=== PATIENT | female | born 1950 | race Caucasian/White ===

== ENCOUNTER 2017-07-13 06:20 | Day surgery (SDC) | payer MEDICARE ==
[2017-07-10 13:38] VITALS: BMI 25.6
[~2017-07-13 06:20] MED LIST: HYDROmorphone 0.5 MG/0.5 ML SYRINGE IVP PRN; LACTATED RINGERS 1,000 ML IV SCH; MIDAZOLAM 2 MG/2 ML VIAL IV PRN; ONDANSETRON 4 MG/2 ML VIAL IVP ONE; Pre Op ABX Message 1 EACH MISC MISCELLANE ONE
[2017-07-13 06:51] VITALS: TEMP 98.2
[2017-07-13] MEDS ORDERED: LIDOCAINE 1% 20 ML VIAL (10MG/ML) FOR IV START INTRADERMA ONE (07:08)
[2017-07-13] MEDS ORDERED: DEXAMETHASONE SOD PHOSPHATE 10 MG/ML 1 ML VIAL IV ONE (07:08)
[2017-07-13] MEDS ORDERED: HEPARIN SODIUM,PORCINE 5,000 UNIT/ML 1 ML VIAL SQ ONE (07:40)
[2017-07-13] MEDS ORDERED: MIDAZOLAM 2 MG/2 ML VIAL ONE (07:45)
[2017-07-13] MEDS ORDERED: fentaNYL (PF) 50 MCG/ML 2 ML AMP ONE (07:45)
[2017-07-13] MEDS ORDERED: PROPOFOL 10 MG/ML 20 ML VIAL IV ONE (07:45)
[2017-07-13] MEDS ORDERED: HEPARIN SODIUM,PORCINE 100 UNIT/ML 5 ML VIAL IV ONE (08:09)
[2017-07-13] MEDS ORDERED: LIDOCAINE (PF) 10 MG/ML 2 ML VIAL SQ ONE (08:10)
[2017-07-13] MEDS ORDERED: SODIUM CHLORIDE 0.9% 0 ML with ceFAZolin 2,000 MG IV ONE ×2 (08:20)
--- NOTE | 2017-07-13 08:52 | FL ---
EXAMINATION TYPE: FL guided central line placemt HISTORY: Fluoroscopy time Impression: 1. Fluoroscopy support provided to the referring physician. 13 seconds of fluoroscopy time provided.
[2017-07-13] MEDS ORDERED: NALOXONE 0.4 MG/ML 1 ML VIAL IV PRN (09:00)
[2017-07-13] MEDS ORDERED: HYDROcodone/APAP 5-325MG 1 EACH TAB PO PRN (09:00)
--- NOTE | 2017-07-13 09:15 | P.PCN ---
Date of Procedure: 07/13/17 Procedure(s) Performed: PREOPERATIVE DIAGNOSIS: Colon cancer POSTOPERATIVE DIAGNOSIS: Same PROCEDURE: Port-A-Cath placement SURGEON: Ade EBL: Minimal ANESTHESIA: Sedation COMPLICATIONS: None OPERATIVE PROCEDURE: Patient was brought and placed on the operative table in the supine position. The patient was sedated per anesthesia that time. The chest and neck were prepped and draped in usual sterile fashion. The ultrasound probe was used to identify the location of the right internal jugular vein. The skin was localized with lidocaine. The Seldinger needle was advanced into the IJ under ultrasound guidance. The wire was advanced through the needle under fluoroscopic guidance into the superior vena cava. A port pocket was created in the right infraclavicular location. The catheter was tunneled from the wire entrance site to the port pocket. The port was then connected to the catheter. The dilator introducer was threaded over the guidewire. The guidewire and dilator were then removed. The catheter was advanced through the introducer and introducer was then removed. The tip was seen to be in the right atrial junction. Port was flushed with both saline and a Hep-Lock solution. There was good flow both in and out of the port. The port was sutured in underlying tissues using 3-0 silk sutures. The subcutaneous tissues were reapproximated using 3-0 Vicryl sutures and the skin at both locations using 4-0 Monocryl sutures. Steri-Strips and sterile dressings then applied. DISPOSITION: Stable to recovery room
--- NOTE | 2017-07-13 09:20 | XR ---
EXAMINATION TYPE: XR chest 1V confirm line [facility] DATE OF EXAM: 07/13/2017 COMPARISON: NONE HISTORY: Postop TECHNIQUE: Single frontal view of the chest is obtained. FINDINGS: Mediport catheter noted. Hyperinflation suggests COPD. Atherosclerotic change aorta. No ov ert failure. No pleural effusion or pneumothorax. IMPRESSION: Mediport catheter appears in good position with no sizable pneumothorax.
[2017-07-13 09:29] VITALS: BP 104/62; PULSE 74; RESP 18
[2017-07-13] MEDS ORDERED: HYDROcodone/APAP 5-325MG 1 EACH TAB PO ONE (09:41)
== END 2017-07-13 10:20 | disposition home or self-care (01) ==
LOC: OR 06:20
PROVIDERS: ATTEND Surgery
DX: C18.9 Malignant neoplasm of colon, unspecified (principal); Z88.5 Allergy status to narcotic agent; Z79.891 Long term (current) use of opiate analgesic; Z79.82 Long term (current) use of aspirin; Z79.899 Other long term (current) drug therapy; Z86.73 Personal history of transient ischemic attack (TIA), and cerebral infarction without residual deficits; Z87.891 Personal history of nicotine dependence
CPT/HCPCS: 36561; 77001; C1788; J2250; J2001; J1644; J1642; J1100; J2405; J3010; J0690; J2704

== ENCOUNTER → 2018-01-31 | Outpatient (CLI) | payer MEDICARE ==
[~2018-01-31] MED LIST changes: -HYDROmorphone 0.5 MG/0.5 ML SYRINGE IVP PRN; -LACTATED RINGERS 1,000 ML IV SCH; -MIDAZOLAM 2 MG/2 ML VIAL IV PRN; -ONDANSETRON 4 MG/2 ML VIAL IVP ONE; -Pre Op ABX Message 1 EACH MISC MISCELLANE ONE; +SODIUM CHLORIDE 0.9% 500 ML in EMPTY BAG 1 BAG IV PRN
[2018-01-31 14:08] VITALS: BP 127/86; PULSE 86; RESP 16; TEMP 98
== END | disposition home or self-care (01) ==
LOC: PROCWHC3 13:46
PROVIDERS: ATTEND Internal Medicine Hematology & Oncology
DX: C18.2 Malignant neoplasm of ascending colon (principal)
CPT/HCPCS: 96523; J1642

== ENCOUNTER → 2018-03-28 | Outpatient (CLI) | payer MEDICARE ==
[2018-03-28 10:15] VITALS: BP 120/72; PULSE 87; RESP 16; TEMP 97.6
== END | disposition home or self-care (01) ==
LOC: PROCWHC3 09:38
PROVIDERS: ATTEND Internal Medicine Hematology & Oncology
DX: C18.2 Malignant neoplasm of ascending colon (principal)
CPT/HCPCS: 96523

== ENCOUNTER → 2018-05-23 | Outpatient (CLI) | payer MEDICARE ==
[2018-05-23 14:22] LABS: Blood Urea Nitrogen 11 mg/dL (7-17)
--- NOTE | 2018-05-23 16:30 | CT ---
EXAMINATION TYPE: CT abdomen pelvis w con DATE OF EXAM: 05/23/2018 COMPARISON: 11/18/2014 HISTORY: colon ca CT DLP: 1082 mGycm CONTRAST: CT scan of the abdomen and pelvis is performed with Oral Contrast and with IV Contrast, patient injec emily with 100mL mL of Isovue 300. FINDINGS: LUNG BASES-: No visible nodule. No infiltrate. LIVER/GB: Fatty hepatic infiltration noted. Cholelithiasis. No space occupying hepatic lesion. Bilia ry tree is of normal caliber. PANCREAS: No inflammation. No distinct mass. SPLEEN: No splenic enlargement. No lesion seen. ADRENALS: No nodule. Adrenal glandular thickening with more nodular component seen on the right. Nod ule on the right measures approximately 1.7 cm. Metastatic disease is difficult to exclude. KIDNEYS/B LADDER: No hydronephrosis. No nephrolithiasis. No distinct renal mass. Urinary bladder grossly un remarkable. BOWEL: Partial right-sided hemicolectomy. No recurrent mass seen with certainty. Normal bowel calibe r. No inflammation. Moderate fixed hiatal hernia. GENITAL ORGANS: No gross abnormality. LYMPH NODES: Periportal adenopathy measuring 2.3 cm and 2.5 cm with additional smaller lymph nodes se en. There is evidence of para-aortic adenopathy. Left para-aortic lymph node mass measures 2.7 cm whi le on the right 2.8 cm. Adenopathy extends bilaterally through the aortic bifurcation. Internal iliac chain adenopathy is also noted bilaterally. No evidence for inguinal adenopathy. Mesenteric lymph no de mass measuring 5.5 x 2.4 cm. AORTA: No significant abnormality. OSSEOUS STRUCTURES: No significant abnormality is seen. OTHER: No significant additional abnormality is seen. IMPRESSION: 1. New adenopathy within the retroperitoneum, small bowel mesentery and periportal regions may reflec t lymphoma. Adenopathy of other etiology is difficult to exclude. 2. No evidence for tumor recurrence within the colon. 3. Adrenal glandular thickening and nodularity on the right. Metastatic disease is not excluded. 4. Cholelithiasis.
--- NOTE | 2018-05-23 22:02 | CT ---
EXAMINATION TYPE: CT lumbar spine w con DATE OF EXAM: 05/23/2018 COMPARISON: None HISTORY: colon ca with back pain. CT DLP: 1082 mGycm Automated exposure control for dose reduction was used. CONTRAST: CT scan of the lumbar is performed with IV Contrast, patient injected with 100mL mL of Isovue 300. Enhanced CT of the lumbar spine was performed. Bone and soft tissue window settings are submitted as well as coronal and sagittal reconstructions. Please refer to same day CT abdomen and pelvis report for complete details on the structures outside the lumbar spine including confluent retroperitoneal adenopathy surrounding the aorta into the iliac bifurcation. There are 5 lumbar-type vertebra identified. There is slight levoconvex scoliotic curvat ure centered at L3 level. Vertebral body heights and disc space heights are fairly well maintained. N o significant spurring is present. No large posterior disc herniations are present on sagittal images . No suspicious osseous enhancement. Review of axial images shows mild broad disc bulge and mild facet degenerative changes with ligamentu m flavum hypertrophy at L4-L5 level. There is mild effacement of the anterior and posterior lateral t hecal sac. Bilateral neuroforamina are patent. Axial images at L5-S1 level show mild to moderate facet degenerative changes bilaterally. Spinal ever l is preserved. Bilateral neural foramina are patent. IMPRESSION: Mild degenerative changes lower lumbar spine.
== END | disposition home or self-care (01) ==
LOC: RADPROMAIN 13:22
PROVIDERS: ATTEND Internal Medicine Hematology & Oncology
DX: C18.2 Malignant neoplasm of ascending colon (principal); K80.20 Calculus of gallbladder without cholecystitis without obstruction; E27.8 Other specified disorders of adrenal gland; M47.816 Spondylosis without myelopathy or radiculopathy, lumbar region
CPT/HCPCS: 82565; 84520; 72132; 74177; 36415; Q9967

== ENCOUNTER 2018-06-01 11:13 | Inpatient (IN) | payer MEDICARE ==
[2018-06-01] MEDS ORDERED: KETOROLAC 30 MG/ML 1 ML VIAL IVP STA (12:06)
[2018-06-01] MEDS ORDERED: ONDANSETRON 4 MG/2 ML VIAL IVP STA (12:06)
[2018-06-01] MEDS ORDERED: HYDROmorphone 0.5 MG/0.5 ML SYRINGE IVP STA (12:06)
[2018-06-01] MEDS ORDERED: SODIUM CHLORIDE 0.9% 1,000 ML IV STA (12:06)
--- NOTE | 2018-06-01 12:10 | ED ---
General Adult HPI - General Chief complaint: Abdominal Pain Stated complaint: pain control Time Seen by Provider: 06/01/18 11:35 Source: patient, RN notes reviewed Mode of arrival: ambulatory Limitations: no limitations - History of Present Illness Initial comments: This is a 68-year-old female presents emergency Department complaining of chronic back and abdominal pain. Patient states she's had colon cancer and had surgery by Dr. earl the past. Patient has had recent CAT scans that showed lymph nodes around the spine in the lower abdomen and she is supposed to have those biopsied on Sunday at [facility]. Patient states the pain is same as it has been for a few months but is getting worse. Patient had a fentanyl patch added to the [place] tends every 4 hours and she is still unable to get up and move around because the pain is so intense. Patient states she palpates her abdomen and cannot feel a specific area of abdominal pain but it hurts deep inside. Patient states she sometimes nauseous but not currently. Patient states she sometimes has diarrhea because of all the stool softener she is on. Patient denies any fever or chills. Patient denies a cough patient denies any difficulty breathing chest pain. Patient denies any lightheadedness or dizziness. - Related Data Home Medications Medication Instructions Recorded Confirmed Acetaminophen [Tylenol] 325 - 650 mg PO Q4H PRN 07/10/17 03/28/18 Multivitamins, Thera [Multivitamin 1 dose PO DAILY 07/10/17 03/28/18 (formulary)] Allergies Allergy/AdvReac Type Severity Reaction Status Date / Time tramadol HCl [From Ultram] Allergy Severe PARALYZED Verified 06/01/18 11:37 FOR HOURS, UNABLE TO MOVE" Review of Systems ROS Statement: Those systems with pertinent positive or pertinent negative responses have been documented in the HPI. ROS Other: All systems not noted in ROS Statement are negative. Past Medical History Past Medical History: CVA/TIA, Deep Vein Thrombosis (DVT), Hyperlipidemia, Osteoarthritis (OA) Additional Past Medical History / Comment(s): OSTEOPOROSIS, "SMALL BRAIN BLEEDS "-NO RESIDUAL EFFECTS,HX OF DVT YEARS AGO AFTER TAKING CONTROL PILLS History of Any Multi-Drug Resistant Organisms: None Reported Past Surgical History: Bladder Surgery, Hysterectomy, Tonsillectomy Additional Past Surgical History / Comment(s): bladder suspension, colon cancer Past Anesthesia/Blood Transfusion Reactions: No Reported Reaction, Motion Sickness Past Psychological History: No Psychological Hx Reported Smoking Status: Former smoker Past Alcohol Use History: None Reported Past Drug Use History: None Reported - Past Family History Mother Family Medical History: Cancer Additional Family Medical History / Comment(s): BREAST Father Family Medical History: Cancer Additional Family Medical History / Comment(s): PANCREATIC Sister(s) Family Medical History: Cancer Additional Family Medical History / Comment(s): BREAST General Exam - General Exam Comments Initial Comments: GENERAL: Patient is well-developed and well-nourished. Patient is nontoxic and well- hydrated and is in moderate distress. ENT: Neck is soft and supple. No significant lymphadenopathy is noted. Oropharynx is clear. Moist mucous membranes. Neck has full range of motion without eliciting any pain. EYES: The sclera were anicteric and conjunctiva were pink and moist. Extraocular movements were intact and pupils were equal round and reactive to light. Eyelids were unremarkable. PULMONARY: Unlabored respirations. Good breath sounds bilaterally. No audible rales rhonchi or wheezing was noted. CARDIOVASCULAR: There is a regular rate and rhythm without any murmurs gallops or rubs. ABDOMEN: Soft and nontender with normal bowel sounds. No palpable organomegaly was noted. There is no palpable pulsatile mass. SKIN: Skin is clear with no lesions or rashes and otherwise unremarkable. NEUROLOGIC: Patient is alert and oriented x3. Cranial nerves II through XII are grossly intact. Motor and sensory are also intact. Normal speech, volume and content. Symmetrical smile. MUSCULOSKELETAL: Normal extremities with adequate strength and full range of motion. No lower extremity swelling or edema. No calf tenderness. LYMPHATICS: No significant lymphadenopathy is noted PSYCHIATRIC: Normal psychiatric evaluation. Normal interpersonal interactions appears functionally intact in deals appropriately with others. Limitations: no limitations Course Vital Signs 06/01/18 06/01/18 11:35 13:42 Temperature 98.4 F Pulse Rate 90 79 Respiratory 18 16 Rate Blood Pressure 117/76 120/58 O2 Sat by Pulse 96 99 Oximetry Medical Decision Making - Medical Decision Making KUB shows no acute abnormality. Patient's pain was initially relieved with Toradol and 0.5 Dilaudid so I repeated a 1 mg dose of Dilaudid. I spoke with Dr. Lyons he agreed to admit the patient admitted the patient. I consult to Dr. Tejada - Lab Data Result diagrams: 06/01/18 12:36 06/01/18 12:36 Lab Results 06/01/18 06/01/18 06/01/18 Range/Units 12:36 12:36 12:36 WBC 5.0 (3.8-10.6) k/uL RBC 5.08 (3.80-5.40) m/uL Hgb 14.4 (11.4-16.0) gm/dL Hct 43.9 (34.0-46.0) % MCV 86.4 (80.0-100.0) fL MCH 28.3 (25.0-35.0) pg MCHC 32.7 (31.0-37.0) g/dL RDW 14.4 (11.5-15.5) % Plt Count 216 (150-450) k/uL Neutrophils % 63 % Lymphocytes % 22 % Monocytes % 7 % Eosinophils % 6 % Basophils % 1 % Neutrophils # 3.1 (1.3-7.7) k/uL Lymphocytes # 1.1 (1.0-4.8) k/uL Monocytes # 0.4 (0-1.0) k/uL Eosinophils # 0.3 (0-0.7) k/uL Basophils # 0.1 (0-0.2) k/uL Sodium 139 (137-145) mmol/L Potassium 3.6 (3.5-5.1) mmol/L Chloride 102 (98-107) mmol/L Carbon Dioxide 22 (22-30) mmol/L Anion Gap 15 mmol/L BUN 9 (7-17) mg/dL Creatinine 0.47 L (0.52-1.04) mg/dL Est GFR (CKD-EPI)AfAm >90 (>60 ml/min/1.73 sqM) Est GFR (CKD-EPI)NonAf >90 (>60 ml/min/1.73 sqM) Glucose 123 H (74-99) mg/dL Calcium 10.3 H (8.4-10.2) mg/dL Total Bilirubin 0.7 (0.2-1.3) mg/dL AST 29 (14-36) U/L ALT 33 (9-52) U/L Alkaline Phosphatase 175 H (38-126) U/L Total Protein 7.8 (6.3-8.2) g/dL Albumin 4.3 (3.5-5.0) g/dL Amylase 38 (30-110) U/L Lipase 60 (23-300) U/L Urine Color Yellow Urine Appearance Cloudy H (Clear) Urine pH 6.0 (5.0-8.0) Ur Specific [place] 1.027 (1.001-1.035) Urine Protein 1+ H (Negative) Urine Glucose (UA) Negative (Negative) Urine Ketones 4+ H (Negative) Urine Blood Negative (Negative) Urine Nitrite Negative (Negative) Urine Bilirubin 1+ H (Negative) Urine Urobilinogen 3.0 (<2.0) mg/dL Ur Leukocyte Esterase Trace H (Negative) Urine RBC 2 (0-5) /hpf Urine WBC 7 H (0-5) /hpf Ur Squamous Epith Cells 1 (0-4) /hpf Calcium Oxalate Crystal Occasional H (None) /hpf Urine Bacteria Rare H (None) /hpf Hyaline Casts 11 H (0-2) /lpf Urine Mucus Few H (None) /hpf Disposition Clinical Impression: History of colon cancer, Chronic abdominal pain Disposition: ADMITTED IP TO THIS HOSP Instructions: Abdominal Pain (ED) Referrals: Radha Velasquez MD [Primary Care Provider] - 1-2 days Time of Disposition: 13:51
[2018-06-01 12:48] LABS: Basophils # (A) 0.1 k/uL (0-0.2); Basophils % (A) 1 %; Eosinophils # (A) 0.3 k/uL (0-0.7); Eosinophils % (A) 6 %; HCT 43.9 % (34.0-46.0); HGB 14.4 gm/dL (11.4-16.0); Lymphocytes # (A) 1.1 k/uL (1.0-4.8); Lymphocytes % (A) 22 %; MCH 28.3 pg (25.0-35.0); MCHC 32.7 g/dL (31.0-37.0); MCV 86.4 fL (80.0-100.0); Mean Platelet Volume 8.5; Monocytes # (A) 0.4 k/uL (0-1.0); Monocytes % (A) 7 %; Neutrophils # (A) 3.1 k/uL (1.3-7.7); Neutrophils % (A) 63 %; Platelet Count 216 k/uL (150-450); RBC 5.08 m/uL (3.80-5.40); RDW 14.4 % (11.5-15.5)
[2018-06-01 12:53] LABS: Appearance,Urine Cloudy (Clear); Bacteria,Urine Rare /hpf; Bilirubin,Urine 1+ (Negative); Blood,Urine Negative (Negative); Calcium Oxalate Crystals,Urine Occasional /hpf; Color,Urine Yellow; Glucose,Urine (UA) Negative (Negative); Hyaline Casts,Urine 11 /lpf (0-2); Ketones,Urine 4+ (Negative); Leukocyte Esterase,Urine Trace (Negative); Mucus,Urine Few /hpf; Nitrite,Urine Negative (Negative); Protein,Urine 1+ (Negative); RBC,Urine 2 /hpf (0-5); Specific Gravity,Urine 1.027 (1.001-1.035); Squamous Epithelial Cell,Urine 1 /hpf (0-4); WBC,Urine 7 /hpf (0-5)
[2018-06-01 13:00] LABS: ALT 33 U/L (9-52); AST 29 U/L (14-36); Albumin 4.3 g/dL (3.5-5.0); Alkaline Phosphatase 175 U/L (38-126); Amylase 38 U/L (30-110); Anion Gap 15 mmol/L; Blood Urea Nitrogen 9 mg/dL (7-17); Calcium 10.3 mg/dL (8.4-10.2); Carbon Dioxide 22 mmol/L (22-30); Chloride 102 mmol/L (98-107); Glucose 123 mg/dL (74-99); Lipase 60 U/L (23-300); Potassium 3.6 mmol/L (3.5-5.1); Sodium 139 mmol/L (137-145); Total Bilirubin 0.7 mg/dL (0.2-1.3); Total Protein 7.8 g/dL (6.3-8.2)
--- NOTE | 2018-06-01 13:10 | XR ---
EXAMINATION TYPE: XR KUB , 3 VIEWS DATE OF EXAM ORDERED: 06/01/2018 HISTORY: abdominal pain. COMPARISON: None. FINDINGS: Lung bases are clear. Within the abdomen, there is contrast within the colon from a previous CT scan of the abdomen and pel vis dated 05/23/2018. The abdominal gas pattern is normal. There is no evidence of obstruction or free air. No unusual calcifications are seen. IMPRESSION: NO ACUTE ABDOMINAL ABNORMALITY.
[2018-06-01] MEDS ORDERED: HYDROmorphone 1 MG/ML 1 ML SYRINGE IVP STA (13:36)
[2018-06-01] MEDS ORDERED: SODIUM CHLORIDE 0.9% 1,000 ML IV ONE (13:51)
[2018-06-01] MEDS ORDERED: HYDROmorphone 1 MG/ML 1 ML SYRINGE IVP PRN (14:02)
[2018-06-01 15:44] VITALS: BMI 23.8
[2018-06-01] MEDS ORDERED: HYDROcodone/APAP 10-325MG 1 EACH TAB PO PRN (16:46)
[2018-06-01] MEDS: HYDROmorphone 1 MG/ML 1 ML SYRINGE IVP PRN ×2 (17:24→21:04)
[2018-06-01] MEDS: MELATONIN 5 MG TABLET PO SCH (21:07)
[2018-06-01] MEDS: SENNOSIDES-DOCUSATE SODIUM 1 EACH TAB PO SCH (21:07)
[2018-06-02] MEDS: HYDROmorphone 1 MG/ML 1 ML SYRINGE IVP PRN ×8 (00:33→22:46)
[2018-06-02] MEDS: POLYETHYLENE GLYCOL 3350 17 GM POWD.PACK PO SCH (07:55)
[2018-06-02] MEDS ORDERED: HYDROcodone/APAP 10-325MG 1 EACH TAB PO PRN (15:25)
--- NOTE | 2018-06-02 16:27 | P.HPIM ---
History of Present Illness H&P Date: 06/02/18 Mable Gross is a 68-year-old female who presented to [facility] emergency department complaining of chronic back and abdominal pain. Patient states she has colon cancer and had surgery by Dr. earl the past. Patient has had recent CAT scans that showed lymph nodes around the spine in the lower abdomen and she is supposed to have those biopsied on Sunday at [facility]. Patient states the pain is same as it has been for a few months but is getting worse. Patient had a fentanyl patch 25 g added to the [place] tends every 4 hours and she is still unable to get up and move around because the pain is so intense. She was admitted to medical floor for management of intractable pain. Oncology consultation was requested. Past Medical History Past Medical History: Cancer, CVA/TIA, Deep Vein Thrombosis (DVT), Osteoarthritis (OA) Additional Past Medical History / Comment(s): OSTEOPOROSIS, "SMALL BRAIN BLEEDS "-NO RESIDUAL EFFECTS,HX OF DVT YEARS AGO AFTER TAKING CONTROL PILLS History of Any Multi-Drug Resistant Organisms: None Reported Past Surgical History: Bladder Surgery, Hysterectomy, Tonsillectomy Additional Past Surgical History / Comment(s): bladder suspension, colon cancer Past Anesthesia/Blood Transfusion Reactions: No Reported Reaction, Motion Sickness Past Psychological History: No Psychological Hx Reported Smoking Status: Former smoker Past Alcohol Use History: None Reported Past Drug Use History: None Reported Additional Drug Use History / Comment(s): SMOKED OFF & ON , DID NOT SMOKE DURING 5 PREGNANCIES AND 9 YRS OF . - Past Family History Mother Family Medical History: Cancer Additional Family Medical History / Comment(s): BREAST Father Family Medical History: Cancer Additional Family Medical History / Comment(s): PANCREATIC Sister(s) Family Medical History: Cancer Additional Family Medical History / Comment(s): BREAST Medications and Allergies Home Medications Medication Instructions Recorded Confirmed Type HYDROcodone/APAP 10-325MG [[place] 1 tab PO Q4HR PRN 06/01/18 06/01/18 History 10-325] Melatonin 10 mg PO HS 06/01/18 06/01/18 History Polyethylene Glycol 3350 [Miralax] 17 gm PO DAILY 06/01/18 06/01/18 History Sennosides-Docusate Sodium 2 tab PO HS 06/01/18 06/01/18 History [Senokot-S] fentaNYL 25MCG/HR PATCH [Duragesic 1 patch TRANSDERM Q72H 06/01/18 06/01/18 History 25MCG/HR] Allergies Allergy/AdvReac Type Severity Reaction Status Date / Time tramadol HCl [From Ultram] Allergy Severe PARALYZED Verified 06/01/18 13:57 FOR HOURS, UNABLE TO MOVE" Physical Exam Vitals: Vital Signs Temp Pulse Resp BP Pulse Ox 06/02/18 14:30 97.9 F 79 16 106/58 98 06/02/18 07:00 97.6 F 80 16 111/59 98 06/01/18 23:00 96.5 F L 82 16 112/60 97 Intake and Output 06/02/18 06/02/18 06/02/18 06:59 14:59 22:59 Intake Total 600 1200 Balance 600 1200 Intake: Intake, IV Titration 600 600 Amount Sodium Chloride 0.9% 1, 600 600 000 ml @ 75 mls/hr IV . [id number] ONE Rx#:[id number] Oral 600 Other: Voiding Method Toilet Toilet # Voids 1 2 In general patient is alert and oriented 3 in no apparent distress HEENT head normocephalic and atraumatic Neck is supple no JVD no goiter no lymphadenopathy Chest exam reveals a few scattered crackles no wheezing Cardiac exam reveals regular heart sounds no gallops no murmurs Abdomen is soft with mild diffuse tenderness no organomegaly no palpable masses was normal bowel sounds Extremity exam reveals no edema no cyanosis or clubbing Results CBC & Chem 7: 06/01/18 12:36 06/01/18 12:36 Thrombosis Risk Factor Assmnt - Choose All That Apply Any of the Below Risk Factors Present?: No Each Risk Factor Represents 2 Points: Age 61-74 years Other congenital or acquired thrombophilia - If yes, enter type in comment: No Thrombosis Risk Factor Assessment Total Risk Factor Score: 2 Thrombosis Risk Factor Assessment Level: Low Risk Assessment and Plan Plan: #1 intractable abdominal and back pain, with failure to control pain as outpatient on oral pain medication and fentanyl patch #2 previous history of colon cancer was partial colectomy #3 enlarged abdominal lymph nodes, patient is scheduled to have a biopsy at [facility] on Sunday #4 previous history of DVT #5 underlying history of osteoporosis At this time patient is admitted to medical floor oncology consultation was requested Patient was started on IV dialogued of every 3 hours Dose of fentanyl patch was increased to 50 g daily Will follow during this admission for medical management
[2018-06-02] MEDS: MELATONIN 5 MG TABLET PO SCH (20:33)
[2018-06-02] MEDS: SENNOSIDES-DOCUSATE SODIUM 1 EACH TAB PO SCH (20:34)
--- NOTE | 2018-06-02 23:46 | P.CONS ---
History of Present Illness - Reason for Consult Consult date: 06/02/18 Intractable abdominal and back pain. Colon cancer - History of Present Illness The patient is a 68-year-old white female, well known to myself. She was diagnosed with colon cancer, in 06/24, with staging workup including PET scan indicating stage IV disease. The patient was treated with FOLFOX, with a good response. However her tolerance was comparatively poor requiring periodic dose modifications and dose delays. We were was not able to complete the planned 12 cycles. The patient was placed on observation after chemotherapy. At her 3 month follow-up, CT scans indicated disease progression with increasing lymphadenopathy in the retroperitoneal area. CEA level was also elevated. The patient was very reluctant to have additional chemotherapy. Despite the clinical situation (decreased appetite, increasing pain and increasing adenopathy on computed tomography scan) the patient stated that she was skeptical as to whether this was cancer or not as well as whether this was colon cancer or some other primary. Based on her wishes, it was decided to proceed with a biopsy. This is scheduled at [facility] on 06/07/18. In the meantime the patient has been having increased upper abdominal and midback pain. She had been on [place] which was not effective. Fentanyl patch was added about 2 weeks ago. However the patient states that the pain was not controlled and has continued to progress. Associated symptoms include some nausea, as well as decreased appetite and progressive weight loss of about 20+ pounds in the past 6 weeks. She therefore came into the hospital and was admitted for further management Review of Systems Constitutional: Reports chronic pain, Reports fatigue, Reports poor appetite, Reports weight loss Eyes: denies blurred vision, denies pain Ears: deny: decreased hearing, ear discharge, earache, tinnitus Ears, nose, mouth and throat: Denies headache, Denies sore throat Cardiovascular: Reports decreased exercise tolerance Respiratory: Denies cough Gastrointestinal: Reports abdominal pain, Reports loss of appetite Genitourinary: Denies dysuria, Denies hematuria Menstruation: Reports postmenopausal Musculoskeletal: Reports low back pain, Reports muscle weakness Integumentary: Denies pruritus, Denies rash Neurological: Reports weakness, Denies numbness Psychiatric: Reports anxiety Endocrine: Reports fatigue, Reports weight change Hematologic/Lymphatic: Reports as per HPI Past Medical History Past Medical History: Cancer, CVA/TIA, Deep Vein Thrombosis (DVT), Osteoarthritis (OA) Additional Past Medical History / Comment(s): OSTEOPOROSIS, "SMALL BRAIN BLEEDS "-NO RESIDUAL EFFECTS,HX OF DVT YEARS AGO AFTER TAKING CONTROL PILLS History of Any Multi-Drug Resistant Organisms: None Reported Past Surgical History: Bladder Surgery, Hysterectomy, Tonsillectomy Additional Past Surgical History / Comment(s): bladder suspension, colon cancer Past Anesthesia/Blood Transfusion Reactions: No Reported Reaction, Motion Sickness Past Psychological History: No Psychological Hx Reported Smoking Status: Former smoker Past Alcohol Use History: None Reported Past Drug Use History: None Reported Additional Drug Use History / Comment(s): SMOKED OFF & ON , DID NOT SMOKE DURING 5 PREGNANCIES AND 9 YRS OF . - Past Family History Mother Family Medical History: Cancer Additional Family Medical History / Comment(s): BREAST Father Family Medical History: Cancer Additional Family Medical History / Comment(s): PANCREATIC Sister(s) Family Medical History: Cancer Additional Family Medical History / Comment(s): BREAST Medications and Allergies Home Medications Medication Instructions Recorded Confirmed Type HYDROcodone/APAP 10-325MG [[place] 1 tab PO Q4HR PRN 06/01/18 06/01/18 History 10-325] Melatonin 10 mg PO HS 06/01/18 06/01/18 History Polyethylene Glycol 3350 [Miralax] 17 gm PO DAILY 06/01/18 06/01/18 History Sennosides-Docusate Sodium 2 tab PO HS 06/01/18 06/01/18 History [Senokot-S] fentaNYL 25MCG/HR PATCH [Duragesic 1 patch TRANSDERM Q72H 06/01/18 06/01/18 History 25MCG/HR] Allergies Allergy/AdvReac Type Severity Reaction Status Date / Time tramadol HCl [From Ultra] Allergy Severe PARALYZED Verified 06/01/18 13:57 FOR HOURS, UNABLE TO MOVE" Physical Exam Vitals: Vital Signs Temp Pulse Pulse Resp BP BP Pulse Ox 06/02/18 07:00 97.6 F 80 16 111/59 98 06/01/18 23:00 96.5 F L 82 16 112/60 97 06/01/18 14:31 97.4 F L 72 18 110/55 99 06/01/18 13:42 79 16 120/58 99 Intake and Output 06/01/18 06/02/18 06/02/18 22:59 06:59 14:59 Intake Total 815 600 Balance 815 600 Intake: Intake, IV Titration 225 600 Amount Sodium Chloride 0.9% 1, 225 600 000 ml @ 75 mls/hr IV . [id number] ONE Rx#:[id number] Oral 590 Other: Voiding Method Toilet Toilet # Voids 2 1 - Constitutional General appearance: no acute distress - EENT Eyes: EOMI, PERRLA ENT: hearing grossly normal, normal oropharynx - Neck Neck: no lymphadenopathy Thyroid: bilateral: normal size - Respiratory Respiratory: bilateral: CTA - Cardiovascular Rhythm: regular Heart sounds: normal: S1, S2 - Gastrointestinal General gastrointestinal: normal bowel sounds, soft - Integumentary Integumentary: normal - Neurologic Neurologic: CNII-XII intact - Musculoskeletal Musculoskeletal: generalized weakness, strength equal bilaterally - Psychiatric Psychiatric: A&O x's 3, appropriate affect Results CBC & Chem 7: 06/01/18 12:36 06/01/18 12:36 Labs: Abnormal Lab Results - Last 24 Hours (Table) 06/01/18 06/01/18 Range/Units 12:36 12:36 Creatinine 0.47 L (0.52-1.04) mg/dL Glucose 123 H (74-99) mg/dL Calcium 10.3 H (8.4-10.2) mg/dL Alkaline Phosphatase 175 H (38-126) U/L Urine Ketones 4+ H (Negative) Comments: CT spine report reviewed CT scan - abdomen: report reviewed CT scan - pelvis: report reviewed Assessment and Plan (1) Chronic abdominal pain Narrative/Plan: This has become progressively more intractable with associated symptoms as noted, leading to this admission. Based on her clinical presentation, this is felt to be related to progression of cancer. The patient has not had a good response with fentanyl and [place] at home. She is currently on IV Dilaudid for breakthrough pain. Fentanyl dose will be increased. I will also consult the pain service to see if she could be a candidate for a celiac plexus block. - Stop [place] as this has not been effective as an outpt. - If pt responds to IV Dilaudid, liquid morphine can be utilised for breakthrough pain. Current Visit: Yes Status: Acute Code(s): R10.9 - UNSPECIFIED ABDOMINAL PAIN ; G89.29 - OTHER CHRONIC PAIN SNOMED Code(s): 868714947 (2) History of colon cancer Narrative/Plan: The patient's clinical presentation is most suggestive of progression of her known colon cancer. However the patient and her family have requested a tissue diagnosis for confirmation. Despite detailed discussions of the implications of her clinical presentation, they're stating that they are "hoping it is not cancer" ! She had a computed tomography scan on 05/23/18 which was not compared to her previous scan done a few weeks prior at an outside hospital. Though I do not have access to that report presently, based on my recollection, the most recent scan indicated further progression. I discussed with the patient and her daughter about possibly having a biopsy locally if the current findings are more accessible. However they have decided to have it at [facility] as scheduled on 06/07/18 - Repeat CEA Current Visit: Yes Status: Acute Code(s): Z85.038 - PERSONAL HISTORY OF MALIGNANT NEOPLASM OF LARGE INTESTINE SNOMED Code(s): 849303267
[2018-06-03] MEDS: HYDROmorphone 1 MG/ML 1 ML SYRINGE IVP PRN ×6 (03:27→20:09)
[2018-06-03 07:08] LABS: Basophils # (A) 0.1 k/uL (0-0.2); Basophils % (A) 1 %; Eosinophils # (A) 0.2 k/uL (0-0.7); Eosinophils % (A) 5 %; HCT 39.4 % (34.0-46.0); HGB 12.1 gm/dL (11.4-16.0); Hypochromasia Slight; Lymphocytes # (A) 0.9 k/uL (1.0-4.8); Lymphocytes % (A) 22 %; MCH 27.6 pg (25.0-35.0); MCHC 30.7 g/dL (31.0-37.0); MCV 90.1 fL (80.0-100.0); Mean Platelet Volume 7.5; Monocytes # (A) 0.3 k/uL (0-1.0); Monocytes % (A) 8 %; Neutrophils # (A) 2.5 k/uL (1.3-7.7); Neutrophils % (A) 63 %; Platelet Count 183 k/uL (150-450); RBC 4.37 m/uL (3.80-5.40); RDW 14.4 % (11.5-15.5)
[2018-06-03 07:13] LABS: ALT 35 U/L (9-52); AST 30 U/L (14-36); Albumin 3.5 g/dL (3.5-5.0); Alkaline Phosphatase 148 U/L (38-126); Anion Gap 9 mmol/L; Blood Urea Nitrogen 5 mg/dL (7-17); Calcium 9.4 mg/dL (8.4-10.2); Carbon Dioxide 26 mmol/L (22-30); Chloride 105 mmol/L (98-107); Glucose 103 mg/dL (74-99); Potassium 3.3 mmol/L (3.5-5.1); Sodium 140 mmol/L (137-145); Total Bilirubin 0.5 mg/dL (0.2-1.3); Total Protein 6.5 g/dL (6.3-8.2)
[2018-06-03] MEDS: POLYETHYLENE GLYCOL 3350 17 GM POWD.PACK PO SCH (07:45)
[2018-06-03] MEDS: PANTOPRAZOLE 40 MG TABLET PO SCH (07:45)
[2018-06-03] MEDS ORDERED: Potassium Replacement Protocol 1 EACH MISC MISCELLANE PRN (08:18)
[2018-06-03] MEDS ORDERED: ENOXAPARIN 40 MG/0.4 ML SYRINGE SQ SCH (09:00)
[2018-06-03] MEDS: POTASSIUM CHLORIDE ER 20 MEQ TAB.ER PO SCH ×2 (09:35→10:42)
--- NOTE | 2018-06-03 11:00 | P.PN ---
Subjective Progress Note Date: 06/03/18 Mable Gross is a 68-year-old female who presented to [facility] emergency department complaining of chronic back and abdominal pain. Patient states she has colon cancer and had surgery by Dr. ealr the past. Patient has had recent CAT scans that showed lymph nodes around the spine in the lower abdomen and she is supposed to have those biopsied on Sunday at [facility]. Patient states the pain is same as it has been for a few months but is getting worse. Patient had a fentanyl patch 25 g added to the [place] tends every 4 hours and she is still unable to get up and move around because the pain is so intense. She was admitted to medical floor for management of intractable pain. Oncology consultation was requested. On 06/03/2018 patient is currently resting comfortably in bed. Patient has been receiving Dilaudid IV for pain medication along with an increase in her frontal patch to 50 mcg. Oncology service is currently following. Pain services have been consulting. Awaiting pain services consult. Patient denies chest pain or shortness breath. Denies nausea vomiting nausea or vomiting. Patient does report intermittent abdominal and back pain that is well controlled with the Dilaudid IV pain medication. Patient does patient history of bladder sling procedure. But denies any urinary burning or frequency. Objective - Vital Signs Vital signs: Vital Signs Temp 98.1 F 06/03/18 05:45 Pulse 85 06/03/18 05:45 Resp 16 06/03/18 05:45 BP 106/69 06/03/18 05:45 Pulse Ox 97 06/03/18 05:45 Intake & Output 06/02/18 06/03/18 06/03/18 18:59 06:59 18:59 Intake Total 1200 825 Balance 1200 825 Intake: IV 600 0.9 600 Intake, IV Titration 600 225 Amount Sodium Chloride 0.9% 1, 600 225 000 ml @ 75 mls/hr IV . [id number] ONE Rx#:[id number] Oral 600 Other: Voiding Method Toilet Toilet Toilet # Voids 2 1 - Exam Head normocephalic Neck supple Lungs clear to auscultation bilaterally no wheezing or crackles Heart regular rate and rhythm S1-S2, no rub or gallop Abdomen is soft with mild diffuse tenderness no organomegaly no palpable masses with normal bowel sounds. Extremities no edema Neuro alert and orientated to 3 - Labs CBC & Chem 7: 06/03/18 06:41 06/03/18 06:41 Labs: Abnormal Lab Results - Last 24 Hours (Table) 06/03/18 06/03/18 Range/Units 06:41 06:41 MCHC 30.7 L (31.0-37.0) g/dL Lymphocytes # 0.9 L (1.0-4.8) k/uL Potassium 3.3 L (3.5-5.1) mmol/L BUN 5 L (7-17) mg/dL Creatinine 0.46 L (0.52-1.04) mg/dL Glucose 103 H (74-99) mg/dL Alkaline Phosphatase 148 H (38-126) U/L Assessment and Plan Assessment: #1 intractable abdominal and back pain, with failure to control pain as outpatient on oral pain medication and fentanyl patch. KUB completed in emergency room showing no acute abdominal abnormality. Patient currently on Dilaudid which is adequately controlling pain at this time. Pain services have been consulted. Awaiting consult #2 previous history of colon cancer was partial colectomy #3 enlarged abdominal lymph nodes, patient is scheduled to have a biopsy at [facility] on Sunday. Oncology service is following #4 previous history of DVT #5 underlying history of osteoporosis #6 history of bladder sling procedure. GI prophylaxis Protonix and DVT prophylaxis Lovenox I performed an examination of the patient and discussed their management with the Nurse Practitioner. I have reviewed the Nurse Practitioner's notes and agree with the documented findings and plan of care
--- NOTE | 2018-06-03 14:08 | P.PN ---
Subjective Progress Note Date: 06/03/18 Principal diagnosis: Intractable uncontrolled pain Mable was seen today in follow-up, she states her pain is not greatly improved. The norco is not helping, the dilaudid is. She states she cannot tell any difference with fentanyl, although re-education of the goal of fentanyl patch and decrease in the need for prn pain medication. She is moving her bowels. She states she feels her pain is all a result of a urinary mesh she had placed years ago and the lymph nodes are reacting to this. She is quit adament on wanting to discuss with Urology as she states this was a risk when she had completed back then. She is having a difficult time accepting that this is a probable progressive cancer picture. She is planning on having biopsy at [place] on Sunday, offered her biopsy here although she declined. Objective - Vital Signs Vital signs: Vital Signs Temp 98.1 F 06/03/18 05:45 Pulse 85 06/03/18 05:45 Resp 16 06/03/18 05:45 BP 106/69 06/03/18 05:45 Pulse Ox 97 06/03/18 05:45 Intake & Output 06/02/18 06/03/18 06/03/18 18:59 06:59 18:59 Intake Total 1200 825 Balance 1200 825 Weight 58.967 kg Intake: IV 600 0.9 600 Intake, IV Titration 600 225 Amount Sodium Chloride 0.9% 1, 600 225 000 ml @ 75 mls/hr IV . [id number] ONE Rx#:[id number] Oral 600 Other: Voiding Method Toilet Toilet Toilet # Voids 2 1 - Exam - Constitutional General appearance: no acute distress - EENT Eyes: EOMI, PERRLA ENT: hearing grossly normal, normal oropharynx - Neck Neck: no lymphadenopathy Thyroid: bilateral: normal size - Respiratory Respiratory: bilateral: CTA - Cardiovascular Rhythm: regular Heart sounds: normal: S1, S2 - Gastrointestinal General gastrointestinal: normal bowel sounds, soft - Integumentary Integumentary: normal - Neurologic Neurologic: CNII-XII intact - Musculoskeletal Musculoskeletal: generalized weakness, strength equal bilaterally - Psychiatric Psychiatric: A&O x's 3, appropriate affect - Labs CBC & Chem 7: 06/03/18 06:41 06/03/18 06:41 Labs: Abnormal Lab Results - Last 24 Hours (Table) 06/03/18 06/03/18 Range/Units 06:41 06:41 MCHC 30.7 L (31.0-37.0) g/dL Lymphocytes # 0.9 L (1.0-4.8) k/uL Potassium 3.3 L (3.5-5.1) mmol/L BUN 5 L (7-17) mg/dL Creatinine 0.46 L (0.52-1.04) mg/dL Glucose 103 H (74-99) mg/dL Alkaline Phosphatase 148 H (38-126) U/L Assessment and Plan Plan: Assessment and Plan (1) Chronic abdominal pain Narrative/Plan: This has become progressively more intractable with associated symptoms as noted, leading to this admission. Based on her clinical presentation, this is felt to be related to progression of cancer. The patient has not had a good response with fentanyl and [place] at home. She is currently on IV Dilaudid for breakthrough pain. Fentanyl dose will be increased. I will also consult the pain service to see if she could be a candidate for a celiac plexus block. - Stop [place] as this has not been effective as an outpt. - If pt responds to IV Dilaudid, PO dilaudid or liquid morphine can be utilised for breakthrough pain. - Continue on Fentanyl 50mcg patch at is time - Bowel protocol for risk of narcotic induced constipation discussed Current Visit: Yes Status: Acute Code(s): R10.9 - UNSPECIFIED ABDOMINAL PAIN ; G89.29 - OTHER CHRONIC PAIN SNOMED Code(s): 233525344 (2) History of colon cancer Narrative/Plan: The patient's clinical presentation is most suggestive of progression of her known colon cancer. However the patient and her family have requested a tissue diagnosis for confirmation. Despite detailed discussions of the implications of her clinical presentation, they're stating that they are "hoping it is not cancer" ! She had a computed tomography scan on 05/23/18 which was not compared to her previous scan done a few weeks prior at an outside hospital. Though I do not have access to that report presently, based on my recollection, the most recent scan indicated further progression. I discussed with the patient and her daughter about possibly having a biopsy locally if the current findings are more accessible. However they have decided to have it at [facility] as scheduled on 06/07/18 - Repeat CEA is pending - She plans to have biopsy on Sunday this week, offered biopsy here, patient has declined. - She feels this is all related to a urinary etiology and had a mesh placement [address] Mcgrath. SHe would like his point of view on the matter, therefore he has been consulted. Current Visit: Yes Status: Acute Code(s): Z85.038 - PERSONAL HISTORY OF MALIGNANT NEOPLASM OF LARGE INTESTINE SNOMED Code(s): 559017392
--- NOTE | 2018-06-03 15:18 | P.PAINCN ---
History of Present Illness - Reason for Consult Consult date: 06/03/18 - History of Present Illness This is 68-year-old female who presented to [facility] emergency department complaining of chronic back and abdominal pain. Patient states she has colon cancer and had surgery by Dr. earl the past. 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 , and she was treated with Lyrica which help to control her numbness and burning sensation , but currently she is complaining of increased intensity of the abdominal pain which is not controlled with the fentanyl and [place] as an outpatient , she was admitted to [facility] , and the fentanyl patch was increased to 50 g ( she was on 25 mcg as an out patient ), and also patient was started on Dilaudid 1.5 mg IV every 3 hours , and she is still complaining of severe abdominal pain ,Patient has had recent CAT scans that showed lymph nodes around the spine in the lower abdomen and she is supposed to have those biopsied on Sunday at [facility]. Patient states the pain is same as it has been for a few months but is getting worse. Patient had a fentanyl patch 25 g added to the [place] tends every 4 hours and she is still unable to get up and move around because the pain is so intense. She was admitted to medical floor for management of intractable pain. Oncology consultation was requested. On 06/03/2018 patient is currently resting comfortably in bed. Patient denies chest pain or shortness breath. Denies nausea vomiting nausea or vomiting. Patient does report intermittent abdominal and back pain that is well controlled with the Dilaudid IV pain medication. denies any urinary burning or frequency. Objective - Vital Signs Vital signs: Vital Signs Temp 98.1 F 06/03/18 05:45 Pulse 85 06/03/18 05:45 Resp 16 06/03/18 05:45 BP 106/69 06/03/18 05:45 Pulse Ox 97 06/03/18 05:45 Intake & Output 06/02/18 06/03/18 06/03/18 18:59 06:59 18:59 Intake Total 1200 825 Balance 1200 825 Intake: IV 600 0.9 600 Intake, IV Titration 600 225 Amount Sodium Chloride 0.9% 1, 600 225 000 ml @ 75 mls/hr IV . [id number] ONE Rx#:[id number] Oral 600 Other: Voiding Method Toilet Toilet Toilet # Voids 2 1 - Exam Head normocephalic Neck supple Lungs clear to auscultation bilaterally no wheezing or crackles Heart regular rate and rhythm S1-S2, no rub or gallop Abdomen is soft with mild diffuse tenderness no organomegaly no palpable masses with normal bowel sounds. Extremities no edema Neuro alert and orientated to 3 - Labs CBC & Chem 7: 06/03/18 06:41 06/03/18 06:41 Labs: Abnormal Lab Results - Last 24 Hours (Table) 06/03/18 06/03/18 Range/Units 06:41 06:41 MCHC 30.7 L (31.0-37.0) g/dL Lymphocytes # 0.9 L (1.0-4.8) k/uL Potassium 3.3 L (3.5-5.1) mmol/L BUN 5 L (7-17) mg/dL Creatinine 0.46 L (0.52-1.04) mg/dL Glucose 103 H (74-99) mg/dL Alkaline Phosphatase 148 H (38-126) U/L Assessment and Plan Assessment: 1- intractable abdominal and back pain , pain related to malignancy, with failure to control pain as outpatient on oral pain medication and fentanyl patch. KUB completed in emergency room showing no acute abdominal abnormality. Patient currently on Dilaudid IV , fentanyl patch 50 g every 72 hours Also patient has some element of peripheral neuropathy secondary to chemotherapy 2- Colon cancer 3- enlarged abdominal lymph nodes, patient is scheduled to have a biopsy at [facility] on Sunday. Oncology service is following She could benefit from a celiac plexus block , procedure risk and benefit and alternatives discussed with the patient and she agreed with the preceding Also patient could benefit from Lyrica 25 mg twice a day, she'll be nothing by mouth after midnight and will recommend to hold Lovenox a.m. dose Past Medical History Past Medical History: Cancer, CVA/TIA, Deep Vein Thrombosis (DVT), Osteoarthritis (OA) Additional Past Medical History / Comment(s): OSTEOPOROSIS, "SMALL BRAIN BLEEDS "-NO RESIDUAL EFFECTS,HX OF DVT YEARS AGO AFTER TAKING CONTROL PILLS History of Any Multi-Drug Resistant Organisms: None Reported Past Surgical History: Bladder Surgery, Hysterectomy, Tonsillectomy Additional Past Surgical History / Comment(s): bladder suspension, colon cancer Past Anesthesia/Blood Transfusion Reactions: No Reported Reaction, Motion Sickness Past Psychological History: No Psychological Hx Reported Smoking Status: Former smoker Past Alcohol Use History: None Reported Past Drug Use History: None Reported Additional Drug Use History / Comment(s): SMOKED OFF & ON , DID NOT SMOKE DURING 5 PREGNANCIES AND 9 YRS OF . - Past Family History Mother Family Medical History: Cancer Additional Family Medical History / Comment(s): BREAST Father Family Medical History: Cancer Additional Family Medical History / Comment(s): PANCREATIC Sister(s) Family Medical History: Cancer Additional Family Medical History / Comment(s): BREAST Medications and Allergies Home Medications Medication Instructions Recorded Confirmed Type HYDROcodone/APAP 10-325MG [[place] 1 tab PO Q4HR PRN 06/01/18 06/01/18 History 10-325] Melatonin 10 mg PO HS 06/01/18 06/01/18 History Polyethylene Glycol 3350 [Miralax] 17 gm PO DAILY 06/01/18 06/01/18 History Sennosides-Docusate Sodium 2 tab PO HS 06/01/18 06/01/18 History [Senokot-S] fentaNYL 25MCG/HR PATCH [Duragesic 1 patch TRANSDERM Q72H 06/01/18 06/01/18 History 25MCG/HR] Allergies Allergy/AdvReac Type Severity Reaction Status Date / Time tramadol HCl [From [facility]] Allergy Severe PARALYZED Verified 06/01/18 13:57 FOR HOURS, UNABLE TO MOVE" Physical Exam Vitals: Vital Signs Temp Pulse Resp BP Pulse Ox 06/03/18 05:45 98.1 F 85 16 106/69 97 06/02/18 23:00 98.1 F 76 16 114/70 98 06/02/18 14:30 97.9 F 79 16 106/58 98 Intake and Output 06/02/18 06/03/18 06/03/18 22:59 06:59 14:59 Intake Total 225 600 Balance 225 600 Intake: IV 600 0.9 600 Intake, IV Titration 225 Amount Sodium Chloride 0.9% 1, 225 000 ml @ 75 mls/hr IV . [id number] ONE Rx#:[id number] Other: Voiding Method Toilet Toilet # Voids 1 Weight 58.967 kg Results CBC & Chem 7: 06/03/18 06:41 06/03/18 06:41 Labs: Abnormal Lab Results - Last 24 Hours (Table) 06/03/18 06/03/18 Range/Units 06:41 06:41 MCHC 30.7 L (31.0-37.0) g/dL Lymphocytes # 0.9 L (1.0-4.8) k/uL Potassium 3.3 L (3.5-5.1) mmol/L BUN 5 L (7-17) mg/dL Creatinine 0.46 L (0.52-1.04) mg/dL Glucose 103 H (74-99) mg/dL Alkaline Phosphatase 148 H (38-126) U/L PQRS Measure Charge Sheet PQRS Narrative: Smoking Status Former smoker Do You Want the Pneumonia No Vaccine AT THIS TIME? Blood Pressure [Left Arm] 106/69 Blood Pressure 110/55 Pain Intensity [Abdomen] 6 Pain Intensity 8 Pain Scale Used Numeric (1 - 10) Scale Used Numeric (1 - 10) Home Medications: Ambulatory Orders HYDROcodone/APAP 10-325MG [[place] 10-325] 1 tab PO Q4HR PRN 06/01/18 Melatonin 10 mg PO HS 06/01/18 Polyethylene Glycol 3350 [Miralax] 17 gm PO DAILY 06/01/18 Sennosides-Docusate Sodium [Senokot-S] 2 tab PO HS 06/01/18 fentaNYL 25MCG/HR PATCH [Duragesic 25MCG/HR] 1 patch TRANSDERM Q72H 06/01/18
--- NOTE | 2018-06-03 17:10 | P.GSCN ---
History of Present Illness Consult date: 06/03/18 Reason for Consult: Abdominal pain and retroperitoneal lymphadenopathy History of present illness: The patient is a 68-year-old female admitted on 06/01 for evaluation of increasing abdominal pain. The patient's history is significant in regard to stage IV colon cancer which was diagnosed in 05/2017. The patient was initially treated with right colectomy and then FOLFOX but apparently could not tolerate this well and the medication was discontinued in December. The patient is had increasing lower abdominal and mid abdominal pain over the last 6 months coupled with a loss of appetite. CT scan of the abdomen and pelvis on 2017 showed evidence of periaortic, iliac and mesenteric adenopathy consistent with recurrent carcinoma. CEA was 17.4 and alkaline phosphatase was 148. The patient says that she is hoping that the adenopathy is related to a different cause and she has been scheduled to undergo percutaneous biopsy the lymph nodes at [facility] on 06/07. The patient has a history of stress urinary incontinence treated with a synthetic mid urethral sling performed by on 07/09/2014. She says that her incontinence resolved following the surgery although lately she has had some rare leakage with straining. She denies any vaginal bleeding or hematuria. She usually voids every 2-3 hours during the day and 2 or 3 times at night. She says she's had lower abdominal discomfort since the mid urethral sling and had been last evaluated by Dr. Mcgrath in 2014 but it was his feeling that the pain was from a different cause. Review of Systems - Constitutional Reports chronic pain, Reports poor appetite, Reports weight loss - Cardiovascular Denies leg edema - Gastrointestinal Reports as per HPI - Genitourinary Genitourinary: Reports as per HPI Past Medical History Past Medical History: Cancer, CVA/TIA, Deep Vein Thrombosis (DVT), Osteoarthritis (OA) Additional Past Medical History / Comment(s): OSTEOPOROSIS, "SMALL BRAIN BLEEDS "-NO RESIDUAL EFFECTS,HX OF DVT YEARS AGO AFTER TAKING CONTROL PILLS History of Any Multi-Drug Resistant Organisms: None Reported Past Surgical History: Bladder Surgery (Synthetic trans-obturator mid urethral sling 07/09/2014), Hysterectomy, Tonsillectomy Additional Past Surgical History / Comment(s): bladder suspension, colon cancer Past Anesthesia/Blood Transfusion Reactions: No Reported Reaction, Motion Sickness Past Psychological History: No Psychological Hx Reported Smoking Status: Former smoker Past Alcohol Use History: None Reported Past Drug Use History: None Reported Additional Drug Use History / Comment(s): SMOKED OFF & ON , DID NOT SMOKE DURING 5 PREGNANCIES AND 9 YRS OF . - Past Family History Mother Family Medical History: Cancer Additional Family Medical History / Comment(s): BREAST Father Family Medical History: Cancer Additional Family Medical History / Comment(s): PANCREATIC Sister(s) Family Medical History: Cancer Additional Family Medical History / Comment(s): BREAST Medications and Allergies Home Medications Medication Instructions Recorded Confirmed Type HYDROcodone/APAP 10-325MG [[place] 1 tab PO Q4HR PRN 06/01/18 06/01/18 History 10-325] Melatonin 10 mg PO HS 06/01/18 06/01/18 History Polyethylene Glycol 3350 [Miralax] 17 gm PO DAILY 06/01/18 06/01/18 History Sennosides-Docusate Sodium 2 tab PO HS 06/01/18 06/01/18 History [Senokot-S] fentaNYL 25MCG/HR PATCH [Duragesic 1 patch TRANSDERM Q72H 06/01/18 06/01/18 History 25MCG/HR] Allergies Allergy/AdvReac Type Severity Reaction Status Date / Time tramadol HCl [From [facility]] Allergy Severe PARALYZED Verified 06/01/18 13:57 FOR HOURS, UNABLE TO MOVE" Surgical - Exam Vital Signs Temp Pulse Resp BP Pulse Ox 98.4 F 90 18 117/76 96 06/01/18 11:35 06/01/18 11:35 06/01/18 11:35 06/01/18 11:35 06/01/18 11:35 - General moderate pain, chronically ill - Neck no masses, no lymphadectomy - Abdomen Abdomen: soft, tender (Abdominal area), no organomegaly - Genitourinary normal external genitalia, normal perineum, other (No mass or tenderness along the urethra or periurethral regions. The vaginal mucosa appears to be intact. No vaginal discharge) Results - Labs 06/03/18 06:41 06/03/18 06:41 Abnormal Lab Results - Last 24 Hours (Table) 06/03/18 06/03/18 06/03/18 Range/Units 06:41 06:41 06:41 MCHC 30.7 L (31.0-37.0) g/dL Lymphocytes # 0.9 L (1.0-4.8) k/uL Potassium 3.3 L (3.5-5.1) mmol/L BUN 5 L (7-17) mg/dL Creatinine 0.46 L (0.52-1.04) mg/dL Glucose 103 H (74-99) mg/dL Alkaline Phosphatase 148 H (38-126) U/L Carcinoembryonic Ag 17.4 H (0.0-4.9) ng/mL Diabetes panel 06/03/18 Range/Units 06:41 Sodium 140 (137-145) mmol/L Potassium 3.3 L (3.5-5.1) mmol/L Chloride 105 (98-107) mmol/L Carbon Dioxide 26 (22-30) mmol/L BUN 5 L (7-17) mg/dL Creatinine 0.46 L (0.52-1.04) mg/dL Glucose 103 H (74-99) mg/dL Calcium 9.4 (8.4-10.2) mg/dL AST 30 (14-36) U/L ALT 35 (9-52) U/L Alkaline Phosphatase 148 H (38-126) U/L Total Protein 6.5 (6.3-8.2) g/dL Albumin 3.5 (3.5-5.0) g/dL Calcium panel 06/03/18 Range/Units 06:41 Calcium 9.4 (8.4-10.2) mg/dL Albumin 3.5 (3.5-5.0) g/dL Pituitary panel 06/03/18 Range/Units 06:41 Sodium 140 (137-145) mmol/L Potassium 3.3 L (3.5-5.1) mmol/L Chloride 105 (98-107) mmol/L Carbon Dioxide 26 (22-30) mmol/L BUN 5 L (7-17) mg/dL Creatinine 0.46 L (0.52-1.04) mg/dL Glucose 103 H (74-99) mg/dL Calcium 9.4 (8.4-10.2) mg/dL Adrenal panel 06/03/18 Range/Units 06:41 Sodium 140 (137-145) mmol/L Potassium 3.3 L (3.5-5.1) mmol/L Chloride 105 (98-107) mmol/L Carbon Dioxide 26 (22-30) mmol/L BUN 5 L (7-17) mg/dL Creatinine 0.46 L (0.52-1.04) mg/dL Glucose 103 H (74-99) mg/dL Calcium 9.4 (8.4-10.2) mg/dL Total Bilirubin 0.5 (0.2-1.3) mg/dL AST 30 (14-36) U/L ALT 35 (9-52) U/L Alkaline Phosphatase 148 H (38-126) U/L Total Protein 6.5 (6.3-8.2) g/dL Albumin 3.5 (3.5-5.0) g/dL - Imaging CT scan - abdomen: image reviewed Assessment and Plan (1) Chronic abdominal pain Narrative/Plan: I explained to the patient that her abdominal pain, retroperitoneal adenopathy and elevated CEA are most likely related to recurrence of her colon cancer. The patient does not appear to have any symptoms directly related to her mid urethral sling and it would be unlikely that the sling would cause retroperitoneal and mesenteric adenopathy. I do not feel that further urologic evaluation is necessary at this time. Current Visit: Yes Status: Acute Code(s): R10.9 - UNSPECIFIED ABDOMINAL PAIN ; G89.29 - OTHER CHRONIC PAIN SNOMED Code(s): 426597617
[2018-06-03] MEDS: MELATONIN 5 MG TABLET PO SCH (20:59)
[2018-06-03] MEDS: PREGABALIN 25 MG CAP PO SCH (20:59)
[2018-06-03] MEDS: SENNOSIDES-DOCUSATE SODIUM 1 EACH TAB PO SCH (21:00)
[2018-06-04] MEDS: HYDROmorphone 1 MG/ML 1 ML SYRINGE IVP PRN ×6 (01:13→22:16)
[2018-06-04 07:29] LABS: Basophils % (A) 1 %; Eosinophils # (A) 0.2 k/uL (0-0.7); Eosinophils % (A) 6 %; HCT 37.5 % (34.0-46.0); HGB 12.1 gm/dL (11.4-16.0); Lymphocytes # (A) 0.9 k/uL (1.0-4.8); Lymphocytes % (A) 26 %; MCH 28.4 pg (25.0-35.0); MCHC 32.2 g/dL (31.0-37.0); MCV 88.3 fL (80.0-100.0); Monocytes # (A) 0.3 k/uL (0-1.0); Monocytes % (A) 9 %; Neutrophils % (A) 57 %; Platelet Count 175 k/uL (150-450); RBC 4.25 m/uL (3.80-5.40); RDW 14.5 % (11.5-15.5); WBC 3.4 k/uL (3.8-10.6)
[2018-06-04] MEDS: PREGABALIN 25 MG CAP PO SCH ×2 (07:29→21:01)
[2018-06-04] MEDS: PANTOPRAZOLE 40 MG TABLET PO SCH (07:30)
[2018-06-04 07:43] LABS: ALT 32 U/L (9-52); AST 30 U/L (14-36); Albumin 3.4 g/dL (3.5-5.0); Alkaline Phosphatase 138 U/L (38-126); Anion Gap 7 mmol/L; Blood Urea Nitrogen 4 mg/dL (7-17); Calcium 9.6 mg/dL (8.4-10.2); Carbon Dioxide 26 mmol/L (22-30); Chloride 107 mmol/L (98-107); Glucose 96 mg/dL (74-99); Potassium 3.8 mmol/L (3.5-5.1); Sodium 140 mmol/L (137-145); Total Bilirubin 0.5 mg/dL (0.2-1.3); Total Protein 6.3 g/dL (6.3-8.2)
[2018-06-04] MEDS ORDERED: Potassium Replacement Protocol 1 EACH MISC MISCELLANE PRN (10:50)
--- NOTE | 2018-06-04 10:51 | P.PN ---
Subjective Progress Note Date: 06/04/18 Mable Gross is a 68-year-old female who presented to [facility] emergency department complaining of chronic back and abdominal pain. Patient states she has colon cancer and had surgery by Dr. earl the past. Patient has had recent CAT scans that showed lymph nodes around the spine in the lower abdomen and she is supposed to have those biopsied on Sunday at [facility]. Patient states the pain is same as it has been for a few months but is getting worse. Patient had a fentanyl patch 25 g added to the [place] tends every 4 hours and she is still unable to get up and move around because the pain is so intense. She was admitted to medical floor for management of intractable pain. Oncology consultation was requested. On 06/03/2018 patient is currently resting comfortably in bed. Patient has been receiving Dilaudid IV for pain medication along with an increase in her frontal patch to 50 mcg. Oncology service is currently following. Pain services have been consulting. Awaiting pain services consult. Patient denies chest pain or shortness breath. Denies nausea vomiting nausea or vomiting. Patient does report intermittent abdominal and back pain that is well controlled with the Dilaudid IV pain medication. Patient does patient history of bladder sling procedure. But denies any urinary burning or frequency. On 06/04/2018 patient is resting comfortably bed. Patient still receiving Dilaudid IV every 3 hours for adequate pain control. Patient planning to get celiac plexus block today per pain services. Patient denies nausea or vomiting. Denies any chest pain or shortness of breath. Objective - Vital Signs Vital signs: Vital Signs Temp 98.3 F 06/04/18 05:00 Pulse 92 06/04/18 05:00 Resp 16 06/04/18 05:00 BP 129/59 06/04/18 05:00 Pulse Ox 94 L 06/04/18 05:00 Intake & Output 06/03/18 06/04/18 06/04/18 18:59 06:59 18:59 Intake Total 477 Balance 477 Weight 58.967 kg Intake: IV 240 0.9@ 20cc 240 Oral 237 Other: Voiding Method Toilet Toilet Toilet # Voids 3 - Exam Head normocephalic Neck supple Lungs clear to auscultation bilaterally no wheezing or crackles Heart regular rate and rhythm S1-S2, no rub or gallop Abdomen is soft with mild diffuse tenderness no organomegaly no palpable masses with normal bowel sounds. Extremities no edema Neuro alert and orientated to 3 - Labs CBC & Chem 7: 06/04/18 06:51 06/04/18 06:51 Labs: Abnormal Lab Results - Last 24 Hours (Table) 06/03/18 06/04/18 06/04/18 Range/Units 06:41 06:51 06:51 WBC 3.4 L (3.8-10.6) k/uL Lymphocytes # 0.9 L (1.0-4.8) k/uL BUN 4 L (7-17) mg/dL Creatinine 0.49 L (0.52-1.04) mg/dL Alkaline Phosphatase 138 H (38-126) U/L Albumin 3.4 L (3.5-5.0) g/dL Carcinoembryonic Ag 17.4 H (0.0-4.9) ng/mL Assessment and Plan Assessment: #1 intractable abdominal and back pain, with failure to control pain as outpatient on oral pain medication and fentanyl patch. KUB completed in emergency room showing no acute abdominal abnormality. Patient currently on Dilaudid which is adequately controlling pain at this time. Pain services have been consulted. Per pain services planning to do celiac plexus block today. Lyrica 25 mg twice a day has been added #2 previous history of colon cancer was partial colectomy #3 enlarged abdominal lymph nodes, patient is scheduled to have a biopsy at [facility] on Sunday. Oncology service is following #4 previous history of DVT #5 underlying history of osteoporosis #6 history of bladder sling procedure. Dr. Alonzo consulted per patient and family request. Per Dr. agustin abdominal pain likely related to recurrence of her colon cancer and does not appear to have any symptoms directly related to her mid urethral sling. GI prophylaxis Protonix and DVT prophylaxis Lovenox I performed an examination of the patient and discussed their management with the Nurse Practitioner. I have reviewed the Nurse Practitioner's notes and agree with the documented findings and plan of care
--- NOTE | 2018-06-04 12:32 | P.PN ---
Subjective Progress Note Date: 06/04/18 Principal diagnosis: Intractable uncontrolled pain Mable was seen today in follow-up,daughter at bedside. She is awaiting plan for a pain plexus block. Her pain is mildly controlled at this time, although still requiring large amout of narcotic medications, when previously never required. Objective - Vital Signs Vital signs: Vital Signs Temp 98.4 F 06/04/18 11:55 Pulse 77 06/04/18 12:17 Resp 16 06/04/18 12:17 BP 108/57 06/04/18 12:17 Pulse Ox 94 L 06/04/18 12:17 Intake & Output 06/03/18 06/04/18 06/04/18 18:59 06:59 18:59 Intake Total 477 Balance 477 Weight 58.967 kg Intake: IV 240 0.9@ 20cc 240 Oral 237 Other: Voiding Method Toilet Toilet Toilet # Voids 3 - Exam - Constitutional General appearance: no acute distress - EENT Eyes: EOMI, PERRLA ENT: hearing grossly normal, normal oropharynx - Neck Neck: no lymphadenopathy Thyroid: bilateral: normal size - Respiratory Respiratory: bilateral: CTA - Cardiovascular Rhythm: regular Heart sounds: normal: S1, S2 - Gastrointestinal General gastrointestinal: normal bowel sounds, soft - Integumentary Integumentary: normal - Neurologic Neurologic: CNII-XII intact - Musculoskeletal Musculoskeletal: generalized weakness, strength equal bilaterally - Psychiatric Psychiatric: A&O x's 3, appropriate affect - Labs CBC & Chem 7: 06/04/18 06:51 06/04/18 06:51 Labs: Abnormal Lab Results - Last 24 Hours (Table) 06/03/18 06/04/18 06/04/18 Range/Units 06:41 06:51 06:51 WBC 3.4 L (3.8-10.6) k/uL Lymphocytes # 0.9 L (1.0-4.8) k/uL BUN 4 L (7-17) mg/dL Creatinine 0.49 L (0.52-1.04) mg/dL Alkaline Phosphatase 138 H (38-126) U/L Albumin 3.4 L (3.5-5.0) g/dL Carcinoembryonic Ag 17.4 H (0.0-4.9) ng/mL Assessment and Plan Plan: Assessment and Plan (1) Chronic abdominal pain Narrative/Plan: This has become progressively more intractable with associated symptoms as noted, leading to this admission. Based on her clinical presentation, this is felt to be related to progression of cancer. The patient has not had a good response with fentanyl and [place] at home. She is currently on IV Dilaudid for breakthrough pain. Fentanyl dose will be increased. I will also consult the pain service to see if she could be a candidate for a celiac plexus block. - Stop [place] as this has not been effective as an outpt. - If pt responds to IV Dilaudid, PO dilaudid or liquid morphine can be utilised for breakthrough pain. - Continue on Fentanyl 50mcg patch at is time - Bowel protocol for risk of narcotic induced constipation discussed - Plan for Pain Management with Anesthesia to perform a Celiac Plexus block to help with relieving her pain. She will have this completed today Current Visit: Yes Status: Acute Code(s): R10.9 - UNSPECIFIED ABDOMINAL PAIN ; G89.29 - OTHER CHRONIC PAIN SNOMED Code(s): 927554521 (2) History of colon cancer Narrative/Plan: The patient's clinical presentation is most suggestive of progression of her known colon cancer. However the patient and her family have requested a tissue diagnosis for confirmation. Despite detailed discussions of the implications of her clinical presentation, they're stating that they are "hoping it is not cancer" ! She had a computed tomography scan on 05/23/18 which was not compared to her previous scan done a few weeks prior at an outside hospital. Though I do not have access to that report presently, based on my recollection, the most recent scan indicated further progression. I discussed with the patient and her daughter about possibly having a biopsy locally if the current findings are more accessible. However they have decided to have it at [facility] as scheduled on 06/07/18 - Repeat CEA is mildly elevated - She plans to have biopsy on Sunday this week, offered biopsy here, patient has declined. Current Visit: Yes Status: Acute Code(s): Z85.038 - PERSONAL HISTORY OF MALIGNANT NEOPLASM OF LARGE INTESTINE SNOMED Code(s): 587535417
[2018-06-04] MEDS: DRONABINOL 2.5 MG CAP PO SCH ×2 (12:56→17:14)
[2018-06-04] MEDS: POLYETHYLENE GLYCOL 3350 17 GM POWD.PACK PO SCH (12:56)
[2018-06-04] MEDS: POTASSIUM CHLORIDE 10 MEQ in WATER FOR INJECTION 1 100ML.BAG IVPB SCH (13:20)
[2018-06-04] MEDS ORDERED: POTASSIUM CHLORIDE ER 20 MEQ TAB.ER PO STA (13:21)
--- NOTE | 2018-06-04 14:05 | FL ---
Fluoroscopy HISTORY: Pain 21 seconds fluoroscopy time supplied to the referring clinician. 5 intraoperative C-arm images docum ent the procedure. See dictated report from anesthesia.
--- NOTE | 2018-06-04 15:09 | P.PCN ---
Date of Procedure: 06/04/18 Surgeon: Jermaine Caraballo Description of Procedure: PREOPERATIVE DIAGNOSIS: Intractable abdominal pain secondary to colon cancer. POSTOPERATIVE DIAGNOSIS: Same PROCEDURE: Diagnostic Celiac plexus block. under fluroscopy guidence ANESTHESIA: Local anesthesia with 1% lidocaine and IV sedation with Versed, 4 mg , and Fentanyl. 200 mcg . EBL: Minimal IV FLUIDS: Approximately 1000 mL of crystalloid PROCEDURE INDICATION: The patient has a history of abdominal pain secondary to metastatic colon cancer unresponsive to more conservative measures. PROCEDURE DESCRIPTION: The patient was seen and identified in the preoperative area. Risks, benefits, complications, and alternatives were discussed with the patient. The patient agreed to proceed with the procedure and signed the consent. IV was started, and vital signs were stable. Patient was taken to the OR and time out was completed. The patient was placed in the prone position on procedure table and a pillow was placed under the abdomen to reduce lumbar lordosis. The lumbosacral area was prepped and draped in the usual sterile fashion. Critical pause was taken. Vital signs were closely monitored during the procedure. Conscious sedation was used during the procedure to decrease patients anxiety. Using anterior-posterior fluoroscopy, the L1 spinous process and vertebral body were identified. Then, the fluoroscope was turned obliquely to the left until the transverse process of L1 vertebra was totally behind the L1 vertebral body. Skin was then marked and infiltrated with Lidocaine 1% subcutaneously with a 25- guage needle at the level of the L1 vertebral body. Subsequently, a 22-guage 7- inch spinal needle was inserted and advanced toward the anterior side of the L1 vertebral body the through the Aorta under oblique fluoroscopic guidance and while keeping a ``tunnel view of the needle. Subsequently, 3 ml of the water soluble dye Omnipaque was injected under life fluoroscopy to confirm needle position. The pulsation of the Aorta was observed while the dye along the anterior side of the Aorta was verified with AP and latter fluoroscopy. After satisfactory positioning of the needle and negative aspiration for CSF, blood, or any other contents, a total of 20 mL of preservative-free Ropivacaine 0.5% and 80 mg depomedrol was injected with 5 ml increments and intermittent aspiration. Vital signs remained stable. Washout of the dye was seen and the needle was then withdrawn intact. At the end of the procedure, the operated areas were cleaned. Band-Aids were applied. COMPLICATIONS: None DISPOSITION / PLANS: The patient was placed in a supine position and transferred to the recovery area in a stable condition for observation and was discharged from the recovery room after meeting discharge criteria. Home discharge instructions given to the patients
[2018-06-04] MEDS: MELATONIN 5 MG TABLET PO SCH (21:01)
[2018-06-04] MEDS: SENNOSIDES-DOCUSATE SODIUM 1 EACH TAB PO SCH (21:01)
[2018-06-05] MEDS: HYDROmorphone 1 MG/ML 1 ML SYRINGE IVP PRN ×2 (03:37→06:16)
[2018-06-05 07:19] LABS: Basophils % (A) 1 %; Eosinophils # (A) 0.1 k/uL (0-0.7); Eosinophils % (A) 3 %; HCT 36.6 % (34.0-46.0); HGB 11.4 gm/dL (11.4-16.0); Hypochromasia Slight; Lymphocytes # (A) 0.8 k/uL (1.0-4.8); Lymphocytes % (A) 23 %; MCH 28.3 pg (25.0-35.0); MCHC 31.2 g/dL (31.0-37.0); MCV 90.9 fL (80.0-100.0); Mean Platelet Volume 7.2; Monocytes # (A) 0.3 k/uL (0-1.0); Monocytes % (A) 7 %; Neutrophils # (A) 2.3 k/uL (1.3-7.7); Neutrophils % (A) 64 %; Platelet Count 166 k/uL (150-450); RBC 4.02 m/uL (3.80-5.40); RDW 14.5 % (11.5-15.5); WBC 3.6 k/uL (3.8-10.6)
[2018-06-05 07:28] LABS: ALT 32 U/L (9-52); AST 26 U/L (14-36); Albumin 3.3 g/dL (3.5-5.0); Alkaline Phosphatase 127 U/L (38-126); Anion Gap 5 mmol/L; Blood Urea Nitrogen 7 mg/dL (7-17); Calcium 9.3 mg/dL (8.4-10.2); Carbon Dioxide 30 mmol/L (22-30); Chloride 106 mmol/L (98-107); Glucose 108 mg/dL (74-99); Potassium 4.2 mmol/L (3.5-5.1); Sodium 141 mmol/L (137-145); Total Bilirubin 0.5 mg/dL (0.2-1.3)
[2018-06-05] MEDS: DRONABINOL 2.5 MG CAP PO SCH (08:36)
[2018-06-05] MEDS: PREGABALIN 25 MG CAP PO SCH (08:37)
[2018-06-05] MEDS: PANTOPRAZOLE 40 MG TABLET PO SCH (08:37)
[2018-06-05] MEDS: POLYETHYLENE GLYCOL 3350 17 GM POWD.PACK PO SCH (08:38)
[2018-06-05] MEDS ORDERED: MORPHINE ORAL SOL CONC 20 MG/ML BOTTLE PO PRN (08:56)
[2018-06-05] MEDS ORDERED: ENOXAPARIN 40 MG/0.4 ML SYRINGE SQ SCH (09:00)
[2018-06-05 10:28] LABS: Appearance,Urine Clear (Clear); Bilirubin,Urine Negative (Negative); Blood,Urine Negative (Negative); Color,Urine Yellow; Glucose,Urine (UA) Negative (Negative); Ketones,Urine Negative (Negative); Leukocyte Esterase,Urine Negative (Negative); Nitrite,Urine Negative (Negative); PH, Urine 5.5 (5.0-8.0); Protein,Urine Negative (Negative); Specific Gravity,Urine 1.016 (1.001-1.035); Urobilinogen,Urine <2.0 mg/dL (<2.0)
[2018-06-05] MEDS: MORPHINE CONC SOLN 10mg/0.5mL ORAL SYRG PO PRN ×2 (10:59→14:05)
[2018-06-05 12:46] VITALS: BP 110/56; PULSE 63; RESP 18; TEMP 97.8
--- NOTE | 2018-06-05 14:01 | P.PN ---
Subjective Progress Note Date: 06/05/18 Principal diagnosis: Intractable uncontrolled pain Mable was seen today in follow-up She will convert to PO pain medication in hopes to anticipate discharge today or tomorrow. She had plexus block placed. She does not feel any relief she states. Objective - Vital Signs Vital signs: Vital Signs Temp 97.8 F 06/05/18 12:27 Pulse 63 06/05/18 12:27 Resp 18 06/05/18 12:27 BP 110/56 06/05/18 12:27 Pulse Ox 96 06/05/18 12:27 Intake & Output 06/04/18 06/05/18 06/05/18 18:59 06:59 18:59 Intake Total 990 Balance 990 Intake: IV 160 0.9@ 20cc 160 Oral 830 Other: Voiding Method Toilet Toilet Toilet # Voids 3 2 - Exam - Constitutional General appearance: no acute distress - EENT Eyes: EOMI, PERRLA ENT: hearing grossly normal, normal oropharynx - Neck Neck: no lymphadenopathy Thyroid: bilateral: normal size - Respiratory Respiratory: bilateral: CTA - Cardiovascular Rhythm: regular Heart sounds: normal: S1, S2 - Gastrointestinal General gastrointestinal: normal bowel sounds, soft - Integumentary Integumentary: normal - Neurologic Neurologic: CNII-XII intact - Musculoskeletal Musculoskeletal: generalized weakness, strength equal bilaterally - Psychiatric Psychiatric: A&O x's 3, appropriate affect - Labs CBC & Chem 7: 06/05/18 06:58 06/05/18 06:58 Labs: Abnormal Lab Results - Last 24 Hours (Table) 06/05/18 06/05/18 Range/Units 06:58 06:58 WBC 3.6 L (3.8-10.6) k/uL Lymphocytes # 0.8 L (1.0-4.8) k/uL Creatinine 0.51 L (0.52-1.04) mg/dL Glucose 108 H (74-99) mg/dL Alkaline Phosphatase 127 H (38-126) U/L Total Protein 6.0 L (6.3-8.2) g/dL Albumin 3.3 L (3.5-5.0) g/dL Assessment and Plan Plan: Assessment and Plan (1) Chronic abdominal pain Narrative/Plan: This has become progressively more intractable with associated symptoms as noted, leading to this admission. Based on her clinical presentation, this is felt to be related to progression of cancer. The patient has not had a good response with fentanyl and [place] at home. She is currently on IV Dilaudid for breakthrough pain. Fentanyl dose will be increased. I will also consult the pain service to see if she could be a candidate for a celiac plexus block. - Stop [place] as this has not been effective as an outpt. - If pt responds to IV Dilaudid, PO dilaudid or liquid morphine can be utilised for breakthrough pain. - Continue on Fentanyl 50mcg patch at is time - Bowel protocol for risk of narcotic induced constipation discussed - Plan for Pain Management with Anesthesia to perform a Celiac Plexus block to help with relieving her pain. She will have this completed 06/04/18 - Roxanol prescription completed and written and fentanyl. She has a current maps and opiod education completed in our office. - Marinol prescription for nausea and decreased appetite also provided to Patients RN - follow-up appointment in office is being made for patient Current Visit: Yes Status: Acute Code(s): R10.9 - UNSPECIFIED ABDOMINAL PAIN ; G89.29 - OTHER CHRONIC PAIN SNOMED Code(s): 017334171 (2) History of colon cancer Narrative/Plan: The patient's clinical presentation is most suggestive of progression of her known colon cancer. However the patient and her family have requested a tissue diagnosis for confirmation. Despite detailed discussions of the implications of her clinical presentation, they're stating that they are "hoping it is not cancer" ! She had a computed tomography scan on 05/23/18 which was not compared to her previous scan done a few weeks prior at an outside hospital. Though I do not have access to that report presently, based on my recollection, the most recent scan indicated further progression. I discussed with the patient and her daughter about possibly having a biopsy locally if the current findings are more accessible. However they have decided to have it at [facility] as scheduled on 06/07/18 - Repeat CEA is mildly elevated - She plans to have biopsy on Sunday this week, offered biopsy here, patient has declined. Current Visit: Yes Status: Acute Code(s): Z85.038 - PERSONAL HISTORY OF MALIGNANT NEOPLASM OF LARGE INTESTINE SNOMED Code(s): 630829422 Physician Attestation: I have completed the full history and physical of this patient and agree with above dictation by Biju Donaldson NP. Dictated as a scribe.
--- NOTE | 2018-06-05 14:25 | P.DS ---
Providers Date of admission: 06/01/18 13:53 Expected date of discharge: 06/05/18 Attending physician: Irma Lyons Consults: 06/01/18 13:51 Consult Physician Urgent Consulting Provider: Becky Tejada Consult Reason/Comments: History of colon cancer Do you want consulting provider notified?: Yes 06/03/18 12:57 Consult Physician Routine Consulting Provider: Tee Mcgrath Consult Reason/Comments: hx: mesh placement, patient would like his opinion Do you want consulting provider notified?: Yes Primary care physician: [facility] Course: Discharge diagnosis #1 intractable abdominal and back pain, with failure to control pain as outpatient on oral pain medication and fentanyl patch. KUB completed in emergency room showing no acute abdominal abnormality. Patient currently on Dilaudid which is adequately controlling pain at this time. Pain services have been consulted. Per pain services celiac plexus block placed on . Lyrica 25 mg twice a day has been added. Patient has been cleared for discharge from oncology standpoint. Patient will be DC'd home on oral morphine fentanyl patch and Dronabinol per oncology. #2 previous history of colon cancer was partial colectomy #3 enlarged abdominal lymph nodes, patient is scheduled to have a biopsy at [facility] on Sunday. Oncology service is following #4 previous history of DVT #5 underlying history of osteoporosis #6 history of bladder sling procedure. Dr. Alonzo consulted per patient and family request. Per Dr. Alonzo abdominal pain likely related to recurrence of her colon cancer and does not appear to have any symptoms directly related to her mid urethral sling. Hospital course Mable Gross is a 68-year-old female who presented to [facility] emergency department complaining of chronic back and abdominal pain. Patient states she has colon cancer and had surgery by Dr. earl the past. Patient has had recent CAT scans that showed lymph nodes around the spine in the lower abdomen and she is supposed to have those biopsied on Sunday at [facility]. Patient states the pain is same as it has been for a few months but is getting worse. Patient had a fentanyl patch 25 g added to the [place] tends every 4 hours and she is still unable to get up and move around because the pain is so intense. She was admitted to medical floor for management of intractable pain. Oncology consultation was requested. On 06/03/2018 patient is currently resting comfortably in bed. Patient has been receiving Dilaudid IV for pain medication along with an increase in her frontal patch to 50 mcg. Oncology service is currently following. Pain services have been consulting. Awaiting pain services consult. Patient denies chest pain or shortness breath. Denies nausea vomiting nausea or vomiting. Patient does report intermittent abdominal and back pain that is well controlled with the Dilaudid IV pain medication. Patient does patient history of bladder sling procedure. But denies any urinary burning or frequency. On 06/04/2018 patient is resting comfortably bed. Patient still receiving Dilaudid IV every 3 hours for adequate pain control. Patient planning to get celiac plexus block today per pain services. Patient denies nausea or vomiting. Denies any chest pain or shortness of breath. On 06/05/2018 patient is currently A & O 3. Patient is currently resting comfortably in bed. Patient has been switched to oral morphine per oncology. Patient had celiac plexus block placed yesterday per pain services. Patient will be discharged home on oral morphine, fentanyl and Dronabinol per oncology. Lyrica 25 mg by mouth twice a day has been added per pain service recommendations. Patient denies chest pain or shortness of breath. Patient denies nausea vomiting or diarrhea. Repeat UA negative. Patient to follow-up with primary care provider in 1-2 days. Patient planning to have biopsy completed at [facility] on Sunday. I performed an examination of the patient and discussed their management with the Nurse Practitioner. I have reviewed the Nurse Practitioner's notes and agree with the documented findings and plan of care Patient Condition at Discharge: Stable Plan - Discharge Summary New Discharge Prescriptions: New MORPHINE ORAL EDITH CONC 20mg/mL [Roxanol Oral Soln Conc 20MG/ML] 15 mg PO Q3HR PRN 14 Days #60 ml PRN Reason: Moderate To Severe Pain fentaNYL 50MCG/HR PATCH [Duragesic 50MCG/HR] 1 patch TRANSDERM Q72H 30 Days # 10 patch Dronabinol 5 mg PO AC-BID 30 Days #60 capsule Pregabalin [Lyrica] 25 mg PO BID #6 cap Continue Sennosides-Docusate Sodium [Senokot-S] 2 tab PO HS Polyethylene Glycol 3350 [Miralax] 17 gm PO DAILY Melatonin 10 mg PO HS Discharge Medication List Melatonin 10 mg PO HS 08/25/18 [History] Polyethylene Glycol 3350 [Miralax] 17 gm PO DAILY 06/01/18 [History] Sennosides-Docusate Sodium [Senokot-S] 2 tab PO HS 06/01/18 [History] Dronabinol 5 mg PO AC-BID 30 Days #60 capsule 06/05/18 [Rx] MORPHINE ORAL EDITH CONC 20mg/mL [Roxanol Oral Soln Conc 20MG/ML] 15 mg PO Q3HR PRN 14 Days #60 ml 06/05/18 [Rx] Pregabalin [Lyrica] 25 mg PO BID #6 cap 06/05/18 [Rx] fentaNYL 50MCG/HR PATCH [Duragesic 50MCG/HR] 1 patch TRANSDERM Q72H 30 Days #10 patch 06/05/18 [Rx] Follow up Appointment(s)/Referral(s): Radha Velasquez MD [Primary Care Provider] - 1-2 days Patient Instructions/Handouts: Abdominal Pain (ED) Activity/Diet/Wound Care/Special Instructions: activity as tolerated Diet: Regular Discharge/Stand Alone Forms: [facility] Diary, [facility] Instructions
== END 2018-06-05 15:10 | disposition home or self-care (01) | DRG 948 ==
LOC: EC 11:13 → 5ONC 13:53
PROVIDERS: ADMIT Internal Medicine; ATTEND Internal Medicine
PROC: 3E0T3BZ Introduction of Anesthetic Agent into Peripheral Nerves and Plexi, Percutaneous Approach (ICD-10-PCS; principal; 2018-06-04)
DX: G89.3 Neoplasm related pain (acute) (chronic) (principal); Z85.038 Personal history of other malignant neoplasm of large intestine; Z87.891 Personal history of nicotine dependence; G89.29 Other chronic pain; M81.0 Age-related osteoporosis without current pathological fracture; R32 Unspecified urinary incontinence; Z98.890 Other specified postprocedural states; E78.5 Hyperlipidemia, unspecified; Z86.718 Personal history of other venous thrombosis and embolism; Z86.73 Personal history of transient ischemic attack (TIA), and cerebral infarction without residual deficits; Z90.710 Acquired absence of both cervix and uterus; R59.0 Localized enlarged lymph nodes; Z90.49 Acquired absence of other specified parts of digestive tract; Z88.5 Allergy status to narcotic agent; G62.0 Drug-induced polyneuropathy; T45.1X5S Adverse effect of antineoplastic and immunosuppressive drugs, sequela; Z79.899 Other long term (current) drug therapy; R63.4 Abnormal weight loss; Z68.23 Body mass index [BMI] 23.0-23.9, adult; Z79.891 Long term (current) use of opiate analgesic; Z80.3 Family history of malignant neoplasm of breast; Z80.0 Family history of malignant neoplasm of digestive organs; M19.90 Unspecified osteoarthritis, unspecified site
CPT/HCPCS: 36415; 64530; 74018; 80053; 81001; 81003; 82150; 82378; 83690; 85025; 96361; 96374; 96375; 96376; 99285

== ENCOUNTER 2018-06-13 13:03 | Inpatient (IN) | payer MEDICARE ==
[2018-06-13 14:50] LABS: Basophils # (A) 0.1 k/uL (0-0.2); Basophils % (A) 1 %; Eosinophils # (A) 0.1 k/uL (0-0.7); Eosinophils % (A) 2 %; HCT 49.4 % (34.0-46.0); HGB 15.6 gm/dL (11.4-16.0); Lymphocytes # (A) 0.8 k/uL (1.0-4.8); Lymphocytes % (A) 13 %; MCHC 31.7 g/dL (31.0-37.0); MCV 88.3 fL (80.0-100.0); Mean Platelet Volume 8.1; Monocytes # (A) 0.4 k/uL (0-1.0); Monocytes % (A) 6 %; Neutrophils # (A) 4.8 k/uL (1.3-7.7); Neutrophils % (A) 77 %; Platelet Count 187 k/uL (150-450); RDW 14.5 % (11.5-15.5); WBC 6.3 k/uL (3.8-10.6)
[2018-06-13 14:55] LABS: Appearance,Urine Clear (Clear); Bacteria,Urine Rare /hpf; Bilirubin,Urine 1+ (Negative); Blood,Urine Negative (Negative); Color,Urine Yellow; Glucose,Urine (UA) Negative (Negative); Ketones,Urine 4+ (Negative); Leukocyte Esterase,Urine Trace (Negative); Mucus,Urine Moderate /hpf; Nitrite,Urine Negative (Negative); PH, Urine 5.5 (5.0-8.0); Protein,Urine Trace (Negative); RBC,Urine 2 /hpf (0-5); Specific Gravity,Urine 1.023 (1.001-1.035); Squamous Epithelial Cell,Urine 3 /hpf (0-4); WBC,Urine 11 /hpf (0-5)
[2018-06-13 15:08] LABS: ALT 71 U/L (9-52); AST 43 U/L (14-36); Albumin 4.4 g/dL (3.5-5.0); Alkaline Phosphatase 182 U/L (38-126); Amylase 44 U/L (30-110); Anion Gap 11 mmol/L; Blood Urea Nitrogen 13 mg/dL (7-17); Carbon Dioxide 25 mmol/L (22-30); Chloride 101 mmol/L (98-107); Glucose 96 mg/dL (74-99); Lipase 56 U/L (23-300); Potassium 4.6 mmol/L (3.5-5.1); Sodium 137 mmol/L (137-145); Total Bilirubin 1.4 mg/dL (0.2-1.3)
[2018-06-13] MEDS ORDERED: ONDANSETRON 4 MG/2 ML VIAL IVP STA (16:26)
[2018-06-13] MEDS ORDERED: HYDROmorphone 1 MG/ML 1 ML SYRINGE IVP STA (16:27)
--- NOTE | 2018-06-13 16:33 | ED ---
General Adult HPI - General Chief complaint: Nausea/Vomiting/Diarrhea Stated complaint: congestion, not eating/drinking Time Seen by Provider: 06/13/18 14:51 Source: patient, family Mode of arrival: wheelchair Limitations: no limitations - History of Present Illness Initial comments: Dictation was produced using [employer] dictation software. please excuse any grammatical, word or spelling errors. Chief Complaint: 68-year-old female with history of poor appetite, nausea vomiting presents with worsening abdominal symptoms. History of Present Illness: Patient is 68-year-old female with history of colon cancer status post resection. Patient is completely by family. Family states that patient has been having terrible appetite. She has not been eating at all. Patient has a complex patient states that she has baseline severe abdominal pain. Chart review shows that patient has been admitted for similar complaints in the past. Patient denies any constitutional symptoms. She had a lymph node biopsy performed 3 or 4 days ago. Since then she states that her symptoms have been more worse than usual. The ROS documented in this emergency department record has been reviewed and confirmed by me. Those systems with pertinent positive or negative responses have been documented in the HPI. All other systems are other negative and/or noncontributory. - Related Data Home Medications Medication Instructions Recorded Confirmed Melatonin 10 mg PO HS 06/01/18 06/13/18 Polyethylene Glycol 3350 [Miralax] 17 gm PO DAILY 06/01/18 06/13/18 Sennosides-Docusate Sodium 2 tab PO HS 06/01/18 06/13/18 [Senokot-S] Previous Rx's Medication Instructions Recorded Dronabinol 5 mg PO AC-BID 30 Days #60 capsule 06/05/18 MORPHINE ORAL EDITH CONC 20mg/mL 15 mg PO Q3HR PRN 14 Days #60 ml 06/05/18 [Roxanol Oral Soln Conc 20MG/ML] Pregabalin [Lyrica] 25 mg PO BID #6 cap 06/05/18 fentaNYL 50MCG/HR PATCH [Duragesic 1 patch TRANSDERM Q72H 30 Days #10 06/05/18 50MCG/HR] patch Allergies Allergy/AdvReac Type Severity Reaction Status Date / Time tramadol HCl [From Ultram] Allergy Severe PARALYZED Verified 06/13/18 15:53 FOR HOURS, UNABLE TO MOVE" Review of Systems ROS Statement: Those systems with pertinent positive or pertinent negative responses have been documented in the HPI. ROS Other: All systems not noted in ROS Statement are negative. Past Medical History Past Medical History: Cancer, CVA/TIA, Deep Vein Thrombosis (DVT), Osteoarthritis (OA) Additional Past Medical History / Comment(s): OSTEOPOROSIS, "SMALL BRAIN BLEEDS "-NO RESIDUAL EFFECTS,HX OF DVT YEARS AGO AFTER TAKING CONTROL PILLS History of Any Multi-Drug Resistant Organisms: None Reported Past Surgical History: Bladder Surgery, Hysterectomy, Tonsillectomy Additional Past Surgical History / Comment(s): bladder suspension, colon cancer Past Anesthesia/Blood Transfusion Reactions: No Reported Reaction, Motion Sickness Past Psychological History: No Psychological Hx Reported Smoking Status: Former smoker Past Alcohol Use History: None Reported Past Drug Use History: None Reported - Past Family History Mother Family Medical History: Cancer Additional Family Medical History / Comment(s): BREAST Father Family Medical History: Cancer Additional Family Medical History / Comment(s): PANCREATIC Sister(s) Family Medical History: Cancer Additional Family Medical History / Comment(s): BREAST General Exam - General Exam Comments Initial Comments: PHYSICAL EXAM: General Impression: Alert and oriented x3, not in acute distress HEENT: Normocephalic atraumatic, extra-ocular movements intact, pupils equal and reactive to light bilaterally, mucous membranes moist. Cardiovascular: Heart regular rate and rhythm, S1&S2 audible, no murmurs, rubs or gallops Chest: Lungs clear to auscultation bilaterally, no rhonchi, no wheeze, no rales Abdomen: Diffuse abdominal tenderness Musculoskeletal: Pulses present and equal in all extremities, no peripheral edema Motor: Power 5/5 bilaterally, no focal deficits noted Neurological: CN II-XII grossly intact, no focal motor or sensory deficits noted Skin: Intact with no visualized rashes Psych: Normal affect and mood Limitations: no limitations Course Vital Signs 06/13/18 06/13/18 13:28 19:21 Temperature 98 F Pulse Rate 95 89 Respiratory 16 18 Rate Blood Pressure 113/95 114/72 O2 Sat by Pulse 97 97 Oximetry Medical Decision Making - Medical Decision Making ED course: 68-year-old female with past medical history of colon cancer status post resection presents with nausea, vomiting and abdominal pain which is worse after abdominal lymph node biopsy. Vital signs upon arrival are within acceptable limits. Patient does not appear to be in acute distress. Palpation of the abdomen elicits diffuse abdominal tenderness.Laboratory evaluation obtained. CBC is unremarkable. Metabolic panel is unremarkable. Renal markers are within acceptable limits. Patient has mild transaminitis. Urinalysis shows 4+ ketones. There is 11 white blood cells. Patient not having any urinary symptoms. We will withhold antibiotics at this time. Urine culture pending. Given that patient had recent invasive procedure and PTT was obtained. There is findings of interval right external iliac vein thrombosis with subcentimeter intrahepatic cable thrombus suspected. Patient started on heparin. Patient be admitted to inpatient for further management. - Lab Data Result diagrams: 06/13/18 14:29 06/13/18 14:29 Lab Results 06/13/18 06/13/18 06/13/18 Range/Units 14:29 14:29 14:29 WBC 6.3 (3.8-10.6) k/uL RBC 5.60 H (3.80-5.40) m/uL Hgb 15.6 (11.4-16.0) gm/dL Hct 49.4 H (34.0-46.0) % MCV 88.3 (80.0-100.0) fL MCH 28.0 (25.0-35.0) pg MCHC 31.7 (31.0-37.0) g/dL RDW 14.5 (11.5-15.5) % Plt Count 187 (150-450) k/uL Neutrophils % 77 % Lymphocytes % 13 % Monocytes % 6 % Eosinophils % 2 % Basophils % 1 % Neutrophils # 4.8 (1.3-7.7) k/uL Lymphocytes # 0.8 L (1.0-4.8) k/uL Monocytes # 0.4 (0-1.0) k/uL Eosinophils # 0.1 (0-0.7) k/uL Basophils # 0.1 (0-0.2) k/uL Sodium 137 (137-145) mmol/L Potassium 4.6 (3.5-5.1) mmol/L Chloride 101 (98-107) mmol/L Carbon Dioxide 25 (22-30) mmol/L Anion Gap 11 mmol/L BUN 13 (7-17) mg/dL Creatinine 0.49 L (0.52-1.04) mg/dL Est GFR (CKD-EPI)AfAm >90 (>60 ml/min/1.73 sqM) Est GFR (CKD-EPI)NonAf >90 (>60 ml/min/1.73 sqM) Glucose 96 (74-99) mg/dL Calcium 10.0 (8.4-10.2) mg/dL Total Bilirubin 1.4 H (0.2-1.3) mg/dL AST 43 H (14-36) U/L ALT 71 H (9-52) U/L Alkaline Phosphatase 182 H (38-126) U/L Total Protein 8.0 (6.3-8.2) g/dL Albumin 4.4 (3.5-5.0) g/dL Amylase 44 (30-110) U/L Lipase 56 (23-300) U/L Urine Color Yellow Urine Appearance Clear (Clear) Urine pH 5.5 (5.0-8.0) Ur Specific [place] 1.023 (1.001-1.035) Urine Protein Trace H (Negative) Urine Glucose (UA) Negative (Negative) Urine Ketones 4+ H (Negative) Urine Blood Negative (Negative) Urine Nitrite Negative (Negative) Urine Bilirubin 1+ H (Negative) Urine Urobilinogen 6.0 (<2.0) mg/dL Ur Leukocyte Esterase Trace H (Negative) Urine RBC 2 (0-5) /hpf Urine WBC 11 H (0-5) /hpf Ur Squamous Epith Cells 3 (0-4) /hpf Urine Bacteria Rare H (None) /hpf Urine Mucus Moderate H (None) /hpf Disposition Clinical Impression: Iliac vein thrombosis Disposition: ADMITTED IP TO THIS [facility] Referrals: Radha Velasquez MD [Primary Care Provider] - 1-2 days Decision Time: 19:40
[2018-06-13] MEDS: SODIUM CHLORIDE 0.9% 1,000 ML IV STA (17:05)
--- NOTE | 2018-06-13 18:39 | CT ---
EXAMINATION TYPE: CT abdomen pelvis w con DATE OF EXAM: 06/13/2018 COMPARISON: 05/23/2018 HISTORY: Low back pain with nausea. History of colon cancer. CT DLP: 526.1 mGycm Automated exposure control for dose reduction was used. TECHNIQUE: Helical acquisition of images was performed from the lung bases through the pelvis. CONTRAST: Performed without Oral Contrast and with IV Contrast, patient injected with 100 mL of Isovue 300. FINDINGS: LUNG BASES: No significant abnormality is appreciated. LIVER/GB: No significant abnormality is appreciated. PANCREAS: No significant abnormality is seen. SPLEEN: No significant abnormality is seen. ADRENALS: The neoplastic tumor burden to the right adrenal has tripled in the interim, the left adren al tumor bulk has also tripled in the interim. KIDNEYS: No significant abnormality is seen. A 1.5 cm low-attenuation defect is noted centrally withi n the liver, not seen on the prior study, with a linear low attenuation defect radiating superoposter iorly from this focus, suspect new biliary radicle dilation. FREE AIR: No free air is visualized. RETROPERITONEAL ADENOPATHY: None visualized REPRODUCTIVE ORGANS: No significant abnormality is seen URINARY BLADDER: No significant abnormality is seen. PELVIC ADENOPATHY: None visualized. OSSEOUS STRUCTURES: No significant abnormality is seen. BOWEL: Increased bulky adenopathy is related to proximal duodenal dilation with transition point at the midline. This appears to be more prominent than the prior study. No other hollow visceral finding s. VASCULATURE: There is a filling defect and enlargement of the right common iliac vein, having the juan earance of occlusion. From the level of the renal vein confluence, the infrahepatic IVC is slitlike d ue to circumferential adenopathy in the maria elena hepatis, portacaval, and aortocaval positions. Sub-cent imeter short axis attenuation seen within the infrahepatic IVC, having the appearance of thrombus. Pr eviously seen bulky periaortic and root of the mesentery adenopathy redemonstrated. IMPRESSION: 1. PROMINENT NEOPLASTIC PROGRESSION. 2. EVIDENCE OF INTERVAL RIGHT EXTERNAL ILIAC VEIN THROMBOSIS, WITH SUBCENTIMETER INTRAHEPATIC CAVAL T HROMBUS SUSPECTED.
[2018-06-13] MEDS ORDERED: HEPARIN SODIUM,PORCINE 5,000 UNIT/ML 1 ML VIAL IV PRN (18:44)
[2018-06-13] MEDS ORDERED: HEPARIN SODIUM,PORCINE 5,000 UNIT/ML 1 ML VIAL IV ONE ×2 (18:44)
[2018-06-13] MEDS ORDERED: HEPARIN SOD,PORK IN 0.45% NACL 25,000 UNIT in 0.45% NACL 1 500ML.BAG IV SCH (18:45)
[2018-06-13] MEDS: HEPARIN SOD,PORK IN 0.45% NACL 25,000 UNIT in 0.45% NACL 1 500ML.BAG IV SCH (19:17)
[2018-06-13] MEDS ORDERED: NALOXONE 0.4 MG/ML 1 ML VIAL IV PRN (19:40)
[2018-06-13] MEDS ORDERED: MORPHINE CONC SOLN 10mg/0.5mL ORAL SYRG PO PRN (20:18)
[2018-06-13 20:19] LABS: INR 1.3 (<1.2)
[2018-06-13] MEDS: FAMOTIDINE 20 MG TAB PO SCH (21:46)
[2018-06-13] MEDS: PREGABALIN 25 MG CAP PO SCH (21:47)
[2018-06-13] MEDS: SENNOSIDES-DOCUSATE SODIUM 1 EACH TAB PO SCH (21:47)
[2018-06-13] MEDS: HYDROmorphone 1 MG/ML 1 ML SYRINGE IVP PRN (21:47)
[2018-06-14] MEDS: HYDROmorphone 1 MG/ML 1 ML SYRINGE IVP PRN ×6 (01:46→21:14)
[2018-06-14] MEDS ORDERED: HEPARIN SODIUM,PORCINE 5,000 UNIT/ML 1 ML VIAL IV STA (02:37)
[2018-06-14] MEDS: HEPARIN SODIUM,PORCINE 5,000 UNIT/ML 1 ML VIAL IV PRN (02:53)
[2018-06-14] MEDS: FAMOTIDINE 20 MG TAB PO SCH ×2 (09:00→21:13)
[2018-06-14] MEDS: POLYETHYLENE GLYCOL 3350 17 GM POWD.PACK PO SCH (09:00)
[2018-06-14] MEDS: PREGABALIN 25 MG CAP PO SCH ×2 (09:08→21:13)
[2018-06-14] MEDS: DRONABINOL 2.5 MG CAP PO SCH ×2 (09:09→16:32)
[2018-06-14] MEDS: cefTRIAXone IN SWFI 1,000 MG/10 ML SYRINGE IVP SCH (12:28)
[2018-06-14] MEDS: oxyCODONE-APAP 7.5-325MG 1 EACH TAB PO PRN ×3 (14:33→23:40)
--- NOTE | 2018-06-14 15:34 | P.HPIM ---
History of Present Illness H&P Date: 06/14/18 Chief Complaint: Nausea vomiting and abdominal pain This is a 68-year-old female with a known history of colon cancer status post Errol colectomy with Dr. Booker and history of previous DVT. Patient presents to emergency room with complaints of nausea vomiting decreased appetite and abdominal discomfort. Computed tomography scan of abdomen and pelvis showed prominent neoplastic progression and evidence of interval right external iliac vein thrombosis with sub-centimeter intrahepatic cable thrombus suspected. Progression of surgery is also reported thrombus portal vein. Patient was evaluated by basilar surgery and is currently on IV heparin. Oncology has also been consulted. Patient reports pain is controlled. Denies any chest pain or shortness of breath. Denies any nausea or vomiting. She has also been started on Rocephin for UTI. Also noted that her liver enzymes are elevated total bili 1.4 AST 43 ALT 71 alk phos 182 Review of Systems Please refer to HPI otherwise unremarkable Past Medical History Past Medical History: Cancer, CVA/TIA, Deep Vein Thrombosis (DVT), Osteoarthritis (OA) Additional Past Medical History / Comment(s): OSTEOPOROSIS, "SMALL BRAIN BLEEDS "-NO RESIDUAL EFFECTS,HX OF DVT YEARS AGO AFTER TAKING CONTROL PILLS, hx colon cancer(sx and finished chemo ), chronic sinusitis/deviated septum(sx ) History of Any Multi-Drug Resistant Organisms: None Reported Past Surgical History: Bladder Surgery, Bowel Resection, Hysterectomy, Tonsillectomy Additional Past Surgical History / Comment(s): nasal sx 2014 bladder suspension, 07/2017 had maria elena cath,celiac plexsus block 06-04-18. last sunday at [facility] abd lymhp node bx-has'nt gotten results yet. Past Anesthesia/Blood Transfusion Reactions: No Reported Reaction, Motion Sickness Smoking Status: Former smoker - Past Family History Mother Family Medical History: Cancer Additional Family Medical History / Comment(s): BREAST Father Family Medical History: Cancer Additional Family Medical History / Comment(s): PANCREATIC Sister(s) Family Medical History: Cancer Additional Family Medical History / Comment(s): BREAST Medications and Allergies Home Medications Medication Instructions Recorded Confirmed Type Melatonin 10 mg PO HS 06/01/18 06/13/18 History Polyethylene Glycol 3350 [Miralax] 17 gm PO DAILY 06/01/18 06/13/18 History Sennosides-Docusate Sodium 2 tab PO HS 06/01/18 06/13/18 History [Senokot-S] Dronabinol 5 mg PO AC-BID 30 Days #60 capsule 06/05/18 06/13/18 Rx MORPHINE ORAL EDITH CONC 20mg/mL 15 mg PO Q3HR PRN 14 Days #60 ml 06/05/18 Rx [Roxanol Oral Soln Conc 20MG/ML] Pregabalin [Lyrica] 25 mg PO BID #6 cap 06/05/18 06/13/18 Rx fentaNYL 50MCG/HR PATCH [Duragesic 1 patch TRANSDERM Q72H 30 Days #10 06/05/18 06/13/18 Rx 50MCG/HR] patch Allergies Allergy/AdvReac Type Severity Reaction Status Date / Time tramadol HCl [From [facility]] Allergy Severe PARALYZED Verified 06/13/18 15:53 FOR HOURS, UNABLE TO MOVE" Physical Exam Vitals: Vital Signs Temp Pulse Pulse Resp BP BP Pulse Ox 06/14/18 14:17 98 F 76 16 116/70 96 06/14/18 06:01 97.8 F 81 16 111/57 99 06/13/18 21:00 97.7 F 77 16 115/76 99 06/13/18 19:21 89 18 114/72 97 Intake and Output 06/14/18 06/14/18 06/14/18 06:59 14:59 22:59 Intake Total 507.068 109.163 Balance 507.068 109.163 Intake: Intake, IV Titration 107.068 109.163 Amount Heparin Sod,Pork in 0.45% 107.068 109.163 NaCl 25,000 unit In 0.45 % NaCl 1 500ml.bag @ 12 UNITS/KG/HR 14.15 mls/hr IV .Q24H [facility] Rx#: [id number] Oral 400 Other: Voiding Method Toilet Toilet # Voids 2 Head normocephalic Neck supple Lungs clear to auscultation bilaterally no wheezing or crackles Heart regular rate and rhythm S1-S2, no rub or gallop Abdomen is soft nontender nondistended positive bowel sounds no hepatosplenomegaly Extremities no edema Neuro alert and orientated to 3 Results CBC & Chem 7: 06/13/18 14:29 06/13/18 14:29 Labs: Abnormal Lab Results - Last 24 Hours (Table) 06/13/18 06/14/18 06/14/18 Range/Units 19:49 01:29 06:53 INR 1.3 H (<1.2) APTT 41.8 H 62.9 H (22.0-30.0) sec Microbiology - Last 24 Hours (Table) 06/13/18 14:29 Urine Culture - Preliminary Urine,Clean Catch Thrombosis Risk Factor Assmnt - Choose All That Apply Any of the Below Risk Factors Present?: Yes Each Risk Factor Represents 2 Points: Age 61-74 years Each Risk Factor Represents 3 Points: History of DVT/PE Thrombosis Risk Factor Assessment Total Risk Factor Score: 5 Thrombosis Risk Factor Assessment Level: High Risk Assessment and Plan Assessment: 1. 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 Continue with the IV heparin. Per vascular surgery concerns that lymph nodes are enlarged and causing the iliac vein occlusion. Patient also will be evaluated by oncology. No intervention scheduled at this time 2. History of colon cancer with partial colectomy 3. History of previous lower extremity DVT 4. Elevated LFTs: Continue to monitor. Repeat labs in a.m. 5. UTI: Await urine culture. Start Rocephin GI prophylaxis Pepcid and DVT prophylaxis IV heparin Time with Patient: Greater than 30 (Greater than 60% of the total time spent in counseling and coordination of care.I performed an examination of the patient and discussed their management with the physician Count Room Clerk. I have reviewed the Physician Count Room Clerk's notes and agree with the documented findings and plan of care)
--- NOTE | 2018-06-14 16:01 | CONS ---
CONSULTATION This patient is a 68-year-old pleasant female. She came to the emergency room with history of nausea, vomiting, loss of appetite with some abdominal pain. Patient is post colon resection by Dr. Booker and also patient is under the care of Dr. Tejada. I was consulted for CT finding suggestive of a right external iliac vein DVT and I have reviewed the CT finding with Dr. Rendon. Patient was found to have large lymphadenopathy around the right iliac vein which is compressing by the large lymph nodes and there was a thrombus seen in the right branch of the portal vein. Also there is a clot seen in the right renal vein. PAST MEDICAL HISTORY: Patient has a history of hysterectomy, history of bladder surgery, history of colon surgery, history of tonsillectomy. PHYSICAL EXAMINATION: Patient was seen in her room. She has some symptoms of abdominal pain, some nausea and very weak feelings. NECK: Supple. CHEST: Clear on auscultation. Abdomen is mildly distended. No peritoneal sign noted. Femoral pulses are present. IMPRESSION: Patient has large lymphadenopathy around the iliac vein and maria elena hepatis and also there is a thrombus seen in the right branch of the portal vein and renal vein. Dr. Tejada will be consulted for further opinion. There is also possibility of intrahepatic caval thrombosis suspected. Discussed with Dr. Lyons. Patient is on heparin. We will have an opinion from Oncology and from the surgeons. Will follow with you. Prognosis is guarded. We will continue with heparin. MMODL / IJN: [id number] /
[2018-06-14] MEDS: SENNOSIDES-DOCUSATE SODIUM 1 EACH TAB PO SCH (21:12)
[2018-06-14] MEDS: SODIUM CHLORIDE 0.9% 1,000 ML IV STA (21:25)
[2018-06-14] MEDS: HEPARIN SOD,PORK IN 0.45% NACL 25,000 UNIT in 0.45% NACL 1 500ML.BAG IV SCH (22:20)
[2018-06-15] MEDS: HYDROmorphone 1 MG/ML 1 ML SYRINGE IVP PRN ×5 (05:49→20:16)
[2018-06-15 07:39] LABS: Basophils # (A) 0.1 k/uL (0-0.2); Basophils % (A) 1 %; Eosinophils # (A) 0.2 k/uL (0-0.7); Eosinophils % (A) 4 %; HCT 39.7 % (34.0-46.0); HGB 12.9 gm/dL (11.4-16.0); Lymphocytes # (A) 0.9 k/uL (1.0-4.8); Lymphocytes % (A) 18 %; MCH 28.7 pg (25.0-35.0); MCHC 32.4 g/dL (31.0-37.0); MCV 88.5 fL (80.0-100.0); Mean Platelet Volume 7.6; Monocytes # (A) 0.4 k/uL (0-1.0); Monocytes % (A) 8 %; Neutrophils # (A) 3.2 k/uL (1.3-7.7); Neutrophils % (A) 67 %; Platelet Count 155 k/uL (150-450); RBC 4.48 m/uL (3.80-5.40); RDW 14.6 % (11.5-15.5); WBC 4.8 k/uL (3.8-10.6)
[2018-06-15 07:54] LABS: ALT 55 U/L (9-52); AST 29 U/L (14-36); Albumin 3.5 g/dL (3.5-5.0); Alkaline Phosphatase 146 U/L (38-126); Anion Gap 9 mmol/L; Blood Urea Nitrogen 10 mg/dL (7-17); Calcium 9.4 mg/dL (8.4-10.2); Carbon Dioxide 25 mmol/L (22-30); Chloride 101 mmol/L (98-107); Glucose 103 mg/dL (74-99); Potassium 3.8 mmol/L (3.5-5.1); Sodium 135 mmol/L (137-145); Total Bilirubin 0.8 mg/dL (0.2-1.3); Total Protein 6.7 g/dL (6.3-8.2)
[2018-06-15] MEDS: cefTRIAXone IN SWFI 1,000 MG/10 ML SYRINGE IVP SCH (08:06)
[2018-06-15] MEDS: oxyCODONE-APAP 7.5-325MG 1 EACH TAB PO PRN ×4 (08:06→20:24)
[2018-06-15] MEDS: DRONABINOL 2.5 MG CAP PO SCH ×2 (08:06→17:57)
[2018-06-15] MEDS: FAMOTIDINE 20 MG TAB PO SCH ×2 (08:07→20:24)
[2018-06-15] MEDS: POLYETHYLENE GLYCOL 3350 17 GM POWD.PACK PO SCH (08:07)
[2018-06-15] MEDS: HEPARIN SODIUM,PORCINE 5,000 UNIT/ML 1 ML VIAL IV PRN (08:39)
[2018-06-15] MEDS: PREGABALIN 25 MG CAP PO SCH ×2 (11:35→21:04)
--- NOTE | 2018-06-15 14:59 | P.PN ---
Subjective Progress Note Date: 06/15/18 This is a 68-year-old female with a known history of colon cancer status post Errol colectomy with Dr. Booker and history of previous DVT. Patient presents to emergency room with complaints of nausea vomiting decreased appetite and abdominal discomfort. Computed tomography scan of abdomen and pelvis showed prominent neoplastic progression and evidence of interval right external iliac vein thrombosis with sub-centimeter intrahepatic cable thrombus suspected. Progression of surgery is also reported thrombus portal vein. Patient was evaluated by basilar surgery and is currently on IV heparin. Oncology has also been consulted. Patient reports pain is controlled. Denies any chest pain or shortness of breath. Denies any nausea or vomiting. She has also been started on Rocephin for UTI. Also noted that her liver enzymes are elevated total bili 1.4 AST 43 ALT 71 alk phos 182 On 06/15/2018 patient was seen and examined case discussed with Sonia Donaldson oncology nurse practitioner over the phone. Clinically patient is complaining of worsening abdominal pain otherwise no complaints at this time there is no fever or chills no headache or dizziness no chest pain no shortness of breath no cough no nausea or vomiting no diarrhea and no urinary symptoms Objective - Vital Signs Vital signs: Vital Signs Temp 98.1 F 06/15/18 14:42 Pulse 67 06/15/18 14:42 Resp 16 06/15/18 14:42 BP 123/58 06/15/18 14:42 Pulse Ox 98 06/15/18 14:42 Intake & Output 06/14/18 06/15/18 06/15/18 18:59 06:59 18:59 Intake Total 109.163 861.8 876.747 Balance 109.163 861.8 876.747 Weight 58.967 kg Intake: Intake, IV Titration 109.163 261.8 196.747 Amount Heparin Sod,Pork in 0.45% 109.163 261.8 196.747 NaCl 25,000 unit In 0.45 % NaCl 1 500ml.bag @ 12 UNITS/KG/HR 14.15 mls/hr IV .Q24H [facility] Rx#: [id number] Oral 600 680 Other: Voiding Method Toilet Toilet Toilet # Voids 2 1 3 - Exam Head normocephalic and atraumatic Neck supple no JVD no goiter Lungs clear to auscultation bilaterally no wheezing or crackles Heart regular rate and rhythm S1-S2, no rub or gallop Abdomen is soft with diffuse tenderness nondistended positive bowel sounds no hepatosplenomegaly Extremities no edema Neuro alert and orientated to 3 - Labs CBC & Chem 7: 06/15/18 07:19 06/15/18 07:19 Labs: Abnormal Lab Results - Last 24 Hours (Table) 06/15/18 06/15/18 06/15/18 Range/Units 07:19 07:19 07:19 Lymphocytes # 0.9 L (1.0-4.8) k/uL APTT 41.0 H (22.0-30.0) sec Sodium 135 L (137-145) mmol/L Glucose 103 H (74-99) mg/dL ALT 55 H (9-52) U/L Alkaline Phosphatase 146 H (38-126) U/L Microbiology - Last 24 Hours (Table) 06/13/18 14:29 Urine Culture - Final Urine,Clean Catch Assessment and Plan Plan: 1. 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 Continue with the IV heparin. Per vascular surgery concerns that lymph nodes are enlarged and causing the iliac vein occlusion. Patient also will be evaluated by oncology. No intervention scheduled at this time 2. History of colon cancer with partial colectomy 3. History of previous lower extremity DVT 4. Elevated LFTs: Continue to monitor. Repeat labs in a.m. 5. UTI: Await urine culture. Start Rocephin 6. 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
--- NOTE | 2018-06-15 15:07 | P.CONS ---
History of Present Illness - Reason for Consult Consult date: 06/15/18 Metastatic Cancer Requesting physician: Irma Lyons - Chief Complaint uncontrolled pain - History of Present Illness Ms Gross is a pleasant white female, initially seen in consult at [facility]. The patient had presented with progressive shortness of breath over the past month. On admission, she was noted to have microcytic anemia. Shell also been complaining of pain in the abdomen and difficulty with passing bowel movements. She had a computed tomography scan of the abdomen and pelvis on 05/11/17. This revealed abnormal thickening of the mucosa of the descending colon measuring up to 1.1 cm in thickness which appeared to be almost circumferential. She was noted to have borderline lymph nodes measuring 1.1 cm and 1.4 cm around the celiac trunk. She proceeded to colonoscopy and EGD with Dr. Patel on 05/14/17. She was found to have an ascending colon mass which was nearly obstructing. Biopsy was positive for poorly differentiated carcinoma with prominent neuroendocrine differentiation. Because of the near obstructing nature of the mass, she was taken to surgery on 05/15/17 underwent a right colectomy with lymph node dissection. This revealed a 742.5 cm tumor, invading through the muscularis propria into the pericolic fat and focally abutting the inked serosal surface. Margins were negative. 3/20 pericolic lymph nodes were involved. Tumor was staged as T4 1 N1 b. 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 The patient had a CTA as well as CT of the abdomen and pelvis on 05/17/17 because of drop in oxygen saturation and blood pressure. This revealed no evidence of a PE or metastatic disease in the thorax. CT of the abdomen and pelvis again showed stable borderline enlarged mesenteric and retroperitoneal nodes with the largest retroperitoneal node measuring 1.7 cm and the largest mesenteric node measuring 1.4 cm, felt to be similar to the 05/11/17 scan. The patient did recover fairly quickly from her episode and was seen in consult. She was cleared for discharge, and was seen in the office on 06/14/17. Sponge sitting up She was referred for an opinion to the [facility] re the choice of chemo, based on the pathology. FOLFOX was recommended pending evaluation by pathology there. PET scan unfortunately revealed stage IV disease with uptake in the retroperitoneal and mesenteric nodes. Her cancer was KRAS wild type. She was started on FOLFOX and is s/p 11 cycles, completing those in early . 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 Cycle 3 was delayed by week, and dose reduced by 25 % . She tolerated treatment much better with the dose adjustment. She had increase in side effects again with C 8, and dose was reduced by another 10 % with C 9. She decided to cancel C 12 due to side effects. She refused maintenance treatment, and was placed on observation. CT scans in 04/24 showed progression with growth in mesenteric, peripancreatic /perigastric as well as retroperitoneal nodes Today patient was seen and evaluated in follow-up Recent Biopsy at [facility] retroperitoneal lymph node show metastatic poorly differentiated carcinoma. Previous Pathology showed poorly differented adenocarcinoma with neuroendocrine features. Originally thought to be metastatic colon cancer. and she was treated with FOLFOX with Poor Tolerance. Refused further chemo. Her pain has been greatly progressing over the past weeks , requiring high dose of opioid pain medications for a tolerable pain level. On presentation a CT was completed and also shows a new Right external iliac throbosis and intrahepatic thrombosis. She was started on a heparin drip. HEr pain is still intolerable with fentanyl, percocet and dilaudid IV. Review of Systems A 14 point review of systems assessed and completed and all negative except HPI. Past Medical History Past Medical History: Cancer, CVA/TIA, Deep Vein Thrombosis (DVT), Osteoarthritis (OA) Additional Past Medical History / Comment(s): OSTEOPOROSIS, "SMALL BRAIN BLEEDS "-NO RESIDUAL EFFECTS,HX OF DVT YEARS AGO AFTER TAKING CONTROL PILLS, hx colon cancer(sx and finished chemo ), chronic sinusitis/deviated septum(sx ) History of Any Multi-Drug Resistant Organisms: None Reported Past Surgical History: Bladder Surgery, Bowel Resection, Hysterectomy, Tonsillectomy Additional Past Surgical History / Comment(s): nasal sx 2014 bladder suspension, 07/2017 had maria elena cath,celiac plexsus block 06-04-18[facility]-has'nt gotten results yet. Past Anesthesia/Blood Transfusion Reactions: No Reported Reaction, Motion Sickness Smoking Status: Former smoker - Past Family History Mother Family Medical History: Cancer Additional Family Medical History / Comment(s): BREAST Father Family Medical History: Cancer Additional Family Medical History / Comment(s): PANCREATIC Sister(s) Family Medical History: Cancer Additional Family Medical History / Comment(s): BREAST Medications and Allergies Home Medications Medication Instructions Recorded Confirmed Type Melatonin 10 mg PO HS 06/01/18 06/13/18 History Polyethylene Glycol 3350 [Miralax] 17 gm PO DAILY 06/01/18 06/13/18 History Sennosides-Docusate Sodium 2 tab PO HS 06/01/18 06/13/18 History [Senokot-S] Dronabinol 5 mg PO AC-BID 30 Days #60 capsule 06/05/18 06/13/18 Rx MORPHINE ORAL EDITH CONC 20mg/mL 15 mg PO Q3HR PRN 14 Days #60 ml 06/05/18 Rx [Roxanol Oral Soln Conc 20MG/ML] Pregabalin [Lyrica] 25 mg PO BID #6 cap 06/05/18 06/13/18 Rx fentaNYL 50MCG/HR PATCH [Duragesic 1 patch TRANSDERM Q72H 30 Days #10 06/05/18 06/13/18 Rx 50MCG/HR] patch Allergies Allergy/AdvReac Type Severity Reaction Status Date / Time tramadol HCl [facility] Allergy Severe PARALYZED Verified 06/13/18 15:53 FOR HOURS, UNABLE TO MOVE" Physical Exam Vitals: Vital Signs Temp Pulse Resp BP Pulse Ox 06/15/18 07:00 97.9 F 62 16 113/50 97 06/14/18 21:14 98.4 F 74 125/56 96 06/14/18 15:30 96.4 F L 65 16 121/59 97 Intake and Output 06/14/18 06/15/18 06/15/18 22:59 06:59 14:59 Intake Total 861.8 876.747 Balance 861.8 876.747 Intake: Intake, IV Titration 261.8 196.747 Amount Heparin Sod,Pork in 0.45% 261.8 196.747 NaCl 25,000 unit In 0.45 % NaCl 1 500ml.bag @ 12 UNITS/KG/HR 14.15 mls/hr IV .Q24H [facility] Rx#: [id number] Oral 600 680 Other: Voiding Method Toilet Toilet Toilet # Voids 1 3 Weight 58.967 kg - Constitutional General appearance: cooperative, mild distress - EENT Eyes: EOMI, PERRLA ENT: NA/AT, normal oropharynx - Neck supple trachea midline Neck: normal ROM - Respiratory Respiratory: bilateral: CTA - Cardiovascular Rhythm: regular Heart sounds: normal: S1, S2 - Gastrointestinal General gastrointestinal: distended, tenderness - Integumentary Integumentary: pale - Neurologic Neurologic: CNII-XII intact - Musculoskeletal Musculoskeletal: generalized weakness, strength equal bilaterally - Psychiatric Psychiatric: A&O x's 3, appropriate affect, intact judgment & insight Results CBC & Chem 7: 06/15/18 07:19 06/15/18 07:19 Labs: Abnormal Lab Results - Last 24 Hours (Table) 06/15/18 06/15/18 06/15/18 Range/Units 07:19 07:19 07:19 Lymphocytes # 0.9 L (1.0-4.8) k/uL APTT 41.0 H (22.0-30.0) sec Sodium 135 L (137-145) mmol/L Glucose 103 H (74-99) mg/dL ALT 55 H (9-52) U/L Alkaline Phosphatase 146 H (38-126) U/L Microbiology - Last 24 Hours (Table) 06/13/18 14:29 Urine Culture - Final Urine,Clean Catch CT scan - chest: report reviewed CT scan - pelvis: report reviewed (pathology revealed) Assessment and Plan Plan: Assessment and recommendations: 1. Progressive Poorly Differentiated carcinoma: - Previously adenocarcinoma with neuroendocrine features treated with FOLFOX and poor tolerance. - New Biopsy this month at [facility] shows metastatic poorly differentiated carcinoma - Patient is in a lot of pain, unable to be controlled as an outpatient. Treatment as an inpatient will likely help to decrease tumor burden and control her pain. I have discussed this as a potential option with her. I will discuss with Dr. Pham as well as with consistent path findings of poorly differentiated carcinoma she may benefit from inpatient treatment with a carbo/FLORICULTURE TEACHER regimen. She understands this is of palliative intent to decrease tumor burden and pain 2. New Thrombus in Right external iliac and intrahepatic veins. - Currently on Heparin drip, continue at this time and will change to Eliquis likely at discharge - Case management sent request for coverage check on eliquis 3. Uncontrolled pain secondary to one and two: - 6 weeks ago not requiring any pain medications and now not being managed with fentanyl, IV dilaudid, and PO percocet - Could not tolerate liquid roxanol - Increase fentanyl to 75mcg and shorten duration diladid and D?C Percocet - Bowel regimen has been added to her orders for narcotic induced constipation risk This case has been discussed in detail with Dr. Lyons, we will plan to transfer to Oncology floor and will discuss option of inpatient chemotherapy with Oncologist.
[2018-06-15] MEDS: HEPARIN SOD,PORK IN 0.45% NACL 25,000 UNIT in 0.45% NACL 1 500ML.BAG IV SCH (18:59)
[2018-06-15] MEDS: SENNOSIDES-DOCUSATE SODIUM 1 EACH TAB PO SCH (21:04)
[2018-06-16] MEDS: oxyCODONE-APAP 7.5-325MG 1 EACH TAB PO PRN ×6 (00:01→20:46)
[2018-06-16] MEDS: HYDROmorphone 1 MG/ML 1 ML SYRINGE IVP PRN ×7 (03:02→20:45)
[2018-06-16] MEDS: HEPARIN SOD,PORK IN 0.45% NACL 25,000 UNIT in 0.45% NACL 1 500ML.BAG IV SCH (03:55)
[2018-06-16] MEDS: DRONABINOL 2.5 MG CAP PO SCH ×2 (08:17→17:18)
[2018-06-16] MEDS: cefTRIAXone IN SWFI 1,000 MG/10 ML SYRINGE IVP SCH (08:19)
[2018-06-16] MEDS: FAMOTIDINE 20 MG TAB PO SCH ×2 (08:25→21:30)
[2018-06-16] MEDS: POLYETHYLENE GLYCOL 3350 17 GM POWD.PACK PO SCH (08:25)
[2018-06-16] MEDS: PREGABALIN 25 MG CAP PO SCH ×2 (08:28→21:30)
[2018-06-16 09:23] LABS: Basophils # (A) 0.1 k/uL (0-0.2); Basophils % (A) 1 %; Eosinophils # (A) 0.2 k/uL (0-0.7); Eosinophils % (A) 5 %; HCT 40.9 % (34.0-46.0); Lymphocytes # (A) 0.9 k/uL (1.0-4.8); Lymphocytes % (A) 20 %; MCH 28.3 pg (25.0-35.0); MCHC 31.8 g/dL (31.0-37.0); MCV 88.9 fL (80.0-100.0); Mean Platelet Volume 7.3; Monocytes # (A) 0.3 k/uL (0-1.0); Monocytes % (A) 6 %; Neutrophils # (A) 3.2 k/uL (1.3-7.7); Neutrophils % (A) 67 %; Platelet Count 165 k/uL (150-450); RBC 4.61 m/uL (3.80-5.40); RDW 14.6 % (11.5-15.5); WBC 4.7 k/uL (3.8-10.6)
[2018-06-16 09:58] LABS: ALT 54 U/L (9-52); AST 34 U/L (14-36); Albumin 3.8 g/dL (3.5-5.0); Alkaline Phosphatase 153 U/L (38-126); Anion Gap 9 mmol/L; Blood Urea Nitrogen 8 mg/dL (7-17); Carbon Dioxide 27 mmol/L (22-30); Chloride 103 mmol/L (98-107); Glucose 105 mg/dL (74-99); Potassium 3.8 mmol/L (3.5-5.1); Sodium 139 mmol/L (137-145); Total Bilirubin 0.6 mg/dL (0.2-1.3); Total Protein 7.1 g/dL (6.3-8.2)
--- NOTE | 2018-06-16 11:03 | P.PN ---
Subjective Progress Note Date: 06/16/18 This is a 68-year-old female with a known history of colon cancer status post Errol colectomy with Dr. Booker and history of previous DVT. Patient presents to emergency room with complaints of nausea vomiting decreased appetite and abdominal discomfort. Computed tomography scan of abdomen and pelvis showed prominent neoplastic progression and evidence of interval right external iliac vein thrombosis with sub-centimeter intrahepatic cable thrombus suspected. Progression of surgery is also reported thrombus portal vein. Patient was evaluated by basilar surgery and is currently on IV heparin. Oncology has also been consulted. Patient reports pain is controlled. Denies any chest pain or shortness of breath. Denies any nausea or vomiting. She has also been started on Rocephin for UTI. Also noted that her liver enzymes are elevated total bili 1.4 AST 43 ALT 71 alk phos 182 On 06/15/2018 patient was seen and examined case discussed with Sonia Donaldson oncology nurse practitioner over the phone. Clinically patient is complaining of worsening abdominal pain otherwise no complaints at this time there is no fever or chills no headache or dizziness no chest pain no shortness of breath no cough no nausea or vomiting no diarrhea and no urinary symptoms. On 06/16/2018 patient is alert and oriented 3 her pain is better controlled there is no new symptoms patient denies any fever or chills no headache or dizziness no chest pain no shortness of breath or cough no nausea or vomiting no diarrhea and no urinary symptoms. Objective - Vital Signs Vital signs: Vital Signs Temp 97.7 F 06/16/18 08:16 Pulse 83 06/16/18 08:16 Resp 20 06/16/18 08:16 BP 118/71 06/16/18 08:16 Pulse Ox 96 06/16/18 08:16 Intake & Output 06/15/18 06/16/18 06/16/18 18:59 06:59 18:59 Intake Total 1101.026 758.974 109.458 Balance 1101.026 758.974 109.458 Weight 58.967 kg 58.967 kg Intake: Intake, IV Titration 421.026 78.974 109.458 Amount Heparin Sod,Pork in 0.45% 421.026 78.974 109.458 NaCl 25,000 unit In 0.45 % NaCl 1 500ml.bag @ 12 UNITS/KG/HR 14.15 mls/hr IV .Q24H [facility] Rx#: [id number] Oral 680 680 Other: Voiding Method Toilet # Voids 3 2 1 - Exam Head normocephalic and atraumatic Neck supple no JVD no goiter Lungs clear to auscultation bilaterally no wheezing or crackles Heart regular rate and rhythm S1-S2, no rub or gallop Abdomen is soft with diffuse tenderness nondistended positive bowel sounds no hepatosplenomegaly Extremities no edema Neuro alert and orientated to 3 - Labs CBC & Chem 7: 06/16/18 09:06/16/18 09:09 Labs: Abnormal Lab Results - Last 24 Hours (Table) 06/15/18 06/16/18 06/16/18 Range/Units 14:57 09:09 09:09 Lymphocytes # 0.9 L (1.0-4.8) k/uL APTT 61.2 H (22.0-30.0) sec Creatinine 0.50 L (0.52-1.04) mg/dL Glucose 105 H (74-99) mg/dL ALT 54 H (9-52) U/L Alkaline Phosphatase 153 H (38-126) U/L 06/16/18 Range/Units 09:09 Lymphocytes # (1.0-4.8) k/uL APTT 50.4 H (22.0-30.0) sec Creatinine (0.52-1.04) mg/dL Glucose (74-99) mg/dL ALT (9-52) U/L Alkaline Phosphatase (38-126) U/L Assessment and Plan Plan: 1. 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 Continue with the IV heparin. Per vascular surgery concerns that lymph nodes are enlarged and causing the iliac vein occlusion. Patient also will be evaluated by oncology. No intervention scheduled at this time 2. History of colon cancer with partial colectomy 3. History of previous lower extremity DVT 4. Elevated LFTs: Continue to monitor. Repeat labs in a.m. 5. UTI: Await urine culture. Start Rocephin 6. 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
[2018-06-16] MEDS: SENNOSIDES-DOCUSATE SODIUM 1 EACH TAB PO SCH (22:57)
[2018-06-17] MEDS: HYDROmorphone 1 MG/ML 1 ML SYRINGE IVP PRN ×5 (02:23→20:17)
[2018-06-17] MEDS: oxyCODONE-APAP 7.5-325MG 1 EACH TAB PO PRN ×4 (03:31→21:28)
[2018-06-17 07:57] LABS: Basophils # (A) 0.1 k/uL (0-0.2); Basophils % (A) 1 %; Eosinophils # (A) 0.2 k/uL (0-0.7); Eosinophils % (A) 4 %; HCT 40.4 % (34.0-46.0); Lymphocytes # (A) 1.2 k/uL (1.0-4.8); Lymphocytes % (A) 22 %; MCH 28.4 pg (25.0-35.0); MCHC 32.1 g/dL (31.0-37.0); MCV 88.5 fL (80.0-100.0); Mean Platelet Volume 7.8; Monocytes # (A) 0.4 k/uL (0-1.0); Monocytes % (A) 8 %; Neutrophils # (A) 3.3 k/uL (1.3-7.7); Neutrophils % (A) 64 %; Platelet Count 154 k/uL (150-450); RBC 4.57 m/uL (3.80-5.40); RDW 14.7 % (11.5-15.5); WBC 5.2 k/uL (3.8-10.6)
[2018-06-17] MEDS: DRONABINOL 2.5 MG CAP PO SCH ×2 (07:58→18:24)
[2018-06-17] MEDS: POLYETHYLENE GLYCOL 3350 17 GM POWD.PACK PO SCH (07:59)
[2018-06-17] MEDS: cefTRIAXone IN SWFI 1,000 MG/10 ML SYRINGE IVP SCH (07:59)
[2018-06-17] MEDS: FAMOTIDINE 20 MG TAB PO SCH (07:59)
[2018-06-17] MEDS: PREGABALIN 25 MG CAP PO SCH (08:02)
[2018-06-17 08:23] LABS: ALT 56 U/L (9-52); AST 40 U/L (14-36); Albumin 3.5 g/dL (3.5-5.0); Alkaline Phosphatase 163 U/L (38-126); Anion Gap 10 mmol/L; Blood Urea Nitrogen 7 mg/dL (7-17); Calcium 9.6 mg/dL (8.4-10.2); Carbon Dioxide 24 mmol/L (22-30); Chloride 106 mmol/L (98-107); Glucose 105 mg/dL (74-99); Potassium 3.4 mmol/L (3.5-5.1); Sodium 140 mmol/L (137-145); Total Bilirubin 0.5 mg/dL (0.2-1.3); Total Protein 6.6 g/dL (6.3-8.2)
[2018-06-17] MEDS ORDERED: oxyCODONE-APAP 7.5-325MG 1 EACH TAB PO STA (11:26)
[2018-06-17] MEDS ORDERED: POTASSIUM CHLORIDE ER 20 MEQ TAB.ER PO STA (11:58)
[2018-06-17 12:09] VITALS: BMI 23.0
[2018-06-17] MEDS: SALT AND SODA MOUTHWASH 1,000 ML PO SCH ×3 (12:47→23:22)
[2018-06-17] MEDS: APIXABAN 5 MG TAB PO SCH ×2 (12:47→23:22)
--- NOTE | 2018-06-17 14:18 | P.PN ---
Subjective Progress Note Date: 06/17/18 This is a 68-year-old female with a known history of colon cancer status post Errol colectomy with Dr. Booker and history of previous DVT. Patient presents to emergency room with complaints of nausea vomiting decreased appetite and abdominal discomfort. Computed tomography scan of abdomen and pelvis showed prominent neoplastic progression and evidence of interval right external iliac vein thrombosis with sub-centimeter intrahepatic cable thrombus suspected. Progression of surgery is also reported thrombus portal vein. Patient was evaluated by basilar surgery and is currently on IV heparin. Oncology has also been consulted. Patient reports pain is controlled. Denies any chest pain or shortness of breath. Denies any nausea or vomiting. She has also been started on Rocephin for UTI. Also noted that her liver enzymes are elevated total bili 1.4 AST 43 ALT 71 alk phos 182 On 06/15/2018 patient was seen and examined case discussed with Sonia Donaldson oncology nurse practitioner over the phone. Clinically patient is complaining of worsening abdominal pain otherwise no complaints at this time there is no fever or chills no headache or dizziness no chest pain no shortness of breath no cough no nausea or vomiting no diarrhea and no urinary symptoms. On 06/16/2018 patient is alert and oriented 3 her pain is better controlled there is no new symptoms patient denies any fever or chills no headache or dizziness no chest pain no shortness of breath or cough no nausea or vomiting no diarrhea and no urinary symptoms. 06/17/2018 patient starting chemotherapy today. IV heparin was discontinued today and patient placed on Eliquis 10 mg twice a day per oncology. Potassium 3.4 she's receiving supplement. Patient denies any chest pain or shortness of breath. Still having abdominal pain. Oncology adjusting pain medication. Denies any nausea or vomiting. Reports bowel movements. Denies any burning with urination Objective - Vital Signs Vital signs: Vital Signs Temp 98.2 F 06/17/18 06:03 Pulse 91 06/17/18 06:03 Resp 16 06/17/18 06:03 BP 115/59 06/17/18 06:03 Pulse Ox 97 06/17/18 06:03 Intake & Output 06/16/18 06/17/18 06/17/18 18:59 06:59 18:59 Intake Total 915.166 234.834 Balance 915.166 234.834 Weight 58.967 kg 58.967 kg Intake: Intake, IV Titration 265.166 234.834 Amount Heparin Sod,Pork in 0.45% 265.166 234.834 NaCl 25,000 unit In 0.45 % NaCl 1 500ml.bag @ 12 UNITS/KG/HR 14.15 mls/hr IV .Q24H [facility] Rx#: [id number] Oral 650 Other: Voiding Method Toilet Toilet Toilet # Voids 2 1 - Exam Head normocephalic Neck supple Lungs clear to auscultation bilaterally no wheezing or crackles Heart regular rate and rhythm S1-S2, no rub or gallop Abdomen is soft nontender nondistended positive bowel sounds no hepatosplenomegaly Extremities no edema Neuro alert and orientated to 3 - Labs CBC & Chem 7: 06/17/18 07:34 06/17/18 07:34 Labs: Abnormal Lab Results - Last 24 Hours (Table) 06/17/18 06/17/18 Range/Units 07:34 07:34 APTT 48.9 H (22.0-30.0) sec Potassium 3.4 L (3.5-5.1) mmol/L Creatinine 0.47 L (0.52-1.04) mg/dL Glucose 105 H (74-99) mg/dL AST 40 H (14-36) U/L ALT 56 H (9-52) U/L Alkaline Phosphatase 163 H (38-126) U/L Assessment and Plan Assessment: 1. 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 IV heparin discontinued and patient started on Eliquis 10 mg twice a day per oncology 2. History of colon cancer with partial colectomy. Patient starting chemotherapy today 3. History of previous lower extremity DVT 4. Elevated LFTs: Continue to monitor. Repeat labs in a.m. 5. UTI: Urine culture showing contamination. Patient received 4 days of antibiotic. We'll discontinue Rocephin 6. Hypokalemia patient receiving potassium supplement. Repeat labs in a.m. GI prophylaxis Pepcid and DVT prophylaxis Eliquis I performed an examination of the patient and discussed their management with the physician Steel Handler. I have reviewed the Physician Steel Handler's notes and agree with the documented findings and plan of care
--- NOTE | 2018-06-17 15:42 | P.PN ---
Subjective Progress Note Date: 06/17/18 Principal diagnosis: intractable pain related to malignancy Patient seen today in follow-up with daughter and granddaughter at the bedside. Case was discussed with Dr. Pham. Malignancy recurrence has been confirmed, adenocarcinoma confirmed,there are recommendations for palliative chemotherapy. Patient is currently struggling with pain control, pain does move around but it is mostly in the back/pelvis area, it is worse when she attempts to walk so, she is getting weaker. Patient denies fevers, vomiting, she can only tolerate small amounts of oral intake at a time, no difficulty in breathing, dysuria, hematuria, diarrhea or constipation, black or bloody stool or swelling in the legs. She does have moderate abdominal distention Objective - Vital Signs Vital signs: Vital Signs Temp 98.2 F 06/17/18 06:03 Pulse 91 06/17/18 06:03 Resp 16 06/17/18 06:03 BP 115/59 06/17/18 06:03 Pulse Ox 97 06/17/18 06:03 Intake & Output 06/16/18 06/17/18 06/17/18 18:59 06:59 18:59 Intake Total 915.166 234.834 Balance 915.166 234.834 Weight 58.967 kg 58.3 kg Intake: Intake, IV Titration 265.166 234.834 Amount Heparin Sod,Pork in 0.45% 265.166 234.834 NaCl 25,000 unit In 0.45 % NaCl 1 500ml.bag @ 12 UNITS/KG/HR 14.15 mls/hr IV .Q24H [facility] Rx#: [id number] Oral 650 Other: Voiding Method Toilet Toilet Toilet # Voids 2 1 - Constitutional General appearance: Present: average body habitus, cooperative, mild distress - EENT EENT Comment(s): dry mucous membranes, no thrush or ulcers Eyes: Present: anicteric sclerae - Respiratory Details: respirations even and unlabored - Cardiovascular Rhythm: regular - Peripheral edema leg Peripheral Edema: bilateral: None - Gastrointestinal General gastrointestinal: Present: distended, soft, tenderness - Integumentary Integumentary: Present: pale - Neurologic Neurologic: Present: CNII-XII intact - Musculoskeletal Musculoskeletal: Present: generalized weakness - Psychiatric Psychiatric Comment(s): tearful Psychiatric: Present: A&O x's 3, intact judgment & insight - Labs CBC & Chem 7: 06/17/18 07:34 06/17/18 07:34 Labs: Abnormal Lab Results - Last 24 Hours (Table) 06/17/18 06/17/18 Range/Units 07:34 07:34 APTT 48.9 H (22.0-30.0) sec Potassium 3.4 L (3.5-5.1) mmol/L Creatinine 0.47 L (0.52-1.04) mg/dL Glucose 105 H (74-99) mg/dL AST 40 H (14-36) U/L ALT 56 H (9-52) U/L Alkaline Phosphatase 163 H (38-126) U/L Assessment and Plan (1) Colon adenocarcinoma Narrative/Plan: Patient has recurrent disease with a large mass in the retroperitoneal area. Recommendation is for palliative chemotherapy in hopes of shrinking the tumor to reduce pain. We discussed inpatient initiation of treatment with FOLFIRI ( leucovorin, Camptosar and 5-FU). We reviewed drugs and side effects. Patient is very nervous about the regimen as she has had similar treatment in the past with poor tolerance. Dose will be reduced initially by 10%. Patient was reassured that she will be provided with hydration and symptom management while here. Patient is agreeable to begin treatment as she just wants some relief from the pain. Current Visit: Yes Status: Acute Priority: High Code(s): C18.9 - MALIGNANT NEOPLASM OF COLON, UNSPECIFIED SNOMED Code(s): 427404185 (2) Iliac vein thrombosis Narrative/Plan: Switched to oral eliquis today, loading dose x 7 days, from heparin drip. Anticoagulation recommendations minimum 3-6 months. Current Visit: Yes Status: Acute Priority: High Code(s): I82.429 - ACUTE EMBOLISM AND THROMBOSIS OF UNSPECIFIED ILIAC VEIN SNOMED Code(s): 241207364 Plan: Chemotherapy orders to be sent to pharmacy. Okay to begin chemotherapy once drugs obtained. Labs daily. Supportive medications ordered. Daily follow-up. Time with Patient: Greater than 30 (counseling and coordinating care)
[2018-06-17] MEDS ORDERED: ONDANSETRON 4 MG/2 ML VIAL IVP PRN (18:12)
[2018-06-17] MEDS ORDERED: ATROPINE SULFATE 0.1 MG/ML 10ML SYRINGE IV ONE (20:00)
[2018-06-17] MEDS ORDERED: DEXAMETHASONE SOD PHOSPHATE 10 MG/ML 1 ML VIAL IV ONE (20:00)
[2018-06-17] MEDS ORDERED: ONDANSETRON 16 MG in SODIUM CHLORIDE 0.9% 50 ML IVPB ONE (20:00)
[2018-06-17] MEDS ORDERED: FAMOTIDINE 20 MG/2 ML VIAL IV ONE (20:00)
[2018-06-17] MEDS ORDERED: DEXTROSE 5% IV ONE ×4 (21:00)
[2018-06-17] MEDS ORDERED: SODIUM CHLORIDE 0.9% IV ONE (21:00)
[2018-06-17] MEDS ORDERED: LEUCOVORIN IV ONE ×4 (21:00)
[2018-06-17] MEDS ORDERED: DEXTROSE 5% IVPB ONE ×2 (21:00)
[2018-06-17] MEDS ORDERED: FLUOROURACIL IV ONE (21:00)
[2018-06-17] MEDS ORDERED: FLUOROURACIL 500 MG/10 ML VIAL IV ONE (21:00)
[2018-06-17] MEDS ORDERED: WATER IVPB ONE ×2 (21:00)
[2018-06-17] MEDS ORDERED: WATER IV ONE ×4 (21:00)
[2018-06-17] MEDS ORDERED: IRINOTECAN HCL IVPB ONE ×2 (21:00)
[2018-06-17] MEDS: SENNOSIDES-DOCUSATE SODIUM 1 EACH TAB PO SCH (23:29)
[2018-06-17] MEDS: SODIUM CHLORIDE 0.9% 1,000 ML IV SCH (23:29)
[2018-06-18] MEDS: HYDROmorphone 1 MG/ML 1 ML SYRINGE IVP PRN ×7 (00:05→23:02)
[2018-06-18] MEDS: PREGABALIN 25 MG CAP PO SCH ×3 (00:56→21:34)
[2018-06-18] MEDS: SALT AND SODA MOUTHWASH 1,000 ML PO SCH ×6 (01:31→23:55)
[2018-06-18] MEDS: oxyCODONE-APAP 7.5-325MG 1 EACH TAB PO PRN ×4 (01:35→14:35)
[2018-06-18] MEDS: DRONABINOL 2.5 MG CAP PO SCH ×2 (07:44→16:34)
[2018-06-18] MEDS: APIXABAN 5 MG TAB PO SCH ×2 (07:44→21:34)
[2018-06-18] MEDS: FAMOTIDINE 20 MG TAB PO SCH ×2 (07:45→21:34)
[2018-06-18] MEDS: POLYETHYLENE GLYCOL 3350 17 GM POWD.PACK PO SCH (07:45)
[2018-06-18 09:05] LABS: Basophils % (A) 0 %; Eosinophils % (A) 1 %; HGB 12.4 gm/dL (11.4-16.0); Hypochromasia Slight; Lymphocytes # (A) 0.4 k/uL (1.0-4.8); Lymphocytes % (A) 16 %; MCH 28.8 pg (25.0-35.0); MCHC 31.7 g/dL (31.0-37.0); Mean Platelet Volume 8.2; Monocytes # (A) 0.1 k/uL (0-1.0); Monocytes % (A) 2 %; Neutrophils # (A) 1.9 k/uL (1.3-7.7); Neutrophils % (A) 80 %; Platelet Count 145 k/uL (150-450); RBC 4.29 m/uL (3.80-5.40); RDW 14.8 % (11.5-15.5); WBC 2.4 k/uL (3.8-10.6)
[2018-06-18 09:10] LABS: ALT 48 U/L (9-52); AST 33 U/L (14-36); Albumin 3.5 g/dL (3.5-5.0); Alkaline Phosphatase 153 U/L (38-126); Anion Gap 8 mmol/L; Blood Urea Nitrogen 7 mg/dL (7-17); Calcium 9.5 mg/dL (8.4-10.2); Carbon Dioxide 27 mmol/L (22-30); Chloride 105 mmol/L (98-107); Glucose 154 mg/dL (74-99); Potassium 4.1 mmol/L (3.5-5.1); Sodium 140 mmol/L (137-145); Total Bilirubin 0.6 mg/dL (0.2-1.3); Total Protein 6.6 g/dL (6.3-8.2)
[2018-06-18] MEDS ORDERED: DIPHENOX-ATROP 2.5-0.025 MG 1 EACH TAB PO PRN (10:35)
--- NOTE | 2018-06-18 10:44 | P.PN ---
Subjective Progress Note Date: 06/18/18 Principal diagnosis: intractable pain related to malignancy Pt seen today in f/u, she is currently on 5FU 46 hour infusion. She has small sore on her lower inner lip, no other oral irritation, sore throat, cough, mild nausea well controlled on antiemetics, abd/back pain is nearly manageable, no swelling, bleeding or rash, pt in better spirits today, family at bedside. Objective - Vital Signs Vital signs: Vital Signs Temp 97.7 F 06/18/18 05:00 Pulse 70 06/18/18 05:00 Resp 16 06/18/18 05:00 BP 110/58 06/18/18 05:00 Pulse Ox 96 06/18/18 05:00 Intake & Output 06/17/18 06/18/18 06/18/18 18:59 06:59 18:59 Intake Total 784.434 0309 Balance 543.574 7410 Weight 58.3 kg Intake: IV 160 kvo 160 Intake, IV Titration 626.757 5455 Amount Fluorouracil 1,150 mg In 500 Sodium Chloride 0.9% 500 ml @ 22.739 mls/hr IV ONCE ONE Rx#:[id number] Heparin Sod,Pork in 0.45% 234.834 NaCl 25,000 unit In 0.45 % NaCl 1 500ml.bag @ 12 UNITS/KG/HR 14.15 mls/hr IV .Q24H [facility] Rx#: [id number] Irinotecan HCl 260 mg In 100 Dextrose 5% in Water 100 ml @ 75.333 mls/hr IVPB ONCE ONE Rx#:[id number] Leucovorin 350 mg 500 Leucovorin 200 mg Leucovorin 20 mg In Dextrose 5% in Water 500 ml @ 333.333 mls/hr IV ONCE ONE Rx#:[id number] Ondansetron 16 mg In 50 Sodium Chloride 0.9% 50 ml @ 100 mls/hr IVPB ONCE ONE Rx#:[id number] Sodium Chloride 0.9% 1, 200 000 ml @ 50 mls/hr IV . Q20H [facility] Rx#:[id number] Oral 590 Other: Voiding Method Toilet Toilet Toilet # Voids 2 - Constitutional General appearance: Present: average body habitus, cooperative, no acute distress - EENT EENT Comment(s): small inner, lower lip ulcer, no thrush Eyes: Present: anicteric sclerae, EOMI - Respiratory Respiratory: bilateral: CTA (repirations even and unlabored) - Cardiovascular Rhythm: regular - Peripheral edema leg Peripheral Edema: bilateral: None - Gastrointestinal General gastrointestinal: Present: normal bowel sounds, soft, tenderness (mild) - Neurologic Neurologic: Present: CNII-XII intact - Musculoskeletal Musculoskeletal: Present: strength equal bilaterally - Psychiatric Psychiatric: Present: A&O x's 3, appropriate affect, intact judgment & insight - Labs CBC & Chem 7: 06/18/18 08:29 06/18/18 08:29 Labs: Abnormal Lab Results - Last 24 Hours (Table) 06/18/18 06/18/18 Range/Units 08:29 08:29 WBC 2.4 L (3.8-10.6) k/uL Plt Count 145 L (150-450) k/uL Lymphocytes # 0.4 L (1.0-4.8) k/uL Creatinine 0.50 L (0.52-1.04) mg/dL Glucose 154 H (74-99) mg/dL Alkaline Phosphatase 153 H (38-126) U/L Assessment and Plan (1) Colon adenocarcinoma Narrative/Plan: Cont palliative chemotherapy without adjustment PRN medications available for common SE r/t chemo Cont hydration, encourage oral intake as tolerated Current Visit: Yes Status: Acute Priority: High Code(s): C18.9 - MALIGNANT NEOPLASM OF COLON, UNSPECIFIED SNOMED Code(s): 646273532 (2) Iliac vein thrombosis Narrative/Plan: Pt started on Eliquis, no s/s bleeding Current Visit: Yes Status: Acute Priority: High Code(s): I82.429 - ACUTE EMBOLISM AND THROMBOSIS OF UNSPECIFIED ILIAC VEIN SNOMED Code(s): 649797610 (3) Mucositis (ulcerative) due to antineoplastic therapy Narrative/Plan: Salt and soda, cools, reviewed mouth care Current Visit: Yes Status: Acute Priority: Medium Code(s): K12.31 - ORAL MUCOSITIS (ULCERATIVE) DUE TO ANTINEOPLASTIC THERAPY SNOMED Code(s): 112413833 (4) Neoplasm related pain Narrative/Plan: [place] changed to percocet and fentanyl increased today, will reevaluate pain control in AM. Current Visit: Yes Status: Acute Priority: High Code(s): G89.3 - NEOPLASM RELATED PAIN (ACUTE) (CHRONIC) SNOMED Code(s): 717799970
[2018-06-18] MEDS: MAG HYDROX/AL HYDROX/SIMETH 30 ML, diphenhydrAMINE ELIXIR 75 MG, LIDOCAINE VISCOUS 30 ML PO SCH ×9 (11:50→21:34)
--- NOTE | 2018-06-18 13:42 | P.PN ---
Subjective Progress Note Date: 06/18/18 This is a 68-year-old female with a known history of colon cancer status post Errol colectomy with Dr. Booker and history of previous DVT. Patient presents to emergency room with complaints of nausea vomiting decreased appetite and abdominal discomfort. Computed tomography scan of abdomen and pelvis showed prominent neoplastic progression and evidence of interval right external iliac vein thrombosis with sub-centimeter intrahepatic cable thrombus suspected. Progression of surgery is also reported thrombus portal vein. Patient was evaluated by basilar surgery and is currently on IV heparin. Oncology has also been consulted. Patient reports pain is controlled. Denies any chest pain or shortness of breath. Denies any nausea or vomiting. She has also been started on Rocephin for UTI. Also noted that her liver enzymes are elevated total bili 1.4 AST 43 ALT 71 alk phos 182 On 06/15/2018 patient was seen and examined case discussed with Sonia Donaldson oncology nurse practitioner over the phone. Clinically patient is complaining of worsening abdominal pain otherwise no complaints at this time there is no fever or chills no headache or dizziness no chest pain no shortness of breath no cough no nausea or vomiting no diarrhea and no urinary symptoms. On 06/16/2018 patient is alert and oriented 3 her pain is better controlled there is no new symptoms patient denies any fever or chills no headache or dizziness no chest pain no shortness of breath or cough no nausea or vomiting no diarrhea and no urinary symptoms. 06/17/2018 patient starting chemotherapy today. IV heparin was discontinued today and patient placed on Eliquis 10 mg twice a day per oncology. Potassium 3.4 she's receiving supplement. Patient denies any chest pain or shortness of breath. Still having abdominal pain. Oncology adjusting pain medication. Denies any nausea or vomiting. Reports bowel movements. Denies any burning with urination 06/18/2018 patient undergoing chemotherapy again today. [place] patch increased her oncology service. White count has dropped to 2.4. Patient denies any nausea or vomiting. She has developed some sores on her lower lip. Mouthwash ordered per oncology. Objective - Vital Signs Vital signs: Vital Signs Temp 97.8 F 06/18/18 13:06 Pulse 82 06/18/18 13:06 Resp 16 06/18/18 13:06 BP 118/58 06/18/18 13:06 Pulse Ox 96 06/18/18 13:06 Intake & Output 06/17/18 06/18/18 06/18/18 18:59 06:59 18:59 Intake Total 886.103 0098 Balance 269.617 0113 Weight 58.3 kg Intake: IV 160 kvo 160 Intake, IV Titration 121.765 3552 Amount Fluorouracil 1,150 mg In 500 Sodium Chloride 0.9% 500 ml @ 22.739 mls/hr IV ONCE ONE Rx#:[id number] Heparin Sod,Pork in 0.45% 234.834 NaCl 25,000 unit In 0.45 % NaCl 1 500ml.bag @ 12 UNITS/KG/HR 14.15 mls/hr IV .Q24H [facility] Rx#: [id number] Irinotecan HCl 260 mg In 100 Dextrose 5% in Water 100 ml @ 75.333 mls/hr IVPB ONCE ONE Rx#:[id number] Leucovorin 350 mg 500 Leucovorin 200 mg Leucovorin 20 mg In Dextrose 5% in Water 500 ml @ 333.333 mls/hr IV ONCE ONE Rx#:[id number] Ondansetron 16 mg In 50 Sodium Chloride 0.9% 50 ml @ 100 mls/hr IVPB ONCE ONE Rx#:[id number] Sodium Chloride 0.9% 1, 200 000 ml @ 50 mls/hr IV . Q20H [facility] Rx#:[id number] Oral 590 Other: Voiding Method Toilet Toilet Toilet # Voids 2 - Exam Head normocephalic Neck supple Lungs clear to auscultation bilaterally no wheezing or crackles Heart regular rate and rhythm S1-S2, no rub or gallop Abdomen is soft nontender nondistended positive bowel sounds no hepatosplenomegaly Extremities no edema Neuro alert and orientated to 3 - Labs CBC & Chem 7: 06/18/18 08:29 06/18/18 08:29 Labs: Abnormal Lab Results - Last 24 Hours (Table) 06/18/18 06/18/18 Range/Units 08:29 08:29 WBC 2.4 L (3.8-10.6) k/uL Plt Count 145 L (150-450) k/uL Lymphocytes # 0.4 L (1.0-4.8) k/uL Creatinine 0.50 L (0.52-1.04) mg/dL Glucose 154 H (74-99) mg/dL Alkaline Phosphatase 153 H (38-126) U/L Assessment and Plan Assessment: 1. 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 Continue Eliquis 10 mg twice a day per oncology 2. Colon adenocarcinoma: History of partial colectomy. Patient undergoing palliative chemotherapy. Today is day #2. Continue pain management per oncology. She'll patch increased. 3. History of previous lower extremity DVT 4. Elevated LFTs: Continue to monitor. Repeat labs in a.m. 5. UTI: Urine culture showing contamination. Patient received 4 days of antibiotic. Rocephin discontinued. 6. Hypokalemia patient receiving potassium supplement. Repeat labs in a.m. 7. mucositis: Due to chemotherapy. Continue the salt and soda, cools mouth care GI prophylaxis Pepcid and DVT prophylaxis Eliquis I performed an examination of the patient and discussed their management with the physician Groundskeeper Porter. I have reviewed the Physician Groundskeeper Porter's notes and agree with the documented findings and plan of care
[2018-06-18] MEDS ORDERED: FLUOROURACIL IV ONE (20:00)
[2018-06-18] MEDS ORDERED: SODIUM CHLORIDE 0.9% IV ONE (20:00)
[2018-06-18] MEDS: SENNOSIDES-DOCUSATE SODIUM 1 EACH TAB PO SCH (21:34)
[2018-06-18] MEDS: SODIUM CHLORIDE 0.9% 1,000 ML IV SCH (21:35)
[2018-06-19] MEDS: oxyCODONE-APAP 7.5-325MG 1 EACH TAB PO PRN ×4 (03:37→19:52)
[2018-06-19] MEDS: SALT AND SODA MOUTHWASH 1,000 ML PO SCH ×4 (05:52→21:39)
[2018-06-19 08:07] LABS: Basophils % (A) 1 %; Eosinophils # (A) 0.3 k/uL (0-0.7); Eosinophils % (A) 5 %; HGB 11.4 gm/dL (11.4-16.0); Hypochromasia Slight; Lymphocytes % (A) 20 %; MCH 28.3 pg (25.0-35.0); MCHC 30.8 g/dL (31.0-37.0); MCV 91.8 fL (80.0-100.0); Mean Platelet Volume 7.7; Monocytes # (A) 0.2 k/uL (0-1.0); Monocytes % (A) 4 %; Neutrophils # (A) 3.6 k/uL (1.3-7.7); Neutrophils % (A) 70 %; Platelet Count 145 k/uL (150-450); RBC 4.02 m/uL (3.80-5.40); RDW 15.1 % (11.5-15.5); WBC 5.2 k/uL (3.8-10.6)
[2018-06-19] MEDS: HYDROmorphone 1 MG/ML 1 ML SYRINGE IVP PRN ×4 (08:25→21:48)
[2018-06-19] MEDS: DRONABINOL 2.5 MG CAP PO SCH ×2 (08:25→18:26)
[2018-06-19 08:29] LABS: ALT 135 U/L (9-52); AST 160 U/L (14-36); Albumin 3.2 g/dL (3.5-5.0); Alkaline Phosphatase 143 U/L (38-126); Anion Gap 8 mmol/L; Blood Urea Nitrogen 14 mg/dL (7-17); Calcium 9.2 mg/dL (8.4-10.2); Carbon Dioxide 26 mmol/L (22-30); Chloride 107 mmol/L (98-107); Glucose 102 mg/dL (74-99); Potassium 3.9 mmol/L (3.5-5.1); Sodium 141 mmol/L (137-145); Total Bilirubin 0.6 mg/dL (0.2-1.3)
[2018-06-19] MEDS: MAG HYDROX/AL HYDROX/SIMETH 30 ML, diphenhydrAMINE ELIXIR 75 MG, LIDOCAINE VISCOUS 30 ML PO SCH ×12 (08:32→21:40)
[2018-06-19] MEDS: APIXABAN 5 MG TAB PO SCH ×2 (08:32→21:40)
[2018-06-19] MEDS: POLYETHYLENE GLYCOL 3350 17 GM POWD.PACK PO SCH (08:32)
[2018-06-19] MEDS: FAMOTIDINE 20 MG TAB PO SCH ×2 (08:32→21:40)
[2018-06-19] MEDS: PREGABALIN 25 MG CAP PO SCH ×2 (08:37→21:40)
[2018-06-19] MEDS: SODIUM CHLORIDE 0.9% 1,000 ML IV SCH (11:40)
--- NOTE | 2018-06-19 14:11 | P.PN ---
Subjective Progress Note Date: 06/19/18 This is a 68-year-old female with a known history of colon cancer status post Errol colectomy with Dr. Booker and history of previous DVT. Patient presents to emergency room with complaints of nausea vomiting decreased appetite and abdominal discomfort. Computed tomography scan of abdomen and pelvis showed prominent neoplastic progression and evidence of interval right external iliac vein thrombosis with sub-centimeter intrahepatic cable thrombus suspected. Progression of surgery is also reported thrombus portal vein. Patient was evaluated by basilar surgery and is currently on IV heparin. Oncology has also been consulted. Patient reports pain is controlled. Denies any chest pain or shortness of breath. Denies any nausea or vomiting. She has also been started on Rocephin for UTI. Also noted that her liver enzymes are elevated total bili 1.4 AST 43 ALT 71 alk phos 182 On 06/15/2018 patient was seen and examined case discussed with Sonia Donaldson oncology nurse practitioner over the phone. Clinically patient is complaining of worsening abdominal pain otherwise no complaints at this time there is no fever or chills no headache or dizziness no chest pain no shortness of breath no cough no nausea or vomiting no diarrhea and no urinary symptoms. On 06/16/2018 patient is alert and oriented 3 her pain is better controlled there is no new symptoms patient denies any fever or chills no headache or dizziness no chest pain no shortness of breath or cough no nausea or vomiting no diarrhea and no urinary symptoms. 06/17/2018 patient starting chemotherapy today. IV heparin was discontinued today and patient placed on Eliquis 10 mg twice a day per oncology. Potassium 3.4 she's receiving supplement. Patient denies any chest pain or shortness of breath. Still having abdominal pain. Oncology adjusting pain medication. Denies any nausea or vomiting. Reports bowel movements. Denies any burning with urination 06/18/2018 patient undergoing chemotherapy again today. [place] patch increased her oncology service. White count has dropped to 2.4. Patient denies any nausea or vomiting. She has developed some sores on her lower lip. Mouthwash ordered per oncology. 06/19/2018 patient is currently receiving third dose of chemotherapy. Patient is alert and oriented 3. At this time patient denies chest pain or shortness breath patient denies nausea vomiting or diarrhea. Denies any urinary burning or frequency Objective - Vital Signs Vital signs: Vital Signs Temp 98.2 F 06/19/18 12:00 Pulse 70 06/19/18 12:00 Resp 16 06/19/18 12:00 BP 89/50 06/19/18 12:00 Pulse Ox 97 06/19/18 12:00 Intake & Output 06/18/18 06/19/18 06/19/18 18:59 06:59 18:59 Intake Total 400 731 Balance 400 731 Intake: Intake, IV Titration 400 731 Amount Fluorouracil 1,150 mg In 181 Sodium Chloride 0.9% 500 ml @ 22.739 mls/hr IV ONCE ONE Rx#:[id number] Sodium Chloride 0.9% 1, 400 550 000 ml @ 50 mls/hr IV . Q20H [facility] Rx#:[id number] Other: Voiding Method Toilet Toilet Toilet # Voids 2 - Exam Head normocephalic Neck supple Lungs clear to auscultation bilaterally no wheezing or crackles Heart regular rate and rhythm S1-S2, no rub or gallop Abdomen is soft nontender nondistended positive bowel sounds no hepatosplenomegaly Extremities no edema Neuro alert and orientated to 3 - Labs CBC & Chem 7: 06/19/18 07:44 06/19/18 07:44 Labs: Abnormal Lab Results - Last 24 Hours (Table) 06/19/18 06/19/18 Range/Units 07:44 07:44 MCHC 30.8 L (31.0-37.0) g/dL Plt Count 145 L (150-450) k/uL Glucose 102 H (74-99) mg/dL AST 160 H (14-36) U/L ALT 135 H (9-52) U/L Alkaline Phosphatase 143 H (38-126) U/L Total Protein 6.0 L (6.3-8.2) g/dL Albumin 3.2 L (3.5-5.0) g/dL Assessment and Plan Assessment: 1. 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 Continue Eliquis 10 mg twice a day per oncology 2. Colon adenocarcinoma: History of partial colectomy. Patient undergoing palliative chemotherapy. Today is day #2. Continue pain management per oncology. She'll patch increased. 3. History of previous lower extremity DVT 4. Elevated LFTs: Continue to monitor. Repeat labs in a.m. liver enzymes continue to increase AST 160 and ALT 135 and alkaline phsphatase 143 5. UTI: Urine culture showing contamination. Patient received 4 days of antibiotic. Rocephin discontinued. 6. Hypokalemia patient receiving potassium supplement. Repeat labs in a.m. 7. mucositis: Due to chemotherapy. Continue the salt and soda, cools mouth care GI prophylaxis Pepcid and DVT prophylaxis Eliquis I performed an examination of the patient and discussed their management with the Nurse Practitioner. I have reviewed the Nurse Practitioner's notes and agree with the documented findings and plan of care
--- NOTE | 2018-06-19 18:54 | P.PN ---
Subjective Progress Note Date: 06/19/18 Principal diagnosis: intractable pain related to malignancy Pt seen in f/u, she will be completing 46 hour 5FU infusion tomorrow early AM. Oral irritation managed with salt and soda with cools solution, nausea controlled with antiemetic, no SOB, palpitations, abd cramping, her back pain is stable with current analgesics, she had diarrhea twice, did not ask for antidiarrheal! Denied blood or mucus in stool, no lower extremity swelling, she is ambulatory. Objective - Vital Signs Vital signs: Vital Signs Temp 97.8 F 06/19/18 16:00 Pulse 73 06/19/18 16:00 Resp 16 06/19/18 16:00 BP 99/63 06/19/18 16:00 Pulse Ox 95 06/19/18 16:00 Intake & Output 06/18/18 06/19/18 06/19/18 18:59 06:59 18:59 Intake Total 400 731 800 Balance 400 731 800 Intake: Intake, IV Titration 400 731 800 Amount Fluorouracil 1,150 mg In 181 Sodium Chloride 0.9% 500 ml @ 22.739 mls/hr IV ONCE ONE Rx#:[id number] Sodium Chloride 0.9% 1, 400 550 800 000 ml @ 100 mls/hr IV . Q10H [facility] Rx#:[id number] Other: Voiding Method Toilet Toilet Toilet # Voids 2 4 - Constitutional General appearance: Present: average body habitus, cooperative, no acute distress - EENT EENT Comment(s): lower lip ulcer just red now Eyes: Present: anicteric sclerae ENT: Present: normal oropharynx - Respiratory Respiratory: bilateral: CTA - Cardiovascular Rhythm: regular Heart sounds: normal: S1, S2 Abnormal Heart Sounds: Absent: systolic murmur, diastolic murmur, rub, S3 Gallop , S4 Gallop, click, other - Peripheral edema leg Peripheral Edema: bilateral: None - Gastrointestinal General gastrointestinal: Present: distended, normal bowel sounds, soft. Absent : absent bowel sounds, decreased bowel sounds, hepatomegaly, hyperactive bowel sounds, organomegaly, rigid, scaphoid, splenomegaly, tenderness, umbilical hernia, ventral hernia - Integumentary Integumentary: Present: normal - Neurologic Neurologic: Present: CNII-XII intact - Musculoskeletal Musculoskeletal: Present: generalized weakness, strength equal bilaterally - Psychiatric Psychiatric: Present: A&O x's 3, appropriate affect, intact judgment & insight - Labs CBC & Chem 7: 06/19/18 07:44 06/19/18 07:44 Labs: Abnormal Lab Results - Last 24 Hours (Table) 06/19/18 06/19/18 Range/Units 07:44 07:44 MCHC 30.8 L (31.0-37.0) g/dL Plt Count 145 L (150-450) k/uL Glucose 102 H (74-99) mg/dL AST 160 H (14-36) U/L ALT 135 H (9-52) U/L Alkaline Phosphatase 143 H (38-126) U/L Total Protein 6.0 L (6.3-8.2) g/dL Albumin 3.2 L (3.5-5.0) g/dL Assessment and Plan (1) Colon adenocarcinoma Narrative/Plan: Complete 1st FOLFOX cycle inpatient. Reinforced side effect management, proactive and preventative measures, use of medications for side effects Current Visit: Yes Status: Acute Priority: High Code(s): C18.9 - MALIGNANT NEOPLASM OF COLON, UNSPECIFIED SNOMED Code(s): 811775931 (2) Iliac vein thrombosis Narrative/Plan: Eliquis ordered. Spoke with Case Management, copay too high, was ablt to get pt 1st mo free. Samples with be provided by office. Current Visit: Yes Status: Acute Priority: High Code(s): I82.429 - ACUTE EMBOLISM AND THROMBOSIS OF UNSPECIFIED ILIAC VEIN SNOMED Code(s): 417716059 (3) Mucositis (ulcerative) due to antineoplastic therapy Narrative/Plan: Improved, cont supportive care and Tx Current Visit: Yes Status: Acute Priority: Medium Code(s): K12.31 - ORAL MUCOSITIS (ULCERATIVE) DUE TO ANTINEOPLASTIC THERAPY SNOMED Code(s): 305377808 (4) Neoplasm related pain Narrative/Plan: Stable, cont to adjust meds PRN Current Visit: Yes Status: Acute Priority: High Code(s): G89.3 - NEOPLASM RELATED PAIN (ACUTE) (CHRONIC) SNOMED Code(s): 469996368 Plan: Labs daily. Supportive medications ordered. Daily follow-up.
[2018-06-19] MEDS: SENNOSIDES-DOCUSATE SODIUM 1 EACH TAB PO SCH (21:40)
[2018-06-20] MEDS: SODIUM CHLORIDE 0.9% 1,000 ML IV SCH ×2 (01:02→09:01)
[2018-06-20] MEDS: SALT AND SODA MOUTHWASH 1,000 ML PO SCH ×3 (01:03→12:00)
[2018-06-20] MEDS: HYDROmorphone 1 MG/ML 1 ML SYRINGE IVP PRN ×3 (03:46→12:38)
[2018-06-20 08:11] LABS: Basophils % (A) 1 %; Eosinophils # (A) 0.3 k/uL (0-0.7); Eosinophils % (A) 7 %; HCT 34.8 % (34.0-46.0); HGB 10.9 gm/dL (11.4-16.0); Hypochromasia Slight; Lymphocytes % (A) 22 %; MCH 28.7 pg (25.0-35.0); MCHC 31.4 g/dL (31.0-37.0); MCV 91.5 fL (80.0-100.0); Monocytes # (A) 0.1 k/uL (0-1.0); Monocytes % (A) 3 %; Neutrophils # (A) 3.1 k/uL (1.3-7.7); Neutrophils % (A) 67 %; Platelet Count 151 k/uL (150-450); RDW 14.9 % (11.5-15.5); WBC 4.6 k/uL (3.8-10.6)
[2018-06-20 08:30] LABS: ALT 116 U/L (9-52); AST 87 U/L (14-36); Albumin 2.8 g/dL (3.5-5.0); Alkaline Phosphatase 134 U/L (38-126); Anion Gap 5 mmol/L; Blood Urea Nitrogen 11 mg/dL (7-17); Calcium 8.5 mg/dL (8.4-10.2); Carbon Dioxide 26 mmol/L (22-30); Chloride 108 mmol/L (98-107); Glucose 94 mg/dL (74-99); Potassium 3.5 mmol/L (3.5-5.1); Sodium 139 mmol/L (137-145); Total Bilirubin 0.5 mg/dL (0.2-1.3); Total Protein 5.5 g/dL (6.3-8.2)
[2018-06-20] MEDS: FAMOTIDINE 20 MG TAB PO SCH (09:00)
[2018-06-20] MEDS: PREGABALIN 25 MG CAP PO SCH (09:00)
[2018-06-20] MEDS: DRONABINOL 2.5 MG CAP PO SCH (09:00)
[2018-06-20] MEDS: MAG HYDROX/AL HYDROX/SIMETH 30 ML, diphenhydrAMINE ELIXIR 75 MG, LIDOCAINE VISCOUS 30 ML PO SCH ×6 (09:00→12:43)
[2018-06-20] MEDS: APIXABAN 5 MG TAB PO SCH (09:01)
[2018-06-20] MEDS: POLYETHYLENE GLYCOL 3350 17 GM POWD.PACK PO SCH (09:05)
[2018-06-20 11:21] VITALS: BP 96/61; PULSE 91; RESP 16; TEMP 98.5
[2018-06-20] MEDS ORDERED: POTASSIUM CHLORIDE ER 20 MEQ TAB.ER PO STA (12:42)
--- NOTE | 2018-06-20 12:48 | P.DS ---
Providers Date of admission: 06/13/18 19:40 Expected date of discharge: 06/20/18 Attending physician: Irma Lyons Consults: 06/14/18 10:11 Consult Physician Routine Consulting Provider: Jose Pham Consult Reason/Comments: colon ca Do you want consulting provider notified?: Yes 06/14/18 11:55 Consult Physician Routine Consulting Provider: Mateusz Denton Consult Reason/Comments: iliac vein thrombosis Do you want consulting provider notified?: Yes Primary care physician: Radha [facility] Course: Discharge diagnosis 1. 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 Continue Eliquis 2. Colon adenocarcinoma: History of partial colectomy. Patient undergoing palliative chemotherapy and completed 3 days. Continue pain management per oncology. 3. History of previous lower extremity DVT 4. Elevated LFTs: Secondary to chemotherapy and hypotension. LFTs trending down. 5. UTI: Complete antibiotics during hospitalization 6. Hypokalemia : Potassium 3.5 will get K-Dur 20 milliequivalents before discharge 7. mucositis: Due to chemotherapy. Improved 8. Hypotension likely related to her chemo and pain medications. Systolic blood pressure in the high 90s. Showing improvement after IV fluids. Patient is asymptomatic. Hospital course This is a 68-year-old female with a known history of colon cancer status post Errol colectomy with Dr. Booker and history of previous DVT. Patient presents to emergency room with complaints of nausea vomiting decreased appetite and abdominal discomfort. Computed tomography scan of abdomen and pelvis showed prominent neoplastic progression and evidence of interval right external iliac vein thrombosis with sub-centimeter intrahepatic cable thrombus suspected. Progression of surgery is also reported thrombus portal vein. Patient was evaluated by basilar surgery and is currently on IV heparin. Oncology has also been consulted. Patient reports pain is controlled. Denies any chest pain or shortness of breath. Denies any nausea or vomiting. She has also been started on Rocephin for UTI. Also noted that her liver enzymes are elevated total bili 1.4 AST 43 ALT 71 alk phos 182 On 06/15/2018 patient was seen and examined case discussed with Sonia Donaldson oncology nurse practitioner over the phone. Clinically patient is complaining of worsening abdominal pain otherwise no complaints at this time there is no fever or chills no headache or dizziness no chest pain no shortness of breath no cough no nausea or vomiting no diarrhea and no urinary symptoms. On 06/16/2018 patient is alert and oriented 3 her pain is better controlled there is no new symptoms patient denies any fever or chills no headache or dizziness no chest pain no shortness of breath or cough no nausea or vomiting no diarrhea and no urinary symptoms. 06/17/2018 patient starting chemotherapy today. IV heparin was discontinued today and patient placed on Eliquis 10 mg twice a day per oncology. Potassium 3.4 she's receiving supplement. Patient denies any chest pain or shortness of breath. Still having abdominal pain. Oncology adjusting pain medication. Denies any nausea or vomiting. Reports bowel movements. Denies any burning with urination 06/18/2018 patient undergoing chemotherapy again today. [place] patch increased her oncology service. White count has dropped to 2.4. Patient denies any nausea or vomiting. She has developed some sores on her lower lip. Mouthwash ordered per oncology. 06/20/2018 patient is medically stable for discharge. Case discussed with oncology. They'll follow up with patient in the office as scheduled. Also, oncology will be taking care of patient's pain medications. Patient is to come to the office for refills. Patient treated with Eliquis for the right external iliac vein thrombus and intrahepatic vein thrombus. No intervention needed per vascular surgery. Patient is to continue Eliquis. She received 1 month free prescription for Eliquis it is in the [facility] pharmacy ready for pickup at discharge. And then she will follow up with oncology to get samples in the office. Patient's echo stable for discharge. I performed an examination of the patient and discussed their management with the physician Civilian Technician. I have reviewed the Physician Civilian Technician's notes and agree with the documented findings and plan of care Patient Condition at Discharge: Stable Plan - Discharge Summary Discharge Rx Participant: Yes New Discharge Prescriptions: New Apixaban [Eliquis] 10 mg PO BID tab fentaNYL 100MCG/HR PATCH [Duragesic 100MCG/HR] 1 patch TRANSDERM Q72H patch oxyCODONE-APAP 7.5-325MG [Percocet 7.5-325 mg] 1 each PO Q4HR PRN tab PRN Reason: MODERATE Pain Continue Sennosides-Docusate Sodium [Senokot-S] 2 tab PO HS Polyethylene Glycol 3350 [Miralax] 17 gm PO DAILY Melatonin 10 mg PO HS Dronabinol 5 mg PO AC-BID 30 Days #60 capsule Pregabalin [Lyrica] 25 mg PO BID #6 cap Discontinued MORPHINE ORAL EDITH CONC 20mg/mL [Roxanol Oral Soln Conc 20MG/ML] 15 mg PO Q3HR PRN 14 Days #60 ml PRN Reason: Moderate To Severe Pain fentaNYL 50MCG/HR PATCH [Duragesic 50MCG/HR] 1 patch TRANSDERM Q72H 30 Days # 10 patch Discharge Medication List Melatonin 10 mg PO HS 06/01/18 [History] Polyethylene Glycol 3350 [Miralax] 17 gm PO DAILY 06/01/18 [History] Sennosides-Docusate Sodium [Senokot-S] 2 tab PO HS 06/01/18 [History] Dronabinol 5 mg PO AC-BID 30 Days #60 capsule 06/05/18 [Rx] Pregabalin [Lyrica] 25 mg PO BID #6 cap 06/05/18 [Rx] Apixaban [Eliquis] 10 mg PO BID tab 06/20/18 [Rx] fentaNYL 100MCG/HR PATCH [Duragesic 100MCG/HR] 1 patch TRANSDERM Q72H patch [Rx] oxyCODONE-APAP 7.5-325MG [Percocet 7.5-325 mg] 1 each PO Q4HR PRN tab 06/20/18 [Rx] Follow up Appointment(s)/Referral(s): Radha Velasquez MD [Primary Care Provider] - 1 Week Activity/Diet/Wound Care/Special Instructions: First month of Eliquis free at [facility]. Please follow at oncology office for free samples for continuing months. follow up with Dr. Pham as scheduled Discharge Disposition: HOME SELF-CARE
--- NOTE | 2018-06-20 17:07 | P.PN ---
Subjective Progress Note Date: 06/20/18 Principal diagnosis: intractable pain related to malignancy Pt seen in f/u, she completed 1 palliative FOLFOX inpatient with a 10% dose reduction. She denies fever, oral irritation, nausea, SOB, cough, abd pain, cramping, diarrhea, constipation, her back pain is controlled on current analgesic regimen, no swelling or bleeding. Objective - Vital Signs Vital signs: Vital Signs Temp 98.5 F 06/20/18 11:20 Pulse 91 06/20/18 11:20 Resp 16 06/20/18 11:20 BP 96/61 06/20/18 11:20 Pulse Ox 97 06/20/18 08:15 Intake & Output 06/19/18 06/20/18 06/20/18 18:59 06:59 18:59 Intake Total 388 859 7050 Balance 967 893 4886 Intake: Intake, IV Titration 800 600 Amount Sodium Chloride 0.9% 1, 800 600 000 ml @ 100 mls/hr IV . Q10H DAVID Rx#:[id number] Oral 200 1200 Other: Voiding Method Toilet Toilet # Voids 4 2 3 - Constitutional General appearance: Present: average body habitus, cooperative, no acute distress - EENT Eyes: Present: anicteric sclerae ENT: Present: normal oropharynx - Respiratory Respiratory: bilateral: CTA - Cardiovascular Heart sounds: normal: S1, S2 - Peripheral edema leg Peripheral Edema: bilateral: None - Gastrointestinal General gastrointestinal: Present: soft - Integumentary Integumentary: Present: normal - Neurologic Neurologic: Present: CNII-XII intact - Musculoskeletal Musculoskeletal: Present: strength equal bilaterally - Psychiatric Psychiatric Comment(s): depressed affect, tearful at times Psychiatric: Present: A&O x's 3, intact judgment & insight - Labs CBC & Chem 7: 06/20/18 07:41 06/20/18 07:41 Labs: Abnormal Lab Results - Last 24 Hours (Table) 06/20/18 06/20/18 Range/Units 07:41 07:41 Hgb 10.9 L (11.4-16.0) gm/dL Chloride 108 H (98-107) mmol/L Creatinine 0.47 L (0.52-1.04) mg/dL AST 87 H (14-36) U/L ALT 116 H (9-52) U/L Alkaline Phosphatase 134 H (38-126) U/L Total Protein 5.5 L (6.3-8.2) g/dL Albumin 2.8 L (3.5-5.0) g/dL Assessment and Plan (1) Colon adenocarcinoma Narrative/Plan: Completed 1st FOLFOX cycle inpatient. Reinforced side effect management, proactive and preventative measures, use of medications for side effects. F/U Dr. Tejada next week Status: Acute Priority: High Code(s): C18.9 - MALIGNANT NEOPLASM OF COLON, UNSPECIFIED SNOMED Code(s): 025489381 (2) Iliac vein thrombosis Narrative/Plan: Cont eliquis, 1 mo free, samples from office, pt and family aware Status: Acute Priority: High Code(s): I82.429 - ACUTE EMBOLISM AND THROMBOSIS OF UNSPECIFIED ILIAC VEIN SNOMED Code(s): 185219111 (3) Mucositis (ulcerative) due to antineoplastic therapy Narrative/Plan: Cont salt and soda, cools PRN Status: Acute Priority: Medium Code(s): K12.31 - ORAL MUCOSITIS (ULCERATIVE ) DUE TO ANTINEOPLASTIC THERAPY SNOMED Code(s): 504282386 (4) Neoplasm related pain Narrative/Plan: Current analgesic regimen effective. MAPS performed, pt has contract with our office already. Rx will be refilled by Dr. Tejada Status: Acute Priority: High Code(s): G89.3 - NEOPLASM RELATED PAIN (ACUTE) (CHRONIC) SNOMED Code(s): 574617913 Plan: Case reviewed with IM DIRECTOR ERP, pt ok for discharge from Hem/Onc standpoint when cleared by IM Time with Patient: Greater than 30 (counseling and coordinating care)
== END 2018-06-20 15:00 | disposition home or self-care (01) | DRG 300 ==
LOC: EC 13:03 → 5MS5E 19:40 → 5ONC 06-16 09:12
PROVIDERS: ADMIT Internal Medicine; ATTEND Internal Medicine
DX: I82.421 Acute embolism and thrombosis of right iliac vein (principal); C77.2 Secondary and unspecified malignant neoplasm of intra-abdominal lymph nodes; N39.0 Urinary tract infection, site not specified; I81 Portal vein thrombosis; E88.89 Other specified metabolic disorders; J32.9 Chronic sinusitis, unspecified; I95.2 Hypotension due to drugs; E87.6 Hypokalemia; G89.3 Neoplasm related pain (acute) (chronic); K12.31 Oral mucositis (ulcerative) due to antineoplastic therapy; T45.1X5A Adverse effect of antineoplastic and immunosuppressive drugs, initial encounter; T40.605A Adverse effect of unspecified narcotics, initial encounter; M19.91 Primary osteoarthritis, unspecified site; D50.9 Iron deficiency anemia, unspecified; M81.0 Age-related osteoporosis without current pathological fracture; Z79.891 Long term (current) use of opiate analgesic; Z79.899 Other long term (current) drug therapy; Z86.718 Personal history of other venous thrombosis and embolism; Z86.73 Personal history of transient ischemic attack (TIA), and cerebral infarction without residual deficits; Z90.710 Acquired absence of both cervix and uterus; Z90.49 Acquired absence of other specified parts of digestive tract; Z85.038 Personal history of other malignant neoplasm of large intestine; Z87.891 Personal history of nicotine dependence; Z92.21 Personal history of antineoplastic chemotherapy; Z88.5 Allergy status to narcotic agent; Z80.3 Family history of malignant neoplasm of breast; Z80.0 Family history of malignant neoplasm of digestive organs
CPT/HCPCS: 36415; 74177; 80053; 81001; 82150; 83690; 85025; 85610; 85730; 87086; 93005; 96361; 96365; 96375; 96376; 99285

== ENCOUNTER 2018-07-02 15:48 | Inpatient (IN) | payer MEDICARE ==
[2018-07-02] MEDS ORDERED: PANTOPRAZOLE 40 MG/10 ML VIAL IVP STA (16:25)
--- NOTE | 2018-07-02 16:35 | ED ---
GI Bleed HPI - General Chief complaint: GI Bleed Stated complaint: GI Bleed Time Seen by Provider: 07/02/18 16:02 Source: patient, family, EMS, RN notes reviewed Limitations: no limitations - History of Present Illness Initial comments: This is a 68-year-old female with a history of colon cancer with a resection done last year who currently is on chemotherapy for no renal involvement who started developing dark blood per rectum when she thought she was given had diarrhea earlier today. Per family states she looks pale she feels tired and weak did have some crampy abdominal pain. He has no prior history of GI bleeding. No fevers chills nausea vomiting sweats no other modifying factors at this time. She currently is in the process of getting a chemo infusion. MD complaint: gross hematochezia - Related Data Home Medications Medication Instructions Recorded Confirmed Polyethylene Glycol 3350 [Miralax] 17 gm PO DAILY 06/01/18 07/02/18 Sennosides-Docusate Sodium 2 tab PO HS 06/01/18 07/02/18 [Senokot-S] Diphenox-Atrop 2.5-0.025 mg 2 tab PO QID PRN 07/02/18 07/02/18 [Lomotil] Dronabinol [Marinol] 5 mg PO AC-BID 07/02/18 07/02/18 Lidocaine-Prilocaine Cream [Emla 1 applic TOPICAL DIRECTED PRN 07/02/1807/02 Cream 2.5%/2.5%] Prochlorperazine [Compazine] 10 mg PO Q6H PRN 07/02/18 07/02/18 oxyCODONE-APAP 7.5-325MG [Percocet 1 tab PO Q4HR PRN 07/02/18 07/02/18 7.5-325 mg] Previous Rx's Medication Instructions Recorded Apixaban [Eliquis] 10 mg PO BID tab 06/20/18 fentaNYL 100MCG/HR PATCH 1 patch TRANSDERM Q72H patch 06/20/18 [Duragesic 100MCG/HR] Allergies Allergy/AdvReac Type Severity Reaction Status Date / Time tramadol HCl [From Ultram] Allergy Severe PARALYZED Verified 07/02/18 16:14 FOR HOURS, UNABLE TO MOVE" Review of Systems ROS Statement: Those systems with pertinent positive or pertinent negative responses have been documented in the HPI. ROS Other: All systems not noted in ROS Statement are negative. Past Medical History Past Medical History: Cancer, CVA/TIA, Deep Vein Thrombosis (DVT), Osteoarthritis (OA) Additional Past Medical History / Comment(s): OSTEOPOROSIS, "SMALL BRAIN BLEEDS "-NO RESIDUAL EFFECTS,HX OF DVT YEARS AGO AFTER TAKING CONTROL PILLS, hx colon cancer(sx and finished chemo ), chronic sinusitis/deviated septum(sx ) History of Any Multi-Drug Resistant Organisms: None Reported Past Surgical History: Bladder Surgery, Bowel Resection, Hysterectomy, Tonsillectomy Additional Past Surgical History / Comment(s): nasal sx 2014 bladder suspension, 07/2017 had maria elena cath,celiac plexsus block 06-04-18. last sunday at [facility] abd lymhp node bx-has'nt gotten results yet. Past Anesthesia/Blood Transfusion Reactions: No Reported Reaction, Motion Sickness Past Psychological History: No Psychological Hx Reported Smoking Status: Former smoker Past Alcohol Use History: None Reported Past Drug Use History: Marijuana - Past Family History Mother Family Medical History: Cancer Additional Family Medical History / Comment(s): BREAST Father Family Medical History: Cancer Additional Family Medical History / Comment(s): PANCREATIC Sister(s) Family Medical History: Cancer Additional Family Medical History / Comment(s): BREAST General Exam - General Exam Comments Initial Comments: This is a well-developed well-nourished awake alert oriented 3 female Limitations: no limitations General appearance: alert, lethargic Head exam: Present: atraumatic, normocephalic, normal inspection Eye exam: Present: PERRL, EOMI, other (Pale conjunctiva) ENT exam: Present: normal exam, mucous membranes moist Neck exam: Present: normal inspection. Absent: tenderness, meningismus, lymphadenopathy Respiratory exam: Present: normal lung sounds bilaterally, other (Chemo infusion going into her port in the right upper chest). Absent: respiratory distress, wheezes, rales, rhonchi, stridor Cardiovascular Exam: Present: normal rhythm, tachycardia, normal heart sounds. Absent: systolic murmur, diastolic murmur, rubs, gallop, clicks GI/Abdominal exam: Present: soft, normal bowel sounds. Absent: distended, tenderness, guarding, rebound, rigid Rectal exam: Present: heme (+) stool, bloody stool, other (Nontender hemorrhoids are noted) Extremities exam: Present: normal inspection, full ROM, normal capillary refill. Absent: tenderness, pedal edema, joint swelling, calf tenderness Back exam: Present: normal inspection Neurological exam: Present: alert, oriented X3, CN II-XII intact Psychiatric exam: Present: normal affect, normal mood Skin exam: Present: warm, dry, intact, normal color. Absent: rash Course Vital Signs 07/02/18 15:51 Temperature 99.0 F Pulse Rate 104 H Respiratory 18 Rate Blood Pressure 118/59 O2 Sat by Pulse 100 Oximetry Medical Decision Making - Medical Decision Making I did discuss findings with the patient and family members were present patient has dropped one half grams hemoglobin overnight on my exam she had burgundy and bright red colored stool she will be admitted to Dr. Lyons's service and the patient will be admitted ICU for close monitoring - Lab Data Result diagrams: 07/02/18 16:00 07/02/18 16:00 Lab Results 07/02/18 07/02/18 07/02/18 Range/Units 16:00 16:00 16:00 WBC 5.2 (3.8-10.6) k/uL RBC 3.69 L (3.80-5.40) m/uL Hgb 10.6 L (11.4-16.0) gm/dL Hct 33.3 L (34.0-46.0) % MCV 90.3 (80.0-100.0) fL MCH 28.6 (25.0-35.0) pg MCHC 31.7 (31.0-37.0) g/dL RDW 15.1 (11.5-15.5) % Plt Count 297 (150-450) k/uL Neutrophils % 74 % Lymphocytes % 16 % Monocytes % 8 % Eosinophils % 2 % Basophils % 0 % Neutrophils # 3.8 (1.3-7.7) k/uL Lymphocytes # 0.8 L (1.0-4.8) k/uL Monocytes # 0.4 (0-1.0) k/uL Eosinophils # 0.1 (0-0.7) k/uL Basophils # 0.0 (0-0.2) k/uL PT (9.0-12.0) sec INR (<1.2) APTT (22.0-30.0) sec Sodium 139 (137-145) mmol/L Potassium 3.9 (3.5-5.1) mmol/L Chloride 106 (98-107) mmol/L Carbon Dioxide 21 L (22-30) mmol/L Anion Gap 12 mmol/L BUN 14 (7-17) mg/dL Creatinine 0.45 L (0.52-1.04) mg/dL Est GFR (CKD-EPI)AfAm >90 (>60 ml/min/1.73 sqM) Est GFR (CKD-EPI)NonAf >90 (>60 ml/min/1.73 sqM) Glucose 138 H (74-99) mg/dL Calcium 9.1 (8.4-10.2) mg/dL Magnesium 1.9 (1.6-2.3) mg/dL Total Bilirubin 0.5 (0.2-1.3) mg/dL AST 26 (14-36) U/L ALT 36 (9-52) U/L Alkaline Phosphatase 177 H (38-126) U/L Total Creatine Kinase <20 L (30-135) U/L Total Protein 6.1 L (6.3-8.2) g/dL Albumin 3.4 L (3.5-5.0) g/dL Stool Occult Blood (Negative) 07/02/18 07/02/18 Range/Units 16:00 16:00 WBC (3.8-10.6) k/uL RBC (3.80-5.40) m/uL Hgb (11.4-16.0) gm/dL Hct (34.0-46.0) % MCV (80.0-100.0) fL MCH (25.0-35.0) pg MCHC (31.0-37.0) g/dL RDW (11.5-15.5) % Plt Count (150-450) k/uL Neutrophils % % Lymphocytes % % Monocytes % % Eosinophils % % Basophils % % Neutrophils # (1.3-7.7) k/uL Lymphocytes # (1.0-4.8) k/uL Monocytes # (0-1.0) k/uL Eosinophils # (0-0.7) k/uL Basophils # (0-0.2) k/uL PT 11.8 (9.0-12.0) sec INR 1.2 H (<1.2) APTT 22.1 (22.0-30.0) sec Sodium (137-145) mmol/L Potassium (3.5-5.1) mmol/L Chloride (98-107) mmol/L Carbon Dioxide (22-30) mmol/L Anion Gap mmol/L BUN (7-17) mg/dL Creatinine (0.52-1.04) mg/dL Est GFR (CKD-EPI)AfAm (>60 ml/min/1.73 sqM) Est GFR (CKD-EPI)NonAf (>60 ml/min/1.73 sqM) Glucose (74-99) mg/dL Calcium (8.4-10.2) mg/dL Magnesium (1.6-2.3) mg/dL Total Bilirubin (0.2-1.3) mg/dL AST (14-36) U/L ALT (9-52) U/L Alkaline Phosphatase (38-126) U/L Total Creatine Kinase (30-135) U/L Total Protein (6.3-8.2) g/dL Albumin (3.5-5.0) g/dL Stool Occult Blood Positive H (Negative) - Radiology Data Radiology results: report reviewed (Review the imaging no acute findings are seen at this time), image reviewed Disposition Clinical Impression: Hematochezia, GI bleed, Anemia, History of colon cancer Disposition: ADMITTED IP TO THIS [facility] Condition: Stable Referrals: Radha Velasquez MD [Primary Care Provider] - 1-2 days
[2018-07-02] MEDS: SODIUM CHLORIDE 0.9% 1,000 ML IV STA ×2 (16:41→21:02)
[2018-07-02] MEDS ORDERED: ONDANSETRON 4 MG/2 ML VIAL IVP STA (16:45)
[2018-07-02 16:54] LABS: Basophils % (A) 0 %; Eosinophils # (A) 0.1 k/uL (0-0.7); Eosinophils % (A) 2 %; HCT 33.3 % (34.0-46.0); HGB 10.6 gm/dL (11.4-16.0); Lymphocytes # (A) 0.8 k/uL (1.0-4.8); Lymphocytes % (A) 16 %; MCH 28.6 pg (25.0-35.0); MCHC 31.7 g/dL (31.0-37.0); MCV 90.3 fL (80.0-100.0); Mean Platelet Volume 8.5; Monocytes # (A) 0.4 k/uL (0-1.0); Monocytes % (A) 8 %; Neutrophils # (A) 3.8 k/uL (1.3-7.7); Neutrophils % (A) 74 %; Platelet Count 297 k/uL (150-450); RBC 3.69 m/uL (3.80-5.40); RDW 15.1 % (11.5-15.5); WBC 5.2 k/uL (3.8-10.6)
[2018-07-02 17:09] LABS: ALT 36 U/L (9-52); AST 26 U/L (14-36); Albumin 3.4 g/dL (3.5-5.0); Alkaline Phosphatase 177 U/L (38-126); Anion Gap 12 mmol/L; Blood Urea Nitrogen 14 mg/dL (7-17); Calcium 9.1 mg/dL (8.4-10.2); Carbon Dioxide 21 mmol/L (22-30); Chloride 106 mmol/L (98-107); Glucose 138 mg/dL (74-99); Magnesium 1.9 mg/dL (1.6-2.3); Potassium 3.9 mmol/L (3.5-5.1); Sodium 139 mmol/L (137-145); Total Bilirubin 0.5 mg/dL (0.2-1.3); Total Protein 6.1 g/dL (6.3-8.2)
[2018-07-02 17:14] LABS: Creatine Kinase <20 U/L (30-135)
[2018-07-02 17:15] LABS: INR 1.2 (<1.2); Partial Thromboplastin Time 22.1 sec (22.0-30.0); Prothrombin Time 11.8 sec (9.0-12.0)
[2018-07-02 17:27] LABS: Creatine Kinase MB 0.3 ng/mL (0.0-2.4); Troponin I <0.012 ng/mL (0.000-0.034)
[2018-07-02] MEDS ORDERED: NALOXONE 0.4 MG/ML 1 ML VIAL IV PRN (17:29)
[2018-07-02] MEDS ORDERED: LIDOCAINE-PRILOCAINE 2.5-2.5% CREAM 5 GM TUBE TOPICAL PRN (17:37)
--- NOTE | 2018-07-02 17:42 | XR ---
EXAMINATION: XR chest 2V DATE AND TIME: 07/02/2018 5:05 PM CLINICAL INDICATION: cough TECHNIQUE: PA and lateral COMPARISON: 07/13/2017 FINDINGS: Port-A-Cath tip superimposed over the distal SVC. The lungs are clear. The pleural spaces are positive for bilateral blunting suggesting small pleural effusions. The cardiac silhouette is not enlarged. The remainder of the mediastinal silhouette is unremarkable. The skeletal structures and soft tissues are negative for acute findings. IMPRESSION: Small bilateral pleural effusions.
--- NOTE | 2018-07-02 17:45 | XR ---
EXAMINATION TYPE: XR KUB 2V DATE OF EXAM: 07/02/2018 COMPARISON: 06/01/2018 HISTORY: Cough and fever GI bleed, history colon carcinoma TECHNIQUE: 2 supine views FINDINGS: The bowel gas pattern is normal. No acute skeletal or soft tissue findings. IMPRESSION: No acute abdominal pelvic process.
[2018-07-02 19:38] LABS: Glucose,Whole Blood 138 mg/dL (75-99)
[2018-07-02] MEDS: SODIUM CHLORIDE 0.9% 1,000 ML IV SCH (21:02)
[2018-07-02] MEDS: PANTOPRAZOLE 40 MG/10 ML VIAL IV SCH (21:03)
[2018-07-02 21:57] LABS: Basophils % (A) 1 %; Eosinophils # (A) 0.1 k/uL (0-0.7); Eosinophils % (A) 2 %; HCT 29.4 % (34.0-46.0); HGB 9.3 gm/dL (11.4-16.0); Hypochromasia Slight; Lymphocytes # (A) 0.9 k/uL (1.0-4.8); Lymphocytes % (A) 18 %; MCH 28.9 pg (25.0-35.0); MCHC 31.7 g/dL (31.0-37.0); MCV 91.3 fL (80.0-100.0); Mean Platelet Volume 7.2; Monocytes # (A) 0.4 k/uL (0-1.0); Monocytes % (A) 6 %; Neutrophils # (A) 3.8 k/uL (1.3-7.7); Neutrophils % (A) 72 %; Platelet Count 260 k/uL (150-450); RBC 3.22 m/uL (3.80-5.40); RDW 15.3 % (11.5-15.5); WBC 5.4 k/uL (3.8-10.6)
[2018-07-03] MEDS: SODIUM CHLORIDE 0.9% 1,000 ML IV SCH ×2 (01:48→09:17)
[2018-07-03 04:07] LABS: Anion Gap 7 mmol/L; Blood Urea Nitrogen 18 mg/dL (7-17); Carbon Dioxide 24 mmol/L (22-30); Chloride 107 mmol/L (98-107); Glucose 111 mg/dL (74-99); Potassium 4.7 mmol/L (3.5-5.1); Sodium 138 mmol/L (137-145)
[2018-07-03 04:08] LABS: Calcium 8.7 mg/dL (8.4-10.2); Magnesium 2.1 mg/dL (1.6-2.3)
[2018-07-03 04:15] LABS: Basophils % (A) 1 %; Eosinophils # (A) 0.3 k/uL (0-0.7); Eosinophils % (A) 5 %; HCT 29.6 % (34.0-46.0); HGB 9.4 gm/dL (11.4-16.0); Hypochromasia Slight; Lymphocytes # (A) 1.4 k/uL (1.0-4.8); Lymphocytes % (A) 26 %; MCH 28.9 pg (25.0-35.0); MCHC 31.6 g/dL (31.0-37.0); MCV 91.4 fL (80.0-100.0); Mean Platelet Volume 7.8; Monocytes # (A) 0.2 k/uL (0-1.0); Monocytes % (A) 5 %; Neutrophils # (A) 3.2 k/uL (1.3-7.7); Neutrophils % (A) 62 %; Platelet Count 262 k/uL (150-450); RBC 3.24 m/uL (3.80-5.40); RDW 15.2 % (11.5-15.5); WBC 5.2 k/uL (3.8-10.6)
[2018-07-03] MEDS: PANTOPRAZOLE 40 MG/10 ML VIAL IV SCH ×2 (08:01→21:25)
[2018-07-03] MEDS: ONDANSETRON 4 MG/2 ML VIAL IVP PRN ×3 (08:02→19:46)
--- NOTE | 2018-07-03 09:01 | P.CNPUL ---
History of Present Illness Consult date: 07/03/18 Reason for consult: other Chief complaint: Acute GI bleeding History of present illness: This is 68-year-old white female patient of Dr. Varela, who presented to the emergency department yesterday on 07/02/2018 at 1600 for evaluation of dark red rectal bleeding yesterday at about 2:00 in the afternoon. Patient stated she had 2 large bowel movements of dark red blood, significant amount, she states she filled the toilet twice. Patient felt weak and tired, she was having left lower quadrant burning, and cramping sensation. Denied any chest pain or shortness of breath. She was diagnosed with colon cancer in May 2017, when she presented to [facility] with abdominal pain, difficulty passing bowel movements and anemia. She had upper and lower endoscopic evaluation with Dr. Stafford and was found to have an ascending colon mass which was nearly obstructing. Biopsy was positive for poorly differentiated carcinoma with prominent neuroendocrine differentiation. She underwent a right colectomy with lymph node dissection on 05/15/2017. Pericolic lymph nodes were involved, tumor was staged T4 1N 1B. 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 She is currently receiving chemotherapy. She follows with Dr. Tejada. No prior history of GI bleeding, no chronic liver disease, no EtOH. Recent CT of the abdomen for Abdominal pain, showed right external iliac thrombosis, and intrahepatic thrombosis. Patient was treated with heparin drip, and she was placed on Eliquis. Initial blood work revealed FVC of 5.2, hemoglobin of 10.6, INR 1.2, sodium is 139, potassium is 3.9, CO2 is 21, BUN is 14, creatinine 0.45. Occult stool was positive. Serial CBCs were done, and subsequently hemoglobin went down to 9.3, and this morning is 9.4. Patient has had no further bleeding while inpatient. She is hemodynamically stable, not requiring any vasopressor support, is at times tachycardic, rate is ranging from 96-170 BPM, blood pressures 102/54, she is on room air pulse ox is 97%. She is having intermittent nausea and vomiting, she is receiving her chemotherapy infusion. She is having persistent left lower quadrant pain, and she described it as burning. She is currently on fentanyl patch, and she is having breakthrough discomfort. Chest x-ray was reviewed, small old small bilateral pleural effusions. KUB abdomen was done and showed no acute abdominopelvic process. Review of Systems All systems: negative Constitutional: Denies chills, Denies fever Eyes: denies blurred vision, denies pain Ears, nose, mouth and throat: Denies headache, Denies sore throat Cardiovascular: Denies chest pain, Denies shortness of breath Respiratory: Denies cough Gastrointestinal: Reports abdominal pain, Reports change in bowel habits, Reports hematochezia, Reports indigestion, Reports nausea, Reports vomiting, Denies diarrhea Genitourinary: Denies dysuria, Denies hematuria Musculoskeletal: Denies myalgias Integumentary: Denies pruritus, Denies rash Neurological: Denies numbness, Denies weakness Psychiatric: Denies anxiety, Denies depression Endocrine: Denies fatigue, Denies weight change Past Medical History Past Medical History: Cancer, CVA/TIA, Deep Vein Thrombosis (DVT), Osteoarthritis (OA) Additional Past Medical History / Comment(s): OSTEOPOROSIS, "SMALL BRAIN BLEEDS "-NO RESIDUAL EFFECTS,HX OF DVT YEARS AGO AFTER TAKING CONTROL PILLS, hx colon cancer(sx) and has a pump for chemo), chronic sinusitis/deviated septum(sx ), hx of iliac vein/intrahepatic thrombosis.chronic back pain, uti History of Any Multi-Drug Resistant Organisms: None Reported Past Surgical History: Bladder Surgery, Bowel Resection, Hysterectomy, Tonsillectomy Additional Past Surgical History / Comment(s): nasal sx 2014 bladder suspension, 07/2017 had maria elena cath,celiac plexsus block 06-04-18.abd lymhp node bx Past Anesthesia/Blood Transfusion Reactions: No Reported Reaction, Motion Sickness Past Psychological History: No Psychological Hx Reported Smoking Status: Former smoker Past Alcohol Use History: None Reported Additional Past Alcohol Use History / Comment(s): started smoking in her 20's smoked off and on ,did'nt smoke during her 5 pregnancies and 9 years of breast feeding. quit 2003. a pack would last her a week Past Drug Use History: Marijuana Additional Drug Use History / Comment(s): I - Past Family History Mother Family Medical History: Cancer Additional Family Medical History / Comment(s): BREAST Father Family Medical History: Cancer Additional Family Medical History / Comment(s): PANCREATIC Sister(s) Family Medical History: Cancer Additional Family Medical History / Comment(s): BREAST Medications and Allergies Home Medications Medication Instructions Recorded Confirmed Type Polyethylene Glycol 3350 [Miralax] 17 gm PO DAILY 06/01/18 07/02/18 History Sennosides-Docusate Sodium 2 tab PO HS 06/01/18 07/02/18 History [Senokot-S] Apixaban [Eliquis] 10 mg PO BID tab 06/20/18 07/02/18 Rx fentaNYL 100MCG/HR PATCH 1 patch TRANSDERM Q72H patch 06/20/18 07/02/18 Rx [Duragesic 100MCG/HR] Diphenox-Atrop 2.5-0.025 mg 2 tab PO QID PRN 07/02/18 07/02/18 History [Lomotil] Dronabinol [Marinol] 5 mg PO AC-BID 07/02/18 07/02/18 History Lidocaine-Prilocaine Cream [Emla 1 applic TOPICAL DIRECTED PRN 07/02/1807/02 History Cream 2.5%/2.5%] Prochlorperazine [Compazine] 10 mg PO Q6H PRN 07/02/18 07/02/18 History oxyCODONE-APAP 7.5-325MG [Percocet 1 tab PO Q4HR PRN 07/02/18 07/02/18 History 7.5-325 mg] Allergies Allergy/AdvReac Type Severity Reaction Status Date / Time tramadol HCl [From [facility]] Allergy Severe PARALYZED Verified 07/02/18 16:14 FOR HOURS, UNABLE TO MOVE" Physical Exam Vitals: Vital Signs Temp Pulse Resp BP Pulse Ox 07/03/18 08:00 98.4 F 96 16 102/54 97 07/03/18 07:00 117 H 13 92/61 97 07/03/18 06:00 96 14 96/64 96 07/03/18 05:00 104 H 19 93/56 95 07/03/18 04:00 98.5 F 95 10 L 95/58 96 07/03/18 03:00 95 14 84/57 97 07/03/18 02:00 95 12 91/59 96 07/03/18 01:00 94 12 82/61 94 L 07/03/18 00:00 98.6 F 93 16 89/51 96 07/02/18 23:12 89 16 104/55 95 07/02/18 23:00 90 12 91/51 96 07/02/18 22:00 92 13 86/61 96 07/02/18 21:00 98 12 94/65 99 07/02/18 20:00 98.5 F 96 14 95/64 96 07/02/18 19:33 107 H 99/56 97 07/02/18 19:25 98.0 F 106 H 20 109/71 99 07/02/18 18:54 97.9 F 104 H 22 118/59 96 07/02/18 17:55 106 H 20 118/68 97 07/02/18 16:55 111 H 20 107/60 99 07/02/18 15:51 99.0 F 104 H 18 118/59 100 Intake and Output 07/02/18 07/03/18 07/03/18 22:59 06:59 14:59 Intake Total 150 600 75 Balance 150 600 75 Intake: IV 150 600 75 Sodium Chloride 0.9% 1, 150 600 75 000 ml @ 75 mls/hr IV . [id number] STA Rx#:[id number] Other: Voiding Method Bedside Commode # Voids 1 1 Weight 58.513 kg 59.7 kg GENERAL EXAM: Alert, pleasant, 68-year-old white female, a nap in the bed, complaining of being nauseous, and she has emesis basis in front of her comfortable in no apparent distress. HEAD: Normocephalic/atraumatic. EYES: Normal reaction of pupils, equal size. Conjunctiva pink, sclera white. NOSE: Clear with pink turbinates. THROAT: No erythema or exudates. NECK: No masses, no JVD, no thyroid enlargement, no adenopathy. CHEST: No chest wall deformity. Symmetrical expansion. LUNGS: Equal air entry with no crackles, wheeze, rhonchi or dullness. CVS: Regular rate and rhythm, normal S1 and S2, no gallops, no murmurs, no rubs ABDOMEN: Soft, slightly tender in the left lower quadrant. No hepatosplenomegaly, normal bowel sounds, no guarding or rigidity. EXTREMITIES: No clubbing, no edema, no cyanosis, 2+ pulses and upper and lower extremities. MUSCULOSKELETAL: Muscle strength and tone normal. SPINE: No scoliosis or deformity SKIN: No rashes CENTRAL NERVOUS SYSTEM: Alert and oriented -3. No focal deficits, tone is normal in all 4 extremities. PSYCHIATRIC: Alert and oriented -3. Appropriate affect. Intact judgment and insight. Results - Laboratory Findings CBC and BMP: 07/03/18 03:35 07/03/18 03:35 PT/INR, D-dimer PT 11.8 sec (9.0-12.0) 07/02/18 16:00 INR 1.2 (<1.2) H 07/02/18 16:00 Abnormal lab findings: Abnormal Labs 07/02/18 07/02/18 07/02/18 16:00 16:00 16:00 RBC 3.69 L Hgb 10.6 L Hct 33.3 L Lymphocytes # 0.8 L INR Carbon Dioxide 21 L BUN Creatinine 0.45 L Glucose 138 H POC Glucose (mg/dL) Alkaline Phosphatase 177 H Total Creatine Kinase <20 L Total Protein 6.1 L Albumin 3.4 L Stool Occult Blood 07/02/18 07/02/18 07/02/18 16:00 16:00 19:36 RBC Hgb Hct Lymphocytes # INR 1.2 H Carbon Dioxide BUN Creatinine Glucose POC Glucose (mg/dL) 138 H Alkaline Phosphatase Total Creatine Kinase Total Protein Albumin Stool Occult Blood Positive H 07/02/18 07/03/18 07/03/18 21:31 03:35 03:35 RBC 3.22 L 3.24 L Hgb 9.3 L 9.4 L Hct 29.4 L 29.6 L Lymphocytes # 0.9 L INR Carbon Dioxide BUN 18 H Creatinine Glucose 111 H POC Glucose (mg/dL) Alkaline Phosphatase Total Creatine Kinase Total Protein Albumin Stool Occult Blood - Diagnostic Findings Chest x-ray: report reviewed, image reviewed Additional studies: KUB results reviewed Assessment and Plan Plan: Assessment: #1. Acute blood loss anemia, related to acute rectal bleeding #2. Progressive poorly differentiated adenocarcinoma with neuroendocrine features, status post right colectomy currently is being treated with chemotherapy #3. 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 Uncontrolled pain secondary to the above #5. History of remote DVT after taking control pills #6. History of CVA/TIA no residual Plan: Continue IV fluids at a rate of 75 ML per hour. Patient remains hemodynamically stable, no further bleeding since admission. Continue monitoring hemodynamics. Patient is receiving her chemotherapy infusion. Having intermittent nausea and vomiting. Zofran will be given. Is having persistent pain in the left lower quadrant, will add IV Dilaudid for breakthrough pain. He is awaiting evaluation by the GI service. Patient will remain in the ICU for further observation. We'll continue to monitor I performed a history & physical examination of the patient and discussed their management with my nurse practitioner, Ynes Vasquez. I reviewed the nurse practitioner's note and agree with the documented findings and plan of care. Lung sounds are clear. The findings and the impression was discussed with the patient. I attest to the documentation by the nurse practitioner. Time with Patient: Greater than 30
[2018-07-03] MEDS: HYDROmorphone 1 MG/ML 1 ML SYRINGE IVP PRN ×3 (09:16→20:15)
--- NOTE | 2018-07-03 12:43 | P.GSCN ---
History of Present Illness Consult date: 07/03/18 Reason for Consult: GI bleeding History of present illness: Patient known to our service. Patient underwent previous right colectomy in May of last year. Postoperatively the patient was found to have progression of her malignancy. She is currently on chemotherapy. She had recent evidence of venous thrombosis involving the iliac and hepatic vein. Came to the ER yesterday after 2 episodes of loose bloody stools. Mild chronic abdominal pain. No bleeding since her admission. She is on eloquis for the DVT. She had some vomiting that was nonbloody prior to that. Hemoglobin remained stable at 9.4. Review of Systems The patient denies any acute changes in vision or hearing, no dysphagia or odynophagia, no chest pain or shortness of breath, no dysuria or hematuria, no headache, no runny nose, no rectal bleeding, no unexplained weight loss Past Medical History Past Medical History: Cancer, CVA/TIA, Deep Vein Thrombosis (DVT), Osteoarthritis (OA) Additional Past Medical History / Comment(s): OSTEOPOROSIS, "SMALL BRAIN BLEEDS "-NO RESIDUAL EFFECTS,HX OF DVT YEARS AGO AFTER TAKING CONTROL PILLS, hx colon cancer(sx) and has a pump for chemo), chronic sinusitis/deviated septum(sx ), hx of iliac vein/intrahepatic thrombosis.chronic back pain, uti History of Any Multi-Drug Resistant Organisms: None Reported Past Surgical History: Bladder Surgery, Bowel Resection, Hysterectomy, Tonsillectomy Additional Past Surgical History / Comment(s): nasal sx 2014 bladder suspension, 07/2017 had maria elena cath,celiac plexsus block 06-04-18.abd lymhp node bx Past Anesthesia/Blood Transfusion Reactions: No Reported Reaction, Motion Sickness Past Psychological History: No Psychological Hx Reported Smoking Status: Former smoker Past Alcohol Use History: None Reported Additional Past Alcohol Use History / Comment(s): started smoking in her 20's smoked off and on ,did'nt smoke during her 5 pregnancies and 9 years of breast feeding. quit 2003. a pack would last her a week Past Drug Use History: Marijuana Additional Drug Use History / Comment(s): I - Past Family History Mother Family Medical History: Cancer Additional Family Medical History / Comment(s): BREAST Father Family Medical History: Cancer Additional Family Medical History / Comment(s): PANCREATIC Sister(s) Family Medical History: Cancer Additional Family Medical History / Comment(s): BREAST Medications and Allergies Home Medications Medication Instructions Recorded Confirmed Type Polyethylene Glycol 3350 [Miralax] 17 gm PO DAILY 06/01/18 07/02/18 History Sennosides-Docusate Sodium 2 tab PO HS 06/01/18 07/02/18 History [Senokot-S] Apixaban [Eliquis] 10 mg PO BID tab 06/20/18 07/02/18 Rx fentaNYL 100MCG/HR PATCH 1 patch TRANSDERM Q72H patch 06/20/18 07/02/18 Rx [Duragesic 100MCG/HR] Diphenox-Atrop 2.5-0.025 mg 2 tab PO QID PRN 07/02/18 07/02/18 History [Lomotil] Dronabinol [Marinol] 5 mg PO AC-BID 07/02/18 07/02/18 History Lidocaine-Prilocaine Cream [Emla 1 applic TOPICAL DIRECTED PRN 07/02/1807/02 History Cream 2.5%/2.5%] Prochlorperazine [Compazine] 10 mg PO Q6H PRN 07/02/18 07/02/18 History oxyCODONE-APAP 7.5-325MG [Percocet 1 tab PO Q4HR PRN 07/02/18 07/02/18 History 7.5-325 mg] Allergies Allergy/AdvReac Type Severity Reaction Status Date / Time tramadol HCl [From Ultr[facility]] Allergy Severe PARALYZED Verified 07/02/18 16:14 FOR HOURS, UNABLE TO MOVE" Surgical - Exam Vital Signs Temp Pulse Resp BP Pulse Ox 99.0 F 104 H 18 118/59 100 07/02/18 15:51 07/02/18 15:51 07/02/18 15:51 07/02/18 15:51 07/02/18 15:51 Physical exam: General: Well-developed, well-nourished HEENT: Normocephalic, sclerae nonicteric Abdomen: Nontender, nondistended Extremities: No edema Neuro: Alert and oriented Results - Labs 07/03/18 03:35 07/03/18 03:35 Abnormal Lab Results - Last 24 Hours (Table) 07/02/18 07/02/18 07/02/18 Range/Units 16:00 16:00 16:00 RBC 3.69 L (3.80-5.40) m/uL Hgb 10.6 L (11.4-16.0) gm/dL Hct 33.3 L (34.0-46.0) % Lymphocytes # 0.8 L (1.0-4.8) k/uL INR (<1.2) Carbon Dioxide 21 L (22-30) mmol/L BUN (7-17) mg/dL Creatinine 0.45 L (0.52-1.04) mg/dL Glucose 138 H (74-99) mg/dL POC Glucose (mg/dL) (75-99) mg/dL Alkaline Phosphatase 177 H (38-126) U/L Total Creatine Kinase <20 L (30-135) U/L Total Protein 6.1 L (6.3-8.2) g/dL Albumin 3.4 L (3.5-5.0) g/dL Stool Occult Blood (Negative) 07/02/18 07/02/18 07/02/18 Range/Units 16:00 16:00 19:36 RBC (3.80-5.40) m/uL Hgb (11.4-16.0) gm/dL Hct (34.0-46.0) % Lymphocytes # (1.0-4.8) k/uL INR 1.2 H (<1.2) Carbon Dioxide (22-30) mmol/L BUN (7-17) mg/dL Creatinine (0.52-1.04) mg/dL Glucose (74-99) mg/dL POC Glucose (mg/dL) 138 H (75-99) mg/dL Alkaline Phosphatase (38-126) U/L Total Creatine Kinase (30-135) U/L Total Protein (6.3-8.2) g/dL Albumin (3.5-5.0) g/dL Stool Occult Blood Positive H (Negative) 07/02/18 07/03/18 07/03/18 Range/Units 21:31 03:35 03:35 RBC 3.22 L 3.24 L (3.80-5.40) m/uL Hgb 9.3 L 9.4 L (11.4-16.0) gm/dL Hct 29.4 L 29.6 L (34.0-46.0) % Lymphocytes # 0.9 L (1.0-4.8) k/uL INR (<1.2) Carbon Dioxide (22-30) mmol/L BUN 18 H (7-17) mg/dL Creatinine (0.52-1.04) mg/dL Glucose 111 H (74-99) mg/dL POC Glucose (mg/dL) (75-99) mg/dL Alkaline Phosphatase (38-126) U/L Total Creatine Kinase (30-135) U/L Total Protein (6.3-8.2) g/dL Albumin (3.5-5.0) g/dL Stool Occult Blood (Negative) Diabetes panel 07/02/18 07/03/18 Range/Units 16:00 03:35 Sodium 139 138 (137-145) mmol/L Potassium 3.9 4.7 (3.5-5.1) mmol/L Chloride 106 107 (98-107) mmol/L Carbon Dioxide 21 L 24 (22-30) mmol/L BUN 14 18 H (7-17) mg/dL Creatinine 0.45 L 0.55 (0.52-1.04) mg/dL Glucose 138 H 111 H (74-99) mg/dL Calcium 9.1 8.7 (8.4-10.2) mg/dL AST 26 (14-36) U/L ALT 36 (9-52) U/L Alkaline Phosphatase 177 H (38-126) U/L Total Protein 6.1 L (6.3-8.2) g/dL Albumin 3.4 L (3.5-5.0) g/dL Calcium panel 07/02/18 07/03/18 Range/Units 16:00 03:35 Calcium 9.1 8.7 (8.4-10.2) mg/dL Albumin 3.4 L (3.5-5.0) g/dL Pituitary panel 07/02/18 07/03/18 Range/Units 16:00 03:35 Sodium 139 138 (137-145) mmol/L Potassium 3.9 4.7 (3.5-5.1) mmol/L Chloride 106 107 (98-107) mmol/L Carbon Dioxide 21 L 24 (22-30) mmol/L BUN 14 18 H (7-17) mg/dL Creatinine 0.45 L 0.55 (0.52-1.04) mg/dL Glucose 138 H 111 H (74-99) mg/dL Calcium 9.1 8.7 (8.4-10.2) mg/dL Adrenal panel 07/02/18 07/03/18 Range/Units 16:00 03:35 Sodium 139 138 (137-145) mmol/L Potassium 3.9 4.7 (3.5-5.1) mmol/L Chloride 106 107 (98-107) mmol/L Carbon Dioxide 21 L 24 (22-30) mmol/L BUN 14 18 H (7-17) mg/dL Creatinine 0.45 L 0.55 (0.52-1.04) mg/dL Glucose 138 H 111 H (74-99) mg/dL Calcium 9.1 8.7 (8.4-10.2) mg/dL Total Bilirubin 0.5 (0.2-1.3) mg/dL AST 26 (14-36) U/L ALT 36 (9-52) U/L Alkaline Phosphatase 177 H (38-126) U/L Total Protein 6.1 L (6.3-8.2) g/dL Albumin 3.4 L (3.5-5.0) g/dL Assessment and Plan (1) GI bleed Narrative/Plan: Begin liquid diet. No further bleeding since admission. Consider resuming anticoagulation given the severity of her venous thrombosis. No immediate plans for endoscopy and less bleeding recurs. Current Visit: Yes Status: Acute Code(s): K92.2 - GASTROINTESTINAL HEMORRHAGE, UNSPECIFIED SNOMED Code(s): 97609762
--- NOTE | 2018-07-03 13:14 | P.HPIM ---
History of Present Illness H&P Date: 07/03/18 Chief Complaint: GI bleeding This is 68-year-old female patient of Dr. Velasquez. Patient presented to the emergency room complaining of dark blood bowel movements. Patient states she had 2 episodes of these darker stools at home prior to emergency room. Patient did complain of some crampy abdominal pain. Patient has a known past medical history of colon cancer in which she's currently on chemotherapy. Patient is known past medical history of CVA, DVT, osteoarthritis, lateral surgery and celiac plexus block placement on 06/04/2018. 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 Patient at the time was seen by vascular surgery and started on eliquis. KUB completed showing no acute abdominal pelvic process. Stool occult blood positive Chest x-ray completed showing small bilateral pleural effusions. EKG completed showing showing normal sinus rhythm. Patient admitted to the intensive care unit. Hemoglobin 9.4. Dr. Pham per oncology consulted. Dr. earl consulted for GI bleed. At this time patient denies chest pain or shortness of breath. Patient denies any nausea vomiting or diarrhea. Patient denies any urinary burning or frequency. Per patient and nursing staff no more episodes of GI bleed. Review of Systems Please refer to HPI otherwise unremarkable Past Medical History Past Medical History: Cancer, CVA/TIA, Deep Vein Thrombosis (DVT), Osteoarthritis (OA) Additional Past Medical History / Comment(s): OSTEOPOROSIS, "SMALL BRAIN BLEEDS "-NO RESIDUAL EFFECTS,HX OF DVT YEARS AGO AFTER TAKING CONTROL PILLS, hx colon cancer(sx) and has a pump for chemo), chronic sinusitis/deviated septum(sx ), hx of iliac vein/intrahepatic thrombosis.chronic back pain, uti History of Any Multi-Drug Resistant Organisms: None Reported Past Surgical History: Bladder Surgery, Bowel Resection, Hysterectomy, Tonsillectomy Additional Past Surgical History / Comment(s): nasal sx 2014 bladder suspension, 07/2017 had maria elena cath,celiac plexsus block 06-04-18.abd lymhp node bx Past Anesthesia/Blood Transfusion Reactions: No Reported Reaction, Motion Sickness Past Psychological History: No Psychological Hx Reported Smoking Status: Former smoker Past Alcohol Use History: None Reported Additional Past Alcohol Use History / Comment(s): started smoking in her 20's smoked off and on ,did'nt smoke during her 5 pregnancies and 9 years of breast feeding. quit 2003. a pack would last her a week Past Drug Use History: Marijuana Additional Drug Use History / Comment(s): I - Past Family History Mother Family Medical History: Cancer Additional Family Medical History / Comment(s): BREAST Father Family Medical History: Cancer Additional Family Medical History / Comment(s): PANCREATIC Sister(s) Family Medical History: Cancer Additional Family Medical History / Comment(s): BREAST Medications and Allergies Home Medications Medication Instructions Recorded Confirmed Type Polyethylene Glycol 3350 [Miralax] 17 gm PO DAILY 06/01/18 07/02/18 History Sennosides-Docusate Sodium 2 tab PO HS 06/01/18 07/02/18 History [Senokot-S] Apixaban [Eliquis] 10 mg PO BID tab 06/20/18 07/02/18 Rx fentaNYL 100MCG/HR PATCH 1 patch TRANSDERM Q72H patch 06/20/18 07/02/18 Rx [Duragesic 100MCG/HR] Diphenox-Atrop 2.5-0.025 mg 2 tab PO QID PRN 07/02/18 07/02/18 History [Lomotil] Dronabinol [Marinol] 5 mg PO AC-BID 07/02/18 07/02/18 History Lidocaine-Prilocaine Cream [Emla 1 applic TOPICAL DIRECTED PRN 07/02/1807/02 History Cream 2.5%/2.5%] Prochlorperazine [Compazine] 10 mg PO Q6H PRN 07/02/18 07/02/18 History oxyCODONE-APAP 7.5-325MG [Percocet 1 tab PO Q4HR PRN 07/02/18 07/02/18 History 7.5-325 mg] Allergies Allergy/AdvReac Type Severity Reaction Status Date / Time tramadol HCl [From [facility]] Allergy Severe PARALYZED Verified 07/02/18 16:14 FOR HOURS, UNABLE TO MOVE" Physical Exam Vitals: Vital Signs Temp Pulse Resp BP Pulse Ox 07/03/18 12:00 98.3 F 82 17 87/57 97 07/03/18 11:00 83 16 98/53 97 09/26/18 10:00 92 14 91/59 98 07/03/18 09:00 86 14 91/52 95 07/03/18 08:00 98.4 F 96 16 102/54 97 07/03/18 07:00 117 H 13 92/61 97 07/03/18 06:00 96 14 96/64 96 07/03/18 05:00 104 H 19 93/56 95 07/03/18 04:00 98.5 F 95 10 L 95/58 96 07/03/18 03:00 95 14 84/57 97 07/03/18 02:00 95 12 91/59 96 07/03/18 01:00 94 12 82/61 94 L 07/03/18 00:00 98.6 F 93 16 89/51 96 07/02/18 23:12 89 16 104/55 95 07/02/18 23:00 90 12 91/51 96 07/02/18 22:00 92 13 86/61 96 07/02/18 21:00 98 12 94/65 99 07/02/18 20:00 98.5 F 96 14 95/64 96 07/02/18 19:33 107 H 99/56 97 07/02/18 19:25 98.0 F 106 H 20 109/71 99 07/02/18 18:54 97.9 F 104 H 22 118/59 96 07/02/18 17:55 106 H 20 118/68 97 07/02/18 16:55 111 H 20 107/60 99 07/02/18 15:51 99.0 F 104 H 18 118/59 100 Intake and Output 07/02/18 07/03/18 07/03/18 22:59 06:59 14:59 Intake Total 150 600 375 Balance 150 600 375 Intake: IV 150 600 375 Sodium Chloride 0.9% 1, 150 600 375 000 ml @ 75 mls/hr IV . [id number] STA Rx#:[id number] Other: Voiding Method Bedside Commode # Voids 1 1 Weight 58.513 kg 59.7 kg Head normocephalic Neck supple Lungs clear to auscultation bilaterally no wheezing or crackles Heart regular rate and rhythm S1-S2, no rub or gallop Abdomen is soft nontender nondistended positive bowel sounds no hepatosplenomegaly Extremities no edema Neuro alert and orientated to 3 Results CBC & Chem 7: 07/03/18 03:35 07/03/18 03:35 Labs: Abnormal Lab Results - Last 24 Hours (Table) 07/02/18 07/02/18 07/02/18 Range/Units 16:00 16:00 16:00 RBC 3.69 L (3.80-5.40) m/uL Hgb 10.6 L (11.4-16.0) gm/dL Hct 33.3 L (34.0-46.0) % Lymphocytes # 0.8 L (1.0-4.8) k/uL INR (<1.2) Carbon Dioxide 21 L (22-30) mmol/L BUN (7-17) mg/dL Creatinine 0.45 L (0.52-1.04) mg/dL Glucose 138 H (74-99) mg/dL POC Glucose (mg/dL) (75-99) mg/dL Alkaline Phosphatase 177 H (38-126) U/L Total Creatine Kinase <20 L (30-135) U/L Total Protein 6.1 L (6.3-8.2) g/dL Albumin 3.4 L (3.5-5.0) g/dL Stool Occult Blood (Negative) 07/02/18 07/02/18 07/02/18 Range/Units 16:00 16:00 19:36 RBC (3.80-5.40) m/uL Hgb (11.4-16.0) gm/dL Hct (34.0-46.0) % Lymphocytes # (1.0-4.8) k/uL INR 1.2 H (<1.2) Carbon Dioxide (22-30) mmol/L BUN (7-17) mg/dL Creatinine (0.52-1.04) mg/dL Glucose (74-99) mg/dL POC Glucose (mg/dL) 138 H (75-99) mg/dL Alkaline Phosphatase (38-126) U/L Total Creatine Kinase (30-135) U/L Total Protein (6.3-8.2) g/dL Albumin (3.5-5.0) g/dL Stool Occult Blood Positive H (Negative) 07/02/18 07/03/18 07/03/18 Range/Units 21:31 03:35 03:35 RBC 3.22 L 3.24 L (3.80-5.40) m/uL Hgb 9.3 L 9.4 L (11.4-16.0) gm/dL Hct 29.4 L 29.6 L (34.0-46.0) % Lymphocytes # 0.9 L (1.0-4.8) k/uL INR (<1.2) Carbon Dioxide (22-30) mmol/L BUN 18 H (7-17) mg/dL Creatinine (0.52-1.04) mg/dL Glucose 111 H (74-99) mg/dL POC Glucose (mg/dL) (75-99) mg/dL Alkaline Phosphatase (38-126) U/L Total Creatine Kinase (30-135) U/L Total Protein (6.3-8.2) g/dL Albumin (3.5-5.0) g/dL Stool Occult Blood (Negative) Thrombosis Risk Factor Assmnt - Choose All That Apply Each Risk Factor Represents 2 Points: Age 61-74 years Each Risk Factor Represents 3 Points: History of DVT/PE Thrombosis Risk Factor Assessment Total Risk Factor Score: 5 Thrombosis Risk Factor Assessment Level: High Risk Assessment and Plan Assessment: 1. GI bleeding. KUB completed showing no acute abdominal pelvic process. Dr. earl consulted. Hemoglobin 9.4. Per surgical services patient will begin liquid diet. Consider resuming anticoagulation given the severity of her venous thrombus per surgical services. No immediate plans for endoscopic unless bleeding recurs. 2. 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 She was diagnosed last admission on 06/15/2018. At that time patient was seen by vascular surgery. Patient started on eliquis. Eliquis currently on hold due to GI bleed. 3. Colon Adenocarcinoma: History of partial colectomy. Patient undergoing chemotherapy. Oncology services have been consulted 4. History of previous lower extremity DVT 5. History of urinary tract infection 6. Hypotension. Patient did have episodes of hypotension admission related to pain medication. Critical care service is following closely. DVT prophylaxis SCDs. GI prophylaxis Protonix Time with Patient: Greater than 30 (Greater than 60% of the total time spent in counseling and coordination of care. I performed an examination of the patient and discussed their management with the Nurse Practitioner. I have reviewed the Nurse Practitioner's notes and agree with the documented findings and plan of care)
--- NOTE | 2018-07-03 16:59 | P.CONS ---
History of Present Illness - Reason for Consult Consult date: 07/03/18 - History of Present Illness Ms Gross is a 68 yr old white female, initially seen in consult at [facility]. The patient had presented with progressive shortness of breath over the past month. On admission, she was noted to have microcytic anemia. Shed also been complaining of pain in the abdomen and difficulty with passing bowel movements. She had a computed tomography scan of the abdomen and pelvis on 05/11/17. This revealed abnormal thickening of the mucosa of the descending colon measuring up to 1.1 cm in thickness which appeared to be almost circumferential. She was noted to have borderline lymph nodes measuring 1.1 cm and 1.4 cm around the celiac trunk. She proceeded to colonoscopy and EGD with Dr. Patel on 05/14/17. She was found to have an ascending colon mass which was nearly obstructing. Biopsy was positive for poorly differentiated carcinoma with prominent neuroendocrine differentiation. Because of the near obstructing nature of the mass, she was taken to surgery on 05/15/17 underwent a right colectomy with lymph node dissection. This revealed a 742.5 cm tumor, invading through the muscularis propria into the pericolic fat and focally abutting the inked serosal surface. Margins were negative. 3/20 pericolic lymph nodes were involved. Tumor was staged as T4 1 N1 b. 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 The patient had a CTA as well as CT of the abdomen and pelvis on 05/17/17 because of drop in oxygen saturation and blood pressure. This revealed no evidence of a PE or metastatic disease in the thorax. CT of the abdomen and pelvis again showed stable borderline enlarged mesenteric and retroperitoneal nodes with the largest retroperitoneal node measuring 1.7 cm and the largest mesenteric node measuring 1.4 cm, felt to be similar to the 05/11/17 scan. The patient did recover fairly quickly from her episode and was seen in consult. She was cleared for discharge, and was seen in the office on 06/14/17. She was referred for an opinion to the [facility] re the choice of chemo, based on the pathology. FOLFOX was recommended pending evaluation by pathology there. they agreed with that recommendation. PET scan unfortunately revealed stage IV disease with uptake in the retroperitoneal and mesenteric nodes. Her cancer was KRAS wild type. She was started on FOLFOX and is s/p 11 cycles, completing those in early . Avastin was also added with chemotherapy. 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 Cycle 3 was delayed by week, and dose reduced by 25 % . She tolerated treatment much better with the dose adjustment. She had increase in side effects again with C 8, and dose was reduced by another 10 % with C 9. She decided to cancel C 12 due to side effects. She refused maintenance treatment, and was placed on observation. CT scans in 04/24 showed progression with growth in mesenteric, peripancreatic /perigastric as well as retroperitoneal nodes The patient at this point was very ambivalent about further treatment. She was also, on the other hand, not willing to accept the likely diagnosis of progression, stating that she did not think that the lymph nodes were cancerous. She had increasing symptoms in terms of pain, as well as increase in CEA. She ultimately agreed to a biopsy to confirm the diagnosis and had that at [facility] on 06/07/18. This confirmed poorly differentiated carcinoma. . She was readmitted on 06/13/18, with pain, that had been greatly progressing over the past weeks, requiring high dose of opioid pain medications for a tolerable pain level. On presentation a CT was completed and showed a new Right external iliac throbosis and intrahepatic thrombosis. She was started on a heparin drip And then transition over to eliquis. At this point she agreed to additional chemotherapy with the objective of palliation of her symptoms. She received her first cycle of infusional 5-FU, and IV irinotecan inpatient and subsequently discharged. She started cycle 2 on 07/01/18. The patient noticed dark red bowel movements, 2-3, on the day of admission. She stated that she initially thought that she was having diarrhea from the chemotherapy but then noticed that she was actually passing blood. EMS were called, potential brought to the emergency room. In the ER her hemoglobin dropped from the 10 range, to 9.4. She was therefore admitted for further management. She also complained of lower abdominal cramping. Consult was placed for further evaluation and recommendations Review of Systems Constitutional: Reports chronic pain, Reports poor appetite, Reports weakness, Reports weight loss Eyes: denies blurred vision, denies pain Ears: deny: decreased hearing, ear discharge, earache, tinnitus Ears, nose, mouth and throat: Denies headache, Denies sore throat Cardiovascular: Reports decreased exercise tolerance Respiratory: Denies cough Gastrointestinal: Reports abdominal pain, Reports hematochezia Genitourinary: Denies dysuria, Denies hematuria Menstruation: Reports postmenopausal Musculoskeletal: Reports muscle weakness Integumentary: Denies pruritus, Denies rash Neurological: Denies numbness, Denies weakness Psychiatric: Denies anxiety, Denies depression Endocrine: Reports fatigue, Reports weight change Hematologic/Lymphatic: Reports as per HPI Past Medical History Past Medical History: Cancer, CVA/TIA, Deep Vein Thrombosis (DVT), Osteoarthritis (OA) Additional Past Medical History / Comment(s): OSTEOPOROSIS, "SMALL BRAIN BLEEDS "-NO RESIDUAL EFFECTS,HX OF DVT YEARS AGO AFTER TAKING CONTROL PILLS, hx colon cancer(sx) and has a pump for chemo), chronic sinusitis/deviated septum(sx ), hx of iliac vein/intrahepatic thrombosis.chronic back pain, uti History of Any Multi-Drug Resistant Organisms: None Reported Past Surgical History: Bladder Surgery, Bowel Resection, Hysterectomy, Tonsillectomy Additional Past Surgical History / Comment(s): nasal sx 2014 bladder suspension, 07/2017 had maria elena cath,celiac plexsus block 06-04-18.abd lymhp node bx Past Anesthesia/Blood Transfusion Reactions: No Reported Reaction, Motion Sickness Past Psychological History: No Psychological Hx Reported Smoking Status: Former smoker Past Alcohol Use History: None Reported Additional Past Alcohol Use History / Comment(s): started smoking in her 20's smoked off and on ,did'nt smoke during her 5 pregnancies and 9 years of breast feeding. quit 2003. a pack would last her a week Past Drug Use History: Marijuana Additional Drug Use History / Comment(s): I - Past Family History Mother Family Medical History: Cancer Additional Family Medical History / Comment(s): BREAST Father Family Medical History: Cancer Additional Family Medical History / Comment(s): PANCREATIC Sister(s) Family Medical History: Cancer Additional Family Medical History / Comment(s): BREAST Medications and Allergies Home Medications Medication Instructions Recorded Confirmed Type Polyethylene Glycol 3350 [Miralax] 17 gm PO DAILY 06/01/18 07/02/18 History Sennosides-Docusate Sodium 2 tab PO HS 06/01/18 07/02/18 History [Senokot-S] Apixaban [Eliquis] 10 mg PO BID tab 06/20/18 07/02/18 Rx fentaNYL 100MCG/HR PATCH 1 patch TRANSDERM Q72H patch 06/20/18 07/02/18 Rx [Duragesic 100MCG/HR] Diphenox-Atrop 2.5-0.025 mg 2 tab PO QID PRN 07/02/18 07/02/18 History [Lomotil] Dronabinol [Marinol] 5 mg PO AC-BID 07/02/18 07/02/18 History Lidocaine-Prilocaine Cream [Emla 1 applic TOPICAL DIRECTED PRN 07/02/1807/02 History Cream 2.5%/2.5%] Prochlorperazine [Compazine] 10 mg PO Q6H PRN 07/02/18 07/02/18 History oxyCODONE-APAP 7.5-325MG [Percocet 1 tab PO Q4HR PRN 07/02/18 07/02/18 History 7.5-325 mg] Allergies Allergy/AdvReac Type Severity Reaction Status Date / Time tramadol HCl [From [facility]] Allergy Severe PARALYZED Verified 07/02/18 16:14 FOR HOURS, UNABLE TO MOVE" Physical Exam Vitals: Vital Signs Temp Pulse Resp BP Pulse Ox 07/03/18 14:00 97 16 99/56 98 07/03/18 13:00 89 22 99/53 98 07/03/18 12:00 98.3 F 82 17 87/57 97 07/03/18 11:00 83 16 98/53 97 07/03/18 10:00 92 14 91/59 98 07/03/18 09:00 86 14 91/52 95 07/03/18 08:00 98.4 F 96 16 102/54 97 07/03/18 07:00 117 H 13 92/61 97 07/03/18 06:00 96 14 96/64 96 07/03/18 05:00 104 H 19 93/56 95 07/03/18 04:00 98.5 F 95 10 L 95/58 96 07/03/18 03:00 95 14 84/57 97 07/03/18 02:00 95 12 91/59 96 07/03/18 01:00 94 12 82/61 94 L 07/03/18 00:00 98.6 F 93 16 89/51 96 07/02/18 23:12 89 16 104/55 95 07/02/18 23:00 90 12 91/51 96 07/02/18 22:00 92 13 86/61 96 07/02/18 21:00 98 12 94/65 99 07/02/18 20:00 98.5 F 96 14 95/64 96 07/02/18 19:33 107 H 99/56 97 07/02/18 19:25 98.0 F 106 H 20 109/71 99 07/02/18 18:54 97.9 F 104 H 22 118/59 96 07/02/18 17:55 106 H 20 118/68 97 07/02/18 16:55 111 H 20 107/60 99 07/02/18 15:51 99.0 F 104 H 18 118/59 100 Intake and Output 07/02/18 07/03/18 07/03/18 22:59 06:59 14:59 Intake Total 150 600 525 Output Total 300 Balance 150 600 225 Intake: IV 150 600 525 Sodium Chloride 0.9% 1, 150 600 525 000 ml @ 75 mls/hr IV . [id number] STA Rx#:[id number] Output: Urine 300 Other: Voiding Method Bedside Commode # Voids 1 1 Weight 58.513 kg 59.7 kg - Constitutional General appearance: no acute distress - EENT Eyes: EOMI, PERRLA ENT: hearing grossly normal, normal oropharynx - Neck Neck: no lymphadenopathy Thyroid: bilateral: normal size - Respiratory Respiratory: bilateral: CTA - Cardiovascular Rhythm: regular Heart sounds: normal: S1, S2 - Gastrointestinal General gastrointestinal: normal bowel sounds, soft - Integumentary Integumentary: normal - Neurologic Neurologic: CNII-XII intact - Musculoskeletal Musculoskeletal: generalized weakness, strength equal bilaterally - Psychiatric Psychiatric: A&O x's 3, appropriate affect Results CBC & Chem 7: 07/03/18 03:35 07/03/18 03:35 Labs: Abnormal Lab Results - Last 24 Hours (Table) 07/02/18 07/02/18 07/02/18 Range/Units 16:00 16:00 16:00 RBC 3.69 L (3.80-5.40) m/uL Hgb 10.6 L (11.4-16.0) gm/dL Hct 33.3 L (34.0-46.0) % Lymphocytes # 0.8 L (1.0-4.8) k/uL INR (<1.2) Carbon Dioxide 21 L (22-30) mmol/L BUN (7-17) mg/dL Creatinine 0.45 L (0.52-1.04) mg/dL Glucose 138 H (74-99) mg/dL POC Glucose (mg/dL) (75-99) mg/dL Alkaline Phosphatase 177 H (38-126) U/L Total Creatine Kinase <20 L (30-135) U/L Total Protein 6.1 L (6.3-8.2) g/dL Albumin 3.4 L (3.5-5.0) g/dL Stool Occult Blood (Negative) 07/02/18 07/02/18 07/02/18 Range/Units 16:00 16:00 19:36 RBC (3.80-5.40) m/uL Hgb (11.4-16.0) gm/dL Hct (34.0-46.0) % Lymphocytes # (1.0-4.8) k/uL INR 1.2 H (<1.2) Carbon Dioxide (22-30) mmol/L BUN (7-17) mg/dL Creatinine (0.52-1.04) mg/dL Glucose (74-99) mg/dL POC Glucose (mg/dL) 138 H (75-99) mg/dL Alkaline Phosphatase (38-126) U/L Total Creatine Kinase (30-135) U/L Total Protein (6.3-8.2) g/dL Albumin (3.5-5.0) g/dL Stool Occult Blood Positive H (Negative) 07/02/18 07/03/18 07/03/18 Range/Units 21:31 03:35 03:35 RBC 3.22 L 3.24 L (3.80-5.40) m/uL Hgb 9.3 L 9.4 L (11.4-16.0) gm/dL Hct 29.4 L 29.6 L (34.0-46.0) % Lymphocytes # 0.9 L (1.0-4.8) k/uL INR (<1.2) Carbon Dioxide (22-30) mmol/L BUN 18 H (7-17) mg/dL Creatinine (0.52-1.04) mg/dL Glucose 111 H (74-99) mg/dL POC Glucose (mg/dL) (75-99) mg/dL Alkaline Phosphatase (38-126) U/L Total Creatine Kinase (30-135) U/L Total Protein (6.3-8.2) g/dL Albumin (3.5-5.0) g/dL Stool Occult Blood (Negative) Chest x-ray: report reviewed CT scan - abdomen: report reviewed Assessment and Plan (1) Anemia Narrative/Plan: The patient presented with passage of red blood per rectum. On admission hemoglobin was 10.6 and subsequently dropped to 9.4. During a previous admission, hemoglobin was 12. - The current level is quite safe. It is difficult to determine as to how much of her anemia is actually due to the bleeding. As noted in the HPI, the patient has received 2 cycles of chemotherapy since her previous hemoglobin of 12.4, and has also had hydration during this admission. - Continue to monitor and supplement if needed. Current Visit: Yes Status: Acute Code(s): D64.9 - ANEMIA, UNSPECIFIED SNOMED Code(s): 491008852 (2) GI bleed Narrative/Plan: As noted above, it is difficult to determine how significant this bleeding episode really is in terms of drop in hemoglobin, as the patient would be expected to have drops due to her chemotherapy. The patient was recently placed on anticoagulation, which is currently on hold. It is important to try to determine how major this blood loss event is, especially if hemoglobin remains stable. I would therefore recommend a GI or surgical consult for GI workup. Current Visit: Yes Status: Acute Code(s): K92.2 - GASTROINTESTINAL HEMORRHAGE, UNSPECIFIED SNOMED Code(s): 56579423 (3) Iliac vein thrombosis Narrative/Plan: This is a very recent event, and was a major DVT. The patient is currently on anticoagulation. Anticoagulation is on hold because of her bleeding per rectum. The patient is at increased risk for progression of clot as well as new venous thrombo-embolism, given her current cancer status and ongoing chemotherapy. Therefore ideally she should continue on anticoagulation. However this bleeding event is significant, then this would have to be held. In that case we may need to consider an IVC filter. Current Visit: No Status: Acute Priority: High Code(s): I82.429 - ACUTE EMBOLISM AND THROMBOSIS OF UNSPECIFIED ILIAC VEIN SNOMED Code(s): 303447864 (4) Metastatic colon cancer in female Narrative/Plan: Diagnostic and therapeutic circumstances as noted above. The patient is currently on cycle #2 of palliative chemotherapy with 5-FU and irinotecan. She will complete the cycle today. The office was contacted to arrange for pump discontinuation. The patient's counts may drop from chemotherapy in the next few days. Monitor for the same and supplement as needed Current Visit: Yes Status: Acute Code(s): C18.9 - MALIGNANT NEOPLASM OF COLON, UNSPECIFIED SNOMED Code(s): 593653226 (5) Neoplasm related pain Narrative/Plan: Continue home regimen, as the patient states that this is overall effective. She feels that there has also been some improvement in pain since starting chemotherapy Current Visit: No Status: Acute Priority: High Code(s): G89.3 - NEOPLASM RELATED PAIN (ACUTE) (CHRONIC) SNOMED Code(s): 607902104
[2018-07-04] MEDS: ONDANSETRON 4 MG/2 ML VIAL IVP PRN ×2 (02:42→16:28)
[2018-07-04] MEDS: SODIUM CHLORIDE 0.9% 1,000 ML IV SCH ×3 (04:40→20:45)
[2018-07-04] MEDS: HYDROmorphone 1 MG/ML 1 ML SYRINGE IVP PRN ×4 (05:48→20:49)
[2018-07-04 08:01] LABS: Basophils % (A) 1 %; Eosinophils # (A) 0.3 k/uL (0-0.7); Eosinophils % (A) 8 %; HCT 24.2 % (34.0-46.0); Hypochromasia Slight; Lymphocytes # (A) 0.9 k/uL (1.0-4.8); Lymphocytes % (A) 26 %; MCH 29.9 pg (25.0-35.0); MCV 93.4 fL (80.0-100.0); Mean Platelet Volume 7.1; Monocytes # (A) 0.1 k/uL (0-1.0); Monocytes % (A) 3 %; Neutrophils % (A) 61 %; Platelet Count 185 k/uL (150-450); RBC 2.59 m/uL (3.80-5.40); RDW 15.3 % (11.5-15.5); WBC 3.4 k/uL (3.8-10.6)
[2018-07-04 08:05] LABS: HGB 7.8 gm/dL (11.4-16.0)
[2018-07-04 08:09] LABS: Anion Gap 4 mmol/L; Blood Urea Nitrogen 15 mg/dL (7-17); Calcium 8.5 mg/dL (8.4-10.2); Carbon Dioxide 26 mmol/L (22-30); Chloride 109 mmol/L (98-107); Glucose 95 mg/dL (74-99); Potassium 4.3 mmol/L (3.5-5.1); Sodium 139 mmol/L (137-145)
[2018-07-04] MEDS: PANTOPRAZOLE 40 MG/10 ML VIAL IV SCH ×2 (10:34→21:12)
--- NOTE | 2018-07-04 11:50 | P.PN ---
Subjective Progress Note Date: 07/04/18 Principal diagnosis: Acute blood loss anemia, related to acute rectal bleeding This is 68-year-old white female patient of Dr. Varela, who presented to the emergency department yesterday on 07/02/2018 at 1600 for evaluation of dark red rectal bleeding yesterday at about 2:00 in the afternoon. Patient stated she had 2 large bowel movements of dark red blood, significant amount, she states she filled the toilet twice. Patient felt weak and tired, she was having left lower quadrant burning, and cramping sensation. Denied any chest pain or shortness of breath. She was diagnosed with colon cancer in May 2017, when she presented to [facility] with abdominal pain, difficulty passing bowel movements and anemia. She had upper and lower endoscopic evaluation with Dr. Stafford and was found to have an ascending colon mass which was nearly obstructing. Biopsy was positive for poorly differentiated carcinoma with prominent neuroendocrine differentiation. She underwent a right colectomy with lymph node dissection on 05/15/2017. Pericolic lymph nodes were involved, tumor was staged T4 1N 1B. 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 She is currently receiving chemotherapy. She follows with Dr. Tejada. No prior history of GI bleeding, no chronic liver disease, no EtOH. Recent CT of the abdomen for Abdominal pain, showed right external iliac thrombosis, and intrahepatic thrombosis. Patient was treated with heparin drip, and she was placed on Eliquis. Initial blood work revealed FVC of 5.2, hemoglobin of 10.6, INR 1.2, sodium is 139, potassium is 3.9, CO2 is 21, BUN is 14, creatinine 0.45. Occult stool was positive. Serial CBCs were done, and subsequently hemoglobin went down to 9.3, and this morning is 9.4. Patient has had no further bleeding while inpatient. She is hemodynamically stable, not requiring any vasopressor support, is at times tachycardic, rate is ranging from 96-170 BPM, blood pressures 102/54, she is on room air pulse ox is 97%. She is having intermittent nausea and vomiting, she is receiving her chemotherapy infusion. She is having persistent left lower quadrant pain, and she described it as burning. She is currently on fentanyl patch, and she is having breakthrough discomfort. Chest x-ray was reviewed, small old small bilateral pleural effusions. KUB abdomen was done and showed no acute abdominopelvic process. On 07/04/2018 patient was seen again in follow-up. No further bleeding per rectum in the hospital. Hemodynamically stable, afebrile, non-tachycardic. Today's hemoglobin is down to 7.8, white count is 3.4, electrolytes are relatively unremarkable, renal profile is within normal limits. Jean-Pierre remains on hold. Continues on Protonix. She had been seen by Dr. Jacobson in consultation. She was started on liquid diet. No immediate plans for endoscopy unless bleeding recurs. From [facility] standpoint she denies any acute pulmonary issues, no chest pain or shortness of breath. We will sign off , and follow the patient on as needed basis Objective - Vital Signs Vital signs: Vital Signs Temp 98.4 F 07/04/18 05:00 Pulse 98 07/04/18 05:00 Resp 16 07/04/18 05:00 BP 94/60 07/04/18 05:00 Pulse Ox 97 07/04/18 05:00 Intake & Output 07/03/18 07/04/18 07/04/18 18:59 06:59 18:59 Intake Total 1120 665 Output Total 700 Balance 420 665 Intake: IV 900 75 Sodium Chloride 0.9% 1, 900 75 000 ml @ 75 mls/hr IV . [id number] STA Rx#:[id number] Oral 220 590 Output: Urine 700 Other: Voiding Method Bedside Commode Bedside Commode Bedside Commode # Voids 2 - Exam GENERAL EXAM: Alert, pleasant, 68-year-old white female, in no apparent distress. HEAD: Normocephalic/atraumatic. EYES: Normal reaction of pupils, equal size. Conjunctiva pink, sclera white. NOSE: Clear with pink turbinates. THROAT: No erythema or exudates. NECK: No masses, no JVD, no thyroid enlargement, no adenopathy. CHEST: No chest wall deformity. Symmetrical expansion. LUNGS: Equal air entry with no crackles, wheeze, rhonchi or dullness. CVS: Regular rate and rhythm, normal S1 and S2, no gallops, no murmurs, no rubs ABDOMEN: Soft, slightly tender in the left lower quadrant. No hepatosplenomegaly, normal bowel sounds, no guarding or rigidity. EXTREMITIES: No clubbing, no edema, no cyanosis, 2+ pulses and upper and lower extremities. MUSCULOSKELETAL: Muscle strength and tone normal. SPINE: No scoliosis or deformity SKIN: No rashes CENTRAL NERVOUS SYSTEM: Alert and oriented -3. No focal deficits, tone is normal in all 4 extremities. PSYCHIATRIC: Alert and oriented -3. Appropriate affect. Intact judgment and insight. - Labs CBC & Chem 7: 07/04/18 07:24 07/04/18 07:24 Labs: Abnormal Lab Results - Last 24 Hours (Table) 07/04/18 07/04/18 Range/Units 07:24 07:24 WBC 3.4 L (3.8-10.6) k/uL RBC 2.59 L (3.80-5.40) m/uL Hgb 7.8 L D (11.4-16.0) gm/dL Hct 24.2 L (34.0-46.0) % Lymphocytes # 0.9 L (1.0-4.8) k/uL Chloride 109 H (98-107) mmol/L Assessment and Plan Plan: Assessment: #1. Acute blood loss anemia, related to acute rectal bleeding #2. Progressive poorly differentiated adenocarcinoma with neuroendocrine features, status post right colectomy currently is being treated with chemotherapy #3. 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 Uncontrolled pain secondary to the above #5. History of remote DVT after taking control pills #6. 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 Patient is tolerating liquid diet, no nausea or vomiting. On Eliquis stable, no shortness of breath or chest pain. She was seen in evaluation by surgery, no immediate plans for endoscopy. Continue to monitor serial H&H's. From pulmonary/chronic with care standpoint patient is stable at this time, and will follow on as-needed basis. Thank you for this consultation. I performed a history & physical examination of the patient and discussed their management with my nurse practitioner, Ynes Vasquez. I reviewed the nurse practitioner's note and agree with the documented findings and plan of care. Lung sounds are clear. The findings and the impression was discussed with the patient. I attest to the documentation by the nurse practitioner. Time with Patient: Less than 30
[2018-07-04] MEDS ORDERED: PEG 3350-NA SULF,BICARB,CL/KCL 4,000 ML BOTTLE PO ONE (15:00)
--- NOTE | 2018-07-04 15:22 | P.PN ---
Subjective Progress Note Date: 07/04/18 Principal diagnosis: GI bleeding Patient's hemoglobin dropped today is 7.8. No bowel movement since yesterday however. No abdominal pain. Objective - Vital Signs Vital signs: Vital Signs Temp 98.2 F 07/04/18 12:50 Pulse 86 07/04/18 12:50 Resp 16 07/04/18 12:50 BP 96/57 07/04/18 12:50 Pulse Ox 98 07/04/18 12:50 Intake & Output 07/03/18 07/04/18 07/04/18 18:59 06:59 18:59 Intake Total 1120 665 Output Total 700 Balance 420 665 Intake: IV 900 75 Sodium Chloride 0.9% 1, 900 75 000 ml @ 75 mls/hr IV . [id number] STA Rx#:[id number] Oral 220 590 Output: Urine 700 Other: Voiding Method Bedside Commode Bedside Commode Bedside Commode # Voids 2 2 - Exam Abdomen: Soft, nondistended, nontender - Labs CBC & Chem 7: 07/04/18 07:24 07/04/18 07:24 Labs: Abnormal Lab Results - Last 24 Hours (Table) 07/04/18 07/04/18 Range/Units 07:24 07:24 WBC 3.4 L (3.8-10.6) k/uL RBC 2.59 L (3.80-5.40) m/uL Hgb 7.8 L D (11.4-16.0) gm/dL Hct 24.2 L (34.0-46.0) % Lymphocytes # 0.9 L (1.0-4.8) k/uL Chloride 109 H (98-107) mmol/L Assessment and Plan (1) GI bleed Narrative/Plan: Case was discussed with Dr. Pham earlier today. Given the drop in hemoglobin Will proceed with upper and lower endoscopy. Further decisions regarding anticoagulation to follow. Current Visit: Yes Status: Acute Code(s): K92.2 - GASTROINTESTINAL HEMORRHAGE, UNSPECIFIED SNOMED Code(s): 97310827
--- NOTE | 2018-07-04 15:30 | P.PN ---
Subjective Progress Note Date: 07/04/18 This is 68-year-old female patient of Dr. Velasquez. Patient presented to the emergency room complaining of dark blood bowel movements. Patient states she had 2 episodes of these darker stools at home prior to emergency room. Patient did complain of some crampy abdominal pain. Patient has a known past medical history of colon cancer in which she's currently on chemotherapy. Patient is known past medical history of CVA, DVT, osteoarthritis, lateral surgery and celiac plexus block placement on 06/04/2018. 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 Patient at the time was seen by vascular surgery and started on eliquis. KUB completed showing no acute abdominal pelvic process. Stool occult blood positive Chest x-ray completed showing small bilateral pleural effusions. EKG completed showing showing normal sinus rhythm. Patient admitted to the intensive care unit. Hemoglobin 9.4. Dr. Pham per oncology consulted. Dr. earl consulted for GI bleed. At this time patient denies chest pain or shortness of breath. Patient denies any nausea vomiting or diarrhea. Patient denies any urinary burning or frequency. Per patient and nursing staff no more episodes of GI bleed. On 07/04/2018 patient remains alert and oriented 3 resting comfortably in bed. Patient is complaining of some abdominal pain that is well-controlled with current pain medication regime. Patient has not had any more episodes of bleeding since admission to hospital. Hemoglobin did decrease to 7.8/ this a.m. discussed case with Dr. Pham per oncology and Dr. earl per surgical service is planning to do upper and lower scope tomorrow and possibly resume anticoagulation medication at that time depending upon findings. Patient denies chest pain or shortness breath. Patient denies nausea or vomitting. Patient denies urinary frequency or burning Objective - Vital Signs Vital signs: Vital Signs Temp 98.2 F 07/04/18 12:50 Pulse 86 07/04/18 12:50 Resp 16 07/04/18 12:50 BP 96/57 07/04/18 12:50 Pulse Ox 98 07/04/18 12:50 Intake & Output 07/03/18 07/04/18 07/04/18 18:59 06:59 18:59 Intake Total 1120 665 Output Total 700 Balance 420 665 Intake: IV 900 75 Sodium Chloride 0.9% 1, 900 75 000 ml @ 75 mls/hr IV . [id number] STA Rx#:[id number] Oral 220 590 Output: Urine 700 Other: Voiding Method Bedside Commode Bedside Commode Bedside Commode # Voids 2 2 - Exam Head normocephalic Neck supple Lungs clear to auscultation bilaterally no wheezing or crackles Heart regular rate and rhythm S1-S2, no rub or gallop Abdomen is soft nontender nondistended positive bowel sounds no hepatosplenomegaly Extremities no edema Neuro alert and orientated to 3 - Labs CBC & Chem 7: 07/04/18 07:24 07/04/18 07:24 Labs: Abnormal Lab Results - Last 24 Hours (Table) 07/04/18 07/04/18 Range/Units 07:24 07:24 WBC 3.4 L (3.8-10.6) k/uL RBC 2.59 L (3.80-5.40) m/uL Hgb 7.8 L D (11.4-16.0) gm/dL Hct 24.2 L (34.0-46.0) % Lymphocytes # 0.9 L (1.0-4.8) k/uL Chloride 109 H (98-107) mmol/L Assessment and Plan Assessment: 1. GI bleeding. KUB completed showing no acute abdominal pelvic process. Dr. earl consulted. Hemoglobin 9.4. Per surgical services patient will begin liquid diet. Consider resuming anticoagulation given the severity of her venous thrombus per surgical services. No immediate plans for endoscopic unless bleeding recurs. Discussed case with Dr. pham per oncology and Dr. earl per surgical services. Planning for EGD and colonoscopy tomorrow. We'll defer anticoagulation to oncology at this time. Hemoglobin decreased to 7.8. Patient has had no active bleeding since admission to hospital 2. 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 She was diagnosed last admission on 06/15/2018. At that time patient was seen by vascular surgery. Patient started on eliquis. Eliquis currently on hold due to GI bleed. Will defer to oncology services at this time. 3. Colon Adenocarcinoma: History of partial colectomy. Patient undergoing chemotherapy. Oncology services have been consulted 4. History of previous lower extremity DVT 5. History of urinary tract infection 6. Hypotension. Patient did have episodes of hypotension admission related to pain medication. Critical care service is following closely. Resolved at this time DVT prophylaxis SCDs. GI prophylaxis Protonix I performed an examination of the patient and discussed their management with the Nurse Practitioner. I have reviewed the Nurse Practitioner's notes and agree with the documented findings and plan of care
--- NOTE | 2018-07-04 16:19 | P.PN ---
Subjective Progress Note Date: 07/04/18 The patient denied any obvious bleeding. However she has not had an actual bowel movement. She still complains of some pain in the lower abdomen which is cramping in nature. She has also had some nausea. No fevers or chills. Objective - Vital Signs Vital signs: Vital Signs Temp 98.2 F 07/04/18 12:50 Pulse 86 07/04/18 12:50 Resp 16 07/04/18 12:50 BP 96/57 07/04/18 12:50 Pulse Ox 98 07/04/18 12:50 Intake & Output 07/03/18 07/04/18 07/04/18 18:59 06:59 18:59 Intake Total 1120 665 Output Total 700 Balance 420 665 Intake: IV 900 75 Sodium Chloride 0.9% 1, 900 75 000 ml @ 75 mls/hr IV . [id number] STA Rx#:[id number] Oral 220 590 Output: Urine 700 Other: Voiding Method Bedside Commode Bedside Commode Bedside Commode # Voids 2 2 - Constitutional General appearance: Present: no acute distress - EENT Eyes: Present: EOMI ENT: Present: hearing grossly normal, normal oropharynx - Respiratory Respiratory: bilateral: CTA - Cardiovascular Rhythm: regular Heart sounds: normal: S1, S2 - Gastrointestinal General gastrointestinal: Present: normal bowel sounds, soft - Integumentary Integumentary: Present: normal - Neurologic Neurologic: Present: CNII-XII intact - Musculoskeletal Musculoskeletal: Present: generalized weakness, strength equal bilaterally - Psychiatric Psychiatric: Present: A&O x's 3 - Labs CBC & Chem 7: 07/04/18 07:24 07/04/18 07:24 Labs: Abnormal Lab Results - Last 24 Hours (Table) 07/04/18 07/04/18 Range/Units 07:24 07:24 WBC 3.4 L (3.8-10.6) k/uL RBC 2.59 L (3.80-5.40) m/uL Hgb 7.8 L D (11.4-16.0) gm/dL Hct 24.2 L (34.0-46.0) % Lymphocytes # 0.9 L (1.0-4.8) k/uL Chloride 109 H (98-107) mmol/L Assessment and Plan (1) Anemia Narrative/Plan: the patient has not Had any obvious bleeding. However hemoglobin dropped further today to 7.8. Again it is difficult to distinguish as to how much if this is due to blood loss, if any, versus chemotherapy effect and hydration. Case was discussed with the admitting service, and surgery. It was felt that clarifying the etiology further, if possible is reasonable. Therefore surgery will proceed with endoscopic evaluation, assuming that the patient is agreeable to the same. Continue to monitor hemoglobin and transfuse if needed if hemoglobin drops below 7 Current Visit: Yes Status: Acute Code(s): D64.9 - ANEMIA, UNSPECIFIED SNOMED Code(s): 724826339 (2) GI bleed Narrative/Plan: await endoscopic evaluation Current Visit: Yes Status: Acute Code(s): K92.2 - GASTROINTESTINAL HEMORRHAGE, UNSPECIFIED SNOMED Code(s): 20885340 (3) Iliac vein thrombosis Narrative/Plan: Anticoagulation remains on hold. We will make a decision about resuming anticoagulation versus not, depending on the results of the endoscopic evaluation. If the patient is not a candidate for anti-correlation presently, then he would have to consider an IVC filter Current Visit: No Status: Acute Priority: High Code(s): I82.429 - ACUTE EMBOLISM AND THROMBOSIS OF UNSPECIFIED ILIAC VEIN SNOMED Code(s): 066308576 (4) Metastatic colon cancer in female Narrative/Plan: The pump was disconnected yesterday, after completion of cycle 2. Continue to monitor for side effects. No significant tolerance issues so far Current Visit: Yes Status: Acute Code(s): C18.9 - MALIGNANT NEOPLASM OF COLON, UNSPECIFIED SNOMED Code(s): 862434261 (5) Neoplasm related pain Current Visit: No Status: Acute Priority: High Code(s): G89.3 - NEOPLASM RELATED PAIN (ACUTE) (CHRONIC) SNOMED Code(s): 085825768
[2018-07-04] MEDS ORDERED: HEPARIN SODIUM,PORCINE 5,000 UNIT/ML 1 ML VIAL IV PRN (17:24)
[2018-07-04] MEDS ORDERED: HEPARIN SODIUM,PORCINE 5,000 UNIT/ML 1 ML VIAL IV ONE (17:24)
[2018-07-04] MEDS: HEPARIN SOD,PORK IN 0.45% NACL 25,000 UNIT in 0.45% NACL 1 500ML.BAG IV SCH (18:01)
[2018-07-04 20:08] LABS: Glucose,Whole Blood 91 mg/dL (75-99)
[2018-07-05 08:00] LABS: Basophils % (A) 1 %; Eosinophils # (A) 0.2 k/uL (0-0.7); Eosinophils % (A) 6 %; HCT 24.7 % (34.0-46.0); Hypochromasia Moderate; Lymphocytes # (A) 0.9 k/uL (1.0-4.8); Lymphocytes % (A) 30 %; MCHC 32.3 g/dL (31.0-37.0); MCV 92.9 fL (80.0-100.0); Monocytes # (A) 0.1 k/uL (0-1.0); Monocytes % (A) 2 %; Neutrophils # (A) 1.8 k/uL (1.3-7.7); Neutrophils % (A) 60 %; Platelet Count 184 k/uL (150-450); RBC 2.66 m/uL (3.80-5.40)
[2018-07-05 08:30] LABS: Anion Gap 11 mmol/L; Blood Urea Nitrogen 11 mg/dL (7-17); Calcium 8.6 mg/dL (8.4-10.2); Carbon Dioxide 21 mmol/L (22-30); Chloride 108 mmol/L (98-107); Glucose 81 mg/dL (74-99); Magnesium 1.9 mg/dL (1.6-2.3); Potassium 3.6 mmol/L (3.5-5.1); Sodium 140 mmol/L (137-145)
[2018-07-05] MEDS: HYDROmorphone 1 MG/ML 1 ML SYRINGE IVP PRN ×4 (09:26→20:39)
[2018-07-05] MEDS: PANTOPRAZOLE 40 MG/10 ML VIAL IV SCH ×2 (09:27→23:31)
[2018-07-05] MEDS: ONDANSETRON 4 MG/2 ML VIAL IVP PRN ×2 (11:30→20:40)
--- NOTE | 2018-07-05 12:22 | P.PN ---
Subjective Progress Note Date: 07/05/18 This is 68-year-old female patient of Dr. Velasquez. Patient presented to the emergency room complaining of dark blood bowel movements. Patient states she had 2 episodes of these darker stools at home prior to emergency room. Patient did complain of some crampy abdominal pain. Patient has a known past medical history of colon cancer in which she's currently on chemotherapy. Patient is known past medical history of CVA, DVT, osteoarthritis, lateral surgery and celiac plexus block placement on 06/04/2018. 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 Patient at the time was seen by vascular surgery and started on eliquis. KUB completed showing no acute abdominal pelvic process. Stool occult blood positive Chest x-ray completed showing small bilateral pleural effusions. EKG completed showing showing normal sinus rhythm. Patient admitted to the intensive care unit. Hemoglobin 9.4. Dr. Pham per oncology consulted. Dr. earl consulted for GI bleed. At this time patient denies chest pain or shortness of breath. Patient denies any nausea vomiting or diarrhea. Patient denies any urinary burning or frequency. Per patient and nursing staff no more episodes of GI bleed. On 07/04/2018 patient remains alert and oriented 3 resting comfortably in bed. Patient is complaining of some abdominal pain that is well-controlled with current pain medication regime. Patient has not had any more episodes of bleeding since admission to hospital. Hemoglobin did decrease to 7.8/ this a.m. discussed case with Dr. Pham per oncology and Dr. earl per surgical service is planning to do upper and lower scope tomorrow and possibly resume anticoagulation medication at that time depending upon findings. Patient denies chest pain or shortness breath. Patient denies nausea or vomitting. Patient denies urinary frequency or burning On 07/05/2018 patient remains alert and oriented 3. Patient did state she had a bowel movement this a.m. that had blood present. Hemoglobin increasing to 8.0. Per nursing staff Dr. pham wanted patient started on heparin drip last night the patient refused. Patient also supposed to get EGD and colonoscopy but was unable to tolerate prep. EGD and colonoscopy canceled per surgical services. Awaiting further recommendations from surgical and oncology services. This time patient denies chest pain or shortness breath. Patient does complain of some nausea and mild abdominal pain. Patient denies any urinary burning or frequency. Objective - Vital Signs Vital signs: Vital Signs Temp 98 F 07/05/18 07:20 Pulse 81 07/05/18 07:20 Resp 16 07/05/18 05:00 BP 110/50 07/05/18 07:20 Pulse Ox 99 07/05/18 07:20 Intake & Output 07/04/18 07/05/18 07/05/18 18:59 06:59 18:59 Intake Total 1830 Balance 1830 Intake: IV 650 Sodium Chloride 0.9% 1, 650 000 ml @ 75 mls/hr IV . [id number] DAVID Rx#:[id number] Oral 1180 Other: Voiding Method Bedside Commode Bedside Commode # Voids 2 1 - Exam Head normocephalic Neck supple Lungs clear to auscultation bilaterally no wheezing or crackles Heart regular rate and rhythm S1-S2, no rub or gallop Abdomen is soft nontender nondistended positive bowel sounds no hepatosplenomegaly Extremities no edema Neuro alert and orientated to 3 - Labs CBC & Chem 7: 07/05/18 07:04 07/05/18 07:04 Labs: Abnormal Lab Results - Last 24 Hours (Table) 07/05/18 07/05/18 07/05/18 Range/Units 07:04 07:04 07:15 WBC 3.0 L (3.8-10.6) k/uL RBC 2.66 L (3.80-5.40) m/uL Hgb 8.0 L (11.4-16.0) gm/dL Hct 24.7 L (34.0-46.0) % Lymphocytes # 0.9 L (1.0-4.8) k/uL Chloride 108 H (98-107) mmol/L Carbon Dioxide 21 L (22-30) mmol/L Creatinine 0.45 L (0.52-1.04) mg/dL Stool Occult Blood Positive H (Negative) Assessment and Plan Assessment: 1. GI bleeding. KUB completed showing no acute abdominal pelvic process. Dr. earl consulted. Hemoglobin 9.4. Per surgical services patient will begin liquid diet. Consider resuming anticoagulation given the severity of her venous thrombus per surgical services. No immediate plans for endoscopic unless bleeding recurs. Discussed case with Dr. pham per oncology and Dr. earl per surgical services. Planning for EGD and colonoscopy tomorrow. We'll defer anticoagulation to oncology at this time. Hemoglobin increasing to 8.0. Patient did have episodes of bloody BM this a.m. Patient unable to tolerate prep for colonoscopy. EGD and colonoscopy canceled per surgical services. Awaiting further recommendations 2. 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 She was diagnosed last admission on 06/15/2018. At that time patient was seen by vascular surgery. Patient started on eliquis. Eliquis currently on hold due to GI bleed. Will defer to oncology services at this time. Per nursing staff Dr. pham wanted patient started on heparin drip last night but patient refused. Patient also supposed to get EGD and colonoscopy but was unable to tolerate prep. Awaiting further recommendations from surgical and oncology services. 3. Colon Adenocarcinoma: History of partial colectomy. Patient undergoing chemotherapy. Oncology services have been consulted 4. History of previous lower extremity DVT 5. History of urinary tract infection 6. Hypotension. Patient did have episodes of hypotension admission related to pain medication. Critical care service is following closely. Resolved at this time DVT prophylaxis SCDs. GI prophylaxis Protonix I performed an examination of the patient and discussed their management with the Nurse Practitioner. I have reviewed the Nurse Practitioner's notes and agree with the documented findings and plan of care
--- NOTE | 2018-07-05 14:48 | P.PN ---
<Catalina Hollis M - Last Filed: 07/05/18 14:41> Subjective Progress Note Date: 07/05/18 68-year-old female seen at the bedside sitting up family at bedside patient reports was not able to undergo the EGD or the colonoscopy secondary to nausea and vomiting patient could not tolerate the bowel prep patient currently states she is does not want to have the heparin drip infusing. Did report having a bloody bowel movement this morning chief complaint this morning is abdominal discomfort feels bloated Hemoglobin this morning 8 on jul 05 was 7.8 Objective - Vital Signs Vital signs: Vital Signs Temp 98.3 F 07/05/18 12:15 Pulse 86 07/05/18 12:15 Resp 18 07/05/18 12:15 BP 97/61 07/05/18 12:15 Pulse Ox 98 07/05/18 12:15 Intake & Output 07/04/18 07/05/18 07/05/18 18:59 06:59 18:59 Intake Total 1830 Balance 1830 Intake: IV 650 Sodium Chloride 0.9% 1, 650 000 ml @ 75 mls/hr IV . [id number] [facility] Rx#:[id number] Oral 1180 Other: Voiding Method Bedside Commode Bedside Commode Bedside Commode # Voids 2 1 - Exam Physical exam 68-year-old female sitting up in bed family at the bedside appears in no acute distress. Lungs diminished at the bases otherwise adequate air movement no shortness of breath noted Heart S1-S2 audible and regular reports a nausea sensation with poor oral intake. Patient states she was not able to drink the bowel prep to undergo the colonoscopy due to the nausea and vomiting Abdomen soft reports diffuse abdominal discomfort and had a bowel movement this morning noted to be bloody extremities no edema noted - Labs CBC & Chem 7: 07/05/18 07:04 07/05/18 07:04 Labs: Abnormal Lab Results - Last 24 Hours (Table) 07/05/18 07/05/18 07/05/18 Range/Units 07:04 07:04 07:15 WBC 3.0 L (3.8-10.6) k/uL RBC 2.66 L (3.80-5.40) m/uL Hgb 8.0 L (11.4-16.0) gm/dL Hct 24.7 L (34.0-46.0) % Lymphocytes # 0.9 L (1.0-4.8) k/uL Chloride 108 H (98-107) mmol/L Carbon Dioxide 21 L (22-30) mmol/L Creatinine 0.45 L (0.52-1.04) mg/dL Stool Occult Blood Positive H (Negative) Assessment and Plan Assessment: Impression GI bleeding 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 Patient undergoing chemotherapy. Oncology services have been consulted Plan EGD and colonoscopy have been canceled secondary to patient not able to tolerate the bowel prep due to nausea Monitor hemoglobin Defer to the attending to address medical issues Will follow with you The above impression and plan of care have been discussed and directed by signing physician. Catalina Hollis nurse practitioner acting as scribe for signing physician. <Tiago Booker - Last Filed: 07/05/18 15:25> Objective - Vital Signs Vital signs: Vital Signs Temp 98.3 F 07/05/18 12:15 Pulse 86 07/05/18 12:15 Resp 18 07/05/18 12:15 BP 97/61 07/05/18 12:15 Pulse Ox 98 07/05/18 12:15 Intake & Output 07/04/18 07/05/18 07/05/18 18:59 06:59 18:59 Intake Total 1830 600 Balance 1830 600 Intake: IV 650 600 Sodium Chloride 0.9% 1, 650 600 000 ml @ 75 mls/hr IV . [id number] [facility] Rx#:[id number] Oral 1180 Other: Voiding Method Bedside Commode Bedside Commode Bedside Commode # Voids 2 1 # Bowel Movements 1 - Labs CBC & Chem 7: 07/05/18 07:04 07/05/18 07:04 Labs: Abnormal Lab Results - Last 24 Hours (Table) 07/05/18 07/05/18 07/05/18 Range/Units 07:04 07:04 07:15 WBC 3.0 L (3.8-10.6) k/uL RBC 2.66 L (3.80-5.40) m/uL Hgb 8.0 L (11.4-16.0) gm/dL Hct 24.7 L (34.0-46.0) % Lymphocytes # 0.9 L (1.0-4.8) k/uL Chloride 108 H (98-107) mmol/L Carbon Dioxide 21 L (22-30) mmol/L Creatinine 0.45 L (0.52-1.04) mg/dL Stool Occult Blood Positive H (Negative) Assessment and Plan Assessment: As above. Patient refused her colonoscopy prep yesterday. She is actually refusing anticoagulation currently. She did have 1 stool earlier today that was dark in color and appeared to have old blood. Denies pain. Some abdominal swelling. After discussing with the patient's she is agreeable to start anticoagulation. No further surgical intervention planned. (1) GI bleed Current Visit: Yes Status: Acute Code(s): K92.2 - GASTROINTESTINAL HEMORRHAGE, UNSPECIFIED SNOMED Code(s): 45541904
[2018-07-05] MEDS: SODIUM CHLORIDE 0.9% 1,000 ML IV SCH ×2 (16:33→19:12)
[2018-07-05 17:23] LABS: INR 1.2 (<1.2); Prothrombin Time 11.4 sec (9.0-12.0)
[2018-07-05] MEDS: HEPARIN SOD,PORK IN 0.45% NACL 25,000 UNIT in 0.45% NACL 1 500ML.BAG IV SCH ×2 (17:57→19:11)
--- NOTE | 2018-07-05 21:15 | P.PN ---
Subjective Progress Note Date: 07/05/18 The patient did pass some blood per rectum today, admixed with small amounts of stool. The pain is recently well controlled. She denied any nausea or vomiting. She is passing gas easily. She is complaining of some abdominal distention. Objective - Vital Signs Vital signs: Vital Signs Temp 98.1 F 07/05/18 20:36 Pulse 85 07/05/18 20:36 Resp 18 07/05/18 20:36 BP 102/65 07/05/18 20:36 Pulse Ox 100 07/05/18 20:36 Intake & Output 07/05/18 07/05/18 07/06/18 06:59 18:59 06:59 Intake Total 1830 600 26.504 Balance 1830 600 26.504 Intake: IV 650 600 Sodium Chloride 0.9% 1, 650 600 000 ml @ 75 mls/hr IV . [id number] [facility] Rx#:[id number] Intake, IV Titration 26.504 Amount Heparin Sod,Pork in 0.45% 26.504 NaCl 25,000 unit In 0.45 % NaCl 1 500ml.bag @ 18 UNITS/KG/HR 21.49 mls/hr IV .[id number] [facility] Rx#: [id number] Oral 1180 Other: Voiding Method Bedside Commode Bedside Commode Toilet # Voids 1 # Bowel Movements 1 - Constitutional General appearance: Present: no acute distress - EENT ENT: Present: normal oropharynx - Neck Thyroid: bilateral: normal size - Respiratory Respiratory: bilateral: CTA - Cardiovascular Rhythm: regular Heart sounds: normal: S1, S2 - Gastrointestinal General gastrointestinal: Present: distended, normal bowel sounds, soft - Integumentary Integumentary: Present: normal - Neurologic Neurologic: Present: CNII-XII intact - Musculoskeletal Musculoskeletal: Present: generalized weakness, strength equal bilaterally - Psychiatric Psychiatric: Present: A&O x's 3, appropriate affect - Labs CBC & Chem 7: 07/05/18 07:04 07/05/18 07:04 Labs: Abnormal Lab Results - Last 24 Hours (Table) 07/05/18 07/05/18 07/05/18 Range/Units 07:04 07:04 07:15 WBC 3.0 L (3.8-10.6) k/uL RBC 2.66 L (3.80-5.40) m/uL Hgb 8.0 L (11.4-16.0) gm/dL Hct 24.7 L (34.0-46.0) % Lymphocytes # 0.9 L (1.0-4.8) k/uL INR (<1.2) APTT (22.0-30.0) sec Chloride 108 H (98-107) mmol/L Carbon Dioxide 21 L (22-30) mmol/L Creatinine 0.45 L (0.52-1.04) mg/dL Stool Occult Blood Positive H (Negative) 07/05/18 Range/Units 16:55 WBC (3.8-10.6) k/uL RBC (3.80-5.40) m/uL Hgb (11.4-16.0) gm/dL Hct (34.0-46.0) % Lymphocytes # (1.0-4.8) k/uL INR 1.2 H (<1.2) APTT 21.0 L (22.0-30.0) sec Chloride (98-107) mmol/L Carbon Dioxide (22-30) mmol/L Creatinine (0.52-1.04) mg/dL Stool Occult Blood (Negative) Assessment and Plan (1) Anemia Narrative/Plan: The patient did have bleeding per rectum today, but hemoglobin is stable at 8. Continue to monitor, with transfusion if needed. Again, as noted, is difficult to distinguish how much of her anemia is due to chemotherapy effect in addition, versus actual bleeding. Current Visit: Yes Status: Acute Code(s): D64.9 - ANEMIA, UNSPECIFIED SNOMED Code(s): 100283166 (2) GI bleed Narrative/Plan: case was discussed with surgery. GI workup had been planned, but the patient was unable to tolerate the prep. Therefore endoscopies have been canceled. The patient did have additional blood per rectum today, but hemoglobin has actually remained stable. Current Visit: Yes Status: Acute Code(s): K92.2 - GASTROINTESTINAL HEMORRHAGE, UNSPECIFIED SNOMED Code(s): 36533402 (3) Iliac vein thrombosis Narrative/Plan: At this point, it is not clear what the degree of her bleeding is, and it's contribution to her anemia. Without GI workup, we do not know the source of her blood loss. The patient could be at risk of recurrent, significant bleeding with resumption of anticoagulation. However without and examination, given her malignancy and recent extensive thrombosis, she is also at high risk for progression of thrombosis/new clot. It was therefore decided to place her on IV heparin, to assess her tolerance for anticoagulation. If significant bleeding occurs, then heparin would be easiest to reverse. The patient had refused the same yesterday. The rationale was explained in detail to her and her family. She is now willing to start the IV heparin. Monitor closely. If the patient has significant recurrent bleeding then heparin will be discontinued and IVC filter will be planned. However the patient tolerates IV heparin well, over the next 24-48 hours, we can transition her back to oral anticoagulation. The patient and her family were also inquiring about lower doses of her medications. She was advised that the lower doses do not have any proven effectiveness in treatment of recent thromboembolism Current Visit: No Status: Acute Priority: High Code(s): I82.429 - ACUTE EMBOLISM AND THROMBOSIS OF UNSPECIFIED ILIAC VEIN SNOMED Code(s): 986547122 (4) Metastatic colon cancer in female Current Visit: Yes Status: Acute Code(s): C18.9 - MALIGNANT NEOPLASM OF COLON, UNSPECIFIED SNOMED Code(s): 789811698 (5) Neoplasm related pain Current Visit: No Status: Acute Priority: High Code(s): G89.3 - NEOPLASM RELATED PAIN (ACUTE) (CHRONIC) SNOMED Code(s): 542191250 Plan: the patient was complaining of some abdominal distention. Abdomen does appear to be somewhat distended but is soft and nontender. Continue to monitor. If progression is noted, appropriate imaging will be planned. The plan was discussed extensively with the admitting service
[2018-07-06 02:08] LABS: Glucose,Whole Blood 80 mg/dL (75-99)
[2018-07-06] MEDS: HYDROmorphone 1 MG/ML 1 ML SYRINGE IVP PRN ×4 (06:30→19:26)
[2018-07-06] MEDS: ONDANSETRON 4 MG/2 ML VIAL IVP PRN ×2 (06:33→15:24)
[2018-07-06 07:29] LABS: Basophils % (A) 1 %; Eosinophils # (A) 0.1 k/uL (0-0.7); Eosinophils % (A) 5 %; HCT 23.6 % (34.0-46.0); HGB 7.5 gm/dL (11.4-16.0); Hypochromasia Slight; Lymphocytes # (A) 0.9 k/uL (1.0-4.8); Lymphocytes % (A) 36 %; MCH 29.3 pg (25.0-35.0); MCHC 31.7 g/dL (31.0-37.0); MCV 92.4 fL (80.0-100.0); Mean Platelet Volume 6.9; Monocytes # (A) 0.1 k/uL (0-1.0); Monocytes % (A) 2 %; Neutrophils # (A) 1.4 k/uL (1.3-7.7); Neutrophils % (A) 54 %; Platelet Count 169 k/uL (150-450); RBC 2.55 m/uL (3.80-5.40); RDW 14.8 % (11.5-15.5); WBC 2.5 k/uL (3.8-10.6)
[2018-07-06] MEDS: PANTOPRAZOLE 40 MG/10 ML VIAL IV SCH ×2 (07:49→20:30)
[2018-07-06 08:29] LABS: Anion Gap 8 mmol/L; Blood Urea Nitrogen 8 mg/dL (7-17); Carbon Dioxide 20 mmol/L (22-30); Chloride 109 mmol/L (98-107); Glucose 81 mg/dL (74-99); Potassium 3.3 mmol/L (3.5-5.1); Sodium 137 mmol/L (137-145)
--- NOTE | 2018-07-06 10:05 | P.PN ---
Subjective Progress Note Date: 07/06/18 Principal diagnosis: GI bleeding Patient doing well today. Heparin drip was held because of elevated PTT. No bleeding overnight. Today's hemoglobin 7.5. Objective - Vital Signs Vital signs: Vital Signs Temp 98.3 F 07/06/18 06:37 Pulse 79 07/06/18 06:37 Resp 18 07/06/18 06:37 BP 98/60 07/06/18 06:37 Pulse Ox 98 07/06/18 06:37 Intake & Output 07/05/18 07/06/18 07/06/18 18:59 06:59 18:59 Intake Total 600 2227.966 145.86 Balance 600 2227.966 145.86 Intake: IV 600 1475 Heparin Sod,Pork in 0.45% 275 NaCl 25,000 unit In 0.45 % NaCl 1 500ml.bag @ 18 UNITS/KG/HR 21.49 mls/hr IV .[id number] [facility] Rx#: [id number] Sodium Chloride 0.9% 1, 600 1200 000 ml @ 75 mls/hr IV . [id number] [facility] Rx#:[id number] Intake, IV Titration 162.966 145.86 Amount Heparin Sod,Pork in 0.45% 162.966 145.86 NaCl 25,000 unit In 0.45 % NaCl 1 500ml.bag @ 18 UNITS/KG/HR 21.49 mls/hr IV .[id number] [facility] Rx#: [id number] Oral 590 Other: Voiding Method Bedside Commode Toilet Toilet Bedside Commode Bedside Commode # Bowel Movements 1 - Exam Abdomen: Soft, mild distention, minimal diffuse tenderness - Labs CBC & Chem 7: 07/06/18 06:59 07/06/18 06:59 Labs: Abnormal Lab Results - Last 24 Hours (Table) 07/05/18 07/06/18 07/06/18 Range/Units 16:55 00:25 06:59 WBC 2.5 L (3.8-10.6) k/uL RBC 2.55 L (3.80-5.40) m/uL Hgb 7.5 L (11.4-16.0) gm/dL Hct 23.6 L (34.0-46.0) % Lymphocytes # 0.9 L (1.0-4.8) k/uL INR 1.2 H (<1.2) APTT 21.0 L 41.6 H (22.0-30.0) sec Potassium (3.5-5.1) mmol/L Chloride (98-107) mmol/L Carbon Dioxide (22-30) mmol/L Creatinine (0.52-1.04) mg/dL 07/06/18 07/06/18 Range/Units 06:59 06:59 WBC (3.8-10.6) k/uL RBC (3.80-5.40) m/uL Hgb (11.4-16.0) gm/dL Hct (34.0-46.0) % Lymphocytes # (1.0-4.8) k/uL INR (<1.2) APTT 97.6 H (22.0-30.0) sec Potassium 3.3 L (3.5-5.1) mmol/L Chloride 109 H (98-107) mmol/L Carbon Dioxide 20 L (22-30) mmol/L Creatinine 0.44 L (0.52-1.04) mg/dL Assessment and Plan (1) GI bleed Narrative/Plan: Consider resuming oral anticoagulation. Continue diet as tolerated. Current Visit: Yes Status: Acute Code(s): K92.2 - GASTROINTESTINAL HEMORRHAGE, UNSPECIFIED SNOMED Code(s): 77851966
[2018-07-06 15:11] LABS: Basophils % (A) 1 %; Eosinophils # (A) 0.1 k/uL (0-0.7); Eosinophils % (A) 5 %; HCT 22.9 % (34.0-46.0); HGB 7.4 gm/dL (11.4-16.0); Hypochromasia Slight; Lymphocytes # (A) 0.8 k/uL (1.0-4.8); Lymphocytes % (A) 37 %; MCH 29.4 pg (25.0-35.0); MCHC 32.4 g/dL (31.0-37.0); MCV 90.5 fL (80.0-100.0); Mean Platelet Volume 7.5; Monocytes # (A) 0.1 k/uL (0-1.0); Monocytes % (A) 3 %; Neutrophils # (A) 1.2 k/uL (1.3-7.7); Neutrophils % (A) 53 %; Platelet Count 193 k/uL (150-450); RBC 2.53 m/uL (3.80-5.40); RDW 14.7 % (11.5-15.5); WBC 2.2 k/uL (3.8-10.6)
--- NOTE | 2018-07-06 15:34 | P.PN ---
Subjective Progress Note Date: 07/06/18 This is 68-year-old female patient of Dr. Velasquez. Patient presented to the emergency room complaining of dark blood bowel movements. Patient states she had 2 episodes of these darker stools at home prior to emergency room. Patient did complain of some crampy abdominal pain. Patient has a known past medical history of colon cancer in which she's currently on chemotherapy. Patient is known past medical history of CVA, DVT, osteoarthritis, lateral surgery and celiac plexus block placement on 06/04/2018. 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 Patient at the time was seen by vascular surgery and started on eliquis. KUB completed showing no acute abdominal pelvic process. Stool occult blood positive Chest x-ray completed showing small bilateral pleural effusions. EKG completed showing showing normal sinus rhythm. Patient admitted to the intensive care unit. Hemoglobin 9.4. Dr. Pham per oncology consulted. Dr. earl consulted for GI bleed. At this time patient denies chest pain or shortness of breath. Patient denies any nausea vomiting or diarrhea. Patient denies any urinary burning or frequency. Per patient and nursing staff no more episodes of GI bleed. On 07/04/2018 patient remains alert and oriented 3 resting comfortably in bed. Patient is complaining of some abdominal pain that is well-controlled with current pain medication regime. Patient has not had any more episodes of bleeding since admission to hospital. Hemoglobin did decrease to 7.8/ this a.m. discussed case with Dr. Pham per oncology and Dr. earl per surgical service is planning to do upper and lower scope tomorrow and possibly resume anticoagulation medication at that time depending upon findings. Patient denies chest pain or shortness breath. Patient denies nausea or vomitting. Patient denies urinary frequency or burning On 07/05/2018 patient remains alert and oriented 3. Patient did state she had a bowel movement this a.m. that had blood present. Hemoglobin increasing to 8.0. Per nursing staff Dr. pham wanted patient started on heparin drip last night the patient refused. Patient also supposed to get EGD and colonoscopy but was unable to tolerate prep. EGD and colonoscopy canceled per surgical services. Awaiting further recommendations from surgical and oncology services. This time patient denies chest pain or shortness breath. Patient does complain of some nausea and mild abdominal pain. Patient denies any urinary burning or frequency. On 07/06/2018 patient is alert and oriented 3 in no apparent distress she is complaining of abdominal pain and back pain she is inquiring about discontinuing IV heparin and been placed on a look was 5 mg twice daily which she is agreeable to, however she is not agreeable to restarting Jorge Luis was 10 mg twice daily which she is afraid to cause further bleeding. Objective - Vital Signs Vital signs: Vital Signs Temp 98.8 F 07/06/18 11:00 Pulse 90 07/06/18 11:00 Resp 18 07/06/18 11:00 BP 118/67 07/06/18 11:00 Pulse Ox 99 07/06/18 11:00 Intake & Output 07/05/18 07/06/18 07/06/18 18:59 06:59 18:59 Intake Total 600 2227.966 145.86 Balance 600 2227.966 145.86 Intake: IV 600 1475 Heparin Sod,Pork in 0.45% 275 NaCl 25,000 unit In 0.45 % NaCl 1 500ml.bag @ 18 UNITS/KG/HR 21.49 mls/hr IV .[id number] [facility] Rx#: [id number] Sodium Chloride 0.9% 1, 600 1200 000 ml @ 75 mls/hr IV . [id number] [facility] Rx#:[id number] Intake, IV Titration 162.966 145.86 Amount Heparin Sod,Pork in 0.45% 162.966 145.86 NaCl 25,000 unit In 0.45 % NaCl 1 500ml.bag @ 18 UNITS/KG/HR 21.49 mls/hr IV .[id number] [facility] Rx#: [id number] Oral 590 Other: Voiding Method Bedside Commode Toilet Toilet Bedside Commode Bedside Commode # Bowel Movements 1 - Exam Head normocephalic and atraumatic Neck supple no JVD no goiter Lungs clear to auscultation bilaterally no wheezing or crackles Heart regular rate and rhythm S1-S2, no rub or gallop Abdomen is soft nontender nondistended positive bowel sounds no hepatosplenomegaly Extremities no edema Neuro alert and orientated to 3 - Labs CBC & Chem 7: 07/06/18 14:50 07/06/18 06:59 Labs: Abnormal Lab Results - Last 24 Hours (Table) 07/05/18 07/06/18 07/06/18 Range/Units 16:55 00:25 06:59 WBC 2.5 L (3.8-10.6) k/uL RBC 2.55 L (3.80-5.40) m/uL Hgb 7.5 L (11.4-16.0) gm/dL Hct 23.6 L (34.0-46.0) % Neutrophils # (1.3-7.7) k/uL Lymphocytes # 0.9 L (1.0-4.8) k/uL INR 1.2 H (<1.2) APTT 21.0 L 41.6 H (22.0-30.0) sec Potassium (3.5-5.1) mmol/L Chloride (98-107) mmol/L Carbon Dioxide (22-30) mmol/L Creatinine (0.52-1.04) mg/dL 07/06/18 07/06/18 07/06/18 Range/Units 06:59 06:59 14:50 WBC (3.8-10.6) k/uL RBC (3.80-5.40) m/uL Hgb (11.4-16.0) gm/dL Hct (34.0-46.0) % Neutrophils # (1.3-7.7) k/uL Lymphocytes # (1.0-4.8) k/uL INR (<1.2) APTT 97.6 H 47.0 H (22.0-30.0) sec Potassium 3.3 L (3.5-5.1) mmol/L Chloride 109 H (98-107) mmol/L Carbon Dioxide 20 L (22-30) mmol/L Creatinine 0.44 L (0.52-1.04) mg/dL 07/06/18 Range/Units 14:50 WBC 2.2 L (3.8-10.6) k/uL RBC 2.53 L (3.80-5.40) m/uL Hgb 7.4 L (11.4-16.0) gm/dL Hct 22.9 L (34.0-46.0) % Neutrophils # 1.2 L (1.3-7.7) k/uL Lymphocytes # 0.8 L (1.0-4.8) k/uL INR (<1.2) APTT (22.0-30.0) sec Potassium (3.5-5.1) mmol/L Chloride (98-107) mmol/L Carbon Dioxide (22-30) mmol/L Creatinine (0.52-1.04) mg/dL Assessment and Plan Plan: 1. GI bleeding. KUB completed showing no acute abdominal pelvic process. Dr. earl consulted. Hemoglobin 9.4. Per surgical services patient will begin liquid diet. Consider resuming anticoagulation given the severity of her venous thrombus per surgical services. No immediate plans for endoscopic unless bleeding recurs. Discussed case with Dr. pham per oncology and Dr. earl per surgical services. Planning for EGD and colonoscopy tomorrow. We'll defer anticoagulation to oncology at this time. Hemoglobin increasing to 8.0. Patient did have episodes of bloody BM this a.m. Patient unable to tolerate prep for colonoscopy. EGD and colonoscopy canceled per surgical services. Awaiting further recommendations 2. 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 She was diagnosed last admission on 06/15/2018. At that time patient was seen by vascular surgery. Patient started on eliquis. Eliquis currently on hold due to GI bleed. Will defer to oncology services at this time. Per nursing staff Dr. pham wanted patient started on heparin drip last night but patient refused. Patient also supposed to get EGD and colonoscopy but was unable to tolerate prep. Awaiting further recommendations from surgical and oncology services. 3. Colon Adenocarcinoma: History of partial colectomy. Patient undergoing chemotherapy. Oncology services have been consulted 4. History of previous lower extremity DVT 5. History of urinary tract infection 6. Hypotension. Patient did have episodes of hypotension admission related to pain medication. Critical care service is following closely. Resolved at this time DVT prophylaxis SCDs. GI prophylaxis Protonix
[2018-07-06] MEDS ORDERED: Potassium Replacement Protocol 1 EACH MISC MISCELLANE PRN ×2 (15:48→21:40)
[2018-07-06] MEDS: POTASSIUM CHLORIDE ER 20 MEQ TAB.ER PO SCH ×4 (17:42→23:02)
[2018-07-06] MEDS: SODIUM CHLORIDE 0.9% 1,000 ML IV SCH (18:36)
[2018-07-07] MEDS: ONDANSETRON 4 MG/2 ML VIAL IVP PRN ×3 (02:21→21:40)
[2018-07-07] MEDS: HYDROmorphone 1 MG/ML 1 ML SYRINGE IVP PRN ×6 (02:23→21:39)
[2018-07-07] MEDS: HEPARIN SOD,PORK IN 0.45% NACL 25,000 UNIT in 0.45% NACL 1 500ML.BAG IV SCH (03:16)
[2018-07-07 07:16] LABS: Basophils % (A) 1 %; Eosinophils # (A) 0.1 k/uL (0-0.7); Eosinophils % (A) 6 %; HCT 22.3 % (34.0-46.0); HGB 7.1 gm/dL (11.4-16.0); Hypochromasia Slight; Lymphocytes # (A) 0.9 k/uL (1.0-4.8); Lymphocytes % (A) 43 %; MCHC 31.8 g/dL (31.0-37.0); MCV 91.1 fL (80.0-100.0); Mean Platelet Volume 7.8; Monocytes # (A) 0.1 k/uL (0-1.0); Monocytes % (A) 3 %; Neutrophils % (A) 47 %; Platelet Count 185 k/uL (150-450); RBC 2.45 m/uL (3.80-5.40); WBC 2.1 k/uL (3.8-10.6)
[2018-07-07] MEDS: PANTOPRAZOLE 40 MG/10 ML VIAL IV SCH ×2 (07:17→20:13)
[2018-07-07 07:53] LABS: Anion Gap 7 mmol/L; Blood Urea Nitrogen 4 mg/dL (7-17); Calcium 8.5 mg/dL (8.4-10.2); Carbon Dioxide 22 mmol/L (22-30); Chloride 108 mmol/L (98-107); Glucose 75 mg/dL (74-99); Magnesium 1.8 mg/dL (1.6-2.3); Potassium 3.7 mmol/L (3.5-5.1); Sodium 137 mmol/L (137-145)
--- NOTE | 2018-07-07 10:31 | P.PN ---
Subjective Progress Note Date: 07/07/18 Principal diagnosis: GI bleeding Patient had a small stool with old blood yesterday. Tolerating diet. Asking for more to eat. Denies abdominal pain. Hemoglobin 7.1. Remains on heparin drip. Objective - Vital Signs Vital signs: Vital Signs Temp 98.3 F 07/07/18 05:00 Pulse 82 07/07/18 07:33 Resp 16 07/07/18 07:33 BP 118/71 07/07/18 05:00 Pulse Ox 98 07/07/18 05:00 Intake & Output 07/06/18 07/07/18 07/07/18 18:59 06:59 18:59 Intake Total 745.337 8649.49 83.49 Output Total 400 Balance 236.521 1247.49 -316.51 Intake: IV 732 Heparin Sod,Pork in 0.45% 132 NaCl 25,000 unit In 0.45 % NaCl 1 500ml.bag @ 18 UNITS/KG/HR 21.49 mls/hr IV .[id number] [facility] Rx#: [id number] Sodium Chloride 0.9% 1, 600 000 ml @ 75 mls/hr IV . [id number] [facility] Rx#:[id number] Intake, IV Titration 292.048 71.49 83.49 Amount Heparin Sod,Pork in 0.45% 292.048 71.49 83.49 NaCl 25,000 unit In 0.45 % NaCl 1 500ml.bag @ 18 UNITS/KG/HR 21.49 mls/hr IV .[id number] [facility] Rx#: [id number] Oral 590 Output: Urine 400 Other: Voiding Method Toilet Toilet Toilet Bedside Commode Bedside Commode Bedside Commode # Voids 3 2 2 # Bowel Movements 3 1 - Exam Abdomen: Soft, mild distention, nontender - Labs CBC & Chem 7: 07/07/18 06:23 07/07/18 06:23 Labs: Abnormal Lab Results - Last 24 Hours (Table) 07/06/18 07/06/18 07/06/18 Range/Units 14:50 14:50 20:16 WBC 2.2 L (3.8-10.6) k/uL RBC 2.53 L (3.80-5.40) m/uL Hgb 7.4 L (11.4-16.0) gm/dL Hct 22.9 L (34.0-46.0) % Neutrophils # 1.2 L (1.3-7.7) k/uL Lymphocytes # 0.8 L (1.0-4.8) k/uL APTT 47.0 H (22.0-30.0) sec Potassium 3.3 L (3.5-5.1) mmol/L Chloride (98-107) mmol/L BUN (7-17) mg/dL Creatinine (0.52-1.04) mg/dL 07/07/18 07/07/18 07/07/18 Range/Units 06:23 06:23 06:23 WBC 2.1 L (3.8-10.6) k/uL RBC 2.45 L (3.80-5.40) m/uL Hgb 7.1 L (11.4-16.0) gm/dL Hct 22.3 L (34.0-46.0) % Neutrophils # 1.0 L (1.3-7.7) k/uL Lymphocytes # 0.9 L (1.0-4.8) k/uL APTT 47.5 H (22.0-30.0) sec Potassium (3.5-5.1) mmol/L Chloride 108 H (98-107) mmol/L BUN 4 L (7-17) mg/dL Creatinine 0.41 L (0.52-1.04) mg/dL Assessment and Plan (1) GI bleed Narrative/Plan: Advance diet as tolerated. Oral anticoagulation per oncology. We'll sign off. Please call if needed. Current Visit: Yes Status: Acute Code(s): K92.2 - GASTROINTESTINAL HEMORRHAGE, UNSPECIFIED SNOMED Code(s): 30827375
[2018-07-07] MEDS: SODIUM CHLORIDE 0.9% 1,000 ML IV SCH (13:00)
--- NOTE | 2018-07-07 13:43 | P.PN ---
Subjective Progress Note Date: 07/07/18 This is 68-year-old female patient of Dr. Velasquez. Patient presented to the emergency room complaining of dark blood bowel movements. Patient states she had 2 episodes of these darker stools at home prior to emergency room. Patient did complain of some crampy abdominal pain. Patient has a known past medical history of colon cancer in which she's currently on chemotherapy. Patient is known past medical history of CVA, DVT, osteoarthritis, lateral surgery and celiac plexus block placement on 06/04/2018. 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 Patient at the time was seen by vascular surgery and started on eliquis. KUB completed showing no acute abdominal pelvic process. Stool occult blood positive Chest x-ray completed showing small bilateral pleural effusions. EKG completed showing showing normal sinus rhythm. Patient admitted to the intensive care unit. Hemoglobin 9.4. Dr. Pham per oncology consulted. Dr. earl consulted for GI bleed. At this time patient denies chest pain or shortness of breath. Patient denies any nausea vomiting or diarrhea. Patient denies any urinary burning or frequency. Per patient and nursing staff no more episodes of GI bleed. On 07/04/2018 patient remains alert and oriented 3 resting comfortably in bed. Patient is complaining of some abdominal pain that is well-controlled with current pain medication regime. Patient has not had any more episodes of bleeding since admission to hospital. Hemoglobin did decrease to 7.8/ this a.m. discussed case with Dr. Pham per oncology and Dr. earl per surgical service is planning to do upper and lower scope tomorrow and possibly resume anticoagulation medication at that time depending upon findings. Patient denies chest pain or shortness breath. Patient denies nausea or vomitting. Patient denies urinary frequency or burning On 07/05/2018 patient remains alert and oriented 3. Patient did state she had a bowel movement this a.m. that had blood present. Hemoglobin increasing to 8.0. Per nursing staff Dr. hpam wanted patient started on heparin drip last night the patient refused. Patient also supposed to get EGD and colonoscopy but was unable to tolerate prep. EGD and colonoscopy canceled per surgical services. Awaiting further recommendations from surgical and oncology services. This time patient denies chest pain or shortness breath. Patient does complain of some nausea and mild abdominal pain. Patient denies any urinary burning or frequency. On 07/06/2018 patient is alert and oriented 3 in no apparent distress she is complaining of abdominal pain and back pain she is inquiring about discontinuing IV heparin and been placed on a look was 5 mg twice daily which she is agreeable to, however she is not agreeable to restarting Jorge Luis was 10 mg twice daily which she is afraid to cause further bleeding. On 07/07/2018 patient was seen and examined she is alert and oriented 3 at this time she is having back pain otherwise she denies any complaints she is still maintained on IV heparin hemoglobin is slightly down to 7.1 Objective - Vital Signs Vital signs: Vital Signs Temp 98.3 F 07/07/18 05:00 Pulse 82 07/07/18 07:33 Resp 16 07/07/18 07:33 BP 118/71 07/07/18 05:00 Pulse Ox 98 07/07/18 05:00 Intake & Output 07/06/18 07/07/18 07/07/18 18:59 06:59 18:59 Intake Total 435.573 8342.49 835.49 Output Total 400 Balance 706.894 6128.49 435.49 Intake: IV 732 752 Heparin Sod,Pork in 0.45% 132 152 NaCl 25,000 unit In 0.45 % NaCl 1 500ml.bag @ 18 UNITS/KG/HR 21.49 mls/hr IV .[id number] DAVID Rx#: [id number] Sodium Chloride 0.9% 1, 600 600 000 ml @ 75 mls/hr IV . [id number] DAVID Rx#:[id number] Intake, IV Titration 292.048 71.49 83.49 Amount Heparin Sod,Pork in 0.45% 292.048 71.49 83.49 NaCl 25,000 unit In 0.45 % NaCl 1 500ml.bag @ 18 UNITS/KG/HR 21.49 mls/hr IV .[id number] DAVID Rx#: [id number] Oral 590 Output: Urine 400 Other: Voiding Method Toilet Toilet Toilet Bedside Commode Bedside Commode Bedside Commode # Voids 3 2 2 # Bowel Movements 3 1 - Exam Head normocephalic and atraumatic Neck supple no JVD no goiter Lungs clear to auscultation bilaterally no wheezing or crackles Heart regular rate and rhythm S1-S2, no rub or gallop Abdomen is soft nontender nondistended positive bowel sounds no hepatosplenomegaly Extremities no edema Neuro alert and orientated to 3 - Labs CBC & Chem 7: 18 06:23 07/07/18 06:23 Labs: Abnormal Lab Results - Last 24 Hours (Table) 07/06/18 07/06/18 07/06/18 Range/Units 14:50 14:50 20:16 WBC 2.2 L (3.8-10.6) k/uL RBC 2.53 L (3.80-5.40) m/uL Hgb 7.4 L (11.4-16.0) gm/dL Hct 22.9 L (34.0-46.0) % Neutrophils # 1.2 L (1.3-7.7) k/uL Lymphocytes # 0.8 L (1.0-4.8) k/uL APTT 47.0 H (22.0-30.0) sec Potassium 3.3 L (3.5-5.1) mmol/L Chloride (98-107) mmol/L BUN (7-17) mg/dL Creatinine (0.52-1.04) mg/dL 07/07/18 07/07/18 07/07/18 Range/Units 06:23 06:23 06:23 WBC 2.1 L (3.8-10.6) k/uL RBC 2.45 L (3.80-5.40) m/uL Hgb 7.1 L (11.4-16.0) gm/dL Hct 22.3 L (34.0-46.0) % Neutrophils # 1.0 L (1.3-7.7) k/uL Lymphocytes # 0.9 L (1.0-4.8) k/uL APTT 47.5 H (22.0-30.0) sec Potassium (3.5-5.1) mmol/L Chloride 108 H (98-107) mmol/L BUN 4 L (7-17) mg/dL Creatinine 0.41 L (0.52-1.04) mg/dL Assessment and Plan Plan: 1. GI bleeding. KUB completed showing no acute abdominal pelvic process. Dr. earl consulted. Hemoglobin 9.4. Per surgical services patient will begin liquid diet. Consider resuming anticoagulation given the severity of her venous thrombus per surgical services. No immediate plans for endoscopic unless bleeding recurs. Discussed case with Dr. pham per oncology and Dr. earl per surgical services. Planning for EGD and colonoscopy tomorrow. We'll defer anticoagulation to oncology at this time. Hemoglobin increasing to 8.0. Patient did have episodes of bloody BM this a.m. Patient unable to tolerate prep for colonoscopy. EGD and colonoscopy canceled per surgical services. Awaiting further recommendations 2. 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 She was diagnosed last admission on 06/15/2018. At that time patient was seen by vascular surgery. Patient started on eliquis. Eliquis currently on hold due to GI bleed. Will defer to oncology services at this time. Per nursing staff Dr. pham wanted patient started on heparin drip last night but patient refused. Patient also supposed to get EGD and colonoscopy but was unable to tolerate prep. Awaiting further recommendations from surgical and oncology services. 3. Colon Adenocarcinoma: History of partial colectomy. Patient undergoing chemotherapy. Oncology services have been consulted 4. History of previous lower extremity DVT 5. History of urinary tract infection 6. Hypotension. Patient did have episodes of hypotension admission related to pain medication. Critical care service is following closely. Resolved at this time DVT prophylaxis SCDs. GI prophylaxis Protonix
[2018-07-08] MEDS: HYDROmorphone 1 MG/ML 1 ML SYRINGE IVP PRN ×7 (00:34→22:56)
[2018-07-08] MEDS: SODIUM CHLORIDE 0.9% 1,000 ML IV SCH ×2 (01:00→16:01)
[2018-07-08] MEDS: HEPARIN SOD,PORK IN 0.45% NACL 25,000 UNIT in 0.45% NACL 1 500ML.BAG IV SCH (05:27)
[2018-07-08] MEDS: PANTOPRAZOLE 40 MG/10 ML VIAL IV SCH (08:32)
[2018-07-08 08:38] LABS: Basophils % (A) 0 %; Eosinophils # (A) 0.2 k/uL (0-0.7); Eosinophils % (A) 6 %; HCT 21.9 % (34.0-46.0); HGB 7.1 gm/dL (11.4-16.0); Hypochromasia Slight; Lymphocytes # (A) 1.4 k/uL (1.0-4.8); Lymphocytes % (A) 47 %; MCH 29.5 pg (25.0-35.0); MCHC 32.4 g/dL (31.0-37.0); MCV 91.2 fL (80.0-100.0); Mean Platelet Volume 8.8; Monocytes # (A) 0.1 k/uL (0-1.0); Monocytes % (A) 4 %; Neutrophils # (A) 1.2 k/uL (1.3-7.7); Neutrophils % (A) 42 %; Platelet Count 194 k/uL (150-450); RDW 15.6 % (11.5-15.5); WBC 2.9 k/uL (3.8-10.6)
[2018-07-08 09:27] LABS: Basophils % (A) 1 %; Eosinophils # (A) 0.2 k/uL (0-0.7); Eosinophils % (A) 5 %; HCT 23.2 % (34.0-46.0); HGB 7.6 gm/dL (11.4-16.0); Hypochromasia Slight; Lymphocytes # (A) 1.1 k/uL (1.0-4.8); Lymphocytes % (A) 41 %; MCH 29.5 pg (25.0-35.0); MCHC 32.8 g/dL (31.0-37.0); Mean Platelet Volume 7.4; Monocytes # (A) 0.1 k/uL (0-1.0); Monocytes % (A) 3 %; Neutrophils # (A) 1.3 k/uL (1.3-7.7); Neutrophils % (A) 48 %; Platelet Count 219 k/uL (150-450); RBC 2.57 m/uL (3.80-5.40); RDW 15.9 % (11.5-15.5); WBC 2.8 k/uL (3.8-10.6)
[2018-07-08] MEDS ORDERED: oxyCODONE-APAP 7.5-325MG 1 EACH TAB PO PRN (10:44)
--- NOTE | 2018-07-08 10:56 | P.PN ---
Subjective Progress Note Date: 07/08/18 This is 68-year-old female patient of Dr. Velasquez. Patient presented to the emergency room complaining of dark blood bowel movements. Patient states she had 2 episodes of these darker stools at home prior to emergency room. Patient did complain of some crampy abdominal pain. Patient has a known past medical history of colon cancer in which she's currently on chemotherapy. Patient is known past medical history of CVA, DVT, osteoarthritis, lateral surgery and celiac plexus block placement on 06/04/2018. 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 Patient at the time was seen by vascular surgery and started on eliquis. KUB completed showing no acute abdominal pelvic process. Stool occult blood positive Chest x-ray completed showing small bilateral pleural effusions. EKG completed showing showing normal sinus rhythm. Patient admitted to the intensive care unit. Hemoglobin 9.4. Dr. Pham per oncology consulted. Dr. earl consulted for GI bleed. At this time patient denies chest pain or shortness of breath. Patient denies any nausea vomiting or diarrhea. Patient denies any urinary burning or frequency. Per patient and nursing staff no more episodes of GI bleed. On 07/04/2018 patient remains alert and oriented 3 resting comfortably in bed. Patient is complaining of some abdominal pain that is well-controlled with current pain medication regime. Patient has not had any more episodes of bleeding since admission to hospital. Hemoglobin did decrease to 7.8/ this a.m. discussed case with Dr. Pham per oncology and Dr. earl per surgical service is planning to do upper and lower scope tomorrow and possibly resume anticoagulation medication at that time depending upon findings. Patient denies chest pain or shortness breath. Patient denies nausea or vomitting. Patient denies urinary frequency or burning On 07/05/2018 patient remains alert and oriented 3. Patient did state she had a bowel movement this a.m. that had blood present. Hemoglobin increasing to 8.0. Per nursing staff Dr. pham wanted patient started on heparin drip last night the patient refused. Patient also supposed to get EGD and colonoscopy but was unable to tolerate prep. EGD and colonoscopy canceled per surgical services. Awaiting further recommendations from surgical and oncology services. This time patient denies chest pain or shortness breath. Patient does complain of some nausea and mild abdominal pain. Patient denies any urinary burning or frequency. On 07/06/2018 patient is alert and oriented 3 in no apparent distress she is complaining of abdominal pain and back pain she is inquiring about discontinuing IV heparin and been placed on a look was 5 mg twice daily which she is agreeable to, however she is not agreeable to restarting Jorge Luis was 10 mg twice daily which she is afraid to cause further bleeding. On 07/07/2018 patient was seen and examined she is alert and oriented 3 at this time she is having back pain otherwise she denies any complaints she is still maintained on IV heparin hemoglobin is slightly down to 7.1 on 07/08/2018 patient is alert and oriented 3 resting comfortably in bed. Per nursing staff patient loose brown BM this a.m. with no signs of bleeding. Patient remains on IV heparin. Hemoglobin increasing to 7.6. Patient denies chest pain or shortness of breath. Denies urinary burning or frequency. Objective - Vital Signs Vital signs: Vital Signs Temp 97.9 F 07/08/18 05:00 Pulse 81 07/08/18 05:00 Resp 16 07/08/18 05:00 BP 102/50 07/08/18 05:00 Pulse Ox 98 07/08/18 05:00 Intake & Output 07/07/18 07/08/18 07/08/18 18:59 06:59 18:59 Intake Total 835.49 1596.51 Output Total 400 Balance 435.49 1596.51 Intake: IV 752 Heparin Sod,Pork in 0.45% 152 NaCl 25,000 unit In 0.45 % NaCl 1 500ml.bag @ 18 UNITS/KG/HR 21.49 mls/hr IV .[id number] DAVID Rx#: [id number] Sodium Chloride 0.9% 1, 600 000 ml @ 75 mls/hr IV . [id number] DAVID Rx#:[id number] Intake, IV Titration 83.49 416.51 Amount Heparin Sod,Pork in 0.45% 83.49 416.51 NaCl 25,000 unit In 0.45 % NaCl 1 500ml.bag @ 18 UNITS/KG/HR 21.49 mls/hr IV .[id number] DAVID Rx#: [id number] Oral 1180 Output: Urine 400 Other: Voiding Method Toilet Toilet Bedside Commode Bedside Commode # Voids 2 2 # Bowel Movements 1 - Exam Head normocephalic Neck supple Lungs clear to auscultation bilaterally no wheezing or crackles Heart regular rate and rhythm S1-S2, no rub or gallop Abdomen is soft nontender nondistended positive bowel sounds no hepatosplenomegaly Extremities no edema Neuro alert and orientated to 3 - Labs CBC & Chem 7: 07/08/18 09:07 07/07/18 06:23 Labs: Abnormal Lab Results - Last 24 Hours (Table) 07/08/18 07/08/18 07/08/18 Range/Units 07:11 07:11 09:07 WBC 2.9 L 2.8 L (3.8-10.6) k/uL RBC 2.40 L 2.57 L (3.80-5.40) m/uL Hgb 7.1 L 7.6 L (11.4-16.0) gm/dL Hct 21.9 L 23.2 L (34.0-46.0) % RDW 15.6 H 15.9 H (11.5-15.5) % Neutrophils # 1.2 L (1.3-7.7) k/uL APTT 53.0 H (22.0-30.0) sec Assessment and Plan Assessment: 1. GI bleeding. KUB completed showing no acute abdominal pelvic process. Dr. earl consulted. Hemoglobin 9.4. Per surgical services patient will begin liquid diet. Consider resuming anticoagulation given the severity of her venous thrombus per surgical services. No immediate plans for endoscopic unless bleeding recurs. Discussed case with Dr. pham per oncology and Dr. earl per surgical services. Planning for EGD and colonoscopy tomorrow. We'll defer anticoagulation to oncology at this time. Hemoglobin increasing to 8.0. Patient did have episodes of bloody BM this a.m. Patient unable to tolerate prep for colonoscopy. EGD and colonoscopy canceled per surgical services. Per surgical services advance diet as tolerated. No further intervention at this time. 2. 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 She was diagnosed last admission on 06/15/2018. At that time patient was seen by vascular surgery. Patient started on eliquis. Eliquis currently on hold due to GI bleed. Will defer to oncology services at this time. Per nursing staff Dr. pham wanted patient started on heparin drip last night but patient refused. Patient also supposed to get EGD and colonoscopy but was unable to tolerate prep. Patient currently on heparin drip per oncology services possible transition to oral eliquis today per oncology. 3. Colon Adenocarcinoma: History of partial colectomy. Patient undergoing chemotherapy. Oncology following 4. History of previous lower extremity DVT 5. History of urinary tract infection 6. Hypotension. Patient did have episodes of hypotension admission related to pain medication. Critical care service is following closely. Resolved at this time DVT prophylaxis SCDs and heparin drip. GI prophylaxis Protonix I performed an examination of the patient and discussed their management with the Nurse Practitioner. I have reviewed the Nurse Practitioner's notes and agree with the documented findings and plan of care
[2018-07-08 11:39] LABS: ALT 38 U/L (9-52); AST 24 U/L (14-36); Albumin 2.9 g/dL (3.5-5.0); Alkaline Phosphatase 95 U/L (38-126); Anion Gap 9 mmol/L; Blood Urea Nitrogen 3 mg/dL (7-17); Calcium 8.7 mg/dL (8.4-10.2); Carbon Dioxide 21 mmol/L (22-30); Chloride 109 mmol/L (98-107); Glucose 95 mg/dL (74-99); Potassium 3.2 mmol/L (3.5-5.1); Sodium 139 mmol/L (137-145); Total Bilirubin 0.4 mg/dL (0.2-1.3); Total Protein 5.3 g/dL (6.3-8.2)
--- NOTE | 2018-07-08 15:15 | P.PN ---
Subjective Progress Note Date: 07/08/18 Principal diagnosis: Progressive Carcinoma Colon Denies any recent large bloody stools since on heparin and hemoglobin has remained stable. Objective - Vital Signs Vital signs: Vital Signs Temp 98.2 F 07/08/18 12:43 Pulse 74 07/08/18 12:43 Resp 16 07/08/18 12:43 BP 113/73 07/08/18 12:43 Pulse Ox 99 07/08/18 12:43 Intake & Output 07/07/18 07/08/18 07/08/18 18:59 06:59 18:59 Intake Total 835.49 1596.51 Output Total 400 Balance 435.49 1596.51 Intake: IV 752 Heparin Sod,Pork in 0.45% 152 NaCl 25,000 unit In 0.45 % NaCl 1 500ml.bag @ 18 UNITS/KG/HR 21.49 mls/hr IV .[id number] DAVID Rx#: [id number] Sodium Chloride 0.9% 1, 600 000 ml @ 75 mls/hr IV . [id number] DAVID Rx#:[id number] Intake, IV Titration 83.49 416.51 Amount Heparin Sod,Pork in 0.45% 83.49 416.51 NaCl 25,000 unit In 0.45 % NaCl 1 500ml.bag @ 18 UNITS/KG/HR 21.49 mls/hr IV .[id number] DAVID Rx#: [id number] Oral 1180 Output: Urine 400 Other: Voiding Method Toilet Toilet Bedside Commode Bedside Commode # Voids 2 2 2 # Bowel Movements 1 - Exam - Constitutional General appearance: no acute distress - EENT Eyes: EOMI, PERRLA ENT: hearing grossly normal, normal oropharynx - Neck Neck: no lymphadenopathy Thyroid: bilateral: normal size - Respiratory Respiratory: bilateral: CTA - Cardiovascular Rhythm: regular Heart sounds: normal: S1, S2 - Gastrointestinal General gastrointestinal: normal bowel sounds, soft - Integumentary Integumentary: normal - Neurologic Neurologic: CNII-XII intact - Musculoskeletal Musculoskeletal: generalized weakness, strength equal bilaterally - Psychiatric Psychiatric: A&O x's 3, appropriate affect - Labs CBC & Chem 7: 07/08/18 09:07 07/08/18 09:07 Labs: Abnormal Lab Results - Last 24 Hours (Table) 1007/08/18 07/08/18 Range/Units 07:11 07:11 09:07 WBC 2.9 L 2.8 L (3.8-10.6) k/uL RBC 2.40 L 2.57 L (3.80-5.40) m/uL Hgb 7.1 L 7.6 L (11.4-16.0) gm/dL Hct 21.9 L 23.2 L (34.0-46.0) % RDW 15.6 H 15.9 H (11.5-15.5) % Neutrophils # 1.2 L (1.3-7.7) k/uL APTT 53.0 H (22.0-30.0) sec Potassium (3.5-5.1) mmol/L Chloride (98-107) mmol/L Carbon Dioxide (22-30) mmol/L BUN (7-17) mg/dL Creatinine (0.52-1.04) mg/dL Total Protein (6.3-8.2) g/dL Albumin (3.5-5.0) g/dL 07/08/18 Range/Units 09:07 WBC (3.8-10.6) k/uL RBC (3.80-5.40) m/uL Hgb (11.4-16.0) gm/dL Hct (34.0-46.0) % RDW (11.5-15.5) % Neutrophils # (1.3-7.7) k/uL APTT (22.0-30.0) sec Potassium 3.2 L (3.5-5.1) mmol/L Chloride 109 H (98-107) mmol/L Carbon Dioxide 21 L (22-30) mmol/L BUN 3 L (7-17) mg/dL Creatinine 0.49 L (0.52-1.04) mg/dL Total Protein 5.3 L (6.3-8.2) g/dL Albumin 2.9 L (3.5-5.0) g/dL Assessment and Plan Plan: Assessment and Plan (1) Anemia Narrative/Plan: The patient presented with passage of red blood per rectum. On admission hemoglobin was 10.6 and subsequently dropped to 9.4. During a previous admission, hemoglobin was 12. - Since admission her hemoglobin has dropped to 7.1. Heparin drip was started when hemoglobin was 7.8 and 48 hours on heparin drip she has not had any substantial decrease to be concerned with active GI BLeeding. - CBC in am, - Appears hemoglobin drop is likely due to chemotherapy shruti rather than active GI bleed. Current Visit: Yes Status: Acute Code(s): D64.9 - ANEMIA, UNSPECIFIED SNOMED Code(s): 458448975 (2) GI bleed Narrative/Plan: As noted above, it is difficult to determine how significant this bleeding episode really is in terms of drop in hemoglobin, as the patient would be expected to have drops due to her chemotherapy. - Appears resolved Current Visit: Yes Status: Acute Code(s): K92.2 - GASTROINTESTINAL HEMORRHAGE, UNSPECIFIED SNOMED Code(s): 39535812 (3) Iliac vein thrombosis Narrative/Plan: This is a very recent event, and was a major DVT. The patient is currently on anticoagulation. Anticoagulation is on hold because of her bleeding per rectum. The patient is at increased risk for progression of clot as well as new venous thrombo-embolism, given her current cancer status and ongoing chemotherapy. Therefore ideally she should continue on anticoagulation. However this bleeding event is significant, then this would have to be held. In that case we may need to consider an IVC filter. - We will attempt to re-challenge with eliquis today and stop heparin. As long as no indication of acute bleeding or drop in hemoglobin will hold off on IVC filter. - The plan has been explained and discussed in detail with the patient today who is in agreement. Current Visit: No Status: Acute Priority: High Code(s): I82.429 - ACUTE EMBOLISM AND THROMBOSIS OF UNSPECIFIED ILIAC VEIN SNOMED Code(s): 297512337 (4) Metastatic colon cancer in female Narrative/Plan: Diagnostic and therapeutic circumstances as noted above. The patient is currently on cycle #2 of palliative chemotherapy with 5-FU and irinotecan. She will complete the cycle today. The office was contacted to arrange for pump discontinuation. The patient's counts may drop from chemotherapy in the next few days. Monitor for the same and supplement as needed Current Visit: Yes Status: Acute Code(s): C18.9 - MALIGNANT NEOPLASM OF COLON, UNSPECIFIED SNOMED Code(s): 530453093 (5) Neoplasm related pain Narrative/Plan: Continue home regimen, as the patient states that this is overall effective. She feels that there has also been some improvement in pain since starting chemotherapy - Continue on current regimen. Current Visit: No Status: Acute Priority: High Code(s): G89.3 - NEOPLASM RELATED PAIN (ACUTE) (CHRONIC) SNOMED Code(s): 650327491 Physician attest: I have completed the full history and physical of this patient and agree with above dictation dictated as a scribe.
[2018-07-08] MEDS: ONDANSETRON 4 MG/2 ML VIAL IVP PRN (17:35)
[2018-07-08] MEDS: APIXABAN 5 MG TAB PO SCH (20:02)
[2018-07-08] MEDS: PANTOPRAZOLE 40 MG TABLET PO SCH (20:02)
[2018-07-09] MEDS: SODIUM CHLORIDE 0.9% 1,000 ML IV SCH ×2 (03:22→16:16)
[2018-07-09] MEDS: HYDROmorphone 1 MG/ML 1 ML SYRINGE IVP PRN ×2 (04:13→08:56)
[2018-07-09 08:12] LABS: Anisocytosis Slight; HCT 22.8 % (34.0-46.0); HGB 7.6 gm/dL (11.4-16.0); Hypochromasia Slight; MCH 30.7 pg (25.0-35.0); MCHC 33.5 g/dL (31.0-37.0); MCV 91.6 fL (80.0-100.0); Mean Platelet Volume 7.2; Platelet Count 211 k/uL (150-450); RBC 2.49 m/uL (3.80-5.40); RDW 16.4 % (11.5-15.5); WBC 2.7 k/uL (3.8-10.6)
[2018-07-09] MEDS: APIXABAN 5 MG TAB PO SCH ×2 (08:52→20:01)
[2018-07-09] MEDS: PANTOPRAZOLE 40 MG TABLET PO SCH ×2 (08:52→20:01)
[2018-07-09 09:14] LABS: Band Neutrophils % 5 %; Eosinophils # (M) 0.05 k/uL (0-0.7); Lymphocytes # (M) 0.84 k/uL (1.0-4.8); Metamyelocytes # (M) 0.05 k/uL (0); Metamyelocytes % 2 %; Monocytes # (M) 0.11 k/uL (0-1.0); Neutrophils % (M) 56 %; Nucleated Red Blood Cells 0 /100 WBC (0-0); Total Cells Counted 100
[2018-07-09 09:15] LABS: Polychromasia Present
[2018-07-09 09:58] LABS: ALT 24 U/L (9-52); AST 20 U/L (14-36); Albumin 2.6 g/dL (3.5-5.0); Alkaline Phosphatase 71 U/L (38-126); Anion Gap 7 mmol/L; Blood Urea Nitrogen 2 mg/dL (7-17); Calcium 8.5 mg/dL (8.4-10.2); Carbon Dioxide 24 mmol/L (22-30); Chloride 109 mmol/L (98-107); Glucose 81 mg/dL (74-99); Potassium 3.1 mmol/L (3.5-5.1); Sodium 140 mmol/L (137-145); Total Bilirubin 0.4 mg/dL (0.2-1.3); Total Protein 4.9 g/dL (6.3-8.2)
--- NOTE | 2018-07-09 09:59 | P.PN ---
Subjective Progress Note Date: 07/09/18 This is 68-year-old female patient of Dr. Velasquez. Patient presented to the emergency room complaining of dark blood bowel movements. Patient states she had 2 episodes of these darker stools at home prior to emergency room. Patient did complain of some crampy abdominal pain. Patient has a known past medical history of colon cancer in which she's currently on chemotherapy. Patient is known past medical history of CVA, DVT, osteoarthritis, lateral surgery and celiac plexus block placement on 06/04/2018. 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 Patient at the time was seen by vascular surgery and started on eliquis. KUB completed showing no acute abdominal pelvic process. Stool occult blood positive Chest x-ray completed showing small bilateral pleural effusions. EKG completed showing showing normal sinus rhythm. Patient admitted to the intensive care unit. Hemoglobin 9.4. Dr. Pham per oncology consulted. Dr. earl consulted for GI bleed. At this time patient denies chest pain or shortness of breath. Patient denies any nausea vomiting or diarrhea. Patient denies any urinary burning or frequency. Per patient and nursing staff no more episodes of GI bleed. On 07/04/2018 patient remains alert and oriented 3 resting comfortably in bed. Patient is complaining of some abdominal pain that is well-controlled with current pain medication regime. Patient has not had any more episodes of bleeding since admission to hospital. Hemoglobin did decrease to 7.8/ this a.m. discussed case with Dr. Pham per oncology and Dr. earl per surgical service is planning to do upper and lower scope tomorrow and possibly resume anticoagulation medication at that time depending upon findings. Patient denies chest pain or shortness breath. Patient denies nausea or vomitting. Patient denies urinary frequency or burning On 07/05/2018 patient remains alert and oriented 3. Patient did state she had a bowel movement this a.m. that had blood present. Hemoglobin increasing to 8.0. Per nursing staff Dr. pham wanted patient started on heparin drip last night the patient refused. Patient also supposed to get EGD and colonoscopy but was unable to tolerate prep. EGD and colonoscopy canceled per surgical services. Awaiting further recommendations from surgical and oncology services. This time patient denies chest pain or shortness breath. Patient does complain of some nausea and mild abdominal pain. Patient denies any urinary burning or frequency. On 07/06/2018 patient is alert and oriented 3 in no apparent distress she is complaining of abdominal pain and back pain she is inquiring about discontinuing IV heparin and been placed on a look was 5 mg twice daily which she is agreeable to, however she is not agreeable to restarting Jorge Luis was 10 mg twice daily which she is afraid to cause further bleeding. On 07/07/2018 patient was seen and examined she is alert and oriented 3 at this time she is having back pain otherwise she denies any complaints she is still maintained on IV heparin hemoglobin is slightly down to 7.1 on 07/08/2018 patient is alert and oriented 3 resting comfortably in bed. Per nursing staff patient loose brown BM this a.m. with no signs of bleeding. Patient remains on IV heparin. Hemoglobin increasing to 7.6. Patient denies chest pain or shortness of breath. Denies urinary burning or frequency. On 07/09/2018 patient is alert and oriented 3. Patient is resting comfortably in bed. No more bleeding per patient and nursing staff. She has been started on eliquis 5 mg twice a day her oncology services. Hgb stable at 7.6. She denies chest pain or shortness of breath. Patient denies nausea vomiting or diarrhea. Patient denies any urinary burning or frequency Objective - Vital Signs Vital signs: Vital Signs Temp 98.3 F 07/09/18 05:00 Pulse 95 07/09/18 05:00 Resp 18 07/09/18 05:00 BP 94/67 07/09/18 05:00 Pulse Ox 96 07/09/18 05:00 Intake & Output 07/08/18 07/09/18 07/09/18 18:59 06:59 18:59 Intake Total 208.89 225 Output Total 400 Balance -191.11 225 Intake: IV 225 Sodium Chloride 0.9% 1, 225 000 ml @ 75 mls/hr IV . [id number] DAVID Rx#:[id number] Intake, IV Titration 208.89 Amount Heparin Sod,Pork in 0.45% 208.89 NaCl 25,000 unit In 0.45 % NaCl 1 500ml.bag @ 18 UNITS/KG/HR 21.49 mls/hr IV .[id number] DAVID Rx#: [id number] Output: Urine 400 Other: Voiding Method Toilet Toilet Toilet Bedside Commode Bedside Commode Bedside Commode # Voids 2 1 - Exam Head normocephalic Neck supple Lungs clear to auscultation bilaterally no wheezing or crackles Heart regular rate and rhythm S1-S2, no rub or gallop Abdomen is soft nontender nondistended positive bowel sounds no hepatosplenomegaly Extremities no edema Neuro alert and orientated to 3 - Labs CBC & Chem 7: 07/09/18 07:24 07/08/18 09:07 Labs: Abnormal Lab Results - Last 24 Hours (Table) 07/08/18 07/09/18 Range/Units 09:07 07:24 WBC 2.7 L (3.8-10.6) k/uL RBC 2.49 L (3.80-5.40) m/uL Hgb 7.6 L (11.4-16.0) gm/dL Hct 22.8 L (34.0-46.0) % RDW 16.4 H (11.5-15.5) % Lymphocytes # (Manual) 0.84 L (1.0-4.8) k/uL Metamyelocytes # (Man) 0.05 H (0) k/uL Potassium 3.2 L (3.5-5.1) mmol/L Chloride 109 H (98-107) mmol/L Carbon Dioxide 21 L (22-30) mmol/L BUN 3 L (7-17) mg/dL Creatinine 0.49 L (0.52-1.04) mg/dL Total Protein 5.3 L (6.3-8.2) g/dL Albumin 2.9 L (3.5-5.0) g/dL Assessment and Plan Assessment: 1. GI bleeding. KUB completed showing no acute abdominal pelvic process. Dr. earl consulted. Hemoglobin 9.4. Per surgical services patient will begin liquid diet. Consider resuming anticoagulation given the severity of her venous thrombus per surgical services. No immediate plans for endoscopic unless bleeding recurs. Discussed case with Dr. pham per oncology and Dr. earl per surgical services. Planning for EGD and colonoscopy tomorrow. We'll defer anticoagulation to oncology at this time. Hemoglobin increasing to 8.0. Patient did have episodes of bloody BM this a.m. Patient unable to tolerate prep for colonoscopy. EGD and colonoscopy canceled per surgical services. Per surgical services advance diet as tolerated. No further intervention at this time. 2. 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 She was diagnosed last admission on 06/15/2018. At that time patient was seen by vascular surgery. Patient started on eliquis. Eliquis currently on hold due to GI bleed. Will defer to oncology services at this time. Per nursing staff Dr. pham wanted patient started on heparin drip last night but patient refused. Patient also supposed to get EGD and colonoscopy but was unable to tolerate prep. Patient currently on heparin drip per oncology services possible transition to oral eliquis today per oncology. Patient has a started on eliquis 5 mg twice a day per oncology 3. Colon Adenocarcinoma: History of partial colectomy. Patient undergoing chemotherapy. Oncology following. Home pain meds resumed 4. History of previous lower extremity DVT 5. History of urinary tract infection 6. Hypotension. Patient did have episodes of hypotension admission related to pain medication. Critical care service is following closely. Resolved at this time DVT prophylaxis SCDs and heparin drip. GI prophylaxis Protonix I performed an examination of the patient and discussed their management with the Nurse Practitioner. I have reviewed the Nurse Practitioner's notes and agree with the documented findings and plan of care
[2018-07-09] MEDS ORDERED: Potassium Replacement Protocol 1 EACH MISC MISCELLANE PRN (10:08)
[2018-07-09] MEDS: POTASSIUM CHLORIDE ER 20 MEQ TAB.ER PO SCH ×2 (11:14→13:43)
[2018-07-09] MEDS: ONDANSETRON 4 MG/2 ML VIAL IVP PRN (12:01)
[2018-07-09] MEDS: oxyCODONE-APAP 7.5-325MG 1 EACH TAB PO PRN ×3 (12:04→20:01)
[2018-07-09 15:28] VITALS: BMI 24.0
--- NOTE | 2018-07-09 18:50 | P.PN ---
Subjective Progress Note Date: 07/09/18 Principal diagnosis: Progressive Carcinoma Colon No acute complaints or bleeding, some diarrhea and hypokalemia today Objective - Vital Signs Vital signs: Vital Signs Temp 98.4 F 07/09/18 12:43 Pulse 103 H 07/09/18 12:43 Resp 18 07/09/18 12:43 BP 107/55 07/09/18 12:43 Pulse Ox 96 07/09/18 12:43 Intake & Output 07/08/18 07/09/18 07/09/18 18:59 06:59 18:59 Intake Total 208.89 225 600 Output Total 400 Balance -191.11 225 600 Weight 59.7 kg Intake: IV 225 600 Sodium Chloride 0.9% 1, 225 600 000 ml @ 75 mls/hr IV . [id number] DAVID Rx#:[id number] Intake, IV Titration 208.89 Amount Heparin Sod,Pork in 0.45% 208.89 NaCl 25,000 unit In 0.45 % NaCl 1 500ml.bag @ 18 UNITS/KG/HR 21.49 mls/hr IV .[id number] DAVID Rx#: [id number] Output: Urine 400 Other: Voiding Method Toilet Toilet Toilet Bedside Commode Bedside Commode Bedside Commode # Voids 2 1 - Exam - Constitutional General appearance: no acute distress - EENT Eyes: EOMI, PERRLA ENT: hearing grossly normal, normal oropharynx - Neck Neck: no lymphadenopathy Thyroid: bilateral: normal size - Respiratory Respiratory: bilateral: CTA - Cardiovascular Rhythm: regular Heart sounds: normal: S1, S2 - Gastrointestinal General gastrointestinal: normal bowel sounds, soft - Integumentary Integumentary: normal - Neurologic Neurologic: CNII-XII intact - Musculoskeletal Musculoskeletal: generalized weakness, strength equal bilaterally - Psychiatric Psychiatric: A&O x's 3, appropriate affect - Labs CBC & Chem 7: 07/09/18 07:24 07/09/18 09:07 Labs: Abnormal Lab Results - Last 24 Hours (Table) 07/09/18 07/09/18 Range/Units 07:24 09:07 WBC 2.7 L (3.8-10.6) k/uL RBC 2.49 L (3.80-5.40) m/uL Hgb 7.6 L (11.4-16.0) gm/dL Hct 22.8 L (34.0-46.0) % RDW 16.4 H (11.5-15.5) % Lymphocytes # (Manual) 0.84 L (1.0-4.8) k/uL Metamyelocytes # (Man) 0.05 H (0) k/uL Potassium 3.1 L (3.5-5.1) mmol/L Chloride 109 H (98-107) mmol/L BUN 2 L (7-17) mg/dL Creatinine 0.48 L (0.52-1.04) mg/dL Total Protein 4.9 L (6.3-8.2) g/dL Albumin 2.6 L (3.5-5.0) g/dL Assessment and Plan Plan: Assessment and Plan (1) Anemia Narrative/Plan: The patient presented with passage of red blood per rectum. On admission hemoglobin was 10.6 and subsequently dropped to 9.4. During a previous admission, hemoglobin was 12. - Since admission her hemoglobin has dropped to 7.1. Heparin drip was started when hemoglobin was 7.8 and 48 hours on heparin drip she has not had any substantial decrease to be concerned with active GI BLeeding. - CBC in am, - Appears hemoglobin drop is likely due to chemotherapy shruti rather than active GI bleed. Current Visit: Yes Status: Acute Code(s): D64.9 - ANEMIA, UNSPECIFIED SNOMED Code(s): 792609036 (2) GI bleed Narrative/Plan: As noted above, it is difficult to determine how significant this bleeding episode really is in terms of drop in hemoglobin, as the patient would be expected to have drops due to her chemotherapy. - Appears resolved Current Visit: Yes Status: Acute Code(s): K92.2 - GASTROINTESTINAL HEMORRHAGE, UNSPECIFIED SNOMED Code(s): 76163182 (3) Iliac vein thrombosis Narrative/Plan: This is a very recent event, and was a major DVT. The patient is currently on anticoagulation. Anticoagulation is on hold because of her bleeding per rectum. The patient is at increased risk for progression of clot as well as new venous thrombo-embolism, given her current cancer status and ongoing chemotherapy. Therefore ideally she should continue on anticoagulation. However this bleeding event is significant, then this would have to be held. In that case we may need to consider an IVC filter. - We will attempt to re-challenge with eliquis today and stop heparin. As long as no indication of acute bleeding or drop in hemoglobin will hold off on IVC filter. - The plan has been explained and discussed in detail with the patient today who is in agreement. Current Visit: No Status: Acute Priority: High Code(s): I82.429 - ACUTE EMBOLISM AND THROMBOSIS OF UNSPECIFIED ILIAC VEIN SNOMED Code(s): 477749380 (4) Metastatic colon cancer in female Narrative/Plan: Diagnostic and therapeutic circumstances as noted above. The patient is currently on cycle #2 of palliative chemotherapy with 5-FU and irinotecan. She will complete the cycle today. The office was contacted to arrange for pump discontinuation. The patient's counts may drop from chemotherapy in the next few days. Monitor for the same and supplement as needed Current Visit: Yes Status: Acute Code(s): C18.9 - MALIGNANT NEOPLASM OF COLON, UNSPECIFIED SNOMED Code(s): 537653367 (5) Neoplasm related pain Narrative/Plan: Continue home regimen, as the patient states that this is overall effective. She feels that there has also been some improvement in pain since starting chemotherapy - Continue on current regimen. Current Visit: No Status: Acute Priority: High Code(s): G89.3 - NEOPLASM RELATED PAIN (ACUTE) (CHRONIC) SNOMED Code(s): 843462044 Plan: - Continue to monitor hemoglobin overnight on Eliquis, so far has remained stable since restarting yesterday. Hemoglobin 7.6 today - Likely plan for D/C 24-48 hours if stable - Recheck Potassium and Mag per primary team
[2018-07-10] MEDS: SODIUM CHLORIDE 0.9% 1,000 ML IV SCH (05:45)
[2018-07-10] MEDS: PANTOPRAZOLE 40 MG TABLET PO SCH (08:55)
[2018-07-10] MEDS: APIXABAN 5 MG TAB PO SCH (08:55)
[2018-07-10 09:38] LABS: Anisocytosis Slight; Basophils % (A) 1 %; Eosinophils # (A) 0.2 k/uL (0-0.7); Eosinophils % (A) 7 %; HCT 26.6 % (34.0-46.0); HGB 8.3 gm/dL (11.4-16.0); Hypochromasia Slight; Lymphocytes # (A) 0.8 k/uL (1.0-4.8); Lymphocytes % (A) 29 %; MCH 29.5 pg (25.0-35.0); MCHC 31.4 g/dL (31.0-37.0); MCV 94.1 fL (80.0-100.0); Macrocytosis Slight; Mean Platelet Volume 7.3; Monocytes # (A) 0.1 k/uL (0-1.0); Monocytes % (A) 5 %; Neutrophils # (A) 1.5 k/uL (1.3-7.7); Neutrophils % (A) 55 %; Platelet Count 213 k/uL (150-450); RBC 2.83 m/uL (3.80-5.40); RDW 17.6 % (11.5-15.5); WBC 2.7 k/uL (3.8-10.6)
[2018-07-10 09:52] LABS: ALT 21 U/L (9-52); AST 16 U/L (14-36); Albumin 2.8 g/dL (3.5-5.0); Alkaline Phosphatase 83 U/L (38-126); Anion Gap 7 mmol/L; Blood Urea Nitrogen 2 mg/dL (7-17); Calcium 8.8 mg/dL (8.4-10.2); Carbon Dioxide 24 mmol/L (22-30); Chloride 109 mmol/L (98-107); Glucose 97 mg/dL (74-99); Magnesium 1.7 mg/dL (1.6-2.3); Potassium 3.1 mmol/L (3.5-5.1); Sodium 140 mmol/L (137-145); Total Bilirubin 0.3 mg/dL (0.2-1.3); Total Protein 5.3 g/dL (6.3-8.2)
[2018-07-10] MEDS: oxyCODONE-APAP 7.5-325MG 1 EACH TAB PO PRN ×2 (10:03→14:37)
[2018-07-10] MEDS ORDERED: Potassium Replacement Protocol 1 EACH MISC MISCELLANE PRN (10:57)
[2018-07-10] MEDS ORDERED: DIPHENOX-ATROP 2.5-0.025 MG 1 EACH TAB PO PRN (11:32)
--- NOTE | 2018-07-10 11:37 | P.DS ---
Providers Date of admission: 07/02/18 18:50 Expected date of discharge: 07/10/18 Attending physician: Irma Lyons Consults: 07/02/18 17:29 Consult Physician Routine Consulting Provider: Tiago Booker Consult Reason/Comments: GI bleed Do you want consulting provider notified?: Yes Consult Physician Routine Consulting Provider: Becky Tejada Consult Reason/Comments: Colon cancer, chemotherapy, GI bleed Do you want consulting provider notified?: Yes Consult Physician Stat Consulting Provider: Ace Milton Consult Reason/Comments: GI bleed, anemia Do you want consulting provider notified?: Already Contacted Primary care physician: [facility] Hospital Course: Discharge diagnosis 1. GI bleeding. KUB completed showing no acute abdominal pelvic process. Dr. earl consulted. Hemoglobin 9.4. Per surgical services patient will begin liquid diet. Consider resuming anticoagulation given the severity of her venous thrombus per surgical services. No immediate plans for endoscopic unless bleeding recurs. Discussed case with Dr. pham per oncology and Dr. earl per surgical services. Planning for EGD and colonoscopy tomorrow. We'll defer anticoagulation to oncology at this time. Hemoglobin increasing to 8.0. Patient did have episodes of bloody BM this a.m. Patient unable to tolerate prep for colonoscopy. EGD and colonoscopy canceled per surgical services. Per surgical services advance diet as tolerated. No further intervention at this time. Hemoglobin 8.3 patient has had no further episodes of bleeding at this time. Patient has been cleared for discharge 2. 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 She was diagnosed last admission on 06/15/2018. At that time patient was seen by vascular surgery. Patient started on eliquis. Eliquis currently on hold due to GI bleed. Will defer to oncology services at this time. Per nursing staff Dr. pham wanted patient started on heparin drip last night but patient refused. Patient also supposed to get EGD and colonoscopy but was unable to tolerate prep. Patient currently on heparin drip per oncology services possible transition to oral eliquis today per oncology. Patient has a started on eliquis 5 mg twice a day per oncology. Discussed case with oncology services. Patient has been cleared for discharge from oncology standpoint. Patient will go home on eliquis 5 mg twice a day and follow-up closely outpatient with oncology 3. Colon Adenocarcinoma: History of partial colectomy. Patient undergoing chemotherapy. Oncology following. Home pain meds resumed 4. History of previous lower extremity DVT 5. History of urinary tract infection 6. Hypotension. Patient did have episodes of hypotension admission related to pain medication. Critical care service is following closely. Resolved at this time 7. Hypokalemia potassium 3.1. Will replace per protocol prior to discharge patient will also be discharged on 20 mEq of potassium daily. Patient to follow -up closely with PCP repeat CMP for 2 days Hospital course This is 68-year-old female patient of Dr. Velasquez. Patient presented to the emergency room complaining of dark blood bowel movements. Patient states she had 2 episodes of these darker stools at home prior to emergency room. Patient did complain of some crampy abdominal pain. Patient has a known past medical history of colon cancer in which she's currently on chemotherapy. Patient is known past medical history of CVA, DVT, osteoarthritis, lateral surgery and celiac plexus block placement on 06/04/2018. 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 Patient at the time was seen by vascular surgery and started on eliquis. KUB completed showing no acute abdominal pelvic process. Stool occult blood positive Chest x-ray completed showing small bilateral pleural effusions. EKG completed showing showing normal sinus rhythm. Patient admitted to the intensive care unit. Hemoglobin 9.4. Dr. Pham per oncology consulted. Dr. earl consulted for GI bleed. At this time patient denies chest pain or shortness of breath. Patient denies any nausea vomiting or diarrhea. Patient denies any urinary burning or frequency. Per patient and nursing staff no more episodes of GI bleed. On 07/04/2018 patient remains alert and oriented 3 resting comfortably in bed. Patient is complaining of some abdominal pain that is well-controlled with current pain medication regime. Patient has not had any more episodes of bleeding since admission to hospital. Hemoglobin did decrease to 7.8/ this a.m. discussed case with Dr. Pham per oncology and Dr. earl per surgical service is planning to do upper and lower scope tomorrow and possibly resume anticoagulation medication at that time depending upon findings. Patient denies chest pain or shortness breath. Patient denies nausea or vomitting. Patient denies urinary frequency or burning On 07/05/2018 patient remains alert and oriented 3. Patient did state she had a bowel movement this a.m. that had blood present. Hemoglobin increasing to 8.0. Per nursing staff Dr. pham wanted patient started on heparin drip last night the patient refused. Patient also supposed to get EGD and colonoscopy but was unable to tolerate prep. EGD and colonoscopy canceled per surgical services. Awaiting further recommendations from surgical and oncology services. This time patient denies chest pain or shortness breath. Patient does complain of some nausea and mild abdominal pain. Patient denies any urinary burning or frequency. On 07/06/2018 patient is alert and oriented 3 in no apparent distress she is complaining of abdominal pain and back pain she is inquiring about discontinuing IV heparin and been placed on a look was 5 mg twice daily which she is agreeable to, however she is not agreeable to restarting Jorge Luis was 10 mg twice daily which she is afraid to cause further bleeding. On 07/07/2018 patient was seen and examined she is alert and oriented 3 at this time she is having back pain otherwise she denies any complaints she is still maintained on IV heparin hemoglobin is slightly down to 7.1 on 07/08/2018 patient is alert and oriented 3 resting comfortably in bed. Per nursing staff patient loose brown BM this a.m. with no signs of bleeding. Patient remains on IV heparin. Hemoglobin increasing to 7.6. Patient denies chest pain or shortness of breath. Denies urinary burning or frequency. On 07/09/2018 patient is alert and oriented 3. Patient is resting comfortably in bed. No more bleeding per patient and nursing staff. She has been started on eliquis 5 mg twice a day her oncology services. Hgb stable at 7.6. She denies chest pain or shortness of breath. Patient denies nausea vomiting or diarrhea. Patient denies any urinary burning or frequency On 07/10/2018 patient is alert and oriented 3. Patient states she feels ready to go home. Patient has been on eliquis for greater than 25 hours with no signs of any bleeding. Hemoglobin increasing to 8.3 this a.m. discussed case with oncology services. Patient has been cleared for discharge from oncology. Repeat CBC and CMP ordered for 2 days. Patient to follow-up closely with PCP and oncology services. At this time patient denies chest pain or shortness of breath. Patient denies nausea vomiting. Patient denies any urinary burning or frequency. I performed an examination of the patient and discussed their management with the Nurse Practitioner. I have reviewed the Nurse Practitioner's notes and agree with the documented findings and plan of care Patient Condition at Discharge: Stable Plan - Discharge Summary Discharge Rx Participant: No New Discharge Prescriptions: New Apixaban [Eliquis] 5 mg PO BID 30 Days #60 tab Potassium Chloride [K-Tab ER] 20 meq PO DAILY #30 tablet.er Continue Sennosides-Docusate Sodium [Senokot-S] 2 tab PO HS Polyethylene Glycol 3350 [Miralax] 17 gm PO DAILY fentaNYL 100MCG/HR PATCH [Duragesic 100MCG/HR] 1 patch TRANSDERM Q72H patch Prochlorperazine [Compazine] 10 mg PO Q6H PRN PRN Reason: Nausea Diphenox-Atrop 2.5-0.025 mg [Lomotil] 2 tab PO QID PRN PRN Reason: Diarrhea oxyCODONE-APAP 7.5-325MG [Percocet 7.5-325 mg] 1 tab PO Q4HR PRN PRN Reason: Pain Lidocaine-Prilocaine Cream [Emla Cream 2.5%/2.5%] 1 applic TOPICAL DIRECTED PRN PRN Reason: port access Dronabinol [Marinol] 5 mg PO AC-BID Discontinued Apixaban [Eliquis] 10 mg PO BID tab Discharge Medication List Polyethylene Glycol 3350 [Miralax] 17 gm PO DAILY 06/01/18 [History] Sennosides-Docusate Sodium [Senokot-S] 2 tab PO HS 06/01/18 [History] fentaNYL 100MCG/HR PATCH [Duragesic 100MCG/HR] 1 patch TRANSDERM Q72H patch [Rx] Diphenox-Atrop 2.5-0.025 mg [Lomotil] 2 tab PO QID PRN 07/02/18 [History] Dronabinol [Marinol] 5 mg PO AC-BID 07/02/18 [History] Lidocaine-Prilocaine Cream [Emla Cream 2.5%/2.5%] 1 applic TOPICAL DIRECTED PRN 07/02/18 [History] Prochlorperazine [Compazine] 10 mg PO Q6H PRN 07/02/18 [History] oxyCODONE-APAP 7.5-325MG [Percocet 7.5-325 mg] 1 tab PO Q4HR PRN 07/02/18 [ History] Apixaban [Eliquis] 5 mg PO BID 30 Days #60 tab 07/10/18 [Rx] Potassium Chloride [K-Tab ER] 20 meq PO DAILY #30 tablet.er 07/10/18 [Rx] Follow up Appointment(s)/Referral(s): Radha Velasquez MD [Primary Care Provider] - 1-2 days Becky Tejada MD [STAFF PHYSICIAN] - 07/16/18 3:15 pm (Chemotherapy is Scheduled at [facility] on 07/15/18) Ambulatory/Diagnostic Orders: Complete Blood Count w/diff [LAB.AMB] Time Frame: 2 Days, Location: None Selected Comprehensive Metabolic Panel [LAB.AMB] Time Frame: 2 Days, Location: None Selected Activity/Diet/Wound Care/Special Instructions: Diet regular Activity as tolerated Discharge Disposition: HOME SELF-CARE
[2018-07-10] MEDS: POTASSIUM CHLORIDE ER 20 MEQ TAB.ER PO SCH ×2 (12:10→13:48)
[2018-07-10 13:37] VITALS: BP 110/57; PULSE 78; RESP 15; TEMP 96.7
--- NOTE | 2018-07-10 15:48 | P.PN ---
Subjective Progress Note Date: 07/10/18 Principal diagnosis: Progressive Carcinoma Colon Patients hemoglobin has remained stable on Eliquis. Objective - Vital Signs Vital signs: Vital Signs Temp 96.7 F L 07/10/18 13:35 Pulse 78 07/10/18 13:35 Resp 15 07/10/18 13:35 BP 110/57 07/10/18 13:35 Pulse Ox 96 07/10/18 13:35 Intake & Output 07/09/18 07/10/18 07/10/18 18:59 06:59 18:59 Intake Total 600 225 Balance 600 225 Weight 59.7 kg Intake: IV 600 225 Sodium Chloride 0.9% 1, 600 225 000 ml @ 75 mls/hr IV . [id number] DAVID Rx#:[id number] Other: Voiding Method Toilet Toilet Toilet Bedside Commode Bedside Commode Bedside Commode # Voids 3 - Exam - Constitutional General appearance: no acute distress - EENT Eyes: EOMI, PERRLA ENT: hearing grossly normal, normal oropharynx - Neck Neck: no lymphadenopathy Thyroid: bilateral: normal size - Respiratory Respiratory: bilateral: CTA - Cardiovascular Rhythm: regular Heart sounds: normal: S1, S2 - Gastrointestinal General gastrointestinal: normal bowel sounds, soft - Integumentary Integumentary: normal - Neurologic Neurologic: CNII-XII intact - Musculoskeletal Musculoskeletal: generalized weakness, strength equal bilaterally - Psychiatric Psychiatric: A&O x's 3, appropriate affect - Labs CBC & Chem 7: 07/10/18 09:13 07/10/18 09:13 Labs: Abnormal Lab Results - Last 24 Hours (Table) 07/10/18 07/10/18 Range/Units 09:13 09:13 WBC 2.7 L (3.8-10.6) k/uL RBC 2.83 L (3.80-5.40) m/uL Hgb 8.3 L (11.4-16.0) gm/dL Hct 26.6 L (34.0-46.0) % RDW 17.6 H (11.5-15.5) % Lymphocytes # 0.8 L (1.0-4.8) k/uL Potassium 3.1 L (3.5-5.1) mmol/L Chloride 109 H (98-107) mmol/L BUN 2 L (7-17) mg/dL Creatinine 0.48 L (0.52-1.04) mg/dL Total Protein 5.3 L (6.3-8.2) g/dL Albumin 2.8 L (3.5-5.0) g/dL Assessment and Plan Plan: Assessment and Plan (1) Anemia Narrative/Plan: The patient presented with passage of red blood per rectum. On admission hemoglobin was 10.6 and subsequently dropped to 9.4. During a previous admission, hemoglobin was 12. - Since admission her hemoglobin has dropped to 7.1. Heparin drip was started when hemoglobin was 7.8 and 48 hours on heparin drip she has not had any substantial decrease to be concerned with active GI BLeeding. - CBC in am, - Appears hemoglobin drop is likely due to chemotherapy shruti rather than active GI bleed. Current Visit: Yes Status: Acute Code(s): D64.9 - ANEMIA, UNSPECIFIED SNOMED Code(s): 704401856 (2) GI bleed Narrative/Plan: As noted above, it is difficult to determine how significant this bleeding episode really is in terms of drop in hemoglobin, as the patient would be expected to have drops due to her chemotherapy. - Appears resolved Current Visit: Yes Status: Acute Code(s): K92.2 - GASTROINTESTINAL HEMORRHAGE, UNSPECIFIED SNOMED Code(s): 91563979 (3) Iliac vein thrombosis Narrative/Plan: This is a very recent event, and was a major DVT. The patient is currently on anticoagulation. Anticoagulation is on hold because of her bleeding per rectum. The patient is at increased risk for progression of clot as well as new venous thrombo-embolism, given her current cancer status and ongoing chemotherapy. Therefore ideally she should continue on anticoagulation. However this bleeding event is significant, then this would have to be held. In that case we may need to consider an IVC filter. - We will attempt to re-challenge with eliquis today and stop heparin. As long as no indication of acute bleeding or drop in hemoglobin will hold off on IVC filter. - The plan has been explained and discussed in detail with the patient today who is in agreement. Current Visit: No Status: Acute Priority: High Code(s): I82.429 - ACUTE EMBOLISM AND THROMBOSIS OF UNSPECIFIED ILIAC VEIN SNOMED Code(s): 630933067 (4) Metastatic colon cancer in female Narrative/Plan: Diagnostic and therapeutic circumstances as noted above. The patient is currently on cycle #2 of palliative chemotherapy with 5-FU and irinotecan. She will complete the cycle today. The office was contacted to arrange for pump discontinuation. The patient's counts may drop from chemotherapy in the next few days. Monitor for the same and supplement as needed Current Visit: Yes Status: Acute Code(s): C18.9 - MALIGNANT NEOPLASM OF COLON, UNSPECIFIED SNOMED Code(s): 960050389 (5) Neoplasm related pain Narrative/Plan: Continue home regimen, as the patient states that this is overall effective. She feels that there has also been some improvement in pain since starting chemotherapy - Continue on current regimen. Current Visit: No Status: Acute Priority: High Code(s): G89.3 - NEOPLASM RELATED PAIN (ACUTE) (CHRONIC) SNOMED Code(s): 689965072 Plan: - Ok to discharge home on Eliquis and follow-up with Dr. Tejada as scheduled on 07/16/18 @0315 Physician Attestation: I have completed the full history and physical of this patient and agree with above dictation. Dictated as a scribe
== END 2018-07-10 15:05 | disposition home health service (06) | DRG 377 ==
LOC: EC 15:48 → 6ICU 18:50 → 5ONC 07-03 22:05
PROVIDERS: ADMIT Internal Medicine; ATTEND Internal Medicine
DX: K92.2 Gastrointestinal hemorrhage, unspecified (principal); I82.0 Budd-Chiari syndrome; I82.421 Acute embolism and thrombosis of right iliac vein; C79.9 Secondary malignant neoplasm of unspecified site; C18.2 Malignant neoplasm of ascending colon; D62 Acute posthemorrhagic anemia; I95.9 Hypotension, unspecified; E88.89 Other specified metabolic disorders; D63.0 Anemia in neoplastic disease; E87.6 Hypokalemia; G89.3 Neoplasm related pain (acute) (chronic); M19.91 Primary osteoarthritis, unspecified site; M81.0 Age-related osteoporosis without current pathological fracture; M54.9 Dorsalgia, unspecified; T45.1X5A Adverse effect of antineoplastic and immunosuppressive drugs, initial encounter; J32.9 Chronic sinusitis, unspecified; Z79.01 Long term (current) use of anticoagulants; Z79.899 Other long term (current) drug therapy; Z86.718 Personal history of other venous thrombosis and embolism; Z90.49 Acquired absence of other specified parts of digestive tract; Z86.73 Personal history of transient ischemic attack (TIA), and cerebral infarction without residual deficits; Z90.710 Acquired absence of both cervix and uterus; Z87.891 Personal history of nicotine dependence; Z87.440 Personal history of urinary (tract) infections; Z88.5 Allergy status to narcotic agent; Z80.3 Family history of malignant neoplasm of breast; Z80.0 Family history of malignant neoplasm of digestive organs
CPT/HCPCS: 36415; 36591; 71046; 74018; 80048; 80053; 82272; 82550; 82553; 83735; 84132; 84484; 85025; 85610; 85730; 86850; 86900; 86901; 96367; 96368; 96374; 96375; 96411; 96413; 96415; 99285

== ENCOUNTER 2018-09-30 17:55 | Inpatient (IN) | payer MEDICARE ==
[2018-09-30] MEDS ORDERED: SODIUM CHLORIDE 0.9% 1,000 ML IV STA (18:12)
--- NOTE | 2018-09-30 18:52 | ED ---
Weakness HPI - General Chief complaint: Weakness Stated complaint: Confusion Time Seen by Provider: 09/30/18 18:11 Source: patient, family, RN notes reviewed, old records reviewed Mode of arrival: wheelchair Limitations: no limitations - History of Present Illness Initial comments: This is a 68-year-old female the ER for evaluation she presents today for evaluation regards to nausea vomiting and pain. Cancer pain. Patient's very weak severe pain at home and unable to take medications secondary to nausea and vomiting. Patient feels like something is wrong, she hasn't been able to feel good for about a day and a half. No fevers no diarrhea. She does again have nausea vomiting. MD Complaint: generalized weakness, lack of energy -: days(s) Location: generalized, other (Persistent nausea vomiting and pain) Severity scale (1-10): 9 Quality: aching Consistency: constant Improves with: none Worsens with: none Context: other (Patient getting chemotherapy) Associated Symptoms: nausea/vomiting, myalgias - Related Data Home Medications Medication Instructions Recorded Confirmed Diphenox-Atrop 2.5-0.025 mg 2 tab PO QID PRN 07/02/18 09/30/18 [Lomotil] Dronabinol [Marinol] 5 mg PO AC-BID 07/02/18 09/30/18 Lidocaine-Prilocaine Cream [Emla 1 applic TOPICAL DIRECTED PRN 07/02/1809/30 Cream 2.5%/2.5%] Prochlorperazine [Compazine] 10 mg PO Q6H PRN 07/02/18 09/30/18 oxyCODONE-APAP 7.5-325MG [Percocet 10 mg PO Q4HR 07/02/18 09/30/18 7.5-325 mg] Vemurafenib [Zelboraf] 240 mg PO BID 09/30/18 09/30/18 Previous Rx's Medication Instructions Recorded fentaNYL 100MCG/HR PATCH 1 patch TRANSDERM Q72H patch 06/20/18 [Duragesic 100MCG/HR] Apixaban [Eliquis] 5 mg PO BID 30 Days #60 tab 07/10/18 Potassium Chloride [K-Tab ER] 20 meq PO DAILY #30 tablet.er 07/10/18 Allergies Allergy/AdvReac Type Severity Reaction Status Date / Time tramadol HCl [From Ultram] Allergy Severe PARALYZED Verified 09/30/18 18:27 FOR HOURS, UNABLE TO MOVE" Review of Systems ROS Statement: Those systems with pertinent positive or pertinent negative responses have been documented in the HPI. ROS Other: All systems not noted in ROS Statement are negative. Past Medical History Past Medical History: Cancer, Deep Vein Thrombosis (DVT) Additional Past Medical History / Comment(s): OSTEOPOROSIS, "SMALL BRAIN BLEEDS "-NO RESIDUAL EFFECTS,HX OF DVT YEARS AGO AFTER TAKING CONTROL PILLS, hx colon cancer(sx and finished chemo ), chronic sinusitis/deviated septum(sx ) History of Any Multi-Drug Resistant Organisms: None Reported Past Surgical History: Bowel Resection Additional Past Surgical History / Comment(s): nasal sx 2014 bladder suspension, 07/2017 had maria elena cath,celiac plexsus block 06-04-18. last sunday at [facility] abd lymhp node bx-has'nt gotten results yet. Past Anesthesia/Blood Transfusion Reactions: No Reported Reaction, Motion Sickness Past Psychological History: No Psychological Hx Reported Smoking Status: Former smoker Past Alcohol Use History: None Reported Past Drug Use History: Marijuana - Past Family History Mother Family Medical History: Cancer Additional Family Medical History / Comment(s): BREAST Father Family Medical History: Cancer Additional Family Medical History / Comment(s): PANCREATIC Sister(s) Family Medical History: Cancer Additional Family Medical History / Comment(s): BREAST General Exam Limitations: no limitations General appearance: alert, in no apparent distress Head exam: Present: atraumatic, normocephalic, normal inspection Eye exam: Present: normal appearance, PERRL, EOMI. Absent: scleral icterus, conjunctival injection, periorbital swelling ENT exam: Present: normal exam, mucous membranes moist Neck exam: Present: normal inspection. Absent: tenderness, meningismus, lymphadenopathy Respiratory exam: Present: normal lung sounds bilaterally. Absent: respiratory distress, wheezes, rales, rhonchi, stridor Cardiovascular Exam: Present: regular rate, normal rhythm, normal heart sounds. Absent: systolic murmur, diastolic murmur, rubs, gallop, clicks GI/Abdominal exam: Present: soft, normal bowel sounds. Absent: distended, tenderness, guarding, rebound, rigid Extremities exam: Present: normal inspection, full ROM, normal capillary refill. Absent: tenderness, pedal edema, joint swelling, calf tenderness Back exam: Present: normal inspection Neurological exam: Present: alert, oriented X3, CN II-XII intact Psychiatric exam: Present: normal affect, normal mood Skin exam: Present: warm, dry, intact, normal color. Absent: rash Course Vital Signs 09/30/18 09/30/18 09/30/18 18:00 18:28 18:30 Temperature 97.4 F L Pulse Rate 89 Respiratory 20 Rate Blood Pressure 106/68 105/60 O2 Sat by Pulse 99 Oximetry 09/30/18 09/30/18 09/30/18 19:30 20:00 20:30 Temperature Pulse Rate 73 82 87 Respiratory 16 14 14 Rate Blood Pressure 105/60 114/68 111/58 O2 Sat by Pulse 98 100 100 Oximetry 09/30/18 09/30/18 21:00 21:30 Temperature Pulse Rate 87 83 Respiratory 14 16 Rate Blood Pressure 111/63 119/68 O2 Sat by Pulse 100 100 Oximetry - Reevaluation(s) Reevaluation #1: 09/30/18 23:24 Medical record is reviewed Reevaluation #2: 09/30/18 23:24 Patient is unable to get and achieve pain control here in the emergency room EKG Findings - EKG Comments: EKG Findings:: EKG shows normal sinus rhythm rate of 71, HI 1:30, QRS 84, QTC 458 Medical Decision Making - Medical Decision Making 68 female the ER for persistent back pain abdominal pain nausea vomiting. Patient unable to keep down pain medication or food or drink at home, patient be admitted for pain control and further management - Lab Data Result diagrams: 09/30/18 14:40 09/30/18 14:40 Lab Results 09/30/18 09/30/18 09/30/18 Range/Units 14:40 14:40 14:40 WBC 2.7 L (3.8-10.6) k/uL RBC 3.91 (3.80-5.40) m/uL Hgb 10.4 L (11.4-16.0) gm/dL Hct 32.8 L (34.0-46.0) % MCV 83.8 (80.0-100.0) fL MCH 26.7 (25.0-35.0) pg MCHC 31.8 (31.0-37.0) g/dL RDW 17.5 H (11.5-15.5) % Plt Count 204 (150-450) k/uL Neutrophils % 65 % Lymphocytes % 26 % Monocytes % 5 % Eosinophils % 3 % Basophils % 0 % Neutrophils # 1.8 (1.3-7.7) k/uL Lymphocytes # 0.7 L (1.0-4.8) k/uL Monocytes # 0.1 (0-1.0) k/uL Eosinophils # 0.1 (0-0.7) k/uL Basophils # 0.0 (0-0.2) k/uL Anisocytosis Slight PT (9.0-12.0) sec INR (<1.2) APTT (22.0-30.0) sec Sodium 136 L (137-145) mmol/L Potassium 2.7 L* (3.5-5.1) mmol/L Chloride 103 (98-107) mmol/L Carbon Dioxide 26 (22-30) mmol/L Anion Gap 7 mmol/L BUN 4 L (7-17) mg/dL Creatinine 0.30 L (0.52-1.04) mg/dL Est GFR (CKD-EPI)AfAm >90 (>60 ml/min/1.73 sqM) Est GFR (CKD-EPI)NonAf >90 (>60 ml/min/1.73 sqM) Glucose 107 H (74-99) mg/dL Plasma Lactic Acid Santos (0.7-2.0) mmol/L Calcium 8.7 (8.4-10.2) mg/dL Phosphorus 3.1 (2.5-4.5) mg/dL Magnesium 1.7 (1.6-2.3) mg/dL Total Bilirubin 0.6 (0.2-1.3) mg/dL AST 23 (14-36) U/L ALT 22 (9-52) U/L Alkaline Phosphatase 119 (38-126) U/L Ammonia (<30) umol/L Total Creatine Kinase <20 L (30-135) U/L CK-MB (CK-2) <0.2 (0.0-2.4) ng/mL CK-MB (CK-2) Rel Index Troponin I <0.012 (0.000-0.034) ng/mL Total Protein 5.6 L (6.3-8.2) g/dL Albumin 3.0 L (3.5-5.0) g/dL Urine Color Urine Appearance (Clear) Urine pH (5.0-8.0) Ur Specific [place] (1.001-1.035) Urine Protein (Negative) Urine Glucose (UA) (Negative) Urine Ketones (Negative) Urine Blood (Negative) Urine Nitrite (Negative) Urine Bilirubin (Negative) Urine Urobilinogen (<2.0) mg/dL Ur Leukocyte Esterase (Negative) Urine RBC (0-5) /hpf Urine WBC (0-5) /hpf Ur Squamous Epith Cells (0-4) /hpf Amorphous Sediment (None) /hpf 09/30/18 09/30/18 09/30/18 Range/Units 14:40 14:40 14:40 WBC (3.8-10.6) k/uL RBC (3.80-5.40) m/uL Hgb (11.4-16.0) gm/dL Hct (34.0-46.0) % MCV (80.0-100.0) fL MCH (25.0-35.0) pg MCHC (31.0-37.0) g/dL RDW (11.5-15.5) % Plt Count (150-450) k/uL Neutrophils % % Lymphocytes % % Monocytes % % Eosinophils % % Basophils % % Neutrophils # (1.3-7.7) k/uL Lymphocytes # (1.0-4.8) k/uL Monocytes # (0-1.0) k/uL Eosinophils # (0-0.7) k/uL Basophils # (0-0.2) k/uL Anisocytosis PT 12.3 H (9.0-12.0) sec INR 1.2 H (<1.2) APTT 24.1 (22.0-30.0) sec Sodium (137-145) mmol/L Potassium (3.5-5.1) mmol/L Chloride (98-107) mmol/L Carbon Dioxide (22-30) mmol/L Anion Gap mmol/L BUN (7-17) mg/dL Creatinine (0.52-1.04) mg/dL Est GFR (CKD-EPI)AfAm (>60 ml/min/1.73 sqM) Est GFR (CKD-EPI)NonAf (>60 ml/min/1.73 sqM) Glucose (74-99) mg/dL Plasma Lactic Acid Santos 1.3 (0.7-2.0) mmol/L Calcium (8.4-10.2) mg/dL Phosphorus (2.5-4.5) mg/dL Magnesium (1.6-2.3) mg/dL Total Bilirubin (0.2-1.3) mg/dL AST (14-36) U/L ALT (9-52) U/L Alkaline Phosphatase (38-126) U/L Ammonia 21 (<30) umol/L Total Creatine Kinase (30-135) U/L CK-MB (CK-2) (0.0-2.4) ng/mL CK-MB (CK-2) Rel Index Troponin I (0.000-0.034) ng/mL Total Protein (6.3-8.2) g/dL Albumin (3.5-5.0) g/dL Urine Color Light Yellow Urine Appearance Clear (Clear) Urine pH 6.5 (5.0-8.0) Ur Specific [place] 1.005 (1.001-1.035) Urine Protein Negative (Negative) Urine Glucose (UA) Negative (Negative) Urine Ketones Negative (Negative) Urine Blood Negative (Negative) Urine Nitrite Negative (Negative) Urine Bilirubin Negative (Negative) Urine Urobilinogen <2.0 (<2.0) mg/dL Ur Leukocyte Esterase Small H (Negative) Urine RBC <1 (0-5) /hpf Urine WBC 10 H (0-5) /hpf Ur Squamous Epith Cells 1 (0-4) /hpf Amorphous Sediment Rare H (None) /hpf Disposition Clinical Impression: Anemia, Neoplasm related pain, Chronic abdominal pain, Metastatic colon cancer in female, Nausea and vomiting, Hypokalemia Disposition: ADMITTED IP TO THIS HOSP Condition: Fair Is patient prescribed a controlled substance at d/c from ED?: No
--- NOTE | 2018-09-30 19:26 | XR ---
EXAMINATION TYPE: XR chest 2V DATE OF EXAM: 09/30/2018 COMPARISON: 07/02/2018 HISTORY: Shortness of breath TECHNIQUE: Frontal and lateral views of the chest are obtained. FINDINGS: Scattered senescent parenchymal changes noted. Hyperinflation compatible with COPD. No evidence for infiltrate. No evidence for atelectasis. Heart size is stable. Mediastinal structures are stable and grossly unremarkable. No evidence for hilar prominence. Degenerative changes dorsal spine. IMPRESSION: 1. No evidence for acute pulmonary disease.
[2018-09-30 19:27] LABS: Anisocytosis Slight; Basophils % (A) 0 %; Eosinophils # (A) 0.1 k/uL (0-0.7); Eosinophils % (A) 3 %; HCT 32.8 % (34.0-46.0); HGB 10.4 gm/dL (11.4-16.0); Lymphocytes # (A) 0.7 k/uL (1.0-4.8); Lymphocytes % (A) 26 %; MCH 26.7 pg (25.0-35.0); MCHC 31.8 g/dL (31.0-37.0); MCV 83.8 fL (80.0-100.0); Mean Platelet Volume 7.9; Monocytes # (A) 0.1 k/uL (0-1.0); Monocytes % (A) 5 %; Neutrophils # (A) 1.8 k/uL (1.3-7.7); Neutrophils % (A) 65 %; Platelet Count 204 k/uL (150-450); RBC 3.91 m/uL (3.80-5.40); RDW 17.5 % (11.5-15.5); WBC 2.7 k/uL (3.8-10.6)
[2018-09-30 19:33] LABS: Amorphous Sediment,Urine Rare /hpf; Appearance,Urine Clear (Clear); Bilirubin,Urine Negative (Negative); Blood,Urine Negative (Negative); Color,Urine Light Yellow; Glucose,Urine (UA) Negative (Negative); Ketones,Urine Negative (Negative); Leukocyte Esterase,Urine Small (Negative); Nitrite,Urine Negative (Negative); PH, Urine 6.5 (5.0-8.0); Protein,Urine Negative (Negative); RBC,Urine <1 /hpf (0-5); Specific Gravity,Urine 1.005 (1.001-1.035); Squamous Epithelial Cell,Urine 1 /hpf (0-4); Urobilinogen,Urine <2.0 mg/dL (<2.0); WBC,Urine 10 /hpf (0-5)
[2018-09-30 19:36] LABS: INR 1.2 (<1.2); Partial Thromboplastin Time 24.1 sec (22.0-30.0); Prothrombin Time 12.3 sec (9.0-12.0)
[2018-09-30 19:37] LABS: ALT 22 U/L (9-52); AST 23 U/L (14-36); Alkaline Phosphatase 119 U/L (38-126); Anion Gap 7 mmol/L; Blood Urea Nitrogen 4 mg/dL (7-17); Calcium 8.7 mg/dL (8.4-10.2); Carbon Dioxide 26 mmol/L (22-30); Chloride 103 mmol/L (98-107); Glucose 107 mg/dL (74-99); Lactic Acid, Venous 1.3 mmol/L (0.7-2.0); Magnesium 1.7 mg/dL (1.6-2.3); Phosphorus 3.1 mg/dL (2.5-4.5); Sodium 136 mmol/L (137-145); Total Bilirubin 0.6 mg/dL (0.2-1.3); Total Protein 5.6 g/dL (6.3-8.2)
[2018-09-30 19:40] LABS: Creatine Kinase <20 U/L (30-135)
[2018-09-30 19:47] LABS: Potassium 2.7 mmol/L (3.5-5.1)
[2018-09-30] MEDS ORDERED: HYDROmorphone 0.5 MG/0.5 ML SYRINGE IVP STA (19:47)
[2018-09-30] MEDS ORDERED: POTASSIUM CHLORIDE 10 MEQ in WATER FOR INJECTION 1 100ML.BAG IVPB STA (19:48)
[2018-09-30] MEDS ORDERED: POTASSIUM BICARBONATE/CIT AC 20 MEQ TABLET.EFF PO ONE (19:48)
[2018-09-30 19:53] LABS: Creatine Kinase MB <0.2 ng/mL (0.0-2.4); Troponin I <0.012 ng/mL (0.000-0.034)
[2018-09-30] MEDS ORDERED: ONDANSETRON 4 MG/2 ML VIAL IVP STA (21:11)
[2018-09-30] MEDS ORDERED: HYDROmorphone 1 MG/ML 1 ML SYRINGE IVP STA (21:46)
[2018-09-30] MEDS: POTASSIUM CHLORIDE 20 MEQ in WATER FOR INJECTION 1 100ML.BAG IVPB SCH (22:27)
[2018-09-30 23:27] VITALS: BMI 19.2
[2018-10-01] MEDS: POTASSIUM CHLORIDE 20 MEQ in WATER FOR INJECTION 1 100ML.BAG IVPB SCH (00:38)
[2018-10-01] MEDS: HYDROmorphone 1 MG/ML 1 ML SYRINGE IVP PRN ×6 (03:02→23:29)
[2018-10-01] MEDS: ONDANSETRON 4 MG/2 ML VIAL IVP PRN ×3 (03:02→20:00)
[2018-10-01 07:51] LABS: Anisocytosis Slight; Basophils % (A) 0 %; Eosinophils # (A) 0.1 k/uL (0-0.7); Eosinophils % (A) 6 %; HCT 33.7 % (34.0-46.0); HGB 10.5 gm/dL (11.4-16.0); Hypochromasia Moderate; Lymphocytes # (A) 0.5 k/uL (1.0-4.8); Lymphocytes % (A) 25 %; MCH 26.7 pg (25.0-35.0); MCHC 31.1 g/dL (31.0-37.0); MCV 85.9 fL (80.0-100.0); Mean Platelet Volume 6.9; Monocytes # (A) 0.1 k/uL (0-1.0); Monocytes % (A) 5 %; Neutrophils # (A) 1.4 k/uL (1.3-7.7); Neutrophils % (A) 62 %; Platelet Count 182 k/uL (150-450); RBC 3.93 m/uL (3.80-5.40); RDW 17.6 % (11.5-15.5); WBC 2.2 k/uL (3.8-10.6)
[2018-10-01 08:01] LABS: ALT 23 U/L (9-52); AST 22 U/L (14-36); Albumin 2.9 g/dL (3.5-5.0); Alkaline Phosphatase 110 U/L (38-126); Anion Gap 5 mmol/L; Blood Urea Nitrogen 3 mg/dL (7-17); Calcium 8.8 mg/dL (8.4-10.2); Carbon Dioxide 28 mmol/L (22-30); Chloride 107 mmol/L (98-107); Glucose 97 mg/dL (74-99); Potassium 3.8 mmol/L (3.5-5.1); Sodium 140 mmol/L (137-145); Total Bilirubin 0.5 mg/dL (0.2-1.3); Total Protein 5.4 g/dL (6.3-8.2)
[2018-10-01] MEDS ORDERED: ENOXAPARIN 40 MG/0.4 ML SYRINGE SQ SCH (09:00)
[2018-10-01] MEDS: oxyCODONE-APAP 7.5-325MG 1 EACH TAB PO PRN ×4 (10:27→23:28)
--- NOTE | 2018-10-01 13:51 | P.CONS ---
History of Present Illness - Reason for Consult Consult date: 10/01/18 Metastatic colon cancer Requesting physician: Irma Lyons - Chief Complaint Nausea, vomiting, pain - History of Present Illness Ms. Gross is a very pleasant 68-year-old female who follows with Dr. Tejada for metastatic colon cancer, currently on the rest therapy with zelboraf. Her story starts in May 2017 when she was having a change in bowel habits CT of the abdomen showed descending colon mucosal thickening. Further workup with colonoscopy and EGD showed an ascending colon mass that was nearly obstructing, biopsy consistent with poorly differentiated carcinoma with prominent neuroendocrine features. 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 She underwent CT of the chest due to hypoxia, negative for PE however since it did show thoracic metastases. KRS wild type. She was started on FOLFOX, status post 11 cycles that she completed on 12/25/2017 and prescription cycle 12 due to side effects. She was observed afterwards and CT from 04/2018 showed progression of her abdominal lymph nodes. Repeat biopsy confirmed metastatic poorly differentiated carcinoma. She was started on FOLFIRI in 06/2018 however was not able to tolerate this very well and only received 2 cycles. 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 She completed 5 cycles of irinotecan and erbitux, last dose last week, and continues to be on oral zelboraf (vemurafenib), which she seems to take 2 tab qam and 2-3 tab qpm ( ideal dose is 4 tab bid). She does have multiple toxicities when she attempts to increase dose of zelboraf. She is here now for feeling bad for 1.5 days, with nausea, vomiting, inability to keep anything down, and increasing pain in her back. Unable to keep her medications down. In the ER her workup revealed a negative chest x-ray, negative UA, CBC showing mild leukopenia at 2.7, hemoglobin 10.4, platelets 204, potassium 2.7. She was admitted for intractable vomiting and pain control and her potassium was supplemented with improvement to 3.8 this morning. She is on hydration, antiemetics, and IV Dilaudid. Review of Systems All systems: negative Constitutional: Reports as per HPI Past Medical History Past Medical History: Cancer, Deep Vein Thrombosis (DVT) Additional Past Medical History / Comment(s): OSTEOPOROSIS, "SMALL BRAIN BLEEDS "-NO RESIDUAL EFFECTS,HX OF DVT YEARS AGO AFTER TAKING CONTROL PILLS, hx colon cancer(sx and finished chemo ), chronic sinusitis/deviated septum(sx ) History of Any Multi-Drug Resistant Organisms: None Reported Past Surgical History: Bowel Resection Additional Past Surgical History / Comment(s): nasal sx 2014 bladder suspension, 07/2017 had maria elena cath,celiac plexsus block 06-04-18. last sunday at [facility] abd lymhp node bx-has'nt gotten results yet. Past Anesthesia/Blood Transfusion Reactions: No Reported Reaction, Motion Sickness Past Psychological History: No Psychological Hx Reported Smoking Status: Former smoker Past Alcohol Use History: None Reported Past Drug Use History: Marijuana - Past Family History Mother Family Medical History: Cancer Additional Family Medical History / Comment(s): BREAST Father Family Medical History: Cancer Additional Family Medical History / Comment(s): PANCREATIC Sister(s) Family Medical History: Cancer Additional Family Medical History / Comment(s): BREAST Medications and Allergies Home Medications Medication Instructions Recorded Confirmed Type fentaNYL 100MCG/HR PATCH 1 patch TRANSDERM Q72H patch 06/20/18 09/30/18 Rx [Duragesic 100MCG/HR] Diphenox-Atrop 2.5-0.025 mg 2 tab PO QID PRN 07/02/18 09/30/18 History [Lomotil] Dronabinol [Marinol] 5 mg PO AC-BID 07/02/18 09/30/18 History Lidocaine-Prilocaine Cream [Emla 1 applic TOPICAL DIRECTED PRN 07/02/1809/30 History Cream 2.5%/2.5%] Prochlorperazine [Compazine] 10 mg PO Q6H PRN 07/02/18 09/30/18 History oxyCODONE-APAP 7.5-325MG [Percocet 10 mg PO Q4HR 07/02/18 09/30/18 History 7.5-325 mg] Apixaban [Eliquis] 5 mg PO BID 30 Days #60 tab 07/10/18 09/30/18 Rx Potassium Chloride [K-Tab ER] 20 meq PO DAILY #30 tablet.er 07/10/18 09/30/18 Rx Vemurafenib [Zelboraf] 240 mg PO BID 09/30/18 09/30/18 History Allergies Allergy/AdvReac Type Severity Reaction Status Date / Time tramadol HCl [From [facility]] Allergy Severe PARALYZED Verified 09/30/18 18:27 FOR HOURS, UNABLE TO MOVE" Physical Exam Vitals: Vital Signs Temp Pulse Pulse Pulse Resp BP BP 10/01/18 05:00 97.8 F 86 17 131/83 10/01/18 00:00 90 20 09/30/18 23:00 97.9 F 89 16 101/66 09/30/18 21:30 83 16 119/68 09/30/18 21:00 87 14 111/63 09/30/18 20:30 87 14 111/58 09/30/18 20:00 82 14 114/68 09/30/18 19:30 73 16 105/60 09/30/18 18:30 105/60 09/30/18 18:28 09/30/18 18:00 97.4 F L 89 20 106/68 Pulse Ox 10/01/18 05:00 99 10/01/18 00:00 09/30/18 23:00 96 09/30/18 21:30 100 09/30/18 21:00 100 09/30/18 20:30 100 09/30/18 20:00 100 09/30/18 19:30 98 09/30/18 18:30 09/30/18 18:28 99 09/30/18 18:00 Intake and Output 09/30/18 10/01/18 10/01/18 22:59 06:59 14:59 Intake Total 100 Balance 100 Intake: Intake, IV Titration 100 Amount Potassium Chloride 20 meq 100 In Water For Injection 1 100ml.bag @ 50 mls/hr IVPB Q2HR [facility] Rx#: [id number] Other: Voiding Method Toilet # Voids 3 Weight 47.62 kg 47.62 kg General: In no acute distress. Malnourished. HEENT: Mucosa moist. Neck: Neck supple. Lymph: No cervical/supraclavicular LAD. Lungs: CTA-B without wheezing or rhonchi. Heart: RRR. No LE edema. Abdomen: Soft, nontender, nondistended, with positive bowel sounds. MSK: 4/4 strength in all 4 extremities. Neuro: Alert and oriented 3. No obvious gross neurologic deficits. Skin: No jaundice or rash. Psych: Appropriate affect. Results CBC & Chem 7: 10/01/18 07:17 10/01/18 07:17 Labs: Abnormal Lab Results - Last 24 Hours (Table) 09/30/18 09/30/18 09/30/18 Range/Units 14:40 14:40 14:40 WBC 2.7 L (3.8-10.6) k/uL Hgb 10.4 L (11.4-16.0) gm/dL Hct 32.8 L (34.0-46.0) % RDW 17.5 H (11.5-15.5) % Lymphocytes # 0.7 L (1.0-4.8) k/uL PT (9.0-12.0) sec INR (<1.2) Sodium 136 L (137-145) mmol/L Potassium 2.7 L* (3.5-5.1) mmol/L BUN 4 L (7-17) mg/dL Creatinine 0.30 L (0.52-1.04) mg/dL Glucose 107 H (74-99) mg/dL Total Creatine Kinase <20 L (30-135) U/L Total Protein 5.6 L (6.3-8.2) g/dL Albumin 3.0 L (3.5-5.0) g/dL Ur Leukocyte Esterase (Negative) Urine WBC (0-5) /hpf Amorphous Sediment (None) /hpf 09/30/18 09/30/18 10/01/18 Range/Units 14:40 14:40 07:17 WBC 2.2 L (3.8-10.6) k/uL Hgb 10.5 L (11.4-16.0) gm/dL Hct 33.7 L (34.0-46.0) % RDW 17.6 H (11.5-15.5) % Lymphocytes # 0.5 L (1.0-4.8) k/uL PT 12.3 H (9.0-12.0) sec INR 1.2 H (<1.2) Sodium (137-145) mmol/L Potassium (3.5-5.1) mmol/L BUN (7-17) mg/dL Creatinine (0.52-1.04) mg/dL Glucose (74-99) mg/dL Total Creatine Kinase (30-135) U/L Total Protein (6.3-8.2) g/dL Albumin (3.5-5.0) g/dL Ur Leukocyte Esterase Small H (Negative) Urine WBC 10 H (0-5) /hpf Amorphous Sediment Rare H (None) /hpf 10/01/18 Range/Units 07:17 WBC (3.8-10.6) k/uL Hgb (11.4-16.0) gm/dL Hct (34.0-46.0) % RDW (11.5-15.5) % Lymphocytes # (1.0-4.8) k/uL PT (9.0-12.0) sec INR (<1.2) Sodium (137-145) mmol/L Potassium (3.5-5.1) mmol/L BUN 3 L (7-17) mg/dL Creatinine 0.39 L (0.52-1.04) mg/dL Glucose (74-99) mg/dL Total Creatine Kinase (30-135) U/L Total Protein 5.4 L (6.3-8.2) g/dL Albumin 2.9 L (3.5-5.0) g/dL Ur Leukocyte Esterase (Negative) Urine WBC (0-5) /hpf Amorphous Sediment (None) /hpf Microbiology - Last 24 Hours (Table) 09/30/18 14:40 Urine Culture - Preliminary Urine,Voided Chest x-ray: report reviewed Assessment and Plan Assessment: 1. Intractable nausea and vomiting due to chemotherapy. 2. Intractable pain. 3. Metastatic colon cancer on zelboraf therapy. Plan: Ms. Gross is a very pleasant 68-year-old female with multiple comorbidities as listed above including metastatic colon cancer, on oral treatment with irinotecan, erbitux, and Zelboraf, here for intractable vomiting and pain. She was mildly hypokalemic on presentation which improved with supplementation. Also mildly leukopenic and anemic due to her chemotherapy. Agree with hydration and supportive antiemetics and pain medications. Monitor cytopenia's, and supportive transfusion for Hgb < 7 or plt <15. Consider G-CSF if becomes severely neutropenic. Will hold chemotherapy for now while inpatient. Will continue to follow with you. Discussed with the patient in detail and she is agreeable to the plan. All of her questions were answered.
[2018-10-01] MEDS ORDERED: PROCHLORPERAZINE 10 MG TAB PO PRN (20:51)
[2018-10-01] MEDS ORDERED: DIPHENOX-ATROP 2.5-0.025 MG 1 EACH TAB PO PRN (20:51)
[2018-10-01] MEDS ORDERED: LIDOCAINE-PRILOCAINE 2.5-2.5% CREAM 5 GM TUBE TOPICAL PRN (20:51)
[2018-10-01] MEDS ORDERED: [UNRECOGNIZED DRUG - OTHER] PO SCH (21:00)
--- NOTE | 2018-10-01 22:46 | P.HPIM ---
History of Present Illness H&P Date: 10/01/18 Chief Complaint: Intractable nausea and electrolyte imbalance 68-year-old female who has a been diagnosed with metastatic stage IV colon cancer patient is currently on therapy, her symptoms began in May 2017 when she was having a change in bowel habits CT of the abdomen showed descending colon mucosal thickening. Further workup with colonoscopy and EGD showed an ascending colon mass that was nearly obstructing, biopsy consistent with poorly differentiated carcinoma with prominent neuroendocrine features. 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 She underwent CT of the chest due to hypoxia, negative for PE however since it did show thoracic metastases, for details about chemotherapy refer to the note as per oncology services, patient presented for evaluation regards to nausea vomiting and pain. Cancer pain. Patient's very weak severe pain at home and unable to take medications secondary to nausea and vomiting, she hasn' t been able to feel good for about a day and a half. No fevers no diarrhea. She does again have nausea vomiting. Review of Systems All systems: negative Past Medical History Past Medical History: Cancer, Deep Vein Thrombosis (DVT) Additional Past Medical History / Comment(s): OSTEOPOROSIS, "SMALL BRAIN BLEEDS "-NO RESIDUAL EFFECTS,HX OF DVT YEARS AGO AFTER TAKING CONTROL PILLS, hx colon cancer(sx and finished chemo ), chronic sinusitis/deviated septum(sx ) History of Any Multi-Drug Resistant Organisms: None Reported Past Surgical History: Bowel Resection Additional Past Surgical History / Comment(s): nasal sx 2014 bladder suspension, 07/2017 had maria elena cath,celiac plexsus block 06-04-18. last sunday at [facility] abd lymhp node bx-has'nt gotten results yet. Past Anesthesia/Blood Transfusion Reactions: No Reported Reaction, Motion Sickness Past Psychological History: No Psychological Hx Reported Smoking Status: Former smoker Past Alcohol Use History: None Reported Past Drug Use History: Marijuana - Past Family History Mother Family Medical History: Cancer Additional Family Medical History / Comment(s): BREAST Father Family Medical History: Cancer Additional Family Medical History / Comment(s): PANCREATIC Sister(s) Family Medical History: Cancer Additional Family Medical History / Comment(s): BREAST Medications and Allergies Home Medications Medication Instructions Recorded Confirmed Type fentaNYL 100MCG/HR PATCH 1 patch TRANSDERM Q72H patch 06/20/18 09/30/18 Rx [Duragesic 100MCG/HR] Diphenox-Atrop 2.5-0.025 mg 2 tab PO QID PRN 07/02/18 09/30/18 History [Lomotil] Dronabinol [Marinol] 5 mg PO AC-BID 07/02/18 09/30/18 History Lidocaine-Prilocaine Cream [Emla 1 applic TOPICAL DIRECTED PRN 07/02/1809/30 History Cream 2.5%/2.5%] Prochlorperazine [Compazine] 10 mg PO Q6H PRN 07/02/18 09/30/18 History oxyCODONE-APAP 7.5-325MG [Percocet 10 mg PO Q4HR 07/02/18 09/30/18 History 7.5-325 mg] Apixaban [Eliquis] 5 mg PO BID 30 Days #60 tab 07/10/18 09/30/18 Rx Potassium Chloride [K-Tab ER] 20 meq PO DAILY #30 tablet.er 07/10/18 09/30/18 Rx Vemurafenib [Zelboraf] 240 mg PO BID 09/30/18 09/30/18 History Allergies Allergy/AdvReac Type Severity Reaction Status Date / Time tramadol HCl [From [facility]] Allergy Severe PARALYZED Verified 09/30/18 18:27 FOR HOURS, UNABLE TO MOVE" Physical Exam Vitals: Vital Signs Temp Pulse Pulse Resp BP Pulse Ox 10/01/18 21:00 96.2 F L 71 16 120/57 98 10/01/18 14:40 97.5 F L 70 16 109/55 96 10/01/18 05:00 97.8 F 86 17 131/83 99 10/01/18 00:00 90 20 09/30/18 23:00 97.9 F 89 16 101/66 96 Intake and Output 10/01/18 10/01/18 10/01/18 06:59 14:59 22:59 Intake Total 100 Balance 100 Intake: Intake, IV Titration 100 Amount Potassium Chloride 20 meq 100 In Water For Injection 1 100ml.bag @ 50 mls/hr IVPB Q2HR [facility] Rx#: [id number] Other: Voiding Method Toilet Toilet Toilet # Voids 3 3 1 Weight 47.62 kg 47.62 kg General: In no acute distress. Malnourished. HEENT: Mucosa moist. Neck: Neck supple. Lymph: No cervical/supraclavicular LAD. Lungs: CTA-B without wheezing or rhonchi. Heart: RRR. No LE edema. Abdomen: Soft, nontender, nondistended, with positive bowel sounds. MSK: 4/4 strength in all 4 extremities. Neuro: Alert and oriented 3. No obvious gross neurologic deficits. Skin: No jaundice or rash. Psych: Appropriate affect. Results CBC & Chem 7: 10/01/18 07:17 10/01/18 07:17 Labs: Abnormal Lab Results - Last 24 Hours (Table) 10/01/18 10/01/18 Range/Units 07:17 07:17 WBC 2.2 L (3.8-10.6) k/uL Hgb 10.5 L (11.4-16.0) gm/dL Hct 33.7 L (34.0-46.0) % RDW 17.6 H (11.5-15.5) % Lymphocytes # 0.5 L (1.0-4.8) k/uL BUN 3 L (7-17) mg/dL Creatinine 0.39 L (0.52-1.04) mg/dL Total Protein 5.4 L (6.3-8.2) g/dL Albumin 2.9 L (3.5-5.0) g/dL Microbiology - Last 24 Hours (Table) 09/30/18 14:40 Urine Culture - Preliminary Urine,Voided Chest x-ray: report reviewed Thrombosis Risk Factor Assmnt - Choose All That Apply Any of the Below Risk Factors Present?: Yes Other Risk Factors: Yes Each Risk Factor Represents 2 Points: Age 61-74 years Each Risk Factor Represents 3 Points: History of DVT/PE Other congenital or acquired thrombophilia - If yes, enter type in comment: Yes Thrombosis Risk Factor Assessment Total Risk Factor Score: 5 Thrombosis Risk Factor Assessment Level: High Risk Assessment and Plan Assessment: Intractable nausea and vomiting related to chemotherapy Electrolyte imbalance with hypokalemia Generalized weakness and medical debility Stage IV metastatic colon cancer 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
[2018-10-01] MEDS: APIXABAN 5 MG TAB PO SCH (23:28)
[2018-10-02] MEDS: HYDROmorphone 1 MG/ML 1 ML SYRINGE IVP PRN ×5 (07:20→23:47)
[2018-10-02] MEDS: DRONABINOL 2.5 MG CAP PO SCH ×2 (07:21→17:53)
[2018-10-02] MEDS: oxyCODONE-APAP 7.5-325MG 1 EACH TAB PO PRN ×5 (07:21→23:46)
[2018-10-02] MEDS: APIXABAN 5 MG TAB PO SCH ×2 (09:26→20:50)
[2018-10-02] MEDS: POTASSIUM CHLORIDE ER 20 MEQ TAB.ER PO SCH (09:26)
[2018-10-02 10:46] LABS: Anisocytosis Slight; Basophils % (A) 0 %; Eosinophils # (A) 0.2 k/uL (0-0.7); Eosinophils % (A) 7 %; HGB 9.9 gm/dL (11.4-16.0); Hypochromasia Marked; Lymphocytes # (A) 0.5 k/uL (1.0-4.8); Lymphocytes % (A) 20 %; MCH 26.4 pg (25.0-35.0); MCV 88.1 fL (80.0-100.0); Mean Platelet Volume 7.8; Monocytes # (A) 0.2 k/uL (0-1.0); Monocytes % (A) 7 %; Neutrophils # (A) 1.5 k/uL (1.3-7.7); Neutrophils % (A) 64 %; Platelet Count 207 k/uL (150-450); RBC 3.75 m/uL (3.80-5.40); RDW 17.2 % (11.5-15.5); WBC 2.3 k/uL (3.8-10.6)
[2018-10-02 11:01] LABS: Anion Gap 6 mmol/L; Blood Urea Nitrogen 6 mg/dL (7-17); Calcium 8.7 mg/dL (8.4-10.2); Carbon Dioxide 23 mmol/L (22-30); Chloride 107 mmol/L (98-107); Glucose 120 mg/dL (74-99); Potassium 3.4 mmol/L (3.5-5.1); Sodium 136 mmol/L (137-145)
[2018-10-02] MEDS: ONDANSETRON 4 MG/2 ML VIAL IVP PRN (13:56)
--- NOTE | 2018-10-02 14:42 | P.PN ---
Subjective Progress Note Date: 10/02/18 Principal diagnosis: Intractable nausea and vomiting related to chemotherapy, electrolyte imbalance related to hypokalemia, generalized weakness and medical debility, stage IV's metastatic colon cancer, history of iliac vein thrombosis, pancytopenia, 10/02/2018, patient seen eval reexamined during the rounds clinically patient has been doing better in terms of breathing but is still nauseous, labs are pending, hemodynamic status overall stable patient is gently being hydrated diet is slowly being advanced to follow clinical course closely further recommendations pending ROM oncology service has been following as well 68-year-old female who has a been diagnosed with metastatic stage IV colon cancer patient is currently on therapy, her symptoms began in May 2017 when she was having a change in bowel habits CT of the abdomen showed descending colon mucosal thickening. Further workup with colonoscopy and EGD showed an ascending colon mass that was nearly obstructing, biopsy consistent with poorly differentiated carcinoma with prominent neuroendocrine features. 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 She underwent CT of the chest due to hypoxia, negative for PE however since it did show thoracic metastases, for details about chemotherapy refer to the note as per oncology services, patient presented for evaluation regards to nausea vomiting and pain. Cancer pain. Patient's very weak severe pain at home and unable to take medications secondary to nausea and vomiting, she hasn' t been able to feel good for about a day and a half. No fevers no diarrhea. She does again have nausea vomiting. Objective - Vital Signs Vital signs: Vital Signs Temp 97.5 F L 10/02/18 12:38 Pulse 81 10/02/18 12:38 Resp 15 10/02/18 12:38 BP 111/58 10/02/18 12:38 Pulse Ox 97 10/02/18 12:38 Intake & Output 10/01/18 10/02/18 10/02/18 18:59 06:59 18:59 Intake Total 150 Balance 150 Weight 47.62 kg Intake: Oral 150 Other: Voiding Method Toilet Toilet Toilet # Voids 3 2 - Exam General: In no acute distress. Malnourished. HEENT: Mucosa moist. Neck: Neck supple. Lymph: No cervical/supraclavicular LAD. Lungs: CTA-B without wheezing or rhonchi. Heart: RRR. No LE edema. Abdomen: Soft, nontender, nondistended, with positive bowel sounds. MSK: 4/4 strength in all 4 extremities. Neuro: Alert and oriented 3. No obvious gross neurologic deficits. Skin: No jaundice or rash. Psych: Appropriate affect. - Labs CBC & Chem 7: 10/02/18 10:01 10/02/18 10:01 Labs: Abnormal Lab Results - Last 24 Hours (Table) 10/02/18 10/02/18 Range/Units 10:01 10:01 WBC 2.3 L (3.8-10.6) k/uL RBC 3.75 L (3.80-5.40) m/uL Hgb 9.9 L (11.4-16.0) gm/dL Hct 33.0 L (34.0-46.0) % MCHC 30.0 L (31.0-37.0) g/dL RDW 17.2 H (11.5-15.5) % Lymphocytes # 0.5 L (1.0-4.8) k/uL Sodium 136 L (137-145) mmol/L Potassium 3.4 L (3.5-5.1) mmol/L BUN 6 L (7-17) mg/dL Creatinine 0.36 L (0.52-1.04) mg/dL Glucose 120 H (74-99) mg/dL Assessment and Plan Assessment: Intractable nausea and vomiting related to chemotherapy Electrolyte imbalance with hypokalemia Generalized weakness and medical debility Stage IV metastatic colon cancer 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
[2018-10-02] MEDS: POLYETHYLENE GLYCOL 3350 17 GM POWD.PACK PO SCH (16:58)
--- NOTE | 2018-10-02 17:38 | P.PN ---
Subjective Progress Note Date: 10/02/18 Principal diagnosis: Intractable N,V and LLQ/left back pain Pt seen in f/u today, she states fair pain control on current pain meds, she is concerned about constipation, her last BM was the morning the day she came to hospital, nausea and vomiting are controlled, she is tolerating fluids. Her legs are very weak, no numbness or tingling, she is having incontinence of bladder which is new for her, she has burning with urine but no urgency or frequency, denies incontinence of stool. Denies fevers. Objective - Vital Signs Vital signs: Vital Signs Temp 97.5 F L 10/02/18 12:38 Pulse 81 10/02/18 12:38 Resp 15 10/02/18 12:38 BP 111/58 10/02/18 12:38 Pulse Ox 97 10/02/18 12:38 Intake & Output 10/01/18 10/02/18 10/02/18 18:59 06:59 18:59 Intake Total 150 Balance 150 Weight 47.62 kg Intake: Oral 150 Other: Voiding Method Toilet Toilet Toilet # Voids 3 2 6 # Bowel Movements 2 - Constitutional General appearance: Present: average body habitus, cooperative, no acute distress - EENT Eyes: Present: anicteric sclerae, EOMI ENT: Present: normal oropharynx - Respiratory Respiratory: bilateral: CTA - Cardiovascular Rhythm: regular Heart sounds: normal: S1, S2 Abnormal Heart Sounds: Absent: systolic murmur, diastolic murmur, rub, S3 Gallop , S4 Gallop, click, other - Peripheral edema leg Peripheral Edema: bilateral: None - Gastrointestinal Gastrointestinal Comment(s): superior to naval 3cm mass?, fullness and discomfort to the LLQ, no hepatosplenomegaly. Pain with palpation of lower spine, iliac crest. - Integumentary Integumentary: Present: normal - Neurologic Neurologic Comment(s): BLE weakness, L>R, hip flexion, knee extension, plantar and dorsiflexion. - Psychiatric Psychiatric: Present: A&O x's 3, appropriate affect, intact judgment & insight - Labs CBC & Chem 7: 10/02/18 10:01 10/02/18 10:01 Labs: Abnormal Lab Results - Last 24 Hours (Table) 12/26/18 12/26/18 Range/Units 10:01 10:01 WBC 2.3 L (3.8-10.6) k/uL RBC 3.75 L (3.80-5.40) m/uL Hgb 9.9 L (11.4-16.0) gm/dL Hct 33.0 L (34.0-46.0) % MCHC 30.0 L (31.0-37.0) g/dL RDW 17.2 H (11.5-15.5) % Lymphocytes # 0.5 L (1.0-4.8) k/uL Sodium 136 L (137-145) mmol/L Potassium 3.4 L (3.5-5.1) mmol/L BUN 6 L (7-17) mg/dL Creatinine 0.36 L (0.52-1.04) mg/dL Glucose 120 H (74-99) mg/dL Assessment and Plan (1) Neoplasm related pain Narrative/Plan: MRI ordered for evaluation of pain in the back and left hip, also new onset incontinence of bladder. Cont current pain meds with titration to comfort. Bowel protocol for prevention of narcotic induced constipation Current Visit: Yes Status: Acute Priority: High Code(s): G89.3 - NEOPLASM RELATED PAIN (ACUTE) (CHRONIC) SNOMED Code(s): 57347722119208 (2) Nausea and vomiting Narrative/Plan: Cont current antiemetic regimen, pt states working well Current Visit: Yes Status: Acute Priority: High Code(s): R11.2 - NAUSEA WITH VOMITING, UNSPECIFIED SNOMED Code(s): 61143258 (3) Metastatic colon cancer in female Narrative/Plan: Pt recently had disease progression and was placed on oral BRAF inhibitor zelboraf. She is also receiving IV chemo every 2 weeks-camptosar and erbitux, she is due for cycle 6 next week. Cont to hold zelboraf for now MRI of the abdomen, pelvis and lumbar spine to evaluate disease due to symptom changes. Current Visit: Yes Status: Acute Priority: High Code(s): C18.9 - MALIGNANT NEOPLASM OF COLON, UNSPECIFIED SNOMED Code(s): 992320100 (4) Leucopenia Current Visit: Yes Status: Acute Code(s): D72.819 - DECREASED WHITE BLOOD CELL COUNT, UNSPECIFIED SNOMED Code(s): 20967545 (5) Anemia Current Visit: Yes Status: Acute Code(s): D64.9 - ANEMIA, UNSPECIFIED SNOMED Code(s): 653613900
[2018-10-03] MEDS: oxyCODONE-APAP 7.5-325MG 1 EACH TAB PO PRN ×5 (03:39→20:02)
[2018-10-03] MEDS: HYDROmorphone 1 MG/ML 1 ML SYRINGE IVP PRN ×5 (03:40→20:03)
[2018-10-03 04:59] VITALS: RESP 16
[2018-10-03] MEDS: DRONABINOL 2.5 MG CAP PO SCH ×2 (07:34→17:45)
[2018-10-03] MEDS: APIXABAN 5 MG TAB PO SCH ×2 (07:34→21:25)
[2018-10-03] MEDS: POTASSIUM CHLORIDE ER 20 MEQ TAB.ER PO SCH ×3 (07:34→21:25)
[2018-10-03] MEDS: POLYETHYLENE GLYCOL 3350 17 GM POWD.PACK PO SCH (07:36)
[2018-10-03 07:41] LABS: Anisocytosis Slight; Basophils % (A) 0 %; Eosinophils # (A) 0.1 k/uL (0-0.7); Eosinophils % (A) 4 %; HCT 34.1 % (34.0-46.0); HGB 10.8 gm/dL (11.4-16.0); Hypochromasia Moderate; Lymphocytes # (A) 0.6 k/uL (1.0-4.8); Lymphocytes % (A) 28 %; MCH 27.4 pg (25.0-35.0); MCHC 31.8 g/dL (31.0-37.0); MCV 86.2 fL (80.0-100.0); Mean Platelet Volume 7.9; Monocytes # (A) 0.2 k/uL (0-1.0); Monocytes % (A) 11 %; Neutrophils # (A) 1.1 k/uL (1.3-7.7); Neutrophils % (A) 54 %; Platelet Count 223 k/uL (150-450); RBC 3.95 m/uL (3.80-5.40); RDW 17.8 % (11.5-15.5); WBC 2.1 k/uL (3.8-10.6)
[2018-10-03 07:48] LABS: Anion Gap 6 mmol/L; Blood Urea Nitrogen 6 mg/dL (7-17); Calcium 8.5 mg/dL (8.4-10.2); Carbon Dioxide 23 mmol/L (22-30); Chloride 107 mmol/L (98-107); Glucose 91 mg/dL (74-99); Potassium 3.2 mmol/L (3.5-5.1); Sodium 136 mmol/L (137-145)
[2018-10-03] MEDS: ONDANSETRON 4 MG/2 ML VIAL IVP PRN ×3 (09:36→22:06)
--- NOTE | 2018-10-03 13:44 | MR ---
MR abdomen with and without contrast HISTORY: Colon Adenocarcinoma, status post treatment Multiplanar multisequence and postcontrast images through the abdomen following 5 cc Gadavist IV. Correlation CT abdomen pelvis 06/13/2018 There is motion on the exam which may limit sensitivity, comparison from MR to CT may be limited There is interval development of a right pleural effusion and ascites. Hydropic gallbladder with calc ified gallstone is present within the fundus as seen on CT. Partial intrathoracic stomach is again se en. Area of portal venous thrombosis in the posterior right lobe is again seen and is thought to be s table within the liver. Spleen is unchanged. Some mild prominence of the renal collecting systems left greater than right is noted and has progres sed as compared to prior exam. Bilateral adrenal masses have decreased in size in the interval measur ing approximately 5 cm on the right on prior and now 3.6 cm, 3.2 cm on the left on prior and now 2.9 cm. The abnormal soft tissue mass at the level of the maria elena is again noted and measures approximately 4.6 cm in greatest transverse dimension as compared to prior exam when it measured 5.5 cm. The retroperi toneal adenopathy which encases the aorta on prior exam is diminished significantly in the interval. There is extensive anasarca change. Small bowel wall thickening may be due to ascites. The abnormal m esenteric soft tissue seen on prior exam is less conspicuous in the midline. IMPRESSION: Positive tumor response as described. Interval effusion, ascites.
--- NOTE | 2018-10-03 14:11 | MR ---
MR pelvis with and without contrast HISTORY: Adenocarcinoma of the colon status post treatment Multiplanar multisequence and postcontrast images obtained through the pelvis following 5 cc Gadavist IV. Exam correlated to prior CT abdomen pelvis dated 06/13/2018 Interval development of ascites. Colonic wall thickening is present, correlate for possible colitis. The previously identified iliac vein thrombosis on the right is not seen with certainty, extrinsic co mpression may be present, abnormal soft tissue within the pelvis likely due to adenopathy has improve d on the left in the iliac fossa region as compared to prior as has a presacral abnormal soft tissue seen on prior exam. Abnormal thickening of the urinary bladder wall could be due to posttreatment change, correlate to ex clude underlying cystitis or postradiation change. Uterus and adnexal structures are not seen. IMPRESSION: Improvement in adenopathy, positive treatment response. Interval development of ascites, findings in the urinary bladder is described. Correlate to exclude colitis versus radiation-induced c olitis.
--- NOTE | 2018-10-03 14:34 | MR ---
EXAMINATION TYPE: MR lumbar spine wo/w con DATE OF EXAM: 10/03/2018 COMPARISON: CT lumbar spine 05/23/2018 HISTORY: colon adenocarcinoma, tx f/u TECHNIQUE: Multiplanar, multisequence images of the lumbar spine were acquired utilizing [address] gadolinium contrast. L1-L2: Normal disc appearance without desiccation. No herniation, protrusion or disc bulging. No ca nal stenosis is present. Foramina are patent bilaterally. L2-L3: Normal disc appearance without desiccation. No herniation, protrusion or disc bulging. No ca nal stenosis is present. Foramina are patent bilaterally. L3-L4: Normal disc appearance without desiccation. No herniation, protrusion or disc bulging. No ca nal stenosis is present. Foramina are patent bilaterally. L4-L5: Some loss of disc height and signal is present compatible disc desiccation, there is no eviden t spinal stenosis, foraminal encroachment, minimal posterior disc bulge is noted causing only slight anterior mass effect on the thecal sac. L5-S1: Some intermediate signal on T1, and mixed intermediate high signal on T2 weighted images with mild enhancement is noted at the posterior inferior margin of L5 the level of the disc space which is indeterminate, area measures approximately 9 mm in size. There is an hemangioma at the superior endp late of S1 and left lateral margin L4. No evident foraminal encroachment or spinal stenosis. Minimal posterior disc bulge, possible annular tear present at the posterior aspect L5 eccentric towards the left. There is some loss of disc height and signal compatible disc desiccation and degenerative disc disease. Lumbar segments are intact, there is normal height and alignment. No paraspinal masses are identifie d. Conus medullaris has a normal appearance. There is a spinal curvature present. Portal vein thrombus in the right portal vein is again noted as described on prior report. Bilateral adrenal masses also have been described on previous report. Mesenteric mass, retroperitoneal adenopat hy, portal mass all described in prior reports. There is ascites. IMPRESSION: There is mild degenerative disc disease. Indeterminate focus of abnormal signal posterior inferior ma rgin of L5. Additional findings above.
--- NOTE | 2018-10-03 18:57 | P.PN ---
Subjective Progress Note Date: 10/03/18 Principal diagnosis: Intractable nausea and vomiting related to chemotherapy, electrolyte imbalance related to hypokalemia, generalized weakness and medical debility, stage IV's metastatic colon cancer, history of iliac vein thrombosis, pancytopenia, 10/03/2018, patient seen eval examined during the rounds clinically patient has been doing relatively better nausea however slightly stable and improved with medications, hemodynamic status stable labs reviewed medications reviewed, potassium is 3.2, renal functions remain stable, she is status post a pelvic and abdominal MRI, results pending awaiting further recommendation for oncology service 10/02/2018, patient seen eval reexamined during the rounds clinically patient has been doing better in terms of breathing but is still nauseous, labs are pending, hemodynamic status overall stable patient is gently being hydrated diet is slowly being advanced to follow clinical course closely further recommendations pending ROM oncology service has been following as well 68-year-old female who has a been diagnosed with metastatic stage IV colon cancer patient is currently on therapy, her symptoms began in May 2017 when she was having a change in bowel habits CT of the abdomen showed descending colon mucosal thickening. Further workup with colonoscopy and EGD showed an ascending colon mass that was nearly obstructing, biopsy consistent with poorly differentiated carcinoma with prominent neuroendocrine features. 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 She underwent CT of the chest due to hypoxia, negative for PE however since it did show thoracic metastases, for details about chemotherapy refer to the note as per oncology services, patient presented for evaluation regards to nausea vomiting and pain. Cancer pain. Patient's very weak severe pain at home and unable to take medications secondary to nausea and vomiting, she hasn' t been able to feel good for about a day and a half. No fevers no diarrhea. She does again have nausea vomiting. Objective - Vital Signs Vital signs: Vital Signs Temp 97.8 F 10/03/18 12:55 Pulse 109 H 10/03/18 12:55 Resp 16 10/03/18 12:55 BP 108/62 10/03/18 12:55 Pulse Ox 97 10/03/18 12:55 Intake & Output 10/02/18 10/03/18 10/03/18 18:59 06:59 18:59 Other: Voiding Method Toilet Toilet Toilet # Voids 6 3 2 # Bowel Movements 2 2 - Exam General: In no acute distress. Malnourished. HEENT: Mucosa moist. Neck: Neck supple. Lymph: No cervical/supraclavicular LAD. Lungs: CTA-B without wheezing or rhonchi. Heart: RRR. No LE edema. Abdomen: Soft, nontender, nondistended, with positive bowel sounds. MSK: 4/4 strength in all 4 extremities. Neuro: Alert and oriented 3. No obvious gross neurologic deficits. Skin: No jaundice or rash. Psych: Appropriate affect. - Labs CBC & Chem 7: 10/03/18 07:23 10/03/18 07:23 Labs: Abnormal Lab Results - Last 24 Hours (Table) 10/03/18 10/03/18 Range/Units 07:23 07:23 WBC 2.1 L (3.8-10.6) k/uL Hgb 10.8 L (11.4-16.0) gm/dL RDW 17.8 H (11.5-15.5) % Neutrophils # 1.1 L (1.3-7.7) k/uL Lymphocytes # 0.6 L (1.0-4.8) k/uL Sodium 136 L (137-145) mmol/L Potassium 3.2 L (3.5-5.1) mmol/L BUN 6 L (7-17) mg/dL Creatinine 0.37 L (0.52-1.04) mg/dL Microbiology - Last 24 Hours (Table) 09/30/18 14:40 Urine Culture - Final Urine,Voided Assessment and Plan Assessment: Intractable nausea and vomiting related to chemotherapy Electrolyte imbalance with hypokalemia Generalized weakness and medical debility Stage IV metastatic colon cancer 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
--- NOTE | 2018-10-03 19:22 | P.PN ---
Subjective Progress Note Date: 10/03/18 Principal diagnosis: Persistent pain Mable is feeling a little better today, she completed her MRI exams and verification of tumor response was noted. Although increased abdominal ascites was noted which could relate to her increased abdominal and lower back discomfort. Objective - Vital Signs Vital signs: Vital Signs Temp 98.1 F 10/03/18 04:58 Pulse 88 10/03/18 04:58 Resp 16 10/03/18 04:58 BP 107/60 10/03/18 04:58 Pulse Ox 95 10/03/18 09:24 Intake & Output 10/02/18 10/03/18 10/03/18 18:59 06:59 18:59 Other: Voiding Method Toilet Toilet Toilet # Voids 6 3 # Bowel Movements 2 2 - Exam - Constitutional General appearance: Present: average body habitus, cooperative, no acute distress - EENT Eyes: Present: anicteric sclerae, EOMI ENT: Present: normal oropharynx - Respiratory Respiratory: bilateral: CTA - Cardiovascular Rhythm: regular Heart sounds: normal: S1, S2 Abnormal Heart Sounds: Absent: systolic murmur, diastolic murmur, rub, S3 Gallop , S4 Gallop, click, other - Peripheral edema leg Peripheral Edema: bilateral: None - Gastrointestinal Gastrointestinal Comment(s): superior to naval 3cm mass? versus hernia, fullness and discomfort to the LLQ, no hepatosplenomegaly. Abdominal distention and ascites on exam. Pain with palpation of lower spine, iliac crest. - Integumentary Integumentary: Present: normal - Neurologic Neurologic Comment(s): BLE weakness, L>R, hip flexion, knee extension, plantar and dorsiflexion. - Psychiatric Psychiatric: Present: A&O x's 3, appropriate affect, intact judgment & insight - Labs CBC & Chem 7: 10/03/18 07:23 10/03/18 07:23 Labs: Abnormal Lab Results - Last 24 Hours (Table) 10/03/18 10/03/18 Range/Units 07:23 07:23 WBC 2.1 L (3.8-10.6) k/uL Hgb 10.8 L (11.4-16.0) gm/dL RDW 17.8 H (11.5-15.5) % Neutrophils # 1.1 L (1.3-7.7) k/uL Lymphocytes # 0.6 L (1.0-4.8) k/uL Sodium 136 L (137-145) mmol/L Potassium 3.2 L (3.5-5.1) mmol/L BUN 6 L (7-17) mg/dL Creatinine 0.37 L (0.52-1.04) mg/dL Microbiology - Last 24 Hours (Table) 09/30/18 14:40 Urine Culture - Final Urine,Voided Assessment and Plan Plan: Assessment and Plan (1) Neoplasm related pain - MRI reviewed and verification of tumor response, although increased abdominal ascites plus or minus underlying inflammation from prior radiation or infectious. - Interventional radiology for Paracentesis - Stool studies for infectious causes (2) Nausea and vomiting: - Continue current supportive care as symptoms improving. (3) Metastatic colon cancer in female - Pt recently had disease progression and was placed on oral BRAF inhibitor zelboraf. She is also receiving IV chemo every 2 weeks-camptosar and erbitux, she is due for cycle 6 next week. - Treatment currently on hold as tolerance to zelboraf has been difficult with mucosal changes in mouth, nose and affecting inner lining of bilateral eyes. - Treatment and tumor response was noted on todays MRI Cont to hold zelboraf for now (4) Leukopenia - Stable secondary to chemotherapy monitor cbc (5) Normocytic Anemia - Secondary to chemotherapy treatment (6) Hypokalemia: (improving with supps) - check Magnesium and supp prn per medicine
[2018-10-04] MEDS: HYDROmorphone 1 MG/ML 1 ML SYRINGE IVP PRN ×3 (01:30→10:07)
[2018-10-04] MEDS: oxyCODONE-APAP 7.5-325MG 1 EACH TAB PO PRN ×4 (01:30→14:46)
[2018-10-04] MEDS: ONDANSETRON 4 MG/2 ML VIAL IVP PRN ×2 (06:13→12:46)
[2018-10-04] MEDS: POLYETHYLENE GLYCOL 3350 17 GM POWD.PACK PO SCH (08:00)
[2018-10-04] MEDS: DRONABINOL 2.5 MG CAP PO SCH (08:00)
[2018-10-04 08:19] LABS: Anisocytosis Slight; Basophils % (A) 0 %; Eosinophils # (A) 0.1 k/uL (0-0.7); Eosinophils % (A) 4 %; HCT 37.1 % (34.0-46.0); HGB 11.2 gm/dL (11.4-16.0); Hypochromasia Marked; Lymphocytes # (A) 0.4 k/uL (1.0-4.8); Lymphocytes % (A) 11 %; MCH 26.5 pg (25.0-35.0); MCHC 30.3 g/dL (31.0-37.0); MCV 87.5 fL (80.0-100.0); Monocytes # (A) 0.2 k/uL (0-1.0); Monocytes % (A) 7 %; Neutrophils # (A) 2.5 k/uL (1.3-7.7); Neutrophils % (A) 77 %; Platelet Count 249 k/uL (150-450); RBC 4.24 m/uL (3.80-5.40); RDW 17.8 % (11.5-15.5); WBC 3.3 k/uL (3.8-10.6)
[2018-10-04 08:45] LABS: Anion Gap 7 mmol/L; Blood Urea Nitrogen 7 mg/dL (7-17); Calcium 8.7 mg/dL (8.4-10.2); Carbon Dioxide 22 mmol/L (22-30); Chloride 108 mmol/L (98-107); Glucose 108 mg/dL (74-99); Potassium 4.5 mmol/L (3.5-5.1); Sodium 137 mmol/L (137-145)
[2018-10-04 12:06] VITALS: BP 101/58; PULSE 98; TEMP 97.9
[2018-10-04] MEDS: APIXABAN 5 MG TAB PO SCH (12:46)
--- NOTE | 2018-10-04 13:57 | P.PN ---
Subjective Progress Note Date: 10/04/18 Principal diagnosis: Intractable nausea and vomiting related to chemotherapy, electrolyte imbalance related to hypokalemia, generalized weakness and medical debility, stage IV's metastatic colon cancer, history of iliac vein thrombosis, pancytopenia, 10/04/2018, patient seen eval examined during the rounds clinically patient has improved significantly no more nausea has been noted, patient remains on her chronic pain medications for her metastatic stage IV cancer, electrolyte imbalance has improved, patient underwent a computed tomography scan and radiographic studies, those findings have been reviewed with oncology service, patient has been tolerating by mouth well no nausea has been seen, her diet has been advanced and improved to solid diet now, her MRI of the abdomen revealed some ascites and pleural effusion, calcification noted within the gallbladder, large hiatal hernia seen, portal vein thrombosis not much change compared to prior visits previous studies, bilateral adrenal masses have reduced in size, soft tissue mass in the area of maria elena is down to 4.6 cm compared to 5.5 cm, retroperitoneal adenopathy that was seen previously in para-aortic area have improved significantly, I have discussed findings of the CAT scan/MRI with the oncology service given that patient is on and requests not a candidate for invasive procedure clinically patient however has been stable plan is to consider possible paracentesis on outpatient setting for that patient need to be off of telemetry questions, clinically patient has improved now being discharged likely later on today with follow up with oncology service early next week and with me in couple of weeks to follow-up on pleural effusion 10/03/2018, patient seen eval examined during the rounds clinically patient has been doing relatively better nausea however slightly stable and improved with medications, hemodynamic status stable labs reviewed medications reviewed, potassium is 3.2, renal functions remain stable, she is status post a pelvic and abdominal MRI, results pending awaiting further recommendation for oncology service 10/02/2018, patient seen eval reexamined during the rounds clinically patient has been doing better in terms of breathing but is still nauseous, labs are pending, hemodynamic status overall stable patient is gently being hydrated diet is slowly being advanced to follow clinical course closely further recommendations pending ROM oncology service has been following as well 68-year-old female who has a been diagnosed with metastatic stage IV colon cancer patient is currently on therapy, her symptoms began in May 2017 when she was having a change in bowel habits CT of the abdomen showed descending colon mucosal thickening. Further workup with colonoscopy and EGD showed an ascending colon mass that was nearly obstructing, biopsy consistent with poorly differentiated carcinoma with prominent neuroendocrine features. 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 She underwent CT of the chest due to hypoxia, negative for PE however since it did show thoracic metastases, for details about chemotherapy refer to the note as per oncology services, patient presented for evaluation regards to nausea vomiting and pain. Cancer pain. Patient's very weak severe pain at home and unable to take medications secondary to nausea and vomiting, she hasn' t been able to feel good for about a day and a half. No fevers no diarrhea. She does again have nausea vomiting. Objective - Vital Signs Vital signs: Vital Signs Temp 97.9 F 10/04/18 12:05 Pulse 98 10/04/18 12:05 Resp 16 10/04/18 12:05 BP 101/58 10/04/18 12:05 Pulse Ox 98 10/04/18 12:05 Intake & Output 10/03/18 10/04/18 10/04/18 18:59 06:59 18:59 Intake Total 1130 Output Total 10 Balance 1120 Weight 47.62 kg Intake: Oral 1130 Output: Emesis 10 Other: Voiding Method Toilet Toilet Toilet Bedside Commode Bedside Commode # Voids 2 3 # Bowel Movements 3 - Exam General: In no acute distress. Malnourished. HEENT: Mucosa moist. Neck: Neck supple. Lymph: No cervical/supraclavicular LAD. Lungs: CTA-B without wheezing or rhonchi. Heart: RRR. No LE edema. Abdomen: Soft, nontender, nondistended, with positive bowel sounds. No fluid thrill or shifting dullness noted MSK: 4/4 strength in all 4 extremities. Neuro: Alert and oriented 3. No obvious gross neurologic deficits. Skin: No jaundice or rash. Psych: Appropriate affect. - Labs CBC & Chem 7: 10/04/18 07:25 12/28/18 07:25 Labs: Abnormal Lab Results - Last 24 Hours (Table) 10/03/18 10/04/18 10/04/18 Range/Units 07:23 07:25 07:25 WBC 3.3 L (3.8-10.6) k/uL Hgb 11.2 L (11.4-16.0) gm/dL MCHC 30.3 L (31.0-37.0) g/dL RDW 17.8 H (11.5-15.5) % Lymphocytes # 0.4 L (1.0-4.8) k/uL Chloride 108 H (98-107) mmol/L Creatinine 0.40 L (0.52-1.04) mg/dL Glucose 108 H (74-99) mg/dL Carcinoembryonic Ag 24.0 H (0.0-4.9) ng/mL Assessment and Plan Assessment: Intractable nausea and vomiting related to chemotherapy Ascites Portal vein thrombosis chronic Right-sided pleural effusion related to ascites Electrolyte imbalance with hypokalemia Generalized weakness and medical debility Stage IV metastatic colon cancer History of iliac vein thrombosis on anticoagulants oral Pancytopenia including neutropenia and anemia Plan: Evaluation for paracentesis on outpatient setting once off of her liquids Patient will be discharged home on current medications later on today with follow up with oncology early next week for further evaluation of ascites to be done by oncology service on outpatient setting as per discussion with oncology nurse practitioner Replace potassium Pain management Home medications reviewed and restarted O follow clinical course closely further recommendations pending oncology recommendations reviewed and appreciated Time with Patient: Greater than 30
--- NOTE | 2018-10-04 14:01 | P.DS ---
Providers Date of admission: 09/30/18 21:48 Expected date of discharge: 10/04/18 Attending physician: Irma Lyons Consults: 09/30/18 21:46 Consult Physician Routine Consulting Provider: Becky Tejada Consult Reason/Comments: known Do you want consulting provider notified?: Yes Primary care physician: [facility] Course: ntractable nausea and vomiting related to chemotherapy, electrolyte imbalance related to hypokalemia, generalized weakness and medical debility, stage IV's metastatic colon cancer, history of iliac vein thrombosis, pancytopenia, 10/04/2018, patient seen eval examined during the rounds clinically patient has improved significantly no more nausea has been noted, patient remains on her chronic pain medications for her metastatic stage IV cancer, electrolyte imbalance has improved, patient underwent a computed tomography scan and radiographic studies, those findings have been reviewed with oncology service, patient has been tolerating by mouth well no nausea has been seen, her diet has been advanced and improved to solid diet now, her MRI of the abdomen revealed some ascites and pleural effusion, calcification noted within the gallbladder, large hiatal hernia seen, portal vein thrombosis not much change compared to prior visits previous studies, bilateral adrenal masses have reduced in size, soft tissue mass in the area of maria elena is down to 4.6 cm compared to 5.5 cm, retroperitoneal adenopathy that was seen previously in para-aortic area have improved significantly, I have discussed findings of the CAT scan/MRI with the oncology service given that patient is on and requests not a candidate for invasive procedure clinically patient however has been stable plan is to consider possible paracentesis on outpatient setting for that patient need to be off of telemetry questions, clinically patient has improved now being discharged likely later on today with follow up with oncology service early next week and with me in couple of weeks to follow-up on pleural effusion 10/03/2018, patient seen eval examined during the rounds clinically patient has been doing relatively better nausea however slightly stable and improved with medications, hemodynamic status stable labs reviewed medications reviewed, potassium is 3.2, renal functions remain stable, she is status post a pelvic and abdominal MRI, results pending awaiting further recommendation for oncology service 10/02/2018, patient seen eval reexamined during the rounds clinically patient has been doing better in terms of breathing but is still nauseous, labs are pending, hemodynamic status overall stable patient is gently being hydrated diet is slowly being advanced to follow clinical course closely further recommendations pending ROM oncology service has been following as well 68-year-old female who has a been diagnosed with metastatic stage IV colon cancer patient is currently on therapy, her symptoms began in May 2017 when she was having a change in bowel habits CT of the abdomen showed descending colon mucosal thickening. Further workup with colonoscopy and EGD showed an ascending colon mass that was nearly obstructing, biopsy consistent with poorly differentiated carcinoma with prominent neuroendocrine features. 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 She underwent CT of the chest due to hypoxia, negative for PE however since it did show thoracic metastases, for details about chemotherapy refer to the note as per oncology services, patient presented for evaluation regards to nausea vomiting and pain. Cancer pain. Patient's very weak severe pain at home and unable to take medications secondary to nausea and vomiting, she hasn' t been able to feel good for about a day and a half. No fevers no diarrhea. She does again have nausea vomiting. Objective - Vital Signs Vital signs: Vital Signs Temp 97.9 F 10/04/18 12:05 Pulse 98 10/04/18 12:05 Resp 16 10/04/18 12:05 BP 101/58 10/04/18 12:05 Pulse Ox 98 10/04/18 12:05 Intake & Output 10/03/18 10/04/18 10/04/18 18:59 06:59 18:59 Intake Total 1130 Output Total 10 Balance 1120 Weight 47.62 kg Intake: Oral 1130 Output: Emesis 10 Other: Voiding Method Toilet Toilet Toilet Bedside Commode Bedside Commode # Voids 2 3 # Bowel Movements 3 - Exam General: In no acute distress. Malnourished. HEENT: Mucosa moist. Neck: Neck supple. Lymph: No cervical/supraclavicular LAD. Lungs: CTA-B without wheezing or rhonchi. Heart: RRR. No LE edema. Abdomen: Soft, nontender, nondistended, with positive bowel sounds. No fluid thrill or shifting dullness noted MSK: 4/4 strength in all 4 extremities. Neuro: Alert and oriented 3. No obvious gross neurologic deficits. Skin: No jaundice or rash. Psych: Appropriate affect. - Labs CBC & Chem 7: 10/04/18 07:25 10/04/18 07:25 Labs: Abnormal Lab Results - Last 24 Hours (Table) 10/03/18 10/04/18 10/04/18 Range/Units 07:23 07:25 07:25 WBC 3.3 L (3.8-10.6) k/uL Hgb 11.2 L (11.4-16.0) gm/dL MCHC 30.3 L (31.0-37.0) g/dL RDW 17.8 H (11.5-15.5) % Lymphocytes # 0.4 L (1.0-4.8) k/uL Chloride 108 H (98-107) mmol/L Creatinine 0.40 L (0.52-1.04) mg/dL Glucose 108 H (74-99) mg/dL Carcinoembryonic Ag 24.0 H (0.0-4.9) ng/mL Assessment and Plan Assessment: Intractable nausea and vomiting related to chemotherapy Ascites Portal vein thrombosis chronic Right-sided pleural effusion related to ascites Electrolyte imbalance with hypokalemia Generalized weakness and medical debility Stage IV metastatic colon cancer History of iliac vein thrombosis on anticoagulants oral Pancytopenia including neutropenia and anemia Plan: Evaluation for paracentesis on outpatient setting once off of her liquids Patient will be discharged home on current medications later on today with follow up with oncology early next week for further evaluation of ascites to be done by oncology service on outpatient setting as per discussion with oncology nurse practitioner Replace potassium Pain management Home medications reviewed and restarted O follow clinical course closely further recommendations pending oncology recommendations reviewed and appreciated Pertinent Studies: Abdominal MRI, lumbosacral spine MRI, pelvis MRI, chest x-ray Procedures: None Patient Condition at Discharge: Fair Plan - Discharge Summary Discharge Rx Participant: Yes New Discharge Prescriptions: No Action fentaNYL 100MCG/HR PATCH [Duragesic 100MCG/HR] 1 patch TRANSDERM Q72H patch Prochlorperazine [Compazine] 10 mg PO Q6H PRN PRN Reason: Nausea Diphenox-Atrop 2.5-0.025 mg [Lomotil] 2 tab PO QID PRN PRN Reason: Diarrhea oxyCODONE-APAP 7.5-325MG [Percocet 7.5-325 mg] 10 mg PO Q4HR Lidocaine-Prilocaine Cream [Emla Cream 2.5%/2.5%] 1 applic TOPICAL DIRECTED PRN PRN Reason: port access Dronabinol [Marinol] 5 mg PO AC-BID Apixaban [Eliquis] 5 mg PO BID 30 Days #60 tab Potassium Chloride [K-Tab ER] 20 meq PO DAILY #30 tablet.er Vemurafenib [Zelboraf] 240 mg PO BID Discharge Medication List fentaNYL 100MCG/HR PATCH [Duragesic 100MCG/HR] 1 patch TRANSDERM Q72H patch [Rx] Diphenox-Atrop 2.5-0.025 mg [Lomotil] 2 tab PO QID PRN 07/02/18 [History] Dronabinol [Marinol] 5 mg PO AC-BID 07/02/18 [History] Lidocaine-Prilocaine Cream [Emla Cream 2.5%/2.5%] 1 applic TOPICAL DIRECTED PRN 07/02/18 [History] Prochlorperazine [Compazine] 10 mg PO Q6H PRN 07/02/18 [History] oxyCODONE-APAP 7.5-325MG [Percocet 7.5-325 mg] 10 mg PO Q4HR 07/02/18 [History] Apixaban [Eliquis] 5 mg PO BID 30 Days #60 tab 07/10/18 [Rx] Potassium Chloride [K-Tab ER] 20 meq PO DAILY #30 tablet.er 07/10/18 [Rx] Vemurafenib [Zelboraf] 240 mg PO BID 09/30/18 [History] Follow up Appointment(s)/Referral(s): Radha Velasquez MD [Primary Care Provider] - 1-2 days Anthony Carrillo MD [STAFF PHYSICIAN] - 1 Week Jose Pham MD [STAFF PHYSICIAN] - 1 Week
--- NOTE | 2018-10-04 14:04 | P.PN ---
Subjective Progress Note Date: 10/04/18 Principal diagnosis: Intractable N,V and LLQ/left back pain Pt seen in f/u today, she is feeling a little better, less abd discomfort, she did have 2 BMs, she did eat without nausea or vomiting, no fevers. Her legs are still weak, no numbness or tingling, still have incontinence of bladder, MRI was negative for any cord compression, her disease has decreased in size! Objective - Vital Signs Vital signs: Vital Signs Temp 97.9 F 10/04/18 12:05 Pulse 98 10/04/18 12:05 Resp 16 10/04/18 12:05 BP 101/58 10/04/18 12:05 Pulse Ox 98 10/04/18 12:05 Intake & Output 10/03/18 10/04/18 10/04/18 18:59 06:59 18:59 Intake Total 1130 Output Total 10 Balance 1120 Weight 47.62 kg Intake: Oral 1130 Output: Emesis 10 Other: Voiding Method Toilet Toilet Toilet Bedside Commode Bedside Commode # Voids 2 3 # Bowel Movements 3 - Constitutional General appearance: Present: cooperative, no acute distress, thin - EENT Eyes: Present: anicteric sclerae, EOMI - Respiratory Respiratory: bilateral: CTA - Cardiovascular Heart sounds: normal: S1, S2 - Peripheral edema leg Peripheral Edema: bilateral: None - Gastrointestinal General gastrointestinal: Present: normal bowel sounds, soft - Neurologic Neurologic: Present: CNII-XII intact - Musculoskeletal Musculoskeletal: Present: generalized weakness - Psychiatric Psychiatric: Present: A&O x's 3, appropriate affect, intact judgment & insight - Labs CBC & Chem 7: 10/04/18 07:25 10/04/18 07:25 Labs: Abnormal Lab Results - Last 24 Hours (Table) 10/03/18 10/04/18 10/04/18 Range/Units 07:23 07:25 07:25 WBC 3.3 L (3.8-10.6) k/uL Hgb 11.2 L (11.4-16.0) gm/dL MCHC 30.3 L (31.0-37.0) g/dL RDW 17.8 H (11.5-15.5) % Lymphocytes # 0.4 L (1.0-4.8) k/uL Chloride 108 H (98-107) mmol/L Creatinine 0.40 L (0.52-1.04) mg/dL Glucose 108 H (74-99) mg/dL Carcinoembryonic Ag 24.0 H (0.0-4.9) ng/mL - Imaging and Cardiology MRI - abdomen: report reviewed MRI of LS and pelvis reports reviewed Assessment and Plan (1) Neoplasm related pain Narrative/Plan: Unclear source of pain. Pt disease on MRI has decreased in size. Pt did state some relief of abd pain after BM. She does have some ascites that is new noted on MRI. Plan is for paracentesis next week as pt is on eliquis and that will have to be held prior to procedure. Did discuss case with Attending. Current Visit: Yes Status: Acute Priority: High Code(s): G89.3 - NEOPLASM RELATED PAIN (ACUTE) (CHRONIC) SNOMED Code(s): 63199213060697 (2) Nausea and vomiting Narrative/Plan: Resolved Current Visit: Yes Status: Acute Priority: High Code(s): R11.2 - NAUSEA WITH VOMITING, UNSPECIFIED SNOMED Code(s): 60672895 (3) Metastatic colon cancer in female Narrative/Plan: Pt is asking for a break from treatment to get stronger. Being that treatment is of palliative intent it is reasonable to provide pt with a treatment holiday to rehabilitate. I have sent a message to primary Oncologist to verify that that is ok. If any changes in plans pt will be contacted directly by office staff. She verbalized understanding plan Pt will cont to hold oral vemurafenib Current Visit: Yes Status: Acute Priority: High Code(s): C18.9 - MALIGNANT NEOPLASM OF COLON, UNSPECIFIED SNOMED Code(s): 505835611 (4) Leucopenia Narrative/Plan: Chemo related, improving Current Visit: Yes Status: Acute Code(s): D72.819 - DECREASED WHITE BLOOD CELL COUNT, UNSPECIFIED SNOMED Code(s): 31988305 (5) Anemia Narrative/Plan: chemo related, improving Current Visit: Yes Status: Acute Code(s): D64.9 - ANEMIA, UNSPECIFIED SNOMED Code(s): 788641950 Plan: Pt is ok from Hem/Onc standpoint to be discharged once cleared by IM and consulting Physicians.
[2018-10-09 16:22] LABS: Cryptosporidium parvum Not detected (Not detected); Isospora belli Not detected (Not detected); Microsporidium Not detected (Not detected); Routine Ova and Parasites Not detected
== END 2018-10-04 15:53 | disposition home or self-care (01) | DRG 391 ==
LOC: EC 17:55 → 3NMEDONC 21:48
PROVIDERS: ADMIT Internal Medicine; ATTEND Internal Medicine
DX: R11.2 Nausea with vomiting, unspecified (principal); I81 Portal vein thrombosis; C18.9 Malignant neoplasm of colon, unspecified; C79.89 Secondary malignant neoplasm of other specified sites; J90 Pleural effusion, not elsewhere classified; R18.8 Other ascites; T45.1X5A Adverse effect of antineoplastic and immunosuppressive drugs, initial encounter; E87.6 Hypokalemia; G89.3 Neoplasm related pain (acute) (chronic); J32.9 Chronic sinusitis, unspecified; M81.0 Age-related osteoporosis without current pathological fracture; R09.02 Hypoxemia; R32 Unspecified urinary incontinence; Z79.01 Long term (current) use of anticoagulants; Z87.891 Personal history of nicotine dependence; Z92.3 Personal history of irradiation; K44.9 Diaphragmatic hernia without obstruction or gangrene; Z79.891 Long term (current) use of opiate analgesic; Z79.899 Other long term (current) drug therapy; Z90.49 Acquired absence of other specified parts of digestive tract; Z80.3 Family history of malignant neoplasm of breast; Z80.0 Family history of malignant neoplasm of digestive organs; D64.81 Anemia due to antineoplastic chemotherapy; D70.1 Agranulocytosis secondary to cancer chemotherapy
CPT/HCPCS: 36415; 71046; 72158; 72197; 74183; 80048; 80053; 81001; 82140; 82378; 82550; 82553; 83605; 83630; 83735; 84100; 84484; 85025; 85610; 85730; 87045; 87046; 87086; 87177; 87207; 87209; 87324; 87502; 93005; 94760; 96361; 96365; 96375; 96376; 99285

== ENCOUNTER 2018-10-11 13:00 | Inpatient (IN) | payer MEDICARE ==
--- NOTE | 2018-10-11 13:36 | ED ---
General Adult HPI <Ace Huddleston - Last Filed: 10/11/18 18:43> - General Source: patient, RN notes reviewed Mode of arrival: wheelchair Limitations: no limitations <Neris Walton - Last Filed: 10/11/18 20:05> - General Chief complaint: Abdominal Pain Stated complaint: pain management Time Seen by Provider: 10/11/18 13:08 - History of Present Illness Initial comments: Patient is a 68-year-old female with history of metastatic colon cancer status post resection who presents to the emergency department with complaint of chronic abdominal and back pain for the past 2 years. She reports this is the same pain and no new trauma or injury has occurred. She reports taking oxycodone and fentanyl patch for pain control. Admits to pain with urination; denies hematuria. Her typical bowel habits include diarrhea, which is unchanged. Admits to occasional nausea; denies current nausea. Denies bloody or black tarry stools. Patient denies any recent fever, chills, shortness of breath, chest pain, numbness or tingling, headaches or visual changes, or any other complaints. (Neris Walton) - Related Data Home Medications Medication Instructions Recorded Confirmed Diphenox-Atrop 2.5-0.025 mg 2 tab PO QID PRN 07/02/18 10/11/18 [Lomotil] Dronabinol [Marinol] 5 mg PO AC-BID 07/02/18 10/11/18 Lidocaine-Prilocaine Cream [Emla 1 applic TOPICAL DIRECTED PRN 07/02/1810/11 Cream 2.5%/2.5%] Prochlorperazine [Compazine] 10 mg PO Q6H PRN 07/02/18 10/11/18 oxyCODONE-APAP 7.5-325MG [Percocet 10 mg PO Q4HR 07/02/18 10/11/18 7.5-325 mg] Vemurafenib [Zelboraf] 240 mg PO BID 09/30/18 10/11/18 Previous Rx's Medication Instructions Recorded fentaNYL 100MCG/HR PATCH 1 patch TRANSDERM Q72H patch 06/20/18 [Duragesic 100MCG/HR] Apixaban [Eliquis] 5 mg PO BID 30 Days #60 tab 07/10/18 Potassium Chloride [K-Tab ER] 20 meq PO DAILY #30 tablet.er 07/10/18 Allergies Allergy/AdvReac Type Severity Reaction Status Date / Time tramadol HCl [From [facility]] Allergy Severe PARALYZED Verified 10/11/18 13:45 FOR HOURS, UNABLE TO MOVE" Review of Systems ROS Other: All systems not noted in ROS Statement are negative. <Ace Huddleston - Last Filed: 10/11/18 18:43> ROS Other: All systems not noted in ROS Statement are negative. <Neris Walton - Last Filed: 10/11/18 20:05> ROS Statement: Those systems with pertinent positive or pertinent negative responses have been documented in the HPI. Past Medical History Past Medical History: Cancer, Deep Vein Thrombosis (DVT) Additional Past Medical History / Comment(s): OSTEOPOROSIS, "SMALL BRAIN BLEEDS "-NO RESIDUAL EFFECTS,HX OF DVT YEARS AGO AFTER TAKING CONTROL PILLS, hx colon cancer(sx and finished chemo ), chronic sinusitis/deviated septum(sx ), ascitis History of Any Multi-Drug Resistant Organisms: None Reported Past Surgical History: Bowel Resection Additional Past Surgical History / Comment(s): nasal sx 2014 bladder suspension, 07/2017 had maria elena cath,celiac plexsus block 06-04-18. last sunday at [facility] abd lymhp node bx-has'nt gotten results yet. Past Anesthesia/Blood Transfusion Reactions: No Reported Reaction, Motion Sickness Past Psychological History: No Psychological Hx Reported Smoking Status: Former smoker Past Alcohol Use History: None Reported Past Drug Use History: Marijuana - Past Family History Mother Family Medical History: Cancer Additional Family Medical History / Comment(s): BREAST Father Family Medical History: Cancer Additional Family Medical History / Comment(s): PANCREATIC Sister(s) Family Medical History: Cancer Additional Family Medical History / Comment(s): BREAST <Neris Walton - Last Filed: 10/11/18 20:05> General Exam Limitations: no limitations General appearance: alert, in no apparent distress Head exam: Present: atraumatic, normocephalic Eye exam: Present: normal appearance Respiratory exam: Present: normal lung sounds bilaterally Cardiovascular Exam: Present: regular rate, normal rhythm GI/Abdominal exam: Present: soft, tenderness, normal bowel sounds. Absent: distended, guarding, rebound, rigid Back exam: Present: normal inspection. Absent: tenderness, CVA tenderness (R), CVA tenderness (L) Neurological exam: Present: alert, oriented X3 Skin exam: Present: warm, dry <Neris Walton - Last Filed: 10/11/18 20:05> Course <Ace Huddleston - Last Filed: 10/11/18 18:43> <Neris Walton - Last Filed: 10/11/18 20:05> Vital Signs 10/11/18 10/11/18 10/11/18 13:01 14:58 16:50 Temperature 97.6 F Pulse Rate 106 H 104 H 107 H Respiratory 16 18 18 Rate Blood Pressure 118/83 110/66 129/76 O2 Sat by Pulse 97 98 98 Oximetry 10/11/18 18:50 Temperature Pulse Rate 102 H Respiratory 18 Rate Blood Pressure 122/55 O2 Sat by Pulse 97 Oximetry - Reevaluation(s) Reevaluation #1: 10/11/18 18:43 PA supervision: I personally do a [id number] evaluation the patient did discuss [employer] her family. Patient does have nonspecific abdominal pain she does have evidence of dehydration she does have evidence of an elevated alk phos of 504. She's had dark brown urine today. Gallbladder ultrasound showed stones and sludge with a prominent common bile duct. Also right adrenal mass. CPK is pending. Case is discussed with Dr. Lyons and consultation will be made a Dr. Tejada as well as Dr. Booker. 10/11/18 18:44 I do agree with the initial assessment and plan. (Ace Huddleston) Medical Decision Making - Lab Data Result diagrams: 10/11/18 14:10 10/11/18 14:10 <Ace Huddleston - Last Filed: 10/11/18 18:43> - Lab Data Result diagrams: 10/11/18 14:10 10/11/18 14:10 <Neris Walton - Last Filed: 10/11/18 20:05> - Medical Decision Making Dilaudid given for pain control. Ultrasound of the gallbladder reveals: Hydropic gallbladder with gallstones and sludge. Mild prominence of the common bile duct. Prominence of the right renal pelvis. Right adrenal mass of uncertain etiology. Mild ascites. Will admit. Case discussed in detail with attending physician Dr. Huddleston. (Neris Walton) - Lab Data Lab Results 10/11/18 10/11/18 10/11/18 Range/Units 14:10 14:10 14:10 WBC 5.2 (3.8-10.6) k/uL RBC 4.55 (3.80-5.40) m/uL Hgb 12.0 (11.4-16.0) gm/dL Hct 38.9 (34.0-46.0) % MCV 85.4 (80.0-100.0) fL MCH 26.4 (25.0-35.0) pg MCHC 30.9 L (31.0-37.0) g/dL RDW 18.7 H (11.5-15.5) % Plt Count 301 (150-450) k/uL Neutrophils % 82 % Lymphocytes % 8 % Monocytes % 7 % Eosinophils % 2 % Basophils % 0 % Neutrophils # 4.3 (1.3-7.7) k/uL Lymphocytes # 0.4 L (1.0-4.8) k/uL Monocytes # 0.4 (0-1.0) k/uL Eosinophils # 0.1 (0-0.7) k/uL Basophils # 0.0 (0-0.2) k/uL Hypochromasia Slight Anisocytosis Slight Sodium 133 L (137-145) mmol/L Potassium 4.8 (3.5-5.1) mmol/L Chloride 99 (98-107) mmol/L Carbon Dioxide 23 (22-30) mmol/L Anion Gap 11 mmol/L BUN 21 H (7-17) mg/dL Creatinine 0.64 (0.52-1.04) mg/dL Est GFR (CKD-EPI)AfAm >90 (>60 ml/min/1.73 sqM) Est GFR (CKD-EPI)NonAf >90 (>60 ml/min/1.73 sqM) Glucose 108 H (74-99) mg/dL Plasma Lactic Acid Santos 1.6 (0.7-2.0) mmol/L Calcium 9.0 (8.4-10.2) mg/dL Total Bilirubin 3.4 H (0.2-1.3) mg/dL AST 68 H (14-36) U/L ALT 40 (9-52) U/L Alkaline Phosphatase 504 H (38-126) U/L Total Creatine Kinase (30-135) U/L CK-MB (CK-2) (0.0-2.4) ng/mL CK-MB (CK-2) Rel Index Total Protein 5.7 L (6.3-8.2) g/dL Albumin 2.9 L (3.5-5.0) g/dL Lipase 367 H (23-300) U/L Urine Color Urine Appearance (Clear) Urine pH (5.0-8.0) Ur Specific [place] (1.001-1.035) Urine Protein (Negative) Urine Glucose (UA) (Negative) Urine Ketones (Negative) Urine Blood (Negative) Urine Nitrite (Negative) Urine Bilirubin (Negative) Urine Urobilinogen (<2.0) mg/dL Ur Leukocyte Esterase (Negative) Urine RBC (0-5) /hpf Urine WBC (0-5) /hpf Ur Squamous Epith Cells (0-4) /hpf Urine Bacteria (None) /hpf Hyaline Casts (0-2) /lpf Urine Mucus (None) /hpf 10/11/18 10/11/18 Range/Units 14:10 14:55 WBC (3.8-10.6) k/uL RBC (3.80-5.40) m/uL Hgb (11.4-16.0) gm/dL Hct (34.0-46.0) % MCV (80.0-100.0) fL MCH (25.0-35.0) pg MCHC (31.0-37.0) g/dL RDW (11.5-15.5) % Plt Count (150-450) k/uL Neutrophils % % Lymphocytes % % Monocytes % % Eosinophils % % Basophils % % Neutrophils # (1.3-7.7) k/uL Lymphocytes # (1.0-4.8) k/uL Monocytes # (0-1.0) k/uL Eosinophils # (0-0.7) k/uL Basophils # (0-0.2) k/uL Hypochromasia Anisocytosis Sodium (137-145) mmol/L Potassium (3.5-5.1) mmol/L Chloride (98-107) mmol/L Carbon Dioxide (22-30) mmol/L Anion Gap mmol/L BUN (7-17) mg/dL Creatinine (0.52-1.04) mg/dL Est GFR (CKD-EPI)AfAm (>60 ml/min/1.73 sqM) Est GFR (CKD-EPI)NonAf (>60 ml/min/1.73 sqM) Glucose (74-99) mg/dL Plasma Lactic Acid Santos (0.7-2.0) mmol/L Calcium (8.4-10.2) mg/dL Total Bilirubin (0.2-1.3) mg/dL AST (14-36) U/L ALT (9-52) U/L Alkaline Phosphatase (38-126) U/L Total Creatine Kinase 22 L (30-135) U/L CK-MB (CK-2) 0.7 (0.0-2.4) ng/mL CK-MB (CK-2) Rel Index 3.2 Total Protein (6.3-8.2) g/dL Albumin (3.5-5.0) g/dL Lipase (23-300) U/L Urine Color Dark Brown Urine Appearance Cloudy H (Clear) Urine pH 5.5 (5.0-8.0) Ur Specific [place] 1.030 (1.001-1.035) Urine Protein 1+ H (Negative) Urine Glucose (UA) Negative (Negative) Urine Ketones 1+ H (Negative) Urine Blood Negative (Negative) Urine Nitrite Negative (Negative) Urine Bilirubin 2+ H (Negative) Urine Urobilinogen 6.0 (<2.0) mg/dL Ur Leukocyte Esterase Small H (Negative) Urine RBC 4 (0-5) /hpf Urine WBC 13 H (0-5) /hpf Ur Squamous Epith Cells 3 (0-4) /hpf Urine Bacteria Rare H (None) /hpf Hyaline Casts 12 H (0-2) /lpf Urine Mucus Moderate H (None) /hpf Disposition <Ace Huddleston - Last Filed: 10/11/18 18:43> Is patient prescribed a controlled substance at d/c from ED?: No <Neris Walton - Last Filed: 10/11/18 20:05> Clinical Impression: Chronic abdominal pain, History of colon cancer, Failure to thrive Disposition: ADMITTED IP TO THIS HOSP Referrals: Radha Velasquez MD [Primary Care Provider] - 1-2 days
[2018-10-11 14:37] LABS: Anisocytosis Slight; Basophils % (A) 0 %; Eosinophils # (A) 0.1 k/uL (0-0.7); Eosinophils % (A) 2 %; HCT 38.9 % (34.0-46.0); Hypochromasia Slight; Lymphocytes # (A) 0.4 k/uL (1.0-4.8); Lymphocytes % (A) 8 %; MCH 26.4 pg (25.0-35.0); MCHC 30.9 g/dL (31.0-37.0); MCV 85.4 fL (80.0-100.0); Monocytes # (A) 0.4 k/uL (0-1.0); Monocytes % (A) 7 %; Neutrophils # (A) 4.3 k/uL (1.3-7.7); Neutrophils % (A) 82 %; Platelet Count 301 k/uL (150-450); RBC 4.55 m/uL (3.80-5.40); RDW 18.7 % (11.5-15.5); WBC 5.2 k/uL (3.8-10.6)
[2018-10-11 14:46] LABS: ALT 40 U/L (9-52); AST 68 U/L (14-36); Albumin 2.9 g/dL (3.5-5.0); Alkaline Phosphatase 504 U/L (38-126); Anion Gap 11 mmol/L; Blood Urea Nitrogen 21 mg/dL (7-17); Carbon Dioxide 23 mmol/L (22-30); Chloride 99 mmol/L (98-107); Glucose 108 mg/dL (74-99); Lipase 367 U/L (23-300); Potassium 4.8 mmol/L (3.5-5.1); Sodium 133 mmol/L (137-145); Total Bilirubin 3.4 mg/dL (0.2-1.3); Total Protein 5.7 g/dL (6.3-8.2)
[2018-10-11 15:14] LABS: Appearance,Urine Cloudy (Clear); Bacteria,Urine Rare /hpf; Bilirubin,Urine 2+ (Negative); Blood,Urine Negative (Negative); Color,Urine Dark Brown; Glucose,Urine (UA) Negative (Negative); Hyaline Casts,Urine 12 /lpf (0-2); Ketones,Urine 1+ (Negative); Leukocyte Esterase,Urine Small (Negative); Mucus,Urine Moderate /hpf; Nitrite,Urine Negative (Negative); PH, Urine 5.5 (5.0-8.0); Protein,Urine 1+ (Negative); RBC,Urine 4 /hpf (0-5); Squamous Epithelial Cell,Urine 3 /hpf (0-4); WBC,Urine 13 /hpf (0-5)
[2018-10-11] MEDS ORDERED: SODIUM CHLORIDE 0.9% 1,000 ML IV SCH (15:15)
[2018-10-11] MEDS ORDERED: HYDROmorphone 0.5 MG/0.5 ML SYRINGE IVP STA ×2 (16:15→18:39)
[2018-10-11] MEDS ORDERED: ONDANSETRON 4 MG/2 ML VIAL IVP PRN (16:16)
--- NOTE | 2018-10-11 16:23 | US ---
EXAMINATION TYPE: US gallbladder DATE OF EXAM: 10/11/2018 COMPARISON: Recent MRI, prev CT also CLINICAL HISTORY: Pain. Severe ABD pain EXAM MEASUREMENTS: Liver Length: 12.5 cm Gallbladder Wall: 0.2 cm CBD: 0.7 cm Right Kidney: 10.0 x 5.1 x 5.2 cm Pt in severe ABD pain, unable to tolerate probe pressure, unable to lie down for very long Pancreas: Obscured by bowel gas Liver: Limited visualization shows no abnormality Gallbladder: Hydropic with sludge and gallstone at fundus Evidence for sonographic Butler's sign: Pt in severe pain all over CBD: wnl Right Kidney: Dilated renal pelvis= 1.3 cm/ probable adrenal mass visualized= 3.5 x 2.1 x 3.5 cm Mild ascites and right pleural effusion seen during exam IMPRESSION: 1. Hydropic gallbladder with gallstones and sludge. Mild prominence of the common bile duct. Correlat e clinically for acute cholecystitis. 2. Prominence of the right renal pelvis. 3. Right adrenal mass of uncertain etiology. 4. Mild ascites.
[2018-10-11 19:32] LABS: Creatine Kinase MB 0.7 ng/mL (0.0-2.4)
[2018-10-11] MEDS ORDERED: NALOXONE 0.4 MG/ML 1 ML VIAL IV PRN (19:50)
[2018-10-11] MEDS: HYDROmorphone 1 MG/ML 1 ML SYRINGE IVP PRN (21:22)
[2018-10-11] MEDS ORDERED: LIDOCAINE-PRILOCAINE 2.5-2.5% CREAM 5 GM TUBE TOPICAL PRN (21:39)
[2018-10-11] MEDS ORDERED: DIPHENOX-ATROP 2.5-0.025 MG 1 EACH TAB PO PRN (21:39)
[2018-10-11] MEDS ORDERED: PROCHLORPERAZINE 10 MG TAB PO PRN (21:39)
[2018-10-11] MEDS: SODIUM CHLORIDE 0.9% 1,000 ML IV SCH (22:41)
[2018-10-12] MEDS: HYDROmorphone 1 MG/ML 1 ML SYRINGE IVP PRN ×7 (00:22→21:42)
[2018-10-12] MEDS: SODIUM CHLORIDE 0.9% 1,000 ML IV SCH ×4 (00:24→15:14)
[2018-10-12] MEDS: oxyCODONE-APAP 7.5-325MG 1 EACH TAB PO PRN ×3 (03:37→19:46)
[2018-10-12] MEDS ORDERED: DRONABINOL 5 MG PO SCH (07:30)
[2018-10-12] MEDS: VEMURAFENIB 240 MG PO SCH ×2 (08:15→21:59)
[2018-10-12] MEDS: POTASSIUM CHLORIDE ER 20 MEQ TAB.ER PO SCH (08:25)
[2018-10-12] MEDS: DRONABINOL 2.5 MG CAP PO SCH ×2 (08:27→18:04)
[2018-10-12] MEDS ORDERED: APIXABAN 5 MG TAB PO SCH (09:00)
[2018-10-12] MEDS ORDERED: ONDANSETRON 4 MG/2 ML VIAL IVP PRN (12:02)
--- NOTE | 2018-10-12 12:11 | P.HPIM ---
History of Present Illness H&P Date: 10/12/18 Chief Complaint: Abdominal pain radiating to the back Mable Gross is a 68-year-old female who presented to [facility] emergency room with a chief complaint of abdominal pain and nausea. Patient has a known history of metastatic colon cancer status post partial colectomy, patient is followed by oncology and is receiving chemotherapy. She was admitted to [facility] 2 weeks ago with abdominal pain pain medication were adjusted and she was discharged home however she returns was worsening pain and nausea. She was evaluated in the emergency room she had elevated alkaline phosphatase and elevated lipase ultrasound of the gallbladder revealed evidence of sludge and stones in the gallbladder with possible acute cholecystitis she was admitted to medical floor for further evaluation and treatment auscultation 4 oncology and for general surgery was initiated in the emergency room. Patient also had evidence of urinary tract infection she was started on IV Rocephin 1 g every 24 hours. Past Medical History Past Medical History: Cancer, Deep Vein Thrombosis (DVT) Additional Past Medical History / Comment(s): OSTEOPOROSIS, "SMALL BRAIN BLEEDS "-NO RESIDUAL EFFECTS,HX OF DVT YEARS AGO AFTER TAKING CONTROL PILLS, hx stage 4 metastatic colon cancer(sx and chemo -pt stated had chemo last approx 3 weeks ago), chronic sinusitis/deviated septum(sx), ascities History of Any Multi-Drug Resistant Organisms: None Reported Past Surgical History: Bowel Resection, Hysterectomy Additional Past Surgical History / Comment(s): nasal sx 2014 bladder suspension, egd/colonoscopy, 07/2017 had maria elena cath,celiac plexsus block 06-04-18. last sunday at [facility] abd lymhp node bx. Past Anesthesia/Blood Transfusion Reactions: Motion Sickness Smoking Status: Former smoker - Past Family History Mother Family Medical History: Cancer Additional Family Medical History / Comment(s): BREAST Father Family Medical History: Cancer Additional Family Medical History / Comment(s): PANCREATIC Sister(s) Family Medical History: Cancer Additional Family Medical History / Comment(s): BREAST Medications and Allergies Home Medications Medication Instructions Recorded Confirmed Type fentaNYL 100MCG/HR PATCH 1 patch TRANSDERM Q72H patch 06/20/18 10/11/18 Rx [Duragesic 100MCG/HR] Diphenox-Atrop 2.5-0.025 mg 2 tab PO QID PRN 07/02/18 10/11/18 History [Lomotil] Dronabinol [Marinol] 5 mg PO AC-BID 07/02/18 10/11/18 History Lidocaine-Prilocaine Cream [Emla 1 applic TOPICAL DIRECTED PRN 07/02/1810/11 History Cream 2.5%/2.5%] Prochlorperazine [Compazine] 10 mg PO Q6H PRN 07/02/18 10/11/18 History oxyCODONE-APAP 7.5-325MG [Percocet 10 mg PO Q4HR 07/02/18 10/11/18 History 7.5-325 mg] Apixaban [Eliquis] 5 mg PO BID 30 Days #60 tab 07/10/18 10/11/18 Rx Potassium Chloride [K-Tab ER] 20 meq PO DAILY #30 tablet.er 07/10/18 10/11/18 Rx Vemurafenib [Zelboraf] 240 mg PO BID 09/30/18 10/11/18 History Allergies Allergy/AdvReac Type Severity Reaction Status Date / Time tramadol HCl [From [facility]] Allergy Severe PARALYZED Verified 10/11/18 13:45 FOR HOURS, UNABLE TO MOVE" Physical Exam Vitals: Vital Signs Temp Pulse Pulse Resp BP BP Pulse Ox 10/12/18 05:35 97.8 F 102 H 16 126/85 98 10/12/18 00:00 109 H 16 10/11/18 21:30 97.5 F L 109 H 16 118/75 99 10/11/18 20:20 97.9 F 103 H 18 120/81 98 10/11/18 18:50 102 H 18 122/55 97 10/11/18 16:50 107 H 18 129/76 98 10/11/18 14:58 104 H 18 110/66 98 10/11/18 13:01 97.6 F 106 H 16 118/83 97 Intake and Output 10/11/18 10/12/18 10/12/18 22:59 06:59 14:59 Intake Total 500 900 Balance 500 900 Intake: Intake, IV Titration 500 800 Amount Sodium Chloride 0.9% 1, 500 800 000 ml @ 125 mls/hr IV . Q8H [facility] Rx#:[id number] Oral 100 Other: Voiding Method Bedside Commode # Voids 1 2 In general patient is alert and oriented in mild distress due to pain HEENT head normocephalic and atraumatic Neck is supple no JVD no goiter no lymphadenopathy Chest exam reveals a few scattered rhonchi no wheezing Cardiac exam reveals regular heart sounds S1 and S2 with mild tachycardia no gallops no murmurs Abdomen is soft nontender no organomegaly with normal bowel sounds Extremity exam reveals no edema no cyanosis or clubbing Neurological examination reveals no gross focal deficit Results CBC & Chem 7: 10/11/18 14:10 10/11/18 14:10 Labs: Abnormal Lab Results - Last 24 Hours (Table) 10/11/18 10/11/18 10/11/18 Range/Units 14:10 14:10 14:10 MCHC 30.9 L (31.0-37.0) g/dL RDW 18.7 H (11.5-15.5) % Lymphocytes # 0.4 L (1.0-4.8) k/uL Sodium 133 L (137-145) mmol/L BUN 21 H (7-17) mg/dL Glucose 108 H (74-99) mg/dL Total Bilirubin 3.4 H (0.2-1.3) mg/dL AST 68 H (14-36) U/L Alkaline Phosphatase 504 H (38-126) U/L Total Creatine Kinase 22 L (30-135) U/L Total Protein 5.7 L (6.3-8.2) g/dL Albumin 2.9 L (3.5-5.0) g/dL Lipase 367 H (23-300) U/L Urine Appearance (Clear) Urine Protein (Negative) Urine Ketones (Negative) Urine Bilirubin (Negative) Ur Leukocyte Esterase (Negative) Urine WBC (0-5) /hpf Urine Bacteria (None) /hpf Hyaline Casts (0-2) /lpf Urine Mucus (None) /hpf 10/11/18 Range/Units 14:55 MCHC (31.0-37.0) g/dL RDW (11.5-15.5) % Lymphocytes # (1.0-4.8) k/uL Sodium (137-145) mmol/L BUN (7-17) mg/dL Glucose (74-99) mg/dL Total Bilirubin (0.2-1.3) mg/dL AST (14-36) U/L Alkaline Phosphatase (38-126) U/L Total Creatine Kinase (30-135) U/L Total Protein (6.3-8.2) g/dL Albumin (3.5-5.0) g/dL Lipase (23-300) U/L Urine Appearance Cloudy H (Clear) Urine Protein 1+ H (Negative) Urine Ketones 1+ H (Negative) Urine Bilirubin 2+ H (Negative) Ur Leukocyte Esterase Small H (Negative) Urine WBC 13 H (0-5) /hpf Urine Bacteria Rare H (None) /hpf Hyaline Casts 12 H (0-2) /lpf Urine Mucus Moderate H (None) /hpf Microbiology - Last 24 Hours (Table) 10/11/18 14:55 Urine Culture - Preliminary Urine,Voided Thrombosis Risk Factor Assmnt - Choose All That Apply Any of the Below Risk Factors Present?: No Other Risk Factors: Yes Each Risk Factor Represents 2 Points: Age 61-74 years, Malignancy Other congenital or acquired thrombophilia - If yes, enter type in comment: No Thrombosis Risk Factor Assessment Total Risk Factor Score: 4 Thrombosis Risk Factor Assessment Level: Moderate Risk Assessment and Plan Plan: #1 intractable abdominal pain radiating to the back At this time patient is maintained on fentanyl patch 100 g, oxycodone 7.5 mg when necessary and IV dye allotted was added 1 mg IV every 3 hours when necessary. #2 evidence of cholelithiasis with possible acute cholecystitis surgical consultation was requested #3 evidence of urinary tract infection patient was started on Rocephin 1 g IV every 24 hours #4 elevated lipase possible acute pancreatitis will recheck amylase and lipase today continue with clear liquid diet #5 underlying history of metastatic colon cancer, oncology consultation requested #6 history of DVT maintained on Eliquis continue. Will recheck labs today adjust medication depending on lab results Awaiting input from oncology and general surgery
--- NOTE | 2018-10-12 12:45 | P.GSCN ---
History of Present Illness Consult date: 10/12/18 Reason for Consult: Cholecystitis History of present illness: This is a 68-year-old female who has a history of colon cancer. Patient complaints of abdominal pain. His workup found evidence of cholecystitis. He has complete of nausea and abdominal pain and constipation. Past Medical History Past Medical History: Cancer, Deep Vein Thrombosis (DVT) Additional Past Medical History / Comment(s): OSTEOPOROSIS, "SMALL BRAIN BLEEDS "-NO RESIDUAL EFFECTS,HX OF DVT YEARS AGO AFTER TAKING CONTROL PILLS, hx stage 4 metastatic colon cancer(sx and chemo -pt stated had chemo last approx 3 weeks ago), chronic sinusitis/deviated septum(sx), ascities History of Any Multi-Drug Resistant Organisms: None Reported Past Surgical History: Bowel Resection, Hysterectomy Additional Past Surgical History / Comment(s): nasal sx 2014 bladder suspension, egd/colonoscopy, 07/2017 had maria elena cath,celiac plexsus block 06-04-18. last sunday at [facility] abd lymhp node bx. Past Anesthesia/Blood Transfusion Reactions: Motion Sickness Smoking Status: Former smoker - Past Family History Mother Family Medical History: Cancer Additional Family Medical History / Comment(s): BREAST Father Family Medical History: Cancer Additional Family Medical History / Comment(s): PANCREATIC Sister(s) Family Medical History: Cancer Additional Family Medical History / Comment(s): BREAST Medications and Allergies Home Medications Medication Instructions Recorded Confirmed Type fentaNYL 100MCG/HR PATCH 1 patch TRANSDERM Q72H patch 06/20/18 10/11/18 Rx [Duragesic 100MCG/HR] Diphenox-Atrop 2.5-0.025 mg 2 tab PO QID PRN 07/02/18 10/11/18 History [Lomotil] Dronabinol [Marinol] 5 mg PO AC-BID 07/02/18 10/11/18 History Lidocaine-Prilocaine Cream [Emla 1 applic TOPICAL DIRECTED PRN 07/02/1810/11 History Cream 2.5%/2.5%] Prochlorperazine [Compazine] 10 mg PO Q6H PRN 07/02/18 10/11/18 History oxyCODONE-APAP 7.5-325MG [Percocet 10 mg PO Q4HR 07/02/18 10/11/18 History 7.5-325 mg] Apixaban [Eliquis] 5 mg PO BID 30 Days #60 tab 07/10/18 10/11/18 Rx Potassium Chloride [K-Tab ER] 20 meq PO DAILY #30 tablet.er 07/10/18 10/11/18 Rx Vemurafenib [Zelboraf] 240 mg PO BID 09/30/18 10/11/18 History Allergies Allergy/AdvReac Type Severity Reaction Status Date / Time tramadol HCl [From [facility]] Allergy Severe PARALYZED Verified 10/11/18 13:45 FOR HOURS, UNABLE TO MOVE" Surgical - Exam Vital Signs Temp Pulse Resp BP Pulse Ox 97.6 F 106 H 16 118/83 97 10/11/18 13:01 10/11/18 13:01 10/11/18 13:01 10/11/18 13:01 10/11/18 13:01 - General well developed, no distress - Eyes PERRL - ENT normal pinna - Neck no masses - Respiratory normal expansion - Cardiovascular Rhythm: regular - Abdomen Mildly tender right upper quadrant. Abdomen: soft Results - Labs 10/11/18 14:10 10/11/18 14:10 Abnormal Lab Results - Last 24 Hours (Table) 10/11/18 10/11/18 10/11/18 Range/Units 14:10 14:10 14:10 MCHC 30.9 L (31.0-37.0) g/dL RDW 18.7 H (11.5-15.5) % Lymphocytes # 0.4 L (1.0-4.8) k/uL Sodium 133 L (137-145) mmol/L BUN 21 H (7-17) mg/dL Glucose 108 H (74-99) mg/dL Total Bilirubin 3.4 H (0.2-1.3) mg/dL AST 68 H (14-36) U/L Alkaline Phosphatase 504 H (38-126) U/L Total Creatine Kinase 22 L (30-135) U/L Total Protein 5.7 L (6.3-8.2) g/dL Albumin 2.9 L (3.5-5.0) g/dL Lipase 367 H (23-300) U/L Urine Appearance (Clear) Urine Protein (Negative) Urine Ketones (Negative) Urine Bilirubin (Negative) Ur Leukocyte Esterase (Negative) Urine WBC (0-5) /hpf Urine Bacteria (None) /hpf Hyaline Casts (0-2) /lpf Urine Mucus (None) /hpf 10/11/18 Range/Units 14:55 MCHC (31.0-37.0) g/dL RDW (11.5-15.5) % Lymphocytes # (1.0-4.8) k/uL Sodium (137-145) mmol/L BUN (7-17) mg/dL Glucose (74-99) mg/dL Total Bilirubin (0.2-1.3) mg/dL AST (14-36) U/L Alkaline Phosphatase (38-126) U/L Total Creatine Kinase (30-135) U/L Total Protein (6.3-8.2) g/dL Albumin (3.5-5.0) g/dL Lipase (23-300) U/L Urine Appearance Cloudy H (Clear) Urine Protein 1+ H (Negative) Urine Ketones 1+ H (Negative) Urine Bilirubin 2+ H (Negative) Ur Leukocyte Esterase Small H (Negative) Urine WBC 13 H (0-5) /hpf Urine Bacteria Rare H (None) /hpf Hyaline Casts 12 H (0-2) /lpf Urine Mucus Moderate H (None) /hpf Microbiology - Last 24 Hours (Table) 10/11/18 14:55 Urine Culture - Preliminary Urine,Voided Diabetes panel 10/11/18 Range/Units 14:10 Sodium 133 L (137-145) mmol/L Potassium 4.8 (3.5-5.1) mmol/L Chloride 99 (98-107) mmol/L Carbon Dioxide 23 (22-30) mmol/L BUN 21 H (7-17) mg/dL Creatinine 0.64 (0.52-1.04) mg/dL Glucose 108 H (74-99) mg/dL Calcium 9.0 (8.4-10.2) mg/dL AST 68 H (14-36) U/L ALT 40 (9-52) U/L Alkaline Phosphatase 504 H (38-126) U/L Total Protein 5.7 L (6.3-8.2) g/dL Albumin 2.9 L (3.5-5.0) g/dL Calcium panel 10/11/18 Range/Units 14:10 Calcium 9.0 (8.4-10.2) mg/dL Albumin 2.9 L (3.5-5.0) g/dL Pituitary panel 10/11/18 Range/Units 14:10 Sodium 133 L (137-145) mmol/L Potassium 4.8 (3.5-5.1) mmol/L Chloride 99 (98-107) mmol/L Carbon Dioxide 23 (22-30) mmol/L BUN 21 H (7-17) mg/dL Creatinine 0.64 (0.52-1.04) mg/dL Glucose 108 H (74-99) mg/dL Calcium 9.0 (8.4-10.2) mg/dL Adrenal panel 10/11/18 Range/Units 14:10 Sodium 133 L (137-145) mmol/L Potassium 4.8 (3.5-5.1) mmol/L Chloride 99 (98-107) mmol/L Carbon Dioxide 23 (22-30) mmol/L BUN 21 H (7-17) mg/dL Creatinine 0.64 (0.52-1.04) mg/dL Glucose 108 H (74-99) mg/dL Calcium 9.0 (8.4-10.2) mg/dL Total Bilirubin 3.4 H (0.2-1.3) mg/dL AST 68 H (14-36) U/L ALT 40 (9-52) U/L Alkaline Phosphatase 504 H (38-126) U/L Total Protein 5.7 L (6.3-8.2) g/dL Albumin 2.9 L (3.5-5.0) g/dL - Imaging US - abdomen: pending, report reviewed (Hydropic gallbladder with gallstones and sludge.) Assessment and Plan Assessment: Cholecystitis. Patient will be evaluated by Dr. Jacobson for possible cholecystectomy on Sunday. Her blood thinners were held today.
[2018-10-12 13:50] LABS: Amylase 48 U/L (30-110); Lipase 326 U/L (23-300)
[2018-10-12 16:18] VITALS: BMI 18.3
[2018-10-12] MEDS ORDERED: NA PHOS,M-B/NA PHOS,DI-BA 133 ML ENEMA RECTAL ONE (16:34)
--- NOTE | 2018-10-13 00:48 | CONS ---
CONSULTATION DATE OF SERVICE: October 12, 2018. REASON FOR CONSULTATION: Metastatic colon carcinoma. CHIEF COMPLAINT: Extreme weakness and losing control of her bowels and urine incontinence. HISTORY OF PRESENT ILLNESS: Mable is a very pleasant 68 years old the lady very well known to our office. She was diagnosed with colon carcinoma back in May of 2017 when she presented with abdominal pain and difficulty passing bowel movement. She had a CT scan done, which revealed abnormal thickening of the mucosa of the descending colon along with borderline enlarged abdominal adenopathy. The colonoscopy revealed a near obstructing lesion in the ascending colon. The biopsy was positive for poorly differentiated carcinoma with prominent neuroendocrine feature. Because of the near obstructing nature of the mass, she was taken to surgery and underwent right colectomy with lymph node dissection revealing 7 cm tumor invading through the muscularis propria into the pericolonic fat and focally abutting the serosal surface. Margins were negative. 3 out of 20 pericolonic nodes were involved. She was staged as T4 N1 B disease. She was initially staged as stated, T4 N1 B disease. The adjuvant chemotherapy FOLFOX regimen was recommended. She did have a PET scan. Subsequently, she had a PET scan, which unfortunately revealed evidence of stage IV disease with increased uptake in the retroperitoneum and mesenteric colon and her disease was KRAS wild type. She started FOLFOX regimen and she had a total of 11 cycles. It was completed in December of 2017. She had poor tolerance to the regimen. However, unfortunately in May of 2018 , there was evidence of significant disease progression with mesenteric and periaortic epigastric node enlargement and retroperitoneal node. She did have a biopsy of retroperitoneal node in June of 2018 which was positive for poorly metastatic adenocarcinoma consistent with colon primary. The patient was started on second -line treatment with FOLFIRI regimen. She has extreme poor tolerance to treatment and then subsequently after 2 cycles, it was discontinued. Upon further molecular testing of her tumor and it was found to be BARAF positive and then subsequently she was started on oral BARAF inhibitor with Vemurafenib along irinotecan and Herbitox. She had she tolerated treatment initially, she tolerated the treatment fairly well and in fact there was significant improvement in her overall symptoms and significant decline in her CEA level. However, this time she presented to the emergency department because of worsening lower abdominal pain over the last couple of weeks and also she became incontinent of urine and also she stated she has some stool incontinence as well and she has developed progressive weakness over the last couple weeks and lower extremity weakness. She has lost her appetite and she has lost weight and that was after initial improvement. Recent imaging study, which included MRI of the pelvis and MRI of the lumbar spine revealed no evidence of metastatic disease to the lumbar spine and there was an MRI of the abdomen as well. Revealed sick and significant improvement in her metastatic colon carcinoma. She was admitted to the hospital this time because of the above symptoms. Her urinalysis revealed evidence of urinary tract infection and she was started on IV Rocephin, for that. She denies any fever or chills. She has intermittent episodes of diarrhea. She is overall weak and tired. She complained of worsening abdominal pain, more so in the pelvic area and also she has some pain in the right upper quadrant and worsening back pain. PAST MEDICAL HISTORY: As stated above in regard to her metastatic colon carcinoma. She has a history of deep venous thrombosis. She has osteoporosis. She has history of DVT. PAST SURGICAL HISTORY: She has a hemicolectomy as stated above, and she has a history of hysterectomy. She has bladder suspension, EGD, colonoscopy, port, MediPort placement, PleurX nerve block. FAMILY HISTORY: Positive for family history of she has a sister and mother had breast cancer. Her father had pancreatic cancer. She has a sister with breast cancer as well. ALLERGIES: SHE IS ALLERGIC TO TO ULTRAM. REVIEW OF SYSTEM: As stated above in the history of present illness. Otherwise negative. SOCIAL HISTORY: She used to smoke. She is a former smoker. No alcohol abuse or substance abuse. MEDICATION: All reviewed in the electronic medical record. PHYSICAL EXAMINATION: She is alert, oriented x3. She does appear to be in pain. She is well developed. She is cachectic-looking. Her vital signs are temperature 97.6 afebrile, pulse 98, respirations 16, blood pressure 115/81. HEENT: Normocephalic, atraumatic. She has scleral icterus. NECK: Supple. Chest equal expansion bilaterally. LUNGS: Clear to auscultation and percussion. Heart is regular rate and rhythm. ABDOMEN: Soft. She has tenderness and generalized abdominal tenderness, but mostly in the left lower quadrant and also she has tenderness in the right upper quadrant. No ascites. No palpable masses. Extremities reveal 1+ edema. Skin: No significant bruises, ecchymosis, petechiae. LYMPHATICS: No peripherally enlarged supraclavicular nodes. MUSCULOSKELETAL: She has percussion tenderness in the mid thoracic spine. She has obvious bilateral motor weakness on both lower extremities. SKIN: She has scleral icterus. LABORATORY DATA: WBC of 5.2, hemoglobin 12.0, hematocrit is 38.9, platelets are 305. Sodium 133, potassium 4.8, chloride 99, CO2 23, BUN 21, creatinine 0.64. Total bilirubin is 3.4, AST is 68, alkaline phosphatase is 504, ALT is 40. She had an ultrasound of her gallbladder done, which did reveal hydropic gallbladder with gallstones and sludge and mild prominence of the common bile duct concerning for possible acute cholecystitis. IMPRESSION: 1. Metastatic colon carcinoma with diagnostic and therapeutic circumstances stated above. She appears to be responding to the combination of BRAF inhibitor with her Erbitux and Irinotecan. 2. Worsening abdominal pain, elevated liver enzyme, which is new for her. Her liver enzymes and bilirubin a few weeks ago were within normal range now this is significantly elevated. This in part could be related to the possible occult cholecystitis. However, also the side effects from oral B Alex inhibitor leading to elevated liver enzymes cannot be excluded. However, in view that her alkaline phosphatase is significantly elevated compared to AST and ALT, this would be more consistent with gallbladder disease rather then drug toxicity from oral BRAF inhibitors. 3. Underlying urinary tract infection. 4. Stool and urine incontinence with worsening back pain. RECOMMENDATION: 1. Hold systemic treatment for now. 2. Awaiting surgical consultation in regard to her gallbladder. 3. Increase the dose of Duragesic patch. 4. Obtain an MRI of the thoracic spine to further evaluate for any potential metastatic disease causing bilateral lower extremity weakness and stool and urine incontinence. 5. Continue current antibiotics as ordered by Dr. Chaudhari. 6. IV hydration. The above was discussed in detail with the patient and her family at bedside and I have answered all their questions to their satisfaction. Thank you very much for asking me to partake in the care of this nice lady. MMODL / IJN: [id number] / ANTHONY
[2018-10-13] MEDS: SODIUM CHLORIDE 0.9% 1,000 ML IV SCH ×2 (01:22→16:18)
[2018-10-13] MEDS: HYDROmorphone 1 MG/ML 1 ML SYRINGE IVP PRN ×7 (01:26→22:21)
[2018-10-13] MEDS: oxyCODONE-APAP 7.5-325MG 1 EACH TAB PO PRN ×4 (02:10→19:53)
[2018-10-13] MEDS: DRONABINOL 2.5 MG CAP PO SCH ×2 (07:35→16:58)
[2018-10-13] MEDS: POTASSIUM CHLORIDE ER 20 MEQ TAB.ER PO SCH (10:09)
[2018-10-13] MEDS: VEMURAFENIB 240 MG PO SCH (10:11)
[2018-10-13 10:38] LABS: Anisocytosis Slight; Basophils # (A) 0.1 k/uL (0-0.2); Basophils % (A) 1 %; Eosinophils # (A) 0.1 k/uL (0-0.7); Eosinophils % (A) 2 %; HCT 36.8 % (34.0-46.0); HGB 11.1 gm/dL (11.4-16.0); Hypochromasia Marked; Lymphocytes # (A) 0.4 k/uL (1.0-4.8); Lymphocytes % (A) 6 %; MCH 26.9 pg (25.0-35.0); MCHC 30.1 g/dL (31.0-37.0); MCV 89.5 fL (80.0-100.0); Mean Platelet Volume 8.3; Monocytes # (A) 0.6 k/uL (0-1.0); Monocytes % (A) 8 %; Neutrophils % (A) 82 %; Platelet Count 286 k/uL (150-450); RBC 4.11 m/uL (3.80-5.40); RDW 19.1 % (11.5-15.5); WBC 7.3 k/uL (3.8-10.6)
[2018-10-13 10:52] LABS: ALT 43 U/L (9-52); AST 80 U/L (14-36); Albumin 2.6 g/dL (3.5-5.0); Alkaline Phosphatase 763 U/L (38-126); Anion Gap 8 mmol/L; Blood Urea Nitrogen 16 mg/dL (7-17); Calcium 8.5 mg/dL (8.4-10.2); Carbon Dioxide 21 mmol/L (22-30); Chloride 107 mmol/L (98-107); Glucose 113 mg/dL (74-99); Potassium 4.8 mmol/L (3.5-5.1); Sodium 136 mmol/L (137-145); Total Bilirubin 4.6 mg/dL (0.2-1.3); Total Protein 5.3 g/dL (6.3-8.2)
--- NOTE | 2018-10-13 12:45 | P.PN ---
Progress Note - Text Progress Note Date: 10/13/18 Patient is resting comfortably in her bed. She states she feels better today. She had a bowel movement after enema yesterday. On exam her vital signs are stable. Abdomen is thin. There is some mild right upper quadrant tenderness. Chronic cholecystitis. Patient will be reevaluated by Dr. Jacobson in the a.m. Possible cholecystectomy.
--- NOTE | 2018-10-13 14:35 | P.PN ---
Subjective Progress Note Date: 10/13/18 Mable Gross is a 68-year-old female who presented to [facility] emergency room with a chief complaint of abdominal pain and nausea. Patient has a known history of metastatic colon cancer status post partial colectomy, patient is followed by oncology and is receiving chemotherapy. She was admitted to [facility] 2 weeks ago with abdominal pain pain medication were adjusted and she was discharged home however she returns was worsening pain and nausea. She was evaluated in the emergency room she had elevated alkaline phosphatase and elevated lipase ultrasound of the gallbladder revealed evidence of sludge and stones in the gallbladder with possible acute cholecystitis she was admitted to medical floor for further evaluation and treatment auscultation 4 oncology and for general surgery was initiated in the emergency room. Patient also had evidence of urinary tract infection she was started on IV Rocephin 1 g every 24 hours. On 10/13/2018 patient was seen and examined on the oncology unit she is alert and oriented 3 in no apparent distress, pain is better controlled today there is no fever or chills no headache or dizziness no chest pain no shortness of breath no cough no nausea or vomiting and no urinary symptoms Objective - Vital Signs Vital signs: Vital Signs Temp 97.5 F L 10/13/18 12:32 Pulse 105 H 10/13/18 12:32 Resp 16 10/13/18 12:32 BP 115/80 10/13/18 12:32 Pulse Ox 96 10/13/18 12:32 Intake & Output 10/12/18 10/13/18 10/13/18 18:59 06:59 18:59 Intake Total 1000 1825 Balance 1000 1825 Weight 45.359 kg Intake: Intake, IV Titration 1000 1375 Amount Sodium Chloride 0.9% 1, 1000 1375 000 ml @ 125 mls/hr IV . Q8H [facility] Rx#:[id number] Oral 450 Other: Voiding Method Bedside Commode Bedside Commode Bedside Commode # Bowel Movements 1 - Exam In general patient is alert and oriented in mild distress due to pain HEENT head normocephalic and atraumatic Neck is supple no JVD no goiter no lymphadenopathy Chest exam reveals a few scattered rhonchi no wheezing Cardiac exam reveals regular heart sounds S1 and S2 with mild tachycardia no gallops no murmurs Abdomen is soft nontender no organomegaly with normal bowel sounds Extremity exam reveals no edema no cyanosis or clubbing Neurological examination reveals no gross focal deficit - Labs CBC & Chem 7: 10/13/18 09:22 10/13/18 09:22 Labs: Abnormal Lab Results - Last 24 Hours (Table) 10/13/18 10/13/18 Range/Units 09:22 09:22 Hgb 11.1 L (11.4-16.0) gm/dL MCHC 30.1 L (31.0-37.0) g/dL RDW 19.1 H (11.5-15.5) % Lymphocytes # 0.4 L (1.0-4.8) k/uL Sodium 136 L (137-145) mmol/L Carbon Dioxide 21 L (22-30) mmol/L Glucose 113 H (74-99) mg/dL Total Bilirubin 4.6 H (0.2-1.3) mg/dL AST 80 H (14-36) U/L Alkaline Phosphatase 763 H (38-126) U/L Total Protein 5.3 L (6.3-8.2) g/dL Albumin 2.6 L (3.5-5.0) g/dL Microbiology - Last 24 Hours (Table) 10/11/18 14:55 Urine Culture - Final Urine,Voided Assessment and Plan Plan: #1 intractable abdominal pain radiating to the back At this time patient is maintained on fentanyl patch 100 g, oxycodone 7.5 mg when necessary and IV Dilaudid was added 1 mg IV every 3 hours when necessary. #2 evidence of cholelithiasis with possible acute cholecystitis surgical consultation was requested, Dr. norman Will revaluate patient in a.m. #3 evidence of urinary tract infection patient was started on Rocephin 1 g IV every 24 hours #4 elevated lipase possible acute pancreatitis will recheck amylase and lipase today continue with clear liquid diet #5 underlying history of metastatic colon cancer, oncology consultation requested #6 history of DVT maintained on Eliquis continue. Will recheck labs today adjust medication depending on lab results Awaiting input from oncology and general surgery
--- NOTE | 2018-10-13 15:40 | PN ---
PROGRESS NOTE DATE OF SERVICE: October 13, 2018. The patient is seen today as a followup. CHIEF COMPLAINT: Back pain, abdominal pain and weakness. Mable is seen today as a followup. She feels tired. Complaining of right upper abdominal pain and back pain. However, the pain is better since the fentanyl dose patch was increased yesterday and she will continue to use Percocet as needed for breakthrough pain. She denies any fever or chills. No melena, hematochezia, hematuria, hemoptysis, or hematemesis. CURRENT MEDICATION: Include ceftriaxone 1 g every 24 hours, Lomotil 2 tablets q.i.d. as needed, Marinol 5 mg b.i.d., and fentanyl patch 125 mcg/hour. Dilaudid as needed, Zofran 4 mg IV every 6 hours as needed, Percocet 7.5/325 every 6 hours as needed, K Dur 20 mEq daily, Compazine as needed. PHYSICAL EXAMINATION: She is alert, oriented x3. She does not appear to be in distress. Her vital signs are temperature 97.5 afebrile, pulse 105, respirations 16, blood pressure 115/80. HEENT: She has obvious scleral icterus. NECK: Supple. CHEST: Equal expansion bilaterally. LUNGS are clear. HEART: Regular rate and rhythm. ABDOMEN: Soft. She continues to have tenderness on right upper quadrant. The tenderness in the left lower quadrant and suprapubic area has improved. Extremities reveals trace edema. LABORATORY DATA: WBC 7.5, hemoglobin 11.1, hematocrit 36.8, the platelets are 287. Sodium 136, potassium is 4.8, chloride is 107, CO2 21. BUN is 16, creatinine 0.64, total bilirubin is 4.6. The AST is 80, ALT is 43, alkaline phosphatase is 763. IMPRESSION: 1. Metastatic colon carcinoma. Her last systemic regimen was a combination of BRAF inhibitors along with ERBITUX and Camptosar combination. However, this concurrently is being on hold. She did achieve response to therapy as was evident by recent imaging studies done by the end of September of 2018. 2. Worsening right upper quadrant pain. The patient has significant elevation in her bilirubin, which is new and significant elevation of alkaline phosphatase with very mild change in AST and ALT. Certainly the patient does not have liver metastases, and recent ultrasound did show possible evidence of gallstones. This significant elevation could be related to cholecystitis. Also the differential diagnosis could be potentially hepatotoxicity from the BRAF inhibitor she was on Zelboraf. However, usually this is associated with significant elevation of AST and ALT, which the patient does not have, rather her elevation is more suggestive of an obstructive process. 3. Urinary tract infection. 4. Generalized abdominal pain and back pain secondary to above and she has also lower extremity weakness. 5. Back pain, thoracic spine pain and back pain with incontinence to urine and bilateral lower extremity weakness. RECOMMENDATION: 1. I would recommend to change the antibiotic to Unasyn which has more intraabdominal coverage for possible acute cholecystitis. 2. Obtain Gastroenterology consultation for further evaluation. 3. Surgical consultation is already obtained. 4. BRAF inhibitors and ERBITUX and Camptosar are on hold for now. 5. The patient has a history of the of a deep vein thrombosis. However, anticoagulation is on hold now for awaiting for possible surgical intervention for her cholecystitis. If no surgical intervention planned, she may resume her resume anticoagulation. 6. In regard to the pain management, we will continue current dose of fentanyl and also Percocet as needed for breakthrough pain since the dose of fentanyl was increased yesterday it seems like the patient's pain is improving. 7. Awaiting thoracic spine MRI which was ordered to rule out potential metastasis to thoracic spine in view of bilateral lower extremity weakness and urinary incontinence. The above was discussed in detail with the patient. I have answered all her questions. MMODL / IJN: [id number] /
[2018-10-13] MEDS: AMPICILLIN-SULBACTAM 3 GM in SODIUM CHLORIDE 0.9% 100 ML IVPB SCH (16:58)
[2018-10-13 17:02] LABS: ALT 45 U/L (9-52); AST 85 U/L (14-36); Albumin 2.7 g/dL (3.5-5.0); Alkaline Phosphatase 909 U/L (38-126); Anion Gap 7 mmol/L; Blood Urea Nitrogen 15 mg/dL (7-17); Calcium 8.7 mg/dL (8.4-10.2); Carbon Dioxide 20 mmol/L (22-30); Chloride 109 mmol/L (98-107); Glucose 119 mg/dL (74-99); Sodium 136 mmol/L (137-145); Total Bilirubin 4.9 mg/dL (0.2-1.3); Total Protein 5.5 g/dL (6.3-8.2)
[2018-10-13 17:08] LABS: Anisocytosis Slight; HCT 38.6 % (34.0-46.0); HGB 11.1 gm/dL (11.4-16.0); Hypochromasia Marked; MCH 26.1 pg (25.0-35.0); MCHC 28.9 g/dL (31.0-37.0); MCV 90.5 fL (80.0-100.0); Platelet Count 301 k/uL (150-450); RBC 4.26 m/uL (3.80-5.40); RDW 19.1 % (11.5-15.5); WBC 6.2 k/uL (3.8-10.6)
[2018-10-13 18:13] LABS: Eosinophils # (M) 0.06 k/uL (0-0.7); Lymphocytes # (M) 0.56 k/uL (1.0-4.8); Monocytes # (M) 0.37 k/uL (0-1.0); Neutrophils # (M) 5.21 k/uL (1.3-7.7); Neutrophils % (M) 84 %; Nucleated Red Blood Cells 0 /100 WBC (0-0); Total Cells Counted 100
[2018-10-14] MEDS: AMPICILLIN-SULBACTAM 3 GM in SODIUM CHLORIDE 0.9% 100 ML IVPB SCH ×4 (01:37→23:33)
[2018-10-14] MEDS: HYDROmorphone 1 MG/ML 1 ML SYRINGE IVP PRN ×8 (01:37→23:33)
[2018-10-14] MEDS: oxyCODONE-APAP 7.5-325MG 1 EACH TAB PO PRN ×5 (02:03→21:57)
[2018-10-14] MEDS: SODIUM CHLORIDE 0.9% 1,000 ML IV SCH ×5 (03:14→23:34)
[2018-10-14 07:07] LABS: Anisocytosis Slight; Basophils % (A) 1 %; Eosinophils # (A) 0.2 k/uL (0-0.7); Eosinophils % (A) 3 %; HCT 38.8 % (34.0-46.0); HGB 11.1 gm/dL (11.4-16.0); Hypochromasia Marked; Lymphocytes # (A) 0.6 k/uL (1.0-4.8); Lymphocytes % (A) 9 %; MCH 25.6 pg (25.0-35.0); MCHC 28.7 g/dL (31.0-37.0); MCV 89.2 fL (80.0-100.0); Mean Platelet Volume 7.4; Monocytes # (A) 0.5 k/uL (0-1.0); Monocytes % (A) 8 %; Neutrophils # (A) 4.7 k/uL (1.3-7.7); Neutrophils % (A) 77 %; Platelet Count 324 k/uL (150-450); RBC 4.35 m/uL (3.80-5.40); RDW 19.4 % (11.5-15.5); WBC 6.2 k/uL (3.8-10.6)
[2018-10-14 07:12] LABS: Glucose,Whole Blood 103 mg/dL (75-99)
[2018-10-14 07:17] LABS: ALT 52 U/L (9-52); AST 96 U/L (14-36); Albumin 2.7 g/dL (3.5-5.0); Alkaline Phosphatase 1150 U/L (38-126); Anion Gap 9 mmol/L; Blood Urea Nitrogen 13 mg/dL (7-17); Calcium 8.8 mg/dL (8.4-10.2); Carbon Dioxide 19 mmol/L (22-30); Chloride 110 mmol/L (98-107); Glucose 107 mg/dL (74-99); Sodium 138 mmol/L (137-145); Total Bilirubin 5.2 mg/dL (0.2-1.3); Total Protein 5.5 g/dL (6.3-8.2)
[2018-10-14] MEDS: POTASSIUM CHLORIDE ER 20 MEQ TAB.ER PO SCH (07:32)
[2018-10-14] MEDS: DRONABINOL 2.5 MG CAP PO SCH ×2 (07:32→17:20)
[2018-10-14 10:07] LABS: Ovalocytes Present; Poikilocytosis (M) Present
[2018-10-14] MEDS ORDERED: MAGNESIUM HYDROXIDE 2,400 MG/10 ML CUP PO PRN (11:43)
[2018-10-14] MEDS ORDERED: SENNOSIDES 8.6 MG TAB PO PRN (11:43)
--- NOTE | 2018-10-14 11:43 | P.PN ---
Subjective Progress Note Date: 10/14/18 Principal diagnosis: Abdominal pain, bilateral lower extremity weakness, incontinence of bowel and bladder Patient is seen today in follow-up. Pending MRI of the thoracic spine. Patient still has complaints of incontinence of urine and stool. Her lower extremities are so weak that she can barely stand, she also has associated lower extremity swelling that is relatively uncomfortable. Patient denies fever , vomiting, difficulty in breathing. She is requesting pain medications at this time. Objective - Vital Signs Vital signs: Vital Signs Temp 97.5 F L 10/14/18 05:00 Pulse 110 H 10/14/18 05:00 Resp 16 10/14/18 05:00 BP 109/67 10/14/18 05:00 Pulse Ox 99 10/14/18 05:00 Intake & Output 10/13/18 10/14/18 10/14/18 18:59 06:59 18:59 Intake Total 1800 590 Output Total 233 Balance 1800 357 Intake: Intake, IV Titration 1000 Amount Sodium Chloride 0.9% 1, 1000 000 ml @ 125 mls/hr IV . Q8H [facility] Rx#:[id number] Oral 800 590 Output: Urine 27 Post Void Residual 206 Other: Voiding Method Bedside Commode Bedside Commode Bedside Commode # Voids 2 2 - Constitutional General appearance: Present: cooperative, mild distress, thin - EENT Eyes: Present: anicteric sclerae ENT: Present: hearing grossly normal - Respiratory Respiratory: bilateral: CTA - Cardiovascular Rhythm: regular Heart sounds: normal: S1, S2 Abnormal Heart Sounds: Absent: systolic murmur, diastolic murmur, rub, S3 Gallop , S4 Gallop, click, other - Peripheral edema leg Peripheral Edema: bilateral: 4+ (The thighs are worse then the lower leg), Pitting - Gastrointestinal General gastrointestinal: Present: distended, normal bowel sounds, soft, tenderness - Neurologic Neurologic: Present: CNII-XII intact - Musculoskeletal Musculoskeletal: Present: generalized weakness - Psychiatric Psychiatric: Present: A&O x's 3, appropriate affect, intact judgment & insight - Labs CBC & Chem 7: 10/14/18 06:31 10/14/18 06:31 Labs: Abnormal Lab Results - Last 24 Hours (Table) 10/13/18 10/13/18 10/14/18 Range/Units 16:24 16:24 06:31 Hgb 11.1 L 11.1 L (11.4-16.0) gm/dL MCHC 28.9 L 28.7 L (31.0-37.0) g/dL RDW 19.1 H 19.4 H (11.5-15.5) % Lymphocytes # 0.6 L (1.0-4.8) k/uL Lymphocytes # (Manual) 0.56 L (1.0-4.8) k/uL Sodium 136 L (137-145) mmol/L Chloride 109 H (98-107) mmol/L Carbon Dioxide 20 L (22-30) mmol/L Glucose 119 H (74-99) mg/dL POC Glucose (mg/dL) (75-99) mg/dL Total Bilirubin 4.9 H (0.2-1.3) mg/dL AST 85 H (14-36) U/L Alkaline Phosphatase 909 H (38-126) U/L Total Protein 5.5 L (6.3-8.2) g/dL Albumin 2.7 L (3.5-5.0) g/dL 10/14/18 10/14/18 Range/Units 06:31 07:07 Hgb (11.4-16.0) gm/dL MCHC (31.0-37.0) g/dL RDW (11.5-15.5) % Lymphocytes # (1.0-4.8) k/uL Lymphocytes # (Manual) (1.0-4.8) k/uL Sodium (137-145) mmol/L Chloride 110 H (98-107) mmol/L Carbon Dioxide 19 L (22-30) mmol/L Glucose 107 H (74-99) mg/dL POC Glucose (mg/dL) 103 H (75-99) mg/dL Total Bilirubin 5.2 H (0.2-1.3) mg/dL AST 96 H (14-36) U/L Alkaline Phosphatase 1150 H (38-126) U/L Total Protein 5.5 L (6.3-8.2) g/dL Albumin 2.7 L (3.5-5.0) g/dL Assessment and Plan (1) Cholecystitis Narrative/Plan: Dr. Tejada in Dr. Booker have discussed this possibility. We'll wait for surgical recommendations regarding the same. Current Visit: Yes Status: Acute Priority: High Code(s): K81.9 - CHOLECYSTITIS, UNSPECIFIED SNOMED Code(s): 51070352 (2) Failure to thrive Narrative/Plan: Patient actually had been doing relatively well on her previous chemo regimen. There did seem to be some disease stability. Her failure to thrive seems to be more related to discomfort in the abdomen and also fear as patient is incontinent of bowel and bladder. Patient does really try to eat and drink as best that she can. Dietitian has been consulted. Current Visit: Yes Status: Acute Priority: High Code(s): OLC6786 - SNOMED Code(s): 68441019 (3) Colon adenocarcinoma Narrative/Plan: Dr. Tejada has discussed with the patient that he does not feel her current condition is related to cancer. We are pending an MRI of the thoracic spine at this time. We will continue to follow up with patient. Her treatment is on hold per Dr. Tejada, until such time that her condition has been worked up and treated Current Visit: No Status: Chronic Priority: High Code(s): C18.9 - MALIGNANT NEOPLASM OF COLON, UNSPECIFIED SNOMED Code(s): 994277911 (4) Chronic abdominal pain Narrative/Plan: Patient has been evaluated for paracentesis, per Radiologist there is not enough fluid to be removed. MRI of the thoracic spine pending Pain medications are being adjusted and titrated for comfort. Bowel protocol implemented. Current Visit: Yes Status: Chronic Priority: High Code(s): R10.9 - UNSPECIFIED ABDOMINAL PAIN; G89.29 - OTHER CHRONIC PAIN SNOMED Code(s): 621620406
--- NOTE | 2018-10-14 12:43 | P.PN ---
Subjective Progress Note Date: 10/14/18 Mable Gross is a 68-year-old female who presented to [facility] emergency room with a chief complaint of abdominal pain and nausea. Patient has a known history of metastatic colon cancer status post partial colectomy, patient is followed by oncology and is receiving chemotherapy. She was admitted to [facility] 2 weeks ago with abdominal pain pain medication were adjusted and she was discharged home however she returns was worsening pain and nausea. She was evaluated in the emergency room she had elevated alkaline phosphatase and elevated lipase ultrasound of the gallbladder revealed evidence of sludge and stones in the gallbladder with possible acute cholecystitis she was admitted to medical floor for further evaluation and treatment auscultation 4 oncology and for general surgery was initiated in the emergency room. Patient also had evidence of urinary tract infection she was started on IV Rocephin 1 g every 24 hours. On 10/13/2018 patient was seen and examined on the oncology unit she is alert and oriented 3 in no apparent distress, pain is better controlled today there is no fever or chills no headache or dizziness no chest pain no shortness of breath no cough no nausea or vomiting and no urinary symptoms 10/14/2018 patient still complaining of abdominal pain. Total bilirubin has increased from 4.9-5.2 AST elevated at 96 alk phos increased to 1150. ALT normal at 52. Awaiting GI and surgical evaluation. Oncology has adjusted antibiotics to Unasyn. Patient also being treated for UTI. Urine culture negative. Patient has been tachycardic possibly related to her pain. EKG has been ordered. She is complaining of lower extremity edema. She has been off of her Eliquis for almost a week due to procedures. Therefore, will check venous Doppler rule out DVT of the lower extremities. Patient denies any chest pain. Occasional nausea. No vomiting for over 24 hours. She did have a bowel movement 2 days ago. Objective - Vital Signs Vital signs: Vital Signs Temp 97.5 F L 10/14/18 05:00 Pulse 110 H 10/14/18 05:00 Resp 16 10/14/18 05:00 BP 109/67 10/14/18 05:00 Pulse Ox 99 10/14/18 05:00 Intake & Output 10/13/18 10/14/18 10/14/18 18:59 06:59 18:59 Intake Total 1800 590 Output Total 233 Balance 1800 357 Intake: Intake, IV Titration 1000 Amount Sodium Chloride 0.9% 1, 1000 000 ml @ 125 mls/hr IV . Q8H [facility] Rx#:[id number] Oral 800 590 Output: Urine 27 Post Void Residual 206 Other: Voiding Method Bedside Commode Bedside Commode Bedside Commode # Voids 2 2 - Exam Head normocephalic Neck supple Lungs clear to auscultation bilaterally no wheezing or crackles Heart regular rate and rhythm S1-S2, no rub or gallop Abdomen is soft distended diffuse tenderness positive bowel sounds Extremities +2 pitting edema bilateral lower extremities edema all he up into the thighs Neuro alert and orientated to 3 Skin jaundice - Labs CBC & Chem 7: 10/14/18 06:31 10/14/18 06:31 Labs: Abnormal Lab Results - Last 24 Hours (Table) 10/13/18 10/13/18 10/14/18 Range/Units 16:24 16:24 06:31 Hgb 11.1 L 11.1 L (11.4-16.0) gm/dL MCHC 28.9 L 28.7 L (31.0-37.0) g/dL RDW 19.1 H 19.4 H (11.5-15.5) % Lymphocytes # 0.6 L (1.0-4.8) k/uL Lymphocytes # (Manual) 0.56 L (1.0-4.8) k/uL Sodium 136 L (137-145) mmol/L Chloride 109 H (98-107) mmol/L Carbon Dioxide 20 L (22-30) mmol/L Glucose 119 H (74-99) mg/dL POC Glucose (mg/dL) (75-99) mg/dL Total Bilirubin 4.9 H (0.2-1.3) mg/dL AST 85 H (14-36) U/L Alkaline Phosphatase 909 H (38-126) U/L Total Protein 5.5 L (6.3-8.2) g/dL Albumin 2.7 L (3.5-5.0) g/dL 10/14/18 10/14/18 Range/Units 06:31 07:07 Hgb (11.4-16.0) gm/dL MCHC (31.0-37.0) g/dL RDW (11.5-15.5) % Lymphocytes # (1.0-4.8) k/uL Lymphocytes # (Manual) (1.0-4.8) k/uL Sodium (137-145) mmol/L Chloride 110 H (98-107) mmol/L Carbon Dioxide 19 L (22-30) mmol/L Glucose 107 H (74-99) mg/dL POC Glucose (mg/dL) 103 H (75-99) mg/dL Total Bilirubin 5.2 H (0.2-1.3) mg/dL AST 96 H (14-36) U/L Alkaline Phosphatase 1150 H (38-126) U/L Total Protein 5.5 L (6.3-8.2) g/dL Albumin 2.7 L (3.5-5.0) g/dL Assessment and Plan Assessment: #1 intractable abdominal pain radiating to the back: Pain medications adjusted per oncology. At this time patient is maintained on fentanyl patch 125 g, oxycodone 7.5 mg every 4 hours when necessary and IV Dilaudid was added 1 mg IV every 3 hours when necessary. #2 evidence of cholelithiasis with possible acute cholecystitis surgical consultation was requested, awaiting Dr. Jacobson's recommendations #3 UTI continue Unasyn. Urine culture pending #4 elevated total bilirubin and alkaline phosphatase with elevated AST and normal ALT. GI service on consult. #5 underlying history of metastatic colon cancer, oncology following #6 history of iliac vein DVT Jean-Pierre currently on hold for possible surgical intervention #7 severe protein calorie malnutrition continue ensure #8 thoracic spine back pain and bilateral lower extremity weakness. Oncology is ordered MRI of the thoracic spine #9 bilateral lower extremity edema check venous Dopplers to rule out DVT. Jean-Pierre has been on hold. Edema also could be related to her hypoalbuminemia encouraged patient to drink the protein shakes. Keep legs elevated. #10 tachycardia: Check EKG. Possibly related to pain. Pain medication adjusted. Continue to monitor. GI prophylaxis Protonix and DVT prophylaxis SCDs I performed an examination of the patient and discussed their management with the physician Lube Technician. I have reviewed the Physician Lube Technician's notes and agree with the documented findings and plan of care
[2018-10-14] MEDS: PANTOPRAZOLE 40 MG/10 ML VIAL IVP SCH (13:58)
--- NOTE | 2018-10-14 14:59 | US ---
EXAMINATION TYPE: US venous doppler duplex LE BI DATE OF EXAM: 10/14/2018 2:28 PM COMPARISON: NONE CLINICAL HISTORY: leg swelling. rule out DVT. Bilateral leg pain and swelling SIDE PERFORMED: Bilateral TECHNIQUE: The lower extremity deep venous system is examined utilizing real time linear array sonog antonio with graded compression, doppler sonography and color-flow sonography. VESSELS IMAGED: External Iliac Vein (EIV) Common Femoral Vein Deep Femoral Vein Greater Saphenous Vein * Femoral Vein Popliteal Vein Small Saphenous Vein * Proximal Calf Veins (* superficial vessels) Compression images not done on left leg from EIV through distal femoral vein due to patient in too much pain Right Leg: Appears positive for non occluding thrombus proximal femoral vein Left Leg: Appears positive for non occluding thrombus proximal femoral vein, 2.4 x 0.8 x 1.6cm cysti c area medial popliteal fossa Eccentric low-level internal echoes are present in the laminar distribution. IMPRESSION: Nonocclusive deep venous thrombosis bilaterally as described may be chronic. Small Hickman' s cyst on the left. Exam is limited. A Red level critical message alert has been initiated for Irma Lyons MD via the [employer] on 10/14/2018 2:56 PM. This message alert has been sent to Irma Lyons MD via the preferences provided by the clinician for the receipt of Radiology Critical Findings. Message ID [id number].
--- NOTE | 2018-10-14 15:14 | P.PN ---
Subjective Progress Note Date: 10/14/18 Principal diagnosis: Abdominal pain Patient seen over the weekend in consultation by Dr. Franklyn linder for me. Patient known to our service from previous right-sided colon cancer. Patient had evidence of recurrence of her disease relatively quickly in the postoperative period. Patient had 3 out of 20 lymph nodes positive and a positive margin at the time of her surgical resection. This was a highly aggressive neuroendocrine tumor at the time of initial resection. Patient has recently been receiving chemotherapy. Her family state that the tumor is in remission. Her recent scans suggest improvement and much of her bulky disease. She comes to the hospital complaining of worsening abdominal and back pain. Part of the reason for the ER visit however was regarding a relatively new onset incontinence of stool and urine over the last 2 weeks. Patient underwent recent MRI of the spine and abdomen. She was noted to have elevation of her liver enzymes. For that reason an abdominal ultrasound was performed. The patient was found once again to have gallstones which weren't present previously. Patient describes the pain as being diffuse across upper and lower abdomen involving both right and left sides. Patient describes swelling in her legs and abdomen. She does have new onset ascites at this time. GI has also been consulted see this patient. Her pain is present despite fentanyl Percocet and Dilaudid. Objective - Vital Signs Vital signs: Vital Signs Temp 97.4 F L 10/14/18 12:12 Pulse 110 H 10/14/18 12:12 Resp 16 10/14/18 12:12 BP 122/70 10/14/18 12:12 Pulse Ox 97 10/14/18 12:12 Intake & Output 10/13/18 10/14/18 10/14/18 18:59 06:59 18:59 Intake Total 4325 645 4506 Output Total 233 Balance 0845 230 7295 Intake: Intake, IV Titration 1000 1200 Amount Ampicillin-Sulbactam 3 gm 200 In Sodium Chloride 0.9% 100 ml @ 200 mls/hr IVPB Q8HR [facility] Rx#:[id number] Sodium Chloride 0.9% 1, 1000 1000 000 ml @ 125 mls/hr IV . Q8H [facility] Rx#:[id number] Oral 800 590 600 Output: Urine 27 Post Void Residual 206 Other: Voiding Method Bedside Commode Bedside Commode Bedside Commode # Voids 2 2 2 - Exam Abdomen: Soft, mild distention, mild diffuse tenderness - Labs CBC & Chem 7: 01/07/19 06:31 10/14/18 06:31 Labs: Abnormal Lab Results - Last 24 Hours (Table) 10/13/18 10/13/18 10/14/18 Range/Units 16:24 16:24 06:31 Hgb 11.1 L 11.1 L (11.4-16.0) gm/dL MCHC 28.9 L 28.7 L (31.0-37.0) g/dL RDW 19.1 H 19.4 H (11.5-15.5) % Lymphocytes # 0.6 L (1.0-4.8) k/uL Lymphocytes # (Manual) 0.56 L (1.0-4.8) k/uL Sodium 136 L (137-145) mmol/L Chloride 109 H (98-107) mmol/L Carbon Dioxide 20 L (22-30) mmol/L Glucose 119 H (74-99) mg/dL POC Glucose (mg/dL) (75-99) mg/dL Total Bilirubin 4.9 H (0.2-1.3) mg/dL AST 85 H (14-36) U/L Alkaline Phosphatase 909 H (38-126) U/L Total Protein 5.5 L (6.3-8.2) g/dL Albumin 2.7 L (3.5-5.0) g/dL 10/14/18 10/14/18 Range/Units 06:31 07:07 Hgb (11.4-16.0) gm/dL MCHC (31.0-37.0) g/dL RDW (11.5-15.5) % Lymphocytes # (1.0-4.8) k/uL Lymphocytes # (Manual) (1.0-4.8) k/uL Sodium (137-145) mmol/L Chloride 110 H (98-107) mmol/L Carbon Dioxide 19 L (22-30) mmol/L Glucose 107 H (74-99) mg/dL POC Glucose (mg/dL) 103 H (75-99) mg/dL Total Bilirubin 5.2 H (0.2-1.3) mg/dL AST 96 H (14-36) U/L Alkaline Phosphatase 1150 H (38-126) U/L Total Protein 5.5 L (6.3-8.2) g/dL Albumin 2.7 L (3.5-5.0) g/dL Assessment and Plan (1) Chronic abdominal pain Narrative/Plan: Patient with ongoing abdominal pain. Patient's elevated liver enzymes may be on the basis of biliary obstruction related to the recurrent retroperitoneal malignancy. Do not suspect acute cholecystitis as the etiology at this time. Await GI evaluation. Will follow with you. Current Visit: Yes Status: Chronic Priority: High Code(s): R10.9 - UNSPECIFIED ABDOMINAL PAIN; G89.29 - OTHER CHRONIC PAIN SNOMED Code(s): 728963740
[2018-10-14] MEDS ORDERED: HEPARIN SODIUM,PORCINE 5,000 UNIT/ML 1 ML VIAL IV PRN (15:45)
[2018-10-14] MEDS ORDERED: HEPARIN SODIUM,PORCINE 5,000 UNIT/ML 1 ML VIAL IV ONE (15:45)
[2018-10-14 16:40] LABS: INR 1.3 (<1.2); Partial Thromboplastin Time 25.2 sec (22.0-30.0)
[2018-10-14 16:55] LABS: Anisocytosis Slight; Basophils % (A) 1 %; Eosinophils # (A) 0.1 k/uL (0-0.7); Eosinophils % (A) 2 %; HCT 37.9 % (34.0-46.0); HGB 11.1 gm/dL (11.4-16.0); Hypochromasia Marked; Lymphocytes # (A) 0.8 k/uL (1.0-4.8); Lymphocytes % (A) 13 %; MCH 26.1 pg (25.0-35.0); MCHC 29.3 g/dL (31.0-37.0); MCV 89.2 fL (80.0-100.0); Mean Platelet Volume 7.7; Monocytes # (A) 0.3 k/uL (0-1.0); Monocytes % (A) 6 %; Neutrophils # (A) 4.3 k/uL (1.3-7.7); Neutrophils % (A) 76 %; Platelet Count 305 k/uL (150-450); RBC 4.25 m/uL (3.80-5.40); RDW 19.5 % (11.5-15.5); WBC 5.6 k/uL (3.8-10.6)
[2018-10-14] MEDS: HEPARIN SOD,PORK IN 0.45% NACL 25,000 UNIT in 0.45% NACL 1 250ML.BAG IV SCH (17:12)
[2018-10-14 17:22] LABS: Poikilocytosis (M) Present
--- NOTE | 2018-10-14 23:16 | P.CONS ---
History of Present Illness - Reason for Consult Consult date: 10/14/18 Elevated liver enzymes, abdominal pain Requesting physician: Irma Lyons - Chief Complaint Abdominal pain - History of Present Illness 68-year-old female with a medical history of osteoporosis, chronic sinusitis and metastatic colon cancer status post prior surgery and recent chemotherapy who presented to the hospital with complaints of abdominal pain. The patient is a known history of aggressive metastatic colon cancer with neuroendocrine features and was found to have positive lymph nodes on prior resection. She was started on chemotherapy with last treatment approximately 3 weeks ago. She presented with severe abdominal pain as well as complaints of incontinence to urine and stool. In addition she reports increasing lower extremity weakness. She has had evaluation in the outpatient setting with MRI of her lower spine and abdomen. Currently she is reporting persistence of the abdominal pain. She had evaluation on presentation with an ultrasound which showed a hydropic gallbladder with stones as well as sludge and a common bile duct which was essentially within normal limits. Liver enzymes significant for a total bilirubin 5.2, alkaline phosphatase 1150, AST 96, ALT 52. Review of Systems REVIEW OF SYSTEMS: CARDIO: Denies any chest pain or palpitations. PULMONARY: Denies any shortness of breath or wheezing. GENITOURINARY: No dysuria or hematuria, the patient reports urinary incontinence. MUSCULOSKELETAL: Lower extremity weakness. SKIN: Denies any new rashes or lesions, jaundice or pallor. PSYCHIATRIC: Depressed mood. NEUROLOGY: Denies headache, lower extremity weakness, bowel and urinary incontinence. EARS: No tinnitus, discharge or new hearing loss. NOSE: No discharge or congestion. EYES: No pain in eyes or change in vision. CONSTITUTIONAL:No fever, chills, night sweats. Past Medical History Past Medical History: Cancer, Deep Vein Thrombosis (DVT) Additional Past Medical History / Comment(s): OSTEOPOROSIS, "SMALL BRAIN BLEEDS "-NO RESIDUAL EFFECTS,HX OF DVT YEARS AGO AFTER TAKING CONTROL PILLS, hx stage 4 metastatic colon cancer(sx and chemo -pt stated had chemo last approx 3 weeks ago), chronic sinusitis/deviated septum(sx), ascities History of Any Multi-Drug Resistant Organisms: None Reported Past Surgical History: Bowel Resection, Hysterectomy Additional Past Surgical History / Comment(s): nasal sx 2014 bladder suspension, egd/colonoscopy, 07/2017 had maria elena cath,celiac plexsus block 06-04-18. last sunday at [facility] abd lymhp node bx. Past Anesthesia/Blood Transfusion Reactions: Motion Sickness Smoking Status: Former smoker - Past Family History Mother Family Medical History: Cancer Additional Family Medical History / Comment(s): BREAST Father Family Medical History: Cancer Additional Family Medical History / Comment(s): PANCREATIC Sister(s) Family Medical History: Cancer Additional Family Medical History / Comment(s): BREAST Medications and Allergies Home Medications Medication Instructions Recorded Confirmed Type fentaNYL 100MCG/HR PATCH 1 patch TRANSDERM Q72H patch 06/20/18 10/11/18 Rx [Duragesic 100MCG/HR] Diphenox-Atrop 2.5-0.025 mg 2 tab PO QID PRN 07/02/18 10/11/18 History [Lomotil] Dronabinol [Marinol] 5 mg PO AC-BID 07/02/18 10/11/18 History Lidocaine-Prilocaine Cream [Emla 1 applic TOPICAL DIRECTED PRN 07/02/1810/11 History Cream 2.5%/2.5%] Prochlorperazine [Compazine] 10 mg PO Q6H PRN 07/02/18 10/11/18 History oxyCODONE-APAP 7.5-325MG [Percocet 10 mg PO Q4HR 07/02/18 10/11/18 History 7.5-325 mg] Apixaban [Eliquis] 5 mg PO BID 30 Days #60 tab 07/10/18 10/11/18 Rx Potassium Chloride [K-Tab ER] 20 meq PO DAILY #30 tablet.er 07/10/18 10/11/18 Rx Vemurafenib [Zelboraf] 240 mg PO BID 09/30/18 10/11/18 History Allergies Allergy/AdvReac Type Severity Reaction Status Date / Time tramadol HCl [From [facility]] Allergy Severe PARALYZED Verified 10/11/18 13:45 FOR HOURS, UNABLE TO MOVE" Physical Exam Vitals: Vital Signs Temp Pulse Resp BP Pulse Ox 10/14/18 22:24 16 10/14/18 21:00 97 F L 111 H 16 120/75 97 10/14/18 12:12 97.4 F L 110 H 16 122/70 97 10/14/18 05:00 97.5 F L 110 H 16 109/67 99 Intake and Output 10/14/18 10/14/18 10/14/18 06:59 14:59 22:59 Intake Total 590 1800 43.656 Output Total 233 Balance 357 1800 43.656 Intake: Intake, IV Titration 1200 43.656 Amount Ampicillin-Sulbactam 3 gm 200 In Sodium Chloride 0.9% 100 ml @ 200 mls/hr IVPB Q8HR [facility] Rx#:[id number] Heparin Sod,Pork in 0.45% 43.656 NaCl 25,000 unit In 0.45 % NaCl 1 250ml.bag @ 18 UNITS/KG/HR 8.16 mls/hr IV .Q24H [facility] Rx#: [id number] Sodium Chloride 0.9% 1, 1000 000 ml @ 125 mls/hr IV . Q8H [facility] Rx#:[id number] Oral 590 600 Output: Urine 27 Post Void Residual 206 Other: Voiding Method Bedside Commode Bedside Commode # Voids 2 1 Weight 45.359 kg On physical examination, patient appears comfortable in no apparent distress. HEAD: Normocephalic, atraumatic. EYES: Minimal scleral icterus. No conjunctival injection. MOUTH: No lesions, tongue midline. NECK: Trachea midline, no gross abnormalities. CHEST: Clear to auscultation with no wheezing or rhonchi appreciated. HEART: Regular rate and rhythm. ABDOMEN: Soft. Bowel sounds are positive. No organomegaly. No guarding or rigidity. EXTREMITIES: Bilateral lower extremity swelling, bilateral lower extremity weakness. SKIN: No rashes, minimal jaundice. NEUROLOGIC: Alert and oriented x3. Results CBC & Chem 7: 10/14/18 16:18 10/14/18 06:31 Labs: Abnormal Lab Results - Last 24 Hours (Table) 10/14/18 10/14/18 10/14/18 Range/Units 06:31 06:31 07:07 Hgb 11.1 L (11.4-16.0) gm/dL MCHC 28.7 L (31.0-37.0) g/dL RDW 19.4 H (11.5-15.5) % Lymphocytes # 0.6 L (1.0-4.8) k/uL PT (9.0-12.0) sec INR (<1.2) APTT (22.0-30.0) sec Chloride 110 H (98-107) mmol/L Carbon Dioxide 19 L (22-30) mmol/L Glucose 107 H (74-99) mg/dL POC Glucose (mg/dL) 103 H (75-99) mg/dL Total Bilirubin 5.2 H (0.2-1.3) mg/dL AST 96 H (14-36) U/L Alkaline Phosphatase 1150 H (38-126) U/L Total Protein 5.5 L (6.3-8.2) g/dL Albumin 2.7 L (3.5-5.0) g/dL 10/14/18 10/14/18 10/14/18 Range/Units 16:18 16:18 21:57 Hgb 11.1 L (11.4-16.0) gm/dL MCHC 29.3 L (31.0-37.0) g/dL RDW 19.5 H (11.5-15.5) % Lymphocytes # 0.8 L (1.0-4.8) k/uL PT 13.0 H (9.0-12.0) sec INR 1.3 H (<1.2) APTT 89.9 H (22.0-30.0) sec Chloride (98-107) mmol/L Carbon Dioxide (22-30) mmol/L Glucose (74-99) mg/dL POC Glucose (mg/dL) (75-99) mg/dL Total Bilirubin (0.2-1.3) mg/dL AST (14-36) U/L Alkaline Phosphatase (38-126) U/L Total Protein (6.3-8.2) g/dL Albumin (3.5-5.0) g/dL US - abdomen: report reviewed (x-ray of the abdomen done in evaluation which was significant for nonacute abdomen.) Assessment and Plan (1) Elevated liver enzymes Narrative/Plan: Patient presenting with abdominal pain, elevated liver enzymes and predominantly a cholestatic pattern and found to have a ultrasound which showed a hydropic gallbladder with stones as well as sludge and a common bile duct which was essentially within normal limits. Unknown etiology, this may be related to the patient's recent treatment with chemotherapy as the medication has a known association with elevation in liver enzymes. CBD was essentially within normal limits on ultrasound imaging making choledocholithiasis less likely, however: If enzymes continue to trend up may benefit from MRCP for further evaluation of the biliary system. Possibility of possible obstruction in the setting of known lymphadenopathy or other etiology. Current Visit: Yes Status: Acute Code(s): R74.8 - ABNORMAL LEVELS OF OTHER SERUM ENZYMES SNOMED Code(s): 824613614 (2) History of colon cancer Current Visit: Yes Status: Acute Code(s): Z85.038 - PERSONAL HISTORY OF MALIGNANT NEOPLASM OF LARGE INTESTINE SNOMED Code(s): 127650402 (3) Chronic abdominal pain Current Visit: Yes Status: Chronic Priority: High Code(s): R10.9 - UNSPECIFIED ABDOMINAL PAIN; G89.29 - OTHER CHRONIC PAIN SNOMED Code(s): 505936678 Plan: Supportive care Appreciate recommendations from surgery and medical oncology To you to monitor liver enzymes Continue pain control I results of MRI of the spine If liver enzymes continue to trend up consider MRCP for further evaluation of the biliary system Thank you for allowing us to participate in the care of this patient, we will continue to follow
[2018-10-15] MEDS: oxyCODONE-APAP 7.5-325MG 1 EACH TAB PO PRN ×3 (02:00→21:49)
[2018-10-15] MEDS: HYDROmorphone 1 MG/ML 1 ML SYRINGE IVP PRN ×6 (02:00→21:49)
[2018-10-15 08:43] LABS: ALT 50 U/L (9-52); AST 84 U/L (14-36); Albumin 2.6 g/dL (3.5-5.0); Alkaline Phosphatase 1187 U/L (38-126); Anion Gap 7 mmol/L; Blood Urea Nitrogen 12 mg/dL (7-17); Calcium 8.7 mg/dL (8.4-10.2); Carbon Dioxide 17 mmol/L (22-30); Chloride 114 mmol/L (98-107); Glucose 106 mg/dL (74-99); Potassium 4.8 mmol/L (3.5-5.1); Sodium 138 mmol/L (137-145); Total Bilirubin 4.9 mg/dL (0.2-1.3); Total Protein 5.3 g/dL (6.3-8.2)
[2018-10-15 08:52] LABS: Anisocytosis Slight; HGB 11.5 gm/dL (11.4-16.0); Hypochromasia Marked; MCH 27.3 pg (25.0-35.0); MCHC 30.3 g/dL (31.0-37.0); MCV 90.1 fL (80.0-100.0); Mean Platelet Volume 9.6; Platelet Count 314 k/uL (150-450); RBC 4.22 m/uL (3.80-5.40); RDW 19.5 % (11.5-15.5); WBC 6.6 k/uL (3.8-10.6)
[2018-10-15] MEDS: POTASSIUM CHLORIDE ER 20 MEQ TAB.ER PO SCH (09:22)
[2018-10-15] MEDS: DRONABINOL 2.5 MG CAP PO SCH ×2 (09:22→18:18)
[2018-10-15] MEDS: PANTOPRAZOLE 40 MG/10 ML VIAL IVP SCH (09:22)
[2018-10-15] MEDS: AMPICILLIN-SULBACTAM 3 GM in SODIUM CHLORIDE 0.9% 100 ML IVPB SCH ×2 (09:23→16:59)
[2018-10-15 11:27] LABS: Band Neutrophils % 1 %; Eosinophils # (M) 0.07 k/uL (0-0.7); Monocytes # (M) 0.26 k/uL (0-1.0); Neutrophils % (M) 91 %; Nucleated Red Blood Cells 0 /100 WBC (0-0); Total Cells Counted 100
[2018-10-15 11:30] LABS: Target Cells Present
[2018-10-15] MEDS ORDERED: IOPAMIDOL-300 CONTRAST 30 ML VIAL (ORAL USE) PO PRN (12:46)
[2018-10-15] MEDS ORDERED: BISACODYL 10 MG SUPP RECTAL PRN (12:47)
[2018-10-15] MEDS ORDERED: MAGNESIUM HYDROXIDE 2,400 MG/10 ML CUP PO PRN (12:48)
[2018-10-15] MEDS ORDERED: NA PHOS,M-B/NA PHOS,DI-BA 133 ML ENEMA RECTAL ONE (12:49)
--- NOTE | 2018-10-15 12:50 | P.PN ---
Subjective Progress Note Date: 10/15/18 Principal diagnosis: elevated liver enzymes LFTs minimally improved; TB 4.9. AST 84. ALT 50. AP 1187. MRI spine ordered today. Still reports abdominal discomfort. MRI abdomen Kiran portal venous thrombosis posterior right lobe stable. Abnormal soft tissue mass at level of maria elena hepatis measuring 4.6 cm. Anasarca, ascites. Objective - Vital Signs Vital signs: Vital Signs Temp 98 F 10/15/18 04:55 Pulse 119 H 10/15/18 04:55 Resp 17 10/15/18 04:55 BP 134/77 10/15/18 04:55 Pulse Ox 96 10/15/18 04:55 Intake & Output 10/14/18 10/15/18 10/15/18 18:59 06:59 18:59 Intake Total 1800 823.656 87.967 Balance 1800 823.656 87.967 Weight 45.359 kg 45.359 kg Intake: Intake, IV Titration 1200 643.656 87.967 Amount Ampicillin-Sulbactam 3 gm 200 100 In Sodium Chloride 0.9% 100 ml @ 200 mls/hr IVPB Q8HR [facility] Rx#:[id number] Heparin Sod,Pork in 0.45% 43.656 87.967 NaCl 25,000 unit In 0.45 % NaCl 1 250ml.bag @ 18 UNITS/KG/HR 8.16 mls/hr IV .Q24H [facility] Rx#: [id number] Sodium Chloride 0.9% 1, 1000 500 000 ml @ 125 mls/hr IV . Q8H [facility] Rx#:[id number] Oral 600 180 Other: Voiding Method Bedside Commode Bedside Commode Bedside Commode # Voids 2 1 - Constitutional General appearance: Present: average body habitus - EENT Eyes: Present: scleral icterus Ears: bilateral: normal - Neck Neck: Present: normal ROM - Respiratory Respiratory: bilateral: CTA - Cardiovascular Rhythm: regular - Gastrointestinal General gastrointestinal: Present: soft - Neurologic Neurologic: Present: CNII-XII intact - Labs CBC & Chem 7: 10/16/18 06:39 10/16/18 06:39 Labs: Abnormal Lab Results - Last 24 Hours (Table) 10/14/18 10/14/18 10/14/18 Range/Units 16:18 16:18 21:57 Hgb 11.1 L (11.4-16.0) gm/dL MCHC 29.3 L (31.0-37.0) g/dL RDW 19.5 H (11.5-15.5) % Lymphocytes # 0.8 L (1.0-4.8) k/uL Lymphocytes # (Manual) (1.0-4.8) k/uL PT 13.0 H (9.0-12.0) sec INR 1.3 H (<1.2) APTT 89.9 H (22.0-30.0) sec Chloride (98-107) mmol/L Carbon Dioxide (22-30) mmol/L Glucose (74-99) mg/dL Total Bilirubin (0.2-1.3) mg/dL AST (14-36) U/L Alkaline Phosphatase (38-126) U/L Total Protein (6.3-8.2) g/dL Albumin (3.5-5.0) g/dL 10/15/18 10/15/18 10/15/18 Range/Units 07:31 07:31 09:26 Hgb (11.4-16.0) gm/dL MCHC 30.3 L (31.0-37.0) g/dL RDW 19.5 H (11.5-15.5) % Lymphocytes # (1.0-4.8) k/uL Lymphocytes # (Manual) 0.20 L (1.0-4.8) k/uL PT (9.0-12.0) sec INR (<1.2) APTT 61.7 H (22.0-30.0) sec Chloride 114 H (98-107) mmol/L Carbon Dioxide 17 L (22-30) mmol/L Glucose 106 H (74-99) mg/dL Total Bilirubin 4.9 H (0.2-1.3) mg/dL AST 84 H (14-36) U/L Alkaline Phosphatase 1187 H (38-126) U/L Total Protein 5.3 L (6.3-8.2) g/dL Albumin 2.6 L (3.5-5.0) g/dL Assessment and Plan (1) Elevated liver enzymes Narrative/Plan: Metastatic colon cancer MRI abdomen October 03 reported PVT right posterior lobe. Soft tissue mass level of the maria elena 4.6 cm. Patient presenting with abdominal pain, elevated liver enzymes and predominantly a cholestatic pattern and found to have a ultrasound which showed a hydropic gallbladder with stones as well as sludge and a common bile duct which was essentially within normal limits. Unknown etiology, this may be related to the patient's recent treatment with chemotherapy as the medication has a known association with elevation in liver enzymes. CBD was essentially within normal limits on ultrasound imaging making choledocholithiasis less likely, however: If enzymes continue to trend up may benefit from CT imaging and or MRCP for further evaluation of the biliary system. Possibility of possible obstruction in the setting of known lymphadenopathy or other etiology. Current Visit: Yes Status: Acute Code(s): R74.8 - ABNORMAL LEVELS OF OTHER SERUM ENZYMES SNOMED Code(s): 980144297 (2) History of colon cancer Current Visit: Yes Status: Acute Code(s): Z85.038 - PERSONAL HISTORY OF MALIGNANT NEOPLASM OF LARGE INTESTINE SNOMED Code(s): 324315549 Plan: 1. MRI spine today. CT A/P to rule out biliarytree abnormalities. CMP in am. Laxatives/enema for constipation. Will continue to follow. Assessment and plan of care discussed with Dr. Tuttle
[2018-10-15] MEDS: SODIUM CHLORIDE 0.9% 1,000 ML IV SCH ×2 (13:36→18:20)
--- NOTE | 2018-10-15 13:58 | P.PN ---
Subjective Progress Note Date: 10/15/18 Principal diagnosis: Abdominal pain Patient still having pain although seems somewhat somnolent with current pain regimen. She was started on heparin drip after Dopplers suggested bilateral DVT. Family believes she is more bloated today. No vomiting. Appetite minimal. Labs without significant changes. Objective - Vital Signs Vital signs: Vital Signs Temp 97.5 F L 10/15/18 11:22 Pulse 114 H 10/15/18 11:22 Resp 16 10/15/18 11:22 BP 121/72 10/15/18 11:22 Pulse Ox 97 10/15/18 11:22 Intake & Output 10/14/18 10/15/18 10/15/18 18:59 06:59 18:59 Intake Total 1800 823.656 87.967 Balance 1800 823.656 87.967 Weight 45.359 kg 45.359 kg Intake: Intake, IV Titration 1200 643.656 87.967 Amount Ampicillin-Sulbactam 3 gm 200 100 In Sodium Chloride 0.9% 100 ml @ 200 mls/hr IVPB Q8HR DAVID Rx#:[id number] Heparin Sod,Pork in 0.45% 43.656 87.967 NaCl 25,000 unit In 0.45 % NaCl 1 250ml.bag @ 18 UNITS/KG/HR 8.16 mls/hr IV .Q24H DAVID Rx#: [id number] Sodium Chloride 0.9% 1, 1000 500 000 ml @ 125 mls/hr IV . Q8H DAVID Rx#:[id number] Oral 600 180 Other: Voiding Method Bedside Commode Bedside Commode Bedside Commode # Voids 2 1 - Exam Abdomen: Soft, mild diffuse tenderness, mild distention - Labs CBC & Chem 7: 10/15/18 07:31 10/15/18 07:31 Labs: Abnormal Lab Results - Last 24 Hours (Table) 10/14/18 10/14/18 10/14/18 Range/Units 16:18 16:18 21:57 Hgb 11.1 L (11.4-16.0) gm/dL MCHC 29.3 L (31.0-37.0) g/dL RDW 19.5 H (11.5-15.5) % Lymphocytes # 0.8 L (1.0-4.8) k/uL Lymphocytes # (Manual) (1.0-4.8) k/uL PT 13.0 H (9.0-12.0) sec INR 1.3 H (<1.2) APTT 89.9 H (22.0-30.0) sec Chloride (98-107) mmol/L Carbon Dioxide (22-30) mmol/L Glucose (74-99) mg/dL Total Bilirubin (0.2-1.3) mg/dL AST (14-36) U/L Alkaline Phosphatase (38-126) U/L Total Protein (6.3-8.2) g/dL Albumin (3.5-5.0) g/dL 10/15/18 10/15/18 10/15/18 Range/Units 07:31 07:31 09:26 Hgb (11.4-16.0) gm/dL MCHC 30.3 L (31.0-37.0) g/dL RDW 19.5 H (11.5-15.5) % Lymphocytes # (1.0-4.8) k/uL Lymphocytes # (Manual) 0.20 L (1.0-4.8) k/uL PT (9.0-12.0) sec INR (<1.2) APTT 61.7 H (22.0-30.0) sec Chloride 114 H (98-107) mmol/L Carbon Dioxide 17 L (22-30) mmol/L Glucose 106 H (74-99) mg/dL Total Bilirubin 4.9 H (0.2-1.3) mg/dL AST 84 H (14-36) U/L Alkaline Phosphatase 1187 H (38-126) U/L Total Protein 5.3 L (6.3-8.2) g/dL Albumin 2.6 L (3.5-5.0) g/dL Assessment and Plan (1) Chronic abdominal pain Narrative/Plan: Case discussed with GI and also the patient. The patient's liver enzymes remain elevated likely on the basis of retroperitoneal tumor involvement. Unfortunately I do not believe this is explaining the patient's diffuse pain and bloating. Suspect tumor progression and possibly malignant ascites is the etiology for her increasing discomfort. We'll check CT abdomen and pelvis at this time. Current Visit: Yes Status: Chronic Priority: High Code(s): R10.9 - UNSPECIFIED ABDOMINAL PAIN; G89.29 - OTHER CHRONIC PAIN SNOMED Code(s): 974259782
--- NOTE | 2018-10-15 14:09 | P.PN ---
Subjective Progress Note Date: 10/15/18 Mable Gross is a 68-year-old female who presented to [facility] emergency room with a chief complaint of abdominal pain and nausea. Patient has a known history of metastatic colon cancer status post partial colectomy, patient is followed by oncology and is receiving chemotherapy. She was admitted to [facility] 2 weeks ago with abdominal pain pain medication were adjusted and she was discharged home however she returns was worsening pain and nausea. She was evaluated in the emergency room she had elevated alkaline phosphatase and elevated lipase ultrasound of the gallbladder revealed evidence of sludge and stones in the gallbladder with possible acute cholecystitis she was admitted to medical floor for further evaluation and treatment auscultation 4 oncology and for general surgery was initiated in the emergency room. Patient also had evidence of urinary tract infection she was started on IV Rocephin 1 g every 24 hours. On 10/13/2018 patient was seen and examined on the oncology unit she is alert and oriented 3 in no apparent distress, pain is better controlled today there is no fever or chills no headache or dizziness no chest pain no shortness of breath no cough no nausea or vomiting and no urinary symptoms 10/14/2018 patient still complaining of abdominal pain. Total bilirubin has increased from 4.9-5.2 AST elevated at 96 alk phos increased to 1150. ALT normal at 52. Awaiting GI and surgical evaluation. Oncology has adjusted antibiotics to Unasyn. Patient also being treated for UTI. Urine culture negative. Patient has been tachycardic possibly related to her pain. EKG has been ordered. She is complaining of lower extremity edema. She has been off of her Eliquis for almost a week due to procedures. Therefore, will check venous Doppler rule out DVT of the lower extremities. Patient denies any chest pain. Occasional nausea. No vomiting for over 24 hours. She did have a bowel movement 2 days ago. 10/15/2018 venous Dopplers show bilateral lower extremity DVTs that may be chronic. Patient started on IV heparin due to possible procedures or interventions. Her Eliquis remains on hold. Discussed case with GI and surgical service. At this time GI is ordered a computed tomography scan of the abdomen for further evaluation. Per surgical service and GI service patient's liver enzymes are likely elevated due to retroperitoneal tumor involvement. Patient still having significant lower extremity edema and also is complaining of abdominal pain and constipation. Denies any chest pain or shortness of breath. Objective - Vital Signs Vital signs: Vital Signs Temp 97.5 F L 10/15/18 11:22 Pulse 114 H 10/15/18 11:22 Resp 16 10/15/18 11:22 BP 121/72 10/15/18 11:22 Pulse Ox 97 10/15/18 11:22 Intake & Output 10/14/18 10/15/18 10/15/18 18:59 06:59 18:59 Intake Total 1800 823.656 87.967 Balance 1800 823.656 87.967 Weight 45.359 kg 45.359 kg Intake: Intake, IV Titration 1200 643.656 87.967 Amount Ampicillin-Sulbactam 3 gm 200 100 In Sodium Chloride 0.9% 100 ml @ 200 mls/hr IVPB Q8HR DAVID Rx#:[id number] Heparin Sod,Pork in 0.45% 43.656 87.967 NaCl 25,000 unit In 0.45 % NaCl 1 250ml.bag @ 18 UNITS/KG/HR 8.16 mls/hr IV .Q24H DAVID Rx#: [id number] Sodium Chloride 0.9% 1, 1000 500 000 ml @ 125 mls/hr IV . Q8H DAVID Rx#:[id number] Oral 600 180 Other: Voiding Method Bedside Commode Bedside Commode Bedside Commode # Voids 2 1 - Exam Head normocephalic Neck supple Lungs clear to auscultation bilaterally no wheezing or crackles Heart regular rate and rhythm S1-S2, no rub or gallop Abdomen is distended diffuse tenderness positive bowel sounds Extremities +2 to 3+ pitting edema bilateral lower extremities edema all he up into the thighs Neuro alert and orientated to 3 Skin jaundice - Labs CBC & Chem 7: 10/15/18 07:31 10/15/18 07:31 Labs: Abnormal Lab Results - Last 24 Hours (Table) 10/14/18 10/14/18 10/14/18 Range/Units 16:18 16:18 21:57 Hgb 11.1 L (11.4-16.0) gm/dL MCHC 29.3 L (31.0-37.0) g/dL RDW 19.5 H (11.5-15.5) % Lymphocytes # 0.8 L (1.0-4.8) k/uL Lymphocytes # (Manual) (1.0-4.8) k/uL PT 13.0 H (9.0-12.0) sec INR 1.3 H (<1.2) APTT 89.9 H (22.0-30.0) sec Chloride (98-107) mmol/L Carbon Dioxide (22-30) mmol/L Glucose (74-99) mg/dL Total Bilirubin (0.2-1.3) mg/dL AST (14-36) U/L Alkaline Phosphatase (38-126) U/L Total Protein (6.3-8.2) g/dL Albumin (3.5-5.0) g/dL 10/15/18 10/15/18 10/15/18 Range/Units 07:31 07:31 09:26 Hgb (11.4-16.0) gm/dL MCHC 30.3 L (31.0-37.0) g/dL RDW 19.5 H (11.5-15.5) % Lymphocytes # (1.0-4.8) k/uL Lymphocytes # (Manual) 0.20 L (1.0-4.8) k/uL PT (9.0-12.0) sec INR (<1.2) APTT 61.7 H (22.0-30.0) sec Chloride 114 H (98-107) mmol/L Carbon Dioxide 17 L (22-30) mmol/L Glucose 106 H (74-99) mg/dL Total Bilirubin 4.9 H (0.2-1.3) mg/dL AST 84 H (14-36) U/L Alkaline Phosphatase 1187 H (38-126) U/L Total Protein 5.3 L (6.3-8.2) g/dL Albumin 2.6 L (3.5-5.0) g/dL Assessment and Plan Assessment: #1 abdominal pain with elevated liver enzymes: GI and surgical service are following. Concerns that symptoms are related to patient's tumor. Acute cholecystitis has been ruled out per surgical service. Computed tomography scan of the abdomen has been ordered for further investigation. Will await GI recommendations. Continue to monitor liver enzymes. Continue with current pain medications. At this time patient is maintained on fentanyl patch 125 g, oxycodone 7.5 mg every 4 hours when necessary and IV Dilaudid was added 1 mg IV every 3 hours when necessary. #2 UTI continue Unasyn. Urine culture negative #3 underlying history of metastatic colon cancer, oncology following #6 history of iliac vein DVT Eliquis currently on hold for possible surgical intervention #7 severe protein calorie malnutrition continue ensure #8 thoracic spine back pain and bilateral lower extremity weakness. Oncology is ordered MRI of the thoracic spine #9 DVT bilateral lower extremities that may be chronic reported on venous Doppler. Case discussed with oncology. They recommended IV heparin. Await starting the Eliquis due to possible GI intervention #10 tachycardia: Check EKG. Possibly related to pain. Pain medication adjusted. Continue telemetry. Cardiology on consult. GI prophylaxis Protonix and DVT prophylaxis SCDs Consulting notes have been reviewed. Appreciate their recommendations I performed an examination of the patient and discussed their management with the physician Gl Accountant. I have reviewed the Physician Gl Accountant's notes and agree with the documented findings and plan of care
--- NOTE | 2018-10-15 14:36 | P.CRDCN ---
History of Present Illness History of present illness: This is a pleasant 68-year-old female past medical history significant for metastatic colon cancer, chronic DVT on Eliquis care home and former history of nicotine dependence quit smoking in 2003. She denies history of coronary artery disease, hypertension, dyslipidemia or diabetes mellitus. We have been asked to see her in consultation for preoperative evaluation and tachycardia. She presented to the hospital on the fourth of this month for symptoms of abdominal pain, nausea, vomiting, loss of bowel control. Initially she was thought to have an acute cholecystitis, however it is now the thought by her surgeon Dr. Booker that there is a possibility for recurrent retroperitoneal malignancy. She is awaiting an ALEKS of the spine. She is seen and examined resting in bed with family at the bedside. She seems to be in significant discomfort and is moving very slowly with assistance. She denies chest pain, shortness of breath, dizziness or palpitations. She is currently maintained on heparin infusion secondary to discontinuation of Eliquis. At the time of my exam: CONSTITUTIONAL: Denies fever. Denies chills. EYES: Denies blurred vision. Denies vision changes. Denies eye pain. EARS, NOSE, MOUTH & THROAT: Denies headache. Denies sore throat. Denies ear pain. CARDIOVASCULAR: Denies chest pain. Denies shortness of breath. Denies orthopnea. Denies PND. Denies palpitations. RESPIRATORY: Denies cough. GASTROINTESTINAL: Denies abdominal pain. Denies diarrhea. Denies constipation. Denies nausea. Denies vomiting. MUSCULOSKELETAL: Denies myalgias. INTEGUMENTARY: Denies pruitis. Denies rash. NEUROLOGIC: Denies numbness. Denies tingling. Denies weakness. PSYCHIATRIC: Denies anxiety. Denies depression. ENDOCRINE: Denies fatigue. Denies weight change. Denies polydipsia. Denies polyurina. GENITOURINARY: Denies burning, hematuria or urgency with micturation. HEMATOLOGIC: Denies history of anemia. Denies bleeding. Blood pressure 121/72 heart rate 114 afebrile maintaining oxygen saturation on room air GENERAL: This is a 68-year-old female in no apparent distress at the time of my examination. HEENT: Head is atraumatic, normocephalic. Pupils are equal, round. Sclerae anicteric. Conjunctivae are clear. Mucous membranes of the mouth are moist. Neck is supple. There is no jugular venous distention. No carotid bruit is heard. LUNGS: Clear to auscultation no wheezes, rales or rhonchi. No chest wall tenderness is noted on palpation or with deep breathing. HEART: Regular rate and rhythm without murmurs, rubs or gallops. S1 and S2 heard. ABDOMEN: Soft, mildly tender with mild distention. Bowel sounds are heard. No organomegaly noted. EXTREMITIES: 1+ pitting edema with weeping noted bilaterally. No calf tenderness noted. VASCULAR: Radial and dorsalis pedis pulses palpated, no evidence of clubbing. NEUROLOGIC: Patient is awake, alert and oriented x3. ASSESSMENT Abdominal pain with possible retroperitoneal Tachycardia, sinus. Most likely related to pain. Treat the underlying cause. Chronic DVT on long term care pharmacist anticoagulation currently on heparin infusion awaiting plan for surgical intervention Former nicotine dependence PLAN Obtain 2D echocardiogram and doppler study to assess cardiac structure and function. Upon review of the medical record is appears there are no plans for surgery and they are looking into possible malignancy. However, if there was plans for surgical intervention she would be at an increased risk due to history of metastatic colon cancer. Check TSH. Repeat EKG. Ongoing medical management. Thank you kindly for this consultation. Nurse Practitioner note has been reviewed, I agree with a documented findings and plan of care. Patient was seen and examined. Past Medical History Past Medical History: Cancer, Deep Vein Thrombosis (DVT) Additional Past Medical History / Comment(s): OSTEOPOROSIS, "SMALL BRAIN BLEEDS "-NO RESIDUAL EFFECTS,HX OF DVT YEARS AGO AFTER TAKING CONTROL PILLS, hx stage 4 metastatic colon cancer(sx and chemo -pt stated had chemo last approx 3 weeks ago), chronic sinusitis/deviated septum(sx), ascities History of Any Multi-Drug Resistant Organisms: None Reported Past Surgical History: Bowel Resection, Hysterectomy Additional Past Surgical History / Comment(s): nasal sx 2014 bladder suspension, egd/colonoscopy, 07/2017 had maria elena cath,celiac plexsus block 06-04-18. last sunday at [facility] abd lymhp node bx. Past Anesthesia/Blood Transfusion Reactions: Motion Sickness Smoking Status: Former smoker - Past Family History Mother Family Medical History: Cancer Additional Family Medical History / Comment(s): BREAST Father Family Medical History: Cancer Additional Family Medical History / Comment(s): PANCREATIC Sister(s) Family Medical History: Cancer Additional Family Medical History / Comment(s): BREAST Medications and Allergies Home Medications Medication Instructions Recorded Confirmed Type fentaNYL 100MCG/HR PATCH 1 patch TRANSDERM Q72H patch 06/20/18 10/11/18 Rx [Duragesic 100MCG/HR] Diphenox-Atrop 2.5-0.025 mg 2 tab PO QID PRN 07/02/18 10/11/18 History [Lomotil] Dronabinol [Marinol] 5 mg PO AC-BID 07/02/18 10/11/18 History Lidocaine-Prilocaine Cream [Emla 1 applic TOPICAL DIRECTED PRN 07/02/1810/11 History Cream 2.5%/2.5%] Prochlorperazine [Compazine] 10 mg PO Q6H PRN 07/02/18 10/11/18 History oxyCODONE-APAP 7.5-325MG [Percocet 10 mg PO Q4HR 07/02/18 10/11/18 History 7.5-325 mg] Apixaban [Eliquis] 5 mg PO BID 30 Days #60 tab 07/10/18 10/11/18 Rx Potassium Chloride [K-Tab ER] 20 meq PO DAILY #30 tablet.er 07/10/18 10/11/18 Rx Vemurafenib [Zelboraf] 240 mg PO BID 09/30/18 10/11/18 History Allergies Allergy/AdvReac Type Severity Reaction Status Date / Time tramadol HCl [From [facility]] Allergy Severe PARALYZED Verified 10/11/18 13:45 FOR HOURS, UNABLE TO MOVE" Physical Exam Vitals: Vital Signs Temp Pulse Resp BP Pulse Ox 10/15/18 11:22 97.5 F L 114 H 16 121/72 97 10/15/18 04:55 98 F 119 H 17 134/77 96 10/14/18 22:24 16 10/14/18 21:00 97 F L 111 H 16 120/75 97 Intake and Output 10/14/18 10/15/18 10/15/18 22:59 06:59 14:59 Intake Total 823.656 87.967 Balance 823.656 87.967 Intake: Intake, IV Titration 643.656 87.967 Amount Ampicillin-Sulbactam 3 gm 100 In Sodium Chloride 0.9% 100 ml @ 200 mls/hr IVPB Q8HR DAVID Rx#:[id number] Heparin Sod,Pork in 0.45% 43.656 87.967 NaCl 25,000 unit In 0.45 % NaCl 1 250ml.bag @ 18 UNITS/KG/HR 8.16 mls/hr IV .Q24H DAVID Rx#: [id number] Sodium Chloride 0.9% 1, 500 000 ml @ 125 mls/hr IV . Q8H DAVID Rx#:[id number] Oral 180 Other: Voiding Method Bedside Commode Bedside Commode # Voids 1 1 Weight 45.359 kg 45.359 kg Results 10/15/18 07:31 10/15/18 07:31 Cardiac Enzymes 10/15/18 Range/Units 07:31 AST 84 H (14-36) U/L Coagulation 10/14/18 10/14/18 10/15/18 Range/Units 16:18 21:57 09:26 PT 13.0 H (9.0-12.0) sec APTT 25.2 89.9 H 61.7 H (22.0-30.0) sec CBC 10/14/18 10/15/18 Range/Units 16:18 07:31 WBC 5.6 6.6 (3.8-10.6) k/uL RBC 4.25 4.22 (3.80-5.40) m/uL Hgb 11.1 L 11.5 (11.4-16.0) gm/dL Hct 37.9 38.0 (34.0-46.0) % Plt Count 305 314 (150-450) k/uL Comprehensive Metabolic Panel 10/15/18 Range/Units 07:31 Sodium 138 (137-145) mmol/L Potassium 4.8 (3.5-5.1) mmol/L Chloride 114 H (98-107) mmol/L Carbon Dioxide 17 L (22-30) mmol/L BUN 12 (7-17) mg/dL Creatinine 0.65 (0.52-1.04) mg/dL Glucose 106 H (74-99) mg/dL Calcium 8.7 (8.4-10.2) mg/dL AST 84 H (14-36) U/L ALT 50 (9-52) U/L Alkaline Phosphatase 1187 H (38-126) U/L Total Protein 5.3 L (6.3-8.2) g/dL Albumin 2.6 L (3.5-5.0) g/dL Current Medications Generic Name Dose Route Start Last Admin Trade Name Freq PRN Reason Stop Dose Admin Diphenoxylate HCl/Atropine 2 each 10/11/18 21:39 Lomotil PO QID PRN Diarrhea Dronabinol 5 mg 10/12/18 09:00 10/15/18 09:22 Marinol PO 5 mg AC-BID DAVID Administration Fentanyl 1 patch 10/12/18 09:00 10/15/18 09:30 Duragesic 100mcg/Hr Patch TRANSDERM 1 patch Q72H DAVID Administration Fentanyl 1 patch 10/12/18 16:15 10/15/18 09:31 Duragesic 25mcg/Hr Patch TRANSDERM 1 patch Q72H DAVID Administration Heparin Sodium (Porcine) 0 unit 10/14/18 15:45 Heparin IV PER PROTOCOL PRN Low PTT Protocol Hydromorphone HCl 1 mg 10/11/18 20:37 10/15/18 09:24 Dilaudid IVP 1 mg Q3HR PRN Administration Pain Sodium Chloride 1,000 mls @ 125 mls/hr 10/11/18 18:45 10/14/18 23:34 Saline 0.9% IV 125 mls/hr .Q8H DAVID Administration Ampicillin Sodium/Sulbactam 100 mls @ 200 mls/hr 10/13/18 16:00 10/15/18 09: 23 Sodium 3 gm/ Sodium Chloride IVPB 200 mls/hr Q8HR DAVID Administration Heparin Sodium/Sodium Chloride 250 mls @ 8.16 mls/hr 10/14/18 15:45 10/15/18 10:41 25,000 unit/ Sodium Chloride IV 15.98 units/kg/hr .Q24H DAVID 7.25 mls/hr Titration Protocol 18 UNITS/KG/HR Iopamidol 30 ml 10/15/18 12:46 Isovue-300 30 Ml (For Oral Use) PO 10/16/18 12:[address] Scan Lidocaine/Prilocaine 1 applic 10/11/18 21:39 Emla Cream 2.5%/2.5% TOPICAL DIRECTED PRN port access Magnesium Hydroxide 2,400 mg 10/14/18 11:43 Milk Of Magnesia PO ONCE PRN Constipation Naloxone HCl 0.2 mg 10/11/18 19:50 Narcan IV Q2M PRN Opioid Reversal Ondansetron HCl 4 mg 10/11/18 16:16 10/11/18 16:45 Zofran IVP 4 mg ONCE PRN Administration Nausea Ondansetron HCl 4 mg 10/12/18 12:02 10/13/18 10:15 Zofran IVP 4 mg Q6HR PRN Administration Nausea And Vomiting Oxycodone/Acetaminophen 1 each 10/14/18 11:43 10/15/18 06:21 Percocet 7.5-325 PO 1 each Q4HR PRN Administration Pain Pantoprazole Sodium 40 mg 10/14/18 12:45 10/15/18 09:22 Protonix IVP 40 mg DAILY DAVID Administration Potassium Chloride 20 meq 10/12/18 09:00 10/15/18 09:22 K-Dur 20 PO 20 meq DAILY DAVID Administration Prochlorperazine Maleate 10 mg 10/11/18 21:39 10/13/18 14:06 Compazine PO 10 mg Q6H PRN Administration Nausea Senna/Docusate Sodium 2 each 10/15/18 21:00 Senokot-S PO BID DAVID Intake and Output 10/14/18 10/15/18 10/15/18 22:59 06:59 14:59 Intake Total 823.656 87.967 Balance 823.656 87.967 Intake: Intake, IV Titration 643.656 87.967 Amount Ampicillin-Sulbactam 3 gm 100 In Sodium Chloride 0.9% 100 ml @ 200 mls/hr IVPB Q8HR DAVID Rx#:[id number] Heparin Sod,Pork in 0.45% 43.656 87.967 NaCl 25,000 unit In 0.45 % NaCl 1 250ml.bag @ 18 UNITS/KG/HR 8.16 mls/hr IV .Q24H DAVID Rx#: [id number] Sodium Chloride 0.9% 1, 500 000 ml @ 125 mls/hr IV . Q8H DAVID Rx#:[id number] Oral 180 Other: Voiding Method Bedside Commode Bedside Commode # Voids 1 1 Weight 45.359 kg 45.359 kg Patient Weight 10/16/18 06:59 Weight 45.359 kg 10/15/18 07:31 10/15/18 07:31
--- NOTE | 2018-10-15 18:06 | P.PN ---
Subjective Progress Note Date: 10/15/18 Principal diagnosis: Abdominal pain, bilateral lower extremity weakness, incontinence of bowel and bladder Patient seen today in follow-up. Patient has not improved very much. She was just seen by cardiology for surgical clearance, they're not recommending surgery unless absolutely necessary. Patient still has abdominal bloating, abdominal pain, rather generalized, she is getting weaker. Appetite is poor, no current vomiting to report, her last bowel movement was 6 days ago. Objective - Vital Signs Vital signs: Vital Signs Temp 97.5 F L 10/15/18 11:22 Pulse 114 H 10/15/18 11:22 Resp 16 10/15/18 11:22 BP 121/72 10/15/18 11:22 Pulse Ox 97 10/15/18 11:22 Intake & Output 10/14/18 10/15/18 10/15/18 18:59 06:59 18:59 Intake Total 1800 823.656 245.567 Balance 1800 823.656 245.567 Weight 45.359 kg 45.359 kg Intake: IV 57.6 Heparin Sod,Pork in 0.45% 57.6 NaCl 25,000 unit In 0.45 % NaCl 1 250ml.bag @ 18 UNITS/KG/HR 8.16 mls/hr IV .Q24H [facility]ID Rx#: [id number] Intake, IV Titration 1200 643.656 187.967 Amount Ampicillin-Sulbactam 3 gm 200 100 100 In Sodium Chloride 0.9% 100 ml @ 200 mls/hr IVPB Q8HR [facility] Rx#:[id number] Heparin Sod,Pork in 0.45% 43.656 87.967 NaCl 25,000 unit In 0.45 % NaCl 1 250ml.bag @ 18 UNITS/KG/HR 8.16 mls/hr IV .Q24H [facility] Rx#: [id number] Sodium Chloride 0.9% 1, 1000 500 000 ml @ 125 mls/hr IV . Q8H [facility] Rx#:[id number] Oral 600 180 Other: Voiding Method Bedside Commode Bedside Commode Bedside Commode # Voids 2 1 - Constitutional Constitutional Comment(s): frail, weak General appearance: Present: cooperative, thin - EENT Eyes: Present: EOMI ENT: Present: hearing grossly normal - Respiratory Respiratory: bilateral: CTA (weak inspiratory effort) - Cardiovascular Heart sounds: normal: S1, S2 - Peripheral edema leg Peripheral Edema: bilateral: 3+ (weeping) - Gastrointestinal General gastrointestinal: Present: distended, normal bowel sounds, soft, tenderness - Neurologic Neurologic: Present: CNII-XII intact - Musculoskeletal Musculoskeletal: Present: generalized weakness - Psychiatric Psychiatric: Present: A&O x's 3, appropriate affect, intact judgment & insight - Labs CBC & Chem 7: 10/15/18 07:31 10/15/18 07:31 Labs: Abnormal Lab Results - Last 24 Hours (Table) 10/14/18 10/15/18 10/15/18 Range/Units 21:57 07:31 07:31 MCHC 30.3 L (31.0-37.0) g/dL RDW 19.5 H (11.5-15.5) % Lymphocytes # (Manual) 0.20 L (1.0-4.8) k/uL APTT 89.9 H (22.0-30.0) sec Chloride 114 H (98-107) mmol/L Carbon Dioxide 17 L (22-30) mmol/L Glucose 106 H (74-99) mg/dL Total Bilirubin 4.9 H (0.2-1.3) mg/dL AST 84 H (14-36) U/L Alkaline Phosphatase 1187 H (38-126) U/L Total Protein 5.3 L (6.3-8.2) g/dL Albumin 2.6 L (3.5-5.0) g/dL 10/15/18 Range/Units 09:26 MCHC (31.0-37.0) g/dL RDW (11.5-15.5) % Lymphocytes # (Manual) (1.0-4.8) k/uL APTT 61.7 H (22.0-30.0) sec Chloride (98-107) mmol/L Carbon Dioxide (22-30) mmol/L Glucose (74-99) mg/dL Total Bilirubin (0.2-1.3) mg/dL AST (14-36) U/L Alkaline Phosphatase (38-126) U/L Total Protein (6.3-8.2) g/dL Albumin (3.5-5.0) g/dL Assessment and Plan (1) Cholecystitis Current Visit: Yes Status: Acute Priority: High Code(s): K81.9 - CHOLECYSTITIS, UNSPECIFIED SNOMED Code(s): 09123883 (2) Failure to thrive Current Visit: Yes Status: Acute Priority: High Code(s): OSS9817 - SNOMED Code(s): 94732633 (3) Colon adenocarcinoma Current Visit: No Status: Chronic Priority: High Code(s): C18.9 - MALIGNANT NEOPLASM OF COLON, UNSPECIFIED SNOMED Code(s): 384111855 (4) Chronic abdominal pain Current Visit: Yes Status: Chronic Priority: High Code(s): R10.9 - UNSPECIFIED ABDOMINAL PAIN; G89.29 - OTHER CHRONIC PAIN SNOMED Code(s): 275273578 Plan: Initially the impression was that patient was possibly experiencing cholecystitis. At appears that this diagnosis has not been confirmed. Cardiology has seen the patient for surgical clearance, they have stated that patient is weak and frail and they would only recommend surgery if no other reasonable options. They are going to proceed with an echo. I see that Dr. Booker has ordered a CT of the abdomen and pelvis to reevaluate patient disease.I broached the discussion with the patient and the family about patient being off of treatment for about 2 weeks that there could be the possibility of disease progression. Imaging at her last visit around [place] did show a positive treatment response. We will await imaging results. Liver functions will continue to be monitored. We will collaborate with the care team to find out the best course of action for this very uncomfortable patient. Patient is going to receive medications to encourage bowel movement Pain medications will continue to be titrated to tolerance.
--- NOTE | 2018-10-15 18:20 | ECHOF ---
Referral Reason:pre-op MEASUREMENTS -------- HEIGHT: 157.5 cm WEIGHT: 45.4 kg BP: 133/77 IVSd: 1.0 cm (0.6 - 1.1) LVIDd: 3.3 cm (3.9 - 5.3) LVPWd: 1.0 cm (0.6 - 1.1) IVSs: 1.2 cm LVIDs: 2.3 cm LVPWs: 1.2 cm LAESV Index (A-L): 9.43 ml/m Ao Diam: 2.9 cm (2.0 - 3.7) AV Cusp: 1.9 cm (1.5 - 2.6) LA Diam: 2.8 cm (2.7 - 3.8) MV E Rolando: 0.69 m/s MV DecT: 156 ms MV A Rolando: 0.98 m/s MV E/A Ratio: 0.70 RAP: 5.00 mmHg RVSP: 31.76 mmHg FINDINGS -------- Sinus rhythm. This was a technically adequate study. The left ventricular size is normal. Left ventricular wall thickness is normal. Overall left vent ricular systolic function is normal with, an EF between 60 - 65 %. The right ventricle is normal in size and function. Normal LA size by volume 22+/-6 ml/m2. The right atrium is normal in size. Aortic valve is trileaflet and is mildly thickened. There is no evidence of aortic regurgitation. There is no evidence of aortic stenosis. The mitral valve leaflets are mildly thickened. There is trace to mild mitral regurgitation. Trace tricuspid regurgitation present. Right ventricular systolic pressure is normal at < 35 mmHg. There is no evidence of pulmonary hypertension. Trace/mild (physiologic) pulmonic regurgitation. The aortic root size is normal. Normal inferior vena cava with normal inspiratory collapse consistent with estimated right atrial pre ssure of 5 mmHg. There is no pericardial effusion. CONCLUSIONS -------- 1. Sinus rhythm. 2. This was a technically adequate study. 3. The left ventricular size is normal. 4. Left ventricular wall thickness is normal. 5. Normal LA size by volume 22+/-6 ml/m2. 6. Aortic valve is trileaflet and is mildly thickened. 7. The mitral valve leaflets are mildly thickened. 8. There is trace to mild mitral regurgitation. 9. Trace tricuspid regurgitation present. 10. Right ventricular systolic pressure is normal at < 35 mmHg. 11. There is no evidence of pulmonary hypertension. 12. Trace/mild (physiologic) pulmonic regurgitation. 13. The aortic root size is normal. 14. There is no pericardial effusion. FOILING MACHINE OPERATOR: Phoenix Mishra RDCS
[2018-10-15] MEDS: SENNOSIDES-DOCUSATE SODIUM 1 EACH TAB PO SCH (21:50)
[2018-10-16] MEDS ORDERED: HYDROmorphone 1 MG/ML 1 ML SYRINGE ONE (02:30)
[2018-10-16] MEDS: AMPICILLIN-SULBACTAM 3 GM in SODIUM CHLORIDE 0.9% 100 ML IVPB SCH ×3 (04:47→17:26)
[2018-10-16] MEDS: SODIUM CHLORIDE 0.9% 1,000 ML IV SCH ×2 (04:47→11:42)
[2018-10-16 05:05] LABS: Hepatitis A Antibody IgM Non-Reactive (Non-Reactive); Hepatitis B Core IgM Non-Reactive (Non-Reactive)
[2018-10-16] MEDS: HEPARIN SOD,PORK IN 0.45% NACL 25,000 UNIT in 0.45% NACL 1 250ML.BAG IV SCH ×2 (05:31→19:05)
[2018-10-16] MEDS: HYDROmorphone 1 MG/ML 1 ML SYRINGE IVP PRN ×3 (06:05→17:26)
[2018-10-16] MEDS: oxyCODONE-APAP 7.5-325MG 1 EACH TAB PO PRN ×2 (06:05→20:45)
[2018-10-16 07:23] LABS: ALT 54 U/L (9-52); AST 62 U/L (14-36); Albumin 2.7 g/dL (3.5-5.0); Alkaline Phosphatase 1162 U/L (38-126); Anion Gap 8 mmol/L; Blood Urea Nitrogen 14 mg/dL (7-17); Calcium 9.3 mg/dL (8.4-10.2); Carbon Dioxide 16 mmol/L (22-30); Chloride 115 mmol/L (98-107); Glucose 129 mg/dL (74-99); Potassium 5.5 mmol/L (3.5-5.1); Sodium 139 mmol/L (137-145); Total Bilirubin 4.6 mg/dL (0.2-1.3); Total Protein 5.4 g/dL (6.3-8.2)
[2018-10-16 07:50] LABS: Anisocytosis Slight; Basophils % (A) 0 %; Eosinophils # (A) 0.1 k/uL (0-0.7); Eosinophils % (A) 2 %; HCT 38.2 % (34.0-46.0); HGB 11.5 gm/dL (11.4-16.0); Hypochromasia Marked; Lymphocytes # (A) 0.7 k/uL (1.0-4.8); Lymphocytes % (A) 9 %; MCH 27.3 pg (25.0-35.0); MCHC 30.1 g/dL (31.0-37.0); MCV 90.8 fL (80.0-100.0); Mean Platelet Volume 9.9; Monocytes # (A) 0.7 k/uL (0-1.0); Monocytes % (A) 9 %; Neutrophils # (A) 6.1 k/uL (1.3-7.7); Neutrophils % (A) 79 %; Platelet Count 358 k/uL (150-450); RBC 4.21 m/uL (3.80-5.40); RDW 19.9 % (11.5-15.5); WBC 7.7 k/uL (3.8-10.6)
[2018-10-16] MEDS: POTASSIUM CHLORIDE ER 20 MEQ TAB.ER PO SCH (09:08)
[2018-10-16] MEDS: PANTOPRAZOLE 40 MG/10 ML VIAL IVP SCH (09:14)
[2018-10-16] MEDS: DRONABINOL 2.5 MG CAP PO SCH ×2 (09:14→17:26)
[2018-10-16] MEDS: SENNOSIDES-DOCUSATE SODIUM 1 EACH TAB PO SCH ×2 (09:14→20:45)
[2018-10-16 11:03] LABS: Poikilocytosis (M) Present; Target Cells Present
--- NOTE | 2018-10-16 11:24 | P.PN ---
Subjective Progress Note Date: 10/16/18 Principal diagnosis: elevated liver enzymes LFTs minimally improved; TB 4.6. AST 62. ALT 54. AP 1162. MRI spine/CT A/P incomplete patient was in pain. Still reports abdominal discomfort. AFP 3.3. Passing bowel movements. Afebrile. WBC 7.7. Hgb 11.5. Objective - Vital Signs Vital signs: Vital Signs Temp 98.1 F 10/16/18 05:00 Pulse 123 H 10/16/18 05:00 Resp 16 10/16/18 05:00 BP 104/72 10/16/18 05:00 Pulse Ox 97 10/16/18 05:00 Intake & Output 10/15/18 10/16/18 10/16/18 18:59 06:59 18:59 Intake Total 245.567 740 118.377 Balance 245.567 740 118.377 Weight 45.359 kg 45.359 kg Intake: IV 57.6 Heparin Sod,Pork in 0.45% 57.6 NaCl 25,000 unit In 0.45 % NaCl 1 250ml.bag @ 18 UNITS/KG/HR 8.16 mls/hr IV .Q24H [facility] Rx#: [id number] Intake, IV Titration 187.967 260 118.377 Amount Ampicillin-Sulbactam 3 gm 100 100 In Sodium Chloride 0.9% 100 ml @ 200 mls/hr IVPB Q8HR [facility] Rx#:[id number] Heparin Sod,Pork in 0.45% 87.967 118.377 NaCl 25,000 unit In 0.45 % NaCl 1 250ml.bag @ 18 UNITS/KG/HR 8.16 mls/hr IV .Q24H [facility] Rx#: [id number] Sodium Chloride 0.9% 1, 160 000 ml @ 125 mls/hr IV . Q8H [facility] Rx#:[id number] Oral 480 Other: Voiding Method Bedside Commode Indwelling Catheter # Voids 1 # Bowel Movements 2 - Constitutional Constitutional Comment(s): sleepy General appearance: Present: average body habitus - EENT Eyes: Present: scleral icterus - Respiratory Respiratory: bilateral: diminished - Cardiovascular Heart sounds: normal: S1, S2 - Gastrointestinal Gastrointestinal Comment(s): distended with mild ascites General gastrointestinal: Present: soft - Psychiatric Psychiatric: Present: appropriate affect - Labs CBC & Chem 7: 10/16/18 06:39 10/16/18 06:39 Labs: Abnormal Lab Results - Last 24 Hours (Table) 10/15/18 10/16/18 10/16/18 Range/Units 07:31 06:39 06:39 MCHC 30.1 L (31.0-37.0) g/dL RDW 19.9 H (11.5-15.5) % Lymphocytes # 0.7 L (1.0-4.8) k/uL Lymphocytes # (Manual) 0.20 L (1.0-4.8) k/uL APTT (22.0-30.0) sec Potassium 5.5 H (3.5-5.1) mmol/L Chloride 115 H (98-107) mmol/L Carbon Dioxide 16 L (22-30) mmol/L Glucose 129 H (74-99) mg/dL Total Bilirubin 4.6 H (0.2-1.3) mg/dL AST 62 H (14-36) U/L ALT 54 H (9-52) U/L Alkaline Phosphatase 1162 H (38-126) U/L Total Protein 5.4 L (6.3-8.2) g/dL Albumin 2.7 L (3.5-5.0) g/dL 10/16/18 Range/Units 06:39 MCHC (31.0-37.0) g/dL RDW (11.5-15.5) % Lymphocytes # (1.0-4.8) k/uL Lymphocytes # (Manual) (1.0-4.8) k/uL APTT 54.3 H (22.0-30.0) sec Potassium (3.5-5.1) mmol/L Chloride (98-107) mmol/L Carbon Dioxide (22-30) mmol/L Glucose (74-99) mg/dL Total Bilirubin (0.2-1.3) mg/dL AST (14-36) U/L ALT (9-52) U/L Alkaline Phosphatase (38-126) U/L Total Protein (6.3-8.2) g/dL Albumin (3.5-5.0) g/dL Assessment and Plan (1) Elevated liver enzymes Narrative/Plan: Metastatic colon cancer MRI abdomen October 03 reported PVT right posterior lobe. Soft tissue mass level of the maria elena 4.6 cm. Patient presenting with abdominal pain, elevated liver enzymes and predominantly a cholestatic pattern and found to have a ultrasound which showed a hydropic gallbladder with stones as well as sludge and a common bile duct which was essentially within normal limits. Unknown etiology, this may be related to the patient's recent treatment with chemotherapy as the medication has a known association with elevation in liver enzymes. CBD was essentially within normal limits on ultrasound imaging making choledocholithiasis less likely, however: If enzymes continue to trend up may benefit from CT imaging and or MRCP for further evaluation of the biliary system. Possibility of possible obstruction in the setting of known lymphadenopathy or other etiology. Current Visit: Yes Status: Acute Code(s): R74.8 - ABNORMAL LEVELS OF OTHER SERUM ENZYMES SNOMED Code(s): 895159458 (2) History of colon cancer Current Visit: Yes Status: Acute Code(s): Z85.038 - PERSONAL HISTORY OF MALIGNANT NEOPLASM OF LARGE INTESTINE SNOMED Code(s): 249311881 Plan: 1. Check ammonia level. Case discussed with oncology possible initiation of steroids to help improve LFTs. From a GI standpoint agreeable to restart oral anticoagulation. ERCP not planned at this time. CMP in am. Laxatives/enema for constipation prn. Will continue to follow. Assessment and plan of care discussed with Dr. Tuttle
--- NOTE | 2018-10-16 12:12 | P.PN ---
Subjective Progress Note Date: 10/16/18 Principal diagnosis: Abdominal pain Patient is sitting up in a chair. She remains slightly lethargic. Upon arousing her she denies any significant pain currently. She does describe bloating. Poor oral intake. Objective - Vital Signs Vital signs: Vital Signs Temp 98.1 F 10/16/18 05:00 Pulse 123 H 10/16/18 05:00 Resp 16 10/16/18 05:00 BP 104/72 10/16/18 05:00 Pulse Ox 97 10/16/18 05:00 Intake & Output 10/15/18 10/16/18 10/16/18 18:59 06:59 18:59 Intake Total 245.567 740 118.377 Balance 245.567 740 118.377 Weight 45.359 kg 45.359 kg Intake: IV 57.6 Heparin Sod,Pork in 0.45% 57.6 NaCl 25,000 unit In 0.45 % NaCl 1 250ml.bag @ 18 UNITS/KG/HR 8.16 mls/hr IV .Q24H [facility] Rx#: [id number] Intake, IV Titration 187.967 260 118.377 Amount Ampicillin-Sulbactam 3 gm 100 100 In Sodium Chloride 0.9% 100 ml @ 200 mls/hr IVPB Q8HR [facility] Rx#:[id number] Heparin Sod,Pork in 0.45% 87.967 118.377 NaCl 25,000 unit In 0.45 % NaCl 1 250ml.bag @ 18 UNITS/KG/HR 8.16 mls/hr IV .Q24H [facility] Rx#: [id number] Sodium Chloride 0.9% 1, 160 000 ml @ 125 mls/hr IV . Q8H [facility] Rx#:[id number] Oral 480 Other: Voiding Method Bedside Commode Indwelling Catheter # Voids 1 # Bowel Movements 2 - Exam Abdomen: Soft, mild distention, mild diffuse tenderness - Labs CBC & Chem 7: 10/16/18 06:39 10/16/18 06:39 Labs: Abnormal Lab Results - Last 24 Hours (Table) 10/16/18 10/16/18 10/16/18 Range/Units 06:39 06:39 06:39 MCHC 30.1 L (31.0-37.0) g/dL RDW 19.9 H (11.5-15.5) % Lymphocytes # 0.7 L (1.0-4.8) k/uL APTT 54.3 H (22.0-30.0) sec Potassium 5.5 H (3.5-5.1) mmol/L Chloride 115 H (98-107) mmol/L Carbon Dioxide 16 L (22-30) mmol/L Glucose 129 H (74-99) mg/dL Total Bilirubin 4.6 H (0.2-1.3) mg/dL AST 62 H (14-36) U/L ALT 54 H (9-52) U/L Alkaline Phosphatase 1162 H (38-126) U/L Total Protein 5.4 L (6.3-8.2) g/dL Albumin 2.7 L (3.5-5.0) g/dL Assessment and Plan (1) Chronic abdominal pain Narrative/Plan: Patient was sent yesterday for CAT scan abdomen and pelvis to help better evaluate the source of pain and the extent of her known malignancy. She apparently was unable to lay flat for the study. Currently she appears more comfortable. The patient's family apparently was concerned that we were not looking for sources of her pain outside of her normal malignancy. That is in fact the reason the CAT scan was ordered. If her pain seems to improve and the patient and family would like to reconsider reattempts at CAT scan that would be reasonable. Apparently there is a meeting tentatively scheduled with oncology to further discuss her prognosis. No surgical intervention planned at this time. We'll follow. Current Visit: Yes Status: Chronic Priority: High Code(s): R10.9 - UNSPECIFIED ABDOMINAL PAIN; G89.29 - OTHER CHRONIC PAIN SNOMED Code(s): 581675958
--- NOTE | 2018-10-16 14:01 | P.PN ---
Subjective Progress Note Date: 10/16/18 Principal diagnosis: Abdominal pain, bilateral lower extremity weakness, incontinence of bowel and bladder Pt seen in f/u. She is lethargic today, confused about events from yesterday. She was unable to lay still for her CT AP or Tspine MRI. Objective - Vital Signs Vital signs: Vital Signs Temp 98.1 F 10/16/18 05:00 Pulse 123 H 10/16/18 05:00 Resp 16 10/16/18 05:00 BP 104/72 10/16/18 05:00 Pulse Ox 97 10/16/18 05:00 Intake & Output 10/15/18 10/16/18 10/16/18 18:59 06:59 18:59 Intake Total 245.567 740 118.377 Balance 245.567 740 118.377 Weight 45.359 kg 45.359 kg Intake: IV 57.6 Heparin Sod,Pork in 0.45% 57.6 NaCl 25,000 unit In 0.45 % NaCl 1 250ml.bag @ 18 UNITS/KG/HR 8.16 mls/hr IV .Q24H [facility] Rx#: [id number] Intake, IV Titration 187.967 260 118.377 Amount Ampicillin-Sulbactam 3 gm 100 100 In Sodium Chloride 0.9% 100 ml @ 200 mls/hr IVPB Q8HR [facility] Rx#:[id number] Heparin Sod,Pork in 0.45% 87.967 118.377 NaCl 25,000 unit In 0.45 % NaCl 1 250ml.bag @ 18 UNITS/KG/HR 8.16 mls/hr IV .Q24H [facility] Rx#: [id number] Sodium Chloride 0.9% 1, 160 000 ml @ 125 mls/hr IV . Q8H [facility] Rx#:[id number] Oral 480 Other: Voiding Method Bedside Commode Indwelling Catheter Indwelling Catheter # Voids 1 # Bowel Movements 2 - Constitutional General appearance: Present: mild distress, thin - EENT Eyes: Present: anicteric sclerae, EOMI - Respiratory Respiratory: bilateral: CTA (weak inspiratory effort) - Cardiovascular Heart sounds: normal: S1, S2 - Peripheral edema leg Peripheral Edema: bilateral: 2+, 3+ - Gastrointestinal General gastrointestinal: Present: distended, soft, tenderness - Integumentary Integumentary: Present: pale - Musculoskeletal Musculoskeletal: Present: generalized weakness - Psychiatric Psychiatric Comment(s): Pt was lethargic, confused about events of yesterday, did know me, was off on time - Labs CBC & Chem 7: 10/16/18 06:39 10/16/18 06:39 Labs: Abnormal Lab Results - Last 24 Hours (Table) 10/16/18 10/16/18 10/16/18 Range/Units 06:39 06:39 06:39 MCHC 30.1 L (31.0-37.0) g/dL RDW 19.9 H (11.5-15.5) % Lymphocytes # 0.7 L (1.0-4.8) k/uL APTT 54.3 H (22.0-30.0) sec Potassium 5.5 H (3.5-5.1) mmol/L Chloride 115 H (98-107) mmol/L Carbon Dioxide 16 L (22-30) mmol/L Glucose 129 H (74-99) mg/dL Total Bilirubin 4.6 H (0.2-1.3) mg/dL AST 62 H (14-36) U/L ALT 54 H (9-52) U/L Alkaline Phosphatase 1162 H (38-126) U/L Total Protein 5.4 L (6.3-8.2) g/dL Albumin 2.7 L (3.5-5.0) g/dL Assessment and Plan (1) Cholecystitis Current Visit: Yes Status: Acute Priority: High Code(s): K81.9 - CHOLECYSTITIS, UNSPECIFIED SNOMED Code(s): 53225295 (2) Failure to thrive Current Visit: Yes Status: Acute Priority: High Code(s): JTC4332 - SNOMED Code(s): 49988718 (3) Colon adenocarcinoma Current Visit: No Status: Chronic Priority: High Code(s): C18.9 - MALIGNANT NEOPLASM OF COLON, UNSPECIFIED SNOMED Code(s): 512238870 (4) Chronic abdominal pain Current Visit: Yes Status: Chronic Priority: High Code(s): R10.9 - UNSPECIFIED ABDOMINAL PAIN; G89.29 - OTHER CHRONIC PAIN SNOMED Code(s): 343871123 Plan: Pt was unable to tolerate positioning for imaging studies that were ordered. We will try administering steroids to see if that provides any additional pain relief and try again for imaging. Have discussed case with Surgeon and GI. Cause for clinical presentation is not perfectly clear but, there is certainly concern that the cause is malignancy. Imaging could help clarify. We will see if pt can tolerate imaging tomorrow. If there is disease progress, or even if not, pt is physically failing. There is a meeting scheduled with pt and family in the AM to discuss, clarify and set some realistic goals of care for pt.
[2018-10-16] MEDS ORDERED: SODIUM POLYSTYRENE SULFONATE 15 GM/60 ML BOTTLE PO STA (14:26)
--- NOTE | 2018-10-16 14:31 | P.PN ---
Subjective Progress Note Date: 10/16/18 Mable Gross is a 68-year-old female who presented to [facility] emergency room with a chief complaint of abdominal pain and nausea. Patient has a known history of metastatic colon cancer status post partial colectomy, patient is followed by oncology and is receiving chemotherapy. She was admitted to [facility] 2 weeks ago with abdominal pain pain medication were adjusted and she was discharged home however she returns was worsening pain and nausea. She was evaluated in the emergency room she had elevated alkaline phosphatase and elevated lipase ultrasound of the gallbladder revealed evidence of sludge and stones in the gallbladder with possible acute cholecystitis she was admitted to medical floor for further evaluation and treatment auscultation 4 oncology and for general surgery was initiated in the emergency room. Patient also had evidence of urinary tract infection she was started on IV Rocephin 1 g every 24 hours. On 10/13/2018 patient was seen and examined on the oncology unit she is alert and oriented 3 in no apparent distress, pain is better controlled today there is no fever or chills no headache or dizziness no chest pain no shortness of breath no cough no nausea or vomiting and no urinary symptoms 10/14/2018 patient still complaining of abdominal pain. Total bilirubin has increased from 4.9-5.2 AST elevated at 96 alk phos increased to 1150. ALT normal at 52. Awaiting GI and surgical evaluation. Oncology has adjusted antibiotics to Unasyn. Patient also being treated for UTI. Urine culture negative. Patient has been tachycardic possibly related to her pain. EKG has been ordered. She is complaining of lower extremity edema. She has been off of her Eliquis for almost a week due to procedures. Therefore, will check venous Doppler rule out DVT of the lower extremities. Patient denies any chest pain. Occasional nausea. No vomiting for over 24 hours. She did have a bowel movement 2 days ago. 10/15/2018 venous Dopplers show bilateral lower extremity DVTs that may be chronic. Patient started on IV heparin due to possible procedures or interventions. Her Eliquis remains on hold. Discussed case with GI and surgical service. At this time GI is ordered a computed tomography scan of the abdomen for further evaluation. Per surgical service and GI service patient's liver enzymes are likely elevated due to retroperitoneal tumor involvement. Patient still having significant lower extremity edema and also is complaining of abdominal pain and constipation. Denies any chest pain or shortness of breath. On 10/16/2018 patient remains on heparin drip for bilateral lower extremity DVTs. CAT scan ordered per surgical services. Patient unable to tolerate due to pain laying flat. Discussed case with Rosa Elena per oncology services, Planning family meeting tomorrow. Per oncology will also try steroids to help with pain. Patient will remain on heparin gtt until further plan of care is determined. Today patient remains sleepy. Patient denies any chest pain or shortness breath. Fluids will be DC'd Due to increased edema. Patient denies chest pain or shortness of breath Objective - Vital Signs Vital signs: Vital Signs Temp 98.1 F 10/16/18 05:00 Pulse 123 H 10/16/18 05:00 Resp 16 10/16/18 05:00 BP 104/72 10/16/18 05:00 Pulse Ox 97 10/16/18 05:00 Intake & Output 10/15/18 10/16/18 10/16/18 18:59 06:59 18:59 Intake Total 245.567 740 118.377 Balance 245.567 740 118.377 Weight 45.359 kg 45.359 kg Intake: IV 57.6 Heparin Sod,Pork in 0.45% 57.6 NaCl 25,000 unit In 0.45 % NaCl 1 250ml.bag @ 18 UNITS/KG/HR 8.16 mls/hr IV .Q24H DAVID Rx#: [id number] Intake, IV Titration 187.967 260 118.377 Amount Ampicillin-Sulbactam 3 gm 100 100 In Sodium Chloride 0.9% 100 ml @ 200 mls/hr IVPB Q8HR DAVID Rx#:[id number] Heparin Sod,Pork in 0.45% 87.967 118.377 NaCl 25,000 unit In 0.45 % NaCl 1 250ml.bag @ 18 UNITS/KG/HR 8.16 mls/hr IV .Q24H DAVID Rx#: [id number] Sodium Chloride 0.9% 1, 160 000 ml @ 125 mls/hr IV . Q8H DAVID Rx#:[id number] Oral 480 Other: Voiding Method Bedside Commode Indwelling Catheter Indwelling Catheter # Voids 1 # Bowel Movements 2 - Exam Head normocephalic Neck supple Lungs clear to auscultation bilaterally no wheezing or crackles Heart regular rate and rhythm S1-S2, no rub or gallop Abdomen is distended diffuse tenderness positive bowel sounds Extremities +2 to 3+ pitting edema bilateral lower extremities edema all he up into the thighs Neuro alert and orientated to 3 Skin jaundice - Labs CBC & Chem 7: 10/16/18 06:39 10/16/18 06:39 Labs: Abnormal Lab Results - Last 24 Hours (Table) 10/16/18 10/16/18 10/16/18 Range/Units 06:39 06:39 06:39 MCHC 30.1 L (31.0-37.0) g/dL RDW 19.9 H (11.5-15.5) % Lymphocytes # 0.7 L (1.0-4.8) k/uL APTT 54.3 H (22.0-30.0) sec Potassium 5.5 H (3.5-5.1) mmol/L Chloride 115 H (98-107) mmol/L Carbon Dioxide 16 L (22-30) mmol/L Glucose 129 H (74-99) mg/dL Total Bilirubin 4.6 H (0.2-1.3) mg/dL AST 62 H (14-36) U/L ALT 54 H (9-52) U/L Alkaline Phosphatase 1162 H (38-126) U/L Total Protein 5.4 L (6.3-8.2) g/dL Albumin 2.7 L (3.5-5.0) g/dL Assessment and Plan Assessment: #1 abdominal pain with elevated liver enzymes: GI and surgical service are following. Concerns that symptoms are related to patient's tumor. Acute cholecystitis has been ruled out per surgical service. Computed tomography scan of the abdomen has been ordered for further investigation. Will await GI recommendations. Continue to monitor liver enzymes. Continue with current pain medications. Computed tomography scan ordered per surgical services. Patient unable to tolerate. Patient will receive steroids from oncology service and attempt to control pain to get imaging completed At this time patient is maintained on fentanyl patch 125 g, oxycodone 7.5 mg every 4 hours when necessary and IV Dilaudid was added 1 mg IV every 3 hours when necessary. #2 UTI continue Unasyn. Urine culture negative #3 underlying history of metastatic colon cancer, oncology following #6 history of iliac vein DVT Eliquis currently on hold for possible surgical intervention. Patient currently on heparin drip #7 severe protein calorie malnutrition continue ensure #8 thoracic spine back pain and bilateral lower extremity weakness. Oncology is ordered MRI of the thoracic spine. Patient unable to tolerate MRI due to discomfort. Cardiology services will try to administer steroids to provide any additional relief an attempt to get imaging needed to clarify condition. Per oncology family meeting will be held in a.m. of 10/17/18 to discuss a clarify realistic goals of care patient. #9 DVT bilateral lower extremities that may be chronic reported on venous Doppler. Case discussed with oncology. They recommended IV heparin. Await starting the Eliquis due to possible GI intervention #10 hyperkalemia. Potassium 5.5 will order dose of Kayexalate. Potassium supplement DC'd.44 #10 tachycardia: Check EKG. Possibly related to pain. Pain medication adjusted. 2-D echo completed showing EF of 60-65%. Per cardiology patient is at high risk for surgical intervention due to multiple comorbidities conditions and general debility. DVT prophylaxis heparin drip, GI prophylaxis Protonix Family meeting to be held per oncology tomorrow 10/17/2018 I performed an examination of the patient and discussed their management with the Nurse Practitioner. I have reviewed the Nurse Practitioner's notes and agree with the documented findings and plan of care
[2018-10-16] MEDS: DEXAMETHASONE 4 MG TAB PO SCH ×2 (15:25→20:45)
[2018-10-17] MEDS: AMPICILLIN-SULBACTAM 3 GM in SODIUM CHLORIDE 0.9% 100 ML IVPB SCH ×3 (00:21→16:24)
[2018-10-17] MEDS: HYDROmorphone 1 MG/ML 1 ML SYRINGE IVP PRN ×4 (03:13→16:25)
[2018-10-17] MEDS: oxyCODONE-APAP 7.5-325MG 1 EACH TAB PO PRN ×4 (03:14→16:24)
[2018-10-17 05:21] VITALS: TEMP 97.6
[2018-10-17 07:42] LABS: Anisocytosis Moderate; HGB 11.6 gm/dL (11.4-16.0); Hypochromasia Marked; MCH 26.1 pg (25.0-35.0); MCHC 28.9 g/dL (31.0-37.0); MCV 90.4 fL (80.0-100.0); Mean Platelet Volume 7.6; Platelet Count 342 k/uL (150-450); RBC 4.42 m/uL (3.80-5.40); RDW 20.5 % (11.5-15.5)
[2018-10-17] MEDS: SENNOSIDES-DOCUSATE SODIUM 1 EACH TAB PO SCH (08:25)
[2018-10-17 08:28] LABS: Albumin 2.8 g/dL (3.5-5.0); Calcium 9.4 mg/dL (8.4-10.2); Potassium 5.4 mmol/L (3.5-5.1); Total Bilirubin 5.2 mg/dL (0.2-1.3); Total Protein 5.8 g/dL (6.3-8.2)
[2018-10-17] MEDS: DEXAMETHASONE 4 MG TAB PO SCH ×2 (08:38→16:24)
[2018-10-17] MEDS: PANTOPRAZOLE 40 MG/10 ML VIAL IVP SCH (08:38)
[2018-10-17] MEDS: DRONABINOL 2.5 MG CAP PO SCH ×2 (08:38→17:54)
[2018-10-17 11:39] LABS: Lymphocytes # (M) 0.24 k/uL (1.0-4.8); Myelocytes # (M) 0.04 k/uL (0); Myelocytes % 1 %; Nucleated Red Blood Cells 0 /100 WBC (0-0)
[2018-10-17 11:41] LABS: Monocytes # (M) 0.16 k/uL (0-1.0); Neutrophils # (M) 3.56 k/uL (1.3-7.7); Neutrophils % (M) 89 %; Total Cells Counted 200
[2018-10-17 11:44] LABS: Poikilocytosis (M) Present
[2018-10-17] MEDS ORDERED: SODIUM POLYSTYRENE SULFONATE 15 GM/60 ML BOTTLE PO STA (12:12)
[2018-10-17 13:10] VITALS: BP 120/78; PULSE 99; RESP 16
--- NOTE | 2018-10-17 13:14 | P.PN ---
Subjective Progress Note Date: 10/17/18 Mable Gross is a 68-year-old female who presented to [facility] emergency room with a chief complaint of abdominal pain and nausea. Patient has a known history of metastatic colon cancer status post partial colectomy, patient is followed by oncology and is receiving chemotherapy. She was admitted to [facility] 2 weeks ago with abdominal pain pain medication were adjusted and she was discharged home however she returns was worsening pain and nausea. She was evaluated in the emergency room she had elevated alkaline phosphatase and elevated lipase ultrasound of the gallbladder revealed evidence of sludge and stones in the gallbladder with possible acute cholecystitis she was admitted to medical floor for further evaluation and treatment auscultation 4 oncology and for general surgery was initiated in the emergency room. Patient also had evidence of urinary tract infection she was started on IV Rocephin 1 g every 24 hours. On 10/13/2018 patient was seen and examined on the oncology unit she is alert and oriented 3 in no apparent distress, pain is better controlled today there is no fever or chills no headache or dizziness no chest pain no shortness of breath no cough no nausea or vomiting and no urinary symptoms 10/14/2018 patient still complaining of abdominal pain. Total bilirubin has increased from 4.9-5.2 AST elevated at 96 alk phos increased to 1150. ALT normal at 52. Awaiting GI and surgical evaluation. Oncology has adjusted antibiotics to Unasyn. Patient also being treated for UTI. Urine culture negative. Patient has been tachycardic possibly related to her pain. EKG has been ordered. She is complaining of lower extremity edema. She has been off of her Eliquis for almost a week due to procedures. Therefore, will check venous Doppler rule out DVT of the lower extremities. Patient denies any chest pain. Occasional nausea. No vomiting for over 24 hours. She did have a bowel movement 2 days ago. 10/15/2018 venous Dopplers show bilateral lower extremity DVTs that may be chronic. Patient started on IV heparin due to possible procedures or interventions. Her Eliquis remains on hold. Discussed case with GI and surgical service. At this time GI is ordered a computed tomography scan of the abdomen for further evaluation. Per surgical service and GI service patient's liver enzymes are likely elevated due to retroperitoneal tumor involvement. Patient still having significant lower extremity edema and also is complaining of abdominal pain and constipation. Denies any chest pain or shortness of breath. On 10/16/2018 patient remains on heparin drip for bilateral lower extremity DVTs. CAT scan ordered per surgical services. Patient unable to tolerate due to pain laying flat. Discussed case with Rosa Elena per oncology services, Planning family meeting tomorrow. Per oncology will also try steroids to help with pain. Patient will remain on heparin gtt until further plan of care is determined. Today patient remains sleepy. Patient denies any chest pain or shortness breath. Fluids will be DC'd Due to increased edema. Patient denies chest pain or shortness of breath 10/17/2018 patient had family meeting with oncology today regarding plan of care. Discussion of hospice was also initiated per oncology they have placed a consult for hospice regarding her metastatic colon cancer. Patient is still complaining of abdominal pain. She was unable to tolerate any imaging because she could not lay flat on her back. Her CEA is elevated at 314.9. Total bili 5.2 AST 55 ALT 54 alk phos 1136. IV heparin discontinued yesterday due to hematuria. Patient still having issues with constipation Objective - Vital Signs Vital signs: Vital Signs Temp 97.6 F 10/17/18 05:00 Pulse 104 H 10/17/18 05:00 Resp 18 10/17/18 05:00 BP 104/69 10/17/18 05:00 Pulse Ox 96 10/17/18 05:00 Intake & Output 10/16/18 10/17/18 10/17/18 18:59 06:59 18:59 Intake Total 175.977 890 Output Total 500 Balance 175.977 390 Intake: IV 57.6 0 Heparin Sod,Pork in 0.45% 57.6 0 NaCl 25,000 unit In 0.45 % NaCl 1 250ml.bag @ 18 UNITS/KG/HR 8.16 mls/hr IV .Q24H DAVID Rx#: [id number] Intake, IV Titration 118.377 440 Amount Ampicillin-Sulbactam 3 gm 300 In Sodium Chloride 0.9% 100 ml @ 200 mls/hr IVPB Q8HR DAVID Rx#:[id number] Heparin Sod,Pork in 0.45% 118.377 NaCl 25,000 unit In 0.45 % NaCl 1 250ml.bag @ 18 UNITS/KG/HR 8.16 mls/hr IV .Q24H DAVID Rx#: [id number] Sodium Chloride 0.9% 1, 140 000 ml @ 125 mls/hr IV . Q8H DAVID Rx#:[id number] Oral 450 Output: Urine 500 Other: Voiding Method Indwelling Catheter Indwelling Catheter Indwelling Catheter - Exam Head normocephalic Neck supple Lungs clear to auscultation bilaterally no wheezing or crackles Heart regular rate and rhythm S1-S2, no rub or gallop Abdomen is distended diffuse tenderness positive bowel sounds Extremities +2 to 3+ pitting edema bilateral lower extremities edema all he up into the thighs Neuro alert and orientated to 3 Skin jaundice - Labs CBC & Chem 7: 10/17/18 07:13 10/17/18 07:13 Labs: Abnormal Lab Results - Last 24 Hours (Table) 10/16/18 10/17/18 10/17/18 Range/Units 06:39 07:13 07:13 MCHC 28.9 L (31.0-37.0) g/dL RDW 20.5 H (11.5-15.5) % Lymphocytes # (Manual) 0.24 L (1.0-4.8) k/uL Myelocytes # (Manual) 0.04 H (0) k/uL Potassium 5.4 H (3.5-5.1) mmol/L Chloride 112 H (98-107) mmol/L Carbon Dioxide 18 L (22-30) mmol/L Glucose 152 H (74-99) mg/dL Total Bilirubin 5.2 H (0.2-1.3) mg/dL AST 55 H (14-36) U/L ALT 54 H (9-52) U/L Alkaline Phosphatase 1136 H (38-126) U/L Total Protein 5.8 L (6.3-8.2) g/dL Albumin 2.8 L (3.5-5.0) g/dL Carcinoembryonic Ag 314.9 H (0.0-4.9) ng/mL Assessment and Plan Assessment: #1 abdominal pain with elevated liver enzymes: GI and surgical service are following. Concerns that symptoms are related to patient's tumor. Acute cholecystitis has been ruled out per surgical service. Patient still having pain with the addition of the dexamethasone. Patient unable to tolerate any imaging. At this time patient is maintained on fentanyl patch 125 g, oxycodone 7.5 mg every 4 hours when necessary and IV Dilaudid was added 1 mg IV every 3 hours when necessary. #2 UTI continue Unasyn. Urine culture negative #3 underlying history of metastatic colon cancer, oncology following #6 history of iliac vein DVT Eliquis currently on hold #7 severe protein calorie malnutrition continue ensure #8 thoracic spine back pain and bilateral lower extremity weakness. Unable to have MRI due to pain #9 DVT bilateral lower extremities that may be chronic reported on venous Doppler. #10 sinus tachycardia: Likely secondary to patient's pain. 2-D echo completed showing EF of 60-65%. Per cardiology patient is at high risk for surgical intervention due to multiple comorbidities conditions and general debility. #11 hematuria anticoagulation currently on hold GI prophylaxis Protonix and DVT prophylaxis SCDs Plan Awaiting hospice consult I performed an examination of the patient and discussed their management with the physician Log Rider. I have reviewed the Physician Log Rider's notes and agree with the documented findings and plan of care
--- NOTE | 2018-10-17 14:07 | P.PN ---
Subjective Progress Note Date: 10/17/18 Principal diagnosis: Abdominal pain, bilateral lower extremity weakness, incontinence of bowel and bladder Pt seen today with multiple family at bedside for family meeting. Pt did state some improvement in her discomfort with the addition of steroids yesterday. She has required medication/interventions to have BM, she is very weak. Objective - Vital Signs Vital signs: Vital Signs Temp 97.6 F 10/17/18 12:45 Pulse 99 10/17/18 12:45 Resp 16 10/17/18 12:45 BP 120/78 10/17/18 12:45 Pulse Ox 96 10/17/18 12:45 Intake & Output 10/16/18 10/17/18 10/17/18 18:59 06:59 18:59 Intake Total 175.977 890 Output Total 500 Balance 175.977 390 Intake: IV 57.6 0 Heparin Sod,Pork in 0.45% 57.6 0 NaCl 25,000 unit In 0.45 % NaCl 1 250ml.bag @ 18 UNITS/KG/HR 8.16 mls/hr IV .Q24H DAVID Rx#: [id number] Intake, IV Titration 118.377 440 Amount Ampicillin-Sulbactam 3 gm 300 In Sodium Chloride 0.9% 100 ml @ 200 mls/hr IVPB Q8HR DAVID Rx#:[id number] Heparin Sod,Pork in 0.45% 118.377 NaCl 25,000 unit In 0.45 % NaCl 1 250ml.bag @ 18 UNITS/KG/HR 8.16 mls/hr IV .Q24H DAVID Rx#: [id number] Sodium Chloride 0.9% 1, 140 000 ml @ 125 mls/hr IV . Q8H DAVID Rx#:[id number] Oral 450 Output: Urine 500 Other: Voiding Method Indwelling Catheter Indwelling Catheter Indwelling Catheter - Exam Thin, frail, weak, NAD, A&O x 4, respirations even and unlabored, abd diatended , legs 4+ edema. - Labs CBC & Chem 7: 10/17/18 07:13 10/17/18 07:13 Labs: Abnormal Lab Results - Last 24 Hours (Table) 10/16/18 10/17/18 10/17/18 Range/Units 06:39 07:13 07:13 MCHC 28.9 L (31.0-37.0) g/dL RDW 20.5 H (11.5-15.5) % Lymphocytes # (Manual) 0.24 L (1.0-4.8) k/uL Myelocytes # (Manual) 0.04 H (0) k/uL Potassium 5.4 H (3.5-5.1) mmol/L Chloride 112 H (98-107) mmol/L Carbon Dioxide 18 L (22-30) mmol/L Glucose 152 H (74-99) mg/dL Total Bilirubin 5.2 H (0.2-1.3) mg/dL AST 55 H (14-36) U/L ALT 54 H (9-52) U/L Alkaline Phosphatase 1136 H (38-126) U/L Total Protein 5.8 L (6.3-8.2) g/dL Albumin 2.8 L (3.5-5.0) g/dL Carcinoembryonic Ag 314.9 H (0.0-4.9) ng/mL Assessment and Plan (1) Cholecystitis Current Visit: Yes Status: Acute Priority: High Code(s): K81.9 - CHOLECYSTITIS, UNSPECIFIED SNOMED Code(s): 87276879 (2) Failure to thrive Current Visit: Yes Status: Acute Priority: High Code(s): YBY3613 - SNOMED Code(s): 79805537 (3) Colon adenocarcinoma Current Visit: No Status: Chronic Priority: High Code(s): C18.9 - MALIGNANT NEOPLASM OF COLON, UNSPECIFIED SNOMED Code(s): 482119897 (4) Chronic abdominal pain Current Visit: Yes Status: Chronic Priority: High Code(s): R10.9 - UNSPECIFIED ABDOMINAL PAIN; G89.29 - OTHER CHRONIC PAIN SNOMED Code(s): 681402540 Plan: We reviewed pt inability to tolerate imaging due to discomfort. Some of pt discomfort relieved with addition of steroids which, is could be clinically interpreted as relief of swelling on the [employer], despite no imaging to support. CEA was rechecked, on 09/30/18 it was 24, 10/16/18 it is 314-a rather dramatic increase in a short period of time. Discussed the clinical evidence- increased pain, incontinence, swelling, progressive physical decline despite supportive care and holding treatment-which is all suggestive of progressive disease. Unfortunately, there are no other treatment options available for pt disease. We discussed changing focus of treatment from disease to treatment of symptoms. All pt and family questions were answered to the best of my ability. They had decided on hospice. I have spoken with human resources manager who will investigate financial situation to help family with decisions. Pt condition is terminal. Pt will succumb to her disease, or complications of her disease, in the next few weeks. Time with Patient: Greater than 30
--- NOTE | 2018-10-17 15:27 | P.DS ---
Providers Date of admission: 10/11/18 20:05 Expected date of discharge: 10/17/18 Attending physician: Irma Lyons Consults: 10/11/18 18:47 Consult Physician Routine Consulting Provider: Tiago Booker Consult Reason/Comments: Abdominal pain, history of colon cancer Do you want consulting provider notified?: Yes 10/11/18 19:53 Consult Physician Urgent Consulting Provider: Becky Tejada Consult Reason/Comments: Metastatic colon cancer Do you want consulting provider notified?: Yes 10/13/18 14:45 Consult Physician Routine Consulting Provider: Jing/Jorge Consult Reason/Comments: obstructive jaundice,possibly related to gallstones Do you want consulting provider notified?: Yes 10/14/18 13:46 Consult Physician Routine Consulting Provider: Maureen Bazan Consult Reason/Comments: tachycardia, pre-op clearance Do you want consulting provider notified?: Yes [facility] care [facility] Course: Discharge diagnosis 1. Metastatic colon cancer that has progressed. Patient has a significant increase in her CEA and increase in pain, incontinence, swelling and progressive physical decline despite supportive care and holding treatment. This is all suggestive of progressive of her disease per oncology. They've recommended hospice. Patient and family are agreeable to hospice. Patient will be discharged to hospice house today. 2.abdominal pain with elevated liver enzymes: Likely secondary to patient's metastatic colon cancer. Concerns that symptoms are related to patient's tumor. Acute cholecystitis has been ruled out per surgical service. Patient still having pain with the addition of the dexamethasone. Patient unable to tolerate any imaging. 3.UTI : Urine culture negative. Patient completed antibiotic treatment during hospital is 4. history of iliac vein DVT Eliquis currently on hold 5. severe protein calorie malnutrition continue ensure 6. thoracic spine back pain and bilateral lower extremity weakness. Unable to have MRI due to pain 7. DVT bilateral lower extremities that may be chronic reported on venous Doppler. 8. sinus tachycardia: Likely secondary to patient's pain. 2-D echo completed showing EF of 60-65%. Per cardiology patient is at high risk for surgical intervention due to multiple comorbidities conditions and general debility. 9. hematuria anticoagulation currently on hold Hospital course Mable Gross is a 68-year-old female who presented to [facility] emergency room with a chief complaint of abdominal pain and nausea. Patient has a known history of metastatic colon cancer status post partial colectomy, patient is followed by oncology and is receiving chemotherapy. She was admitted to [facility] 2 weeks ago with abdominal pain pain medication were adjusted and she was discharged home however she returns was worsening pain and nausea. She was evaluated in the emergency room she had elevated alkaline phosphatase and elevated lipase ultrasound of the gallbladder revealed evidence of sludge and stones in the gallbladder with possible acute cholecystitis she was admitted to medical floor for further evaluation and treatment auscultation 4 oncology and for general surgery was initiated in the emergency room. Patient also had evidence of urinary tract infection she was started on IV Rocephin 1 g every 24 hours. On 10/13/2018 patient was seen and examined on the oncology unit she is alert and oriented 3 in no apparent distress, pain is better controlled today there is no fever or chills no headache or dizziness no chest pain no shortness of breath no cough no nausea or vomiting and no urinary symptoms 10/14/2018 patient still complaining of abdominal pain. Total bilirubin has increased from 4.9-5.2 AST elevated at 96 alk phos increased to 1150. ALT normal at 52. Awaiting GI and surgical evaluation. Oncology has adjusted antibiotics to Unasyn. Patient also being treated for UTI. Urine culture negative. Patient has been tachycardic possibly related to her pain. EKG has been ordered. She is complaining of lower extremity edema. She has been off of her Eliquis for almost a week due to procedures. Therefore, will check venous Doppler rule out DVT of the lower extremities. Patient denies any chest pain. Occasional nausea. No vomiting for over 24 hours. She did have a bowel movement 2 days ago. 10/15/2018 venous Dopplers show bilateral lower extremity DVTs that may be chronic. Patient started on IV heparin due to possible procedures or interventions. Her Eliquis remains on hold. Discussed case with GI and surgical service. At this time GI is ordered a computed tomography scan of the abdomen for further evaluation. Per surgical service and GI service patient's liver enzymes are likely elevated due to retroperitoneal tumor involvement. Patient still having significant lower extremity edema and also is complaining of abdominal pain and constipation. Denies any chest pain or shortness of breath. On 10/16/2018 patient remains on heparin drip for bilateral lower extremity DVTs. CAT scan ordered per surgical services. Patient unable to tolerate due to pain laying flat. Discussed case with Rosa Elena per oncology services, Planning family meeting tomorrow. Per oncology will also try steroids to help with pain. Patient will remain on heparin gtt until further plan of care is determined. Today patient remains sleepy. Patient denies any chest pain or shortness breath. Fluids will be DC'd Due to increased edema. Patient denies chest pain or shortness of breath 10/17/2018 patient had family meeting with oncology today regarding plan of care. Discussion of hospice was also initiated per oncology they have placed a consult for hospice regarding her metastatic colon cancer. Patient is still complaining of abdominal pain. She was unable to tolerate any imaging because she could not lay flat on her back. Her CEA is elevated at 314.9. Total bili 5.2 AST 55 ALT 54 alk phos 1136. IV heparin discontinued yesterday due to hematuria. Patient still having issues with constipation Patient and family met with the hospice nurse. They are agreeable to be discharged to hospice house with [facility]. Patient will continue pain medications with fentanyl 125 g every 72 hours, Percocet 7.5 mg by mouth every 4 hours, Roxanol 10 mg every 3 hours as needed. She'll also continue the dexamethasone 4 mg by mouth 3 times a day per oncology to help with pain control. Please refer to chart for any further details Mable Gross is a 68-year-old female who presented to [facility] emergency room with a chief complaint of abdominal pain and nausea. Patient has a known history of metastatic colon cancer status post partial colectomy, patient is followed by oncology and is receiving chemotherapy. She was admitted to [facility] 2 weeks ago with abdominal pain pain medication were adjusted and she was discharged home however she returns was worsening pain and nausea. She was evaluated in the emergency room she had elevated alkaline phosphatase and elevated lipase ultrasound of the gallbladder revealed evidence of sludge and stones in the gallbladder with possible acute cholecystitis she was admitted to medical floor for further evaluation and treatment auscultation 4 oncology and for general surgery was initiated in the emergency room. Patient also had evidence of urinary tract infection she was started on IV Rocephin 1 g every 24 hours. On 10/13/2018 patient was seen and examined on the oncology unit she is alert and oriented 3 in no apparent distress, pain is better controlled today there is no fever or chills no headache or dizziness no chest pain no shortness of breath no cough no nausea or vomiting and no urinary symptoms 10/14/2018 patient still complaining of abdominal pain. Total bilirubin has increased from 4.9-5.2 AST elevated at 96 alk phos increased to 1150. ALT normal at 52. Awaiting GI and surgical evaluation. Oncology has adjusted antibiotics to Unasyn. Patient also being treated for UTI. Urine culture negative. Patient has been tachycardic possibly related to her pain. EKG has been ordered. She is complaining of lower extremity edema. She has been off of her Eliquis for almost a week due to procedures. Therefore, will check venous Doppler rule out DVT of the lower extremities. Patient denies any chest pain. Occasional nausea. No vomiting for over 24 hours. She did have a bowel movement 2 days ago. 10/15/2018 venous Dopplers show bilateral lower extremity DVTs that may be chronic. Patient started on IV heparin due to possible procedures or interventions. Her Eliquis remains on hold. Discussed case with GI and surgical service. At this time GI is ordered a computed tomography scan of the abdomen for further evaluation. Per surgical service and GI service patient's liver enzymes are likely elevated due to retroperitoneal tumor involvement. Patient still having significant lower extremity edema and also is complaining of abdominal pain and constipation. Denies any chest pain or shortness of breath. On 10/16/2018 patient remains on heparin drip for bilateral lower extremity DVTs. CAT scan ordered per surgical services. Patient unable to tolerate due to pain laying flat. Discussed case with Rosa Elena per oncology services, Planning family meeting tomorrow. Per oncology will also try steroids to help with pain. Patient will remain on heparin gtt until further plan of care is determined. Today patient remains sleepy. Patient denies any chest pain or shortness breath. Fluids will be DC'd Due to increased edema. Patient denies chest pain or shortness of breath 10/17/2018 patient had family meeting with oncology today regarding plan of care. Discussion of hospice was also initiated per oncology they have placed a consult for hospice regarding her metastatic colon cancer. Patient is still complaining of abdominal pain. She was unable to tolerate any imaging because she could not lay flat on her back. Her CEA is elevated at 314.9. Total bili 5.2 AST 55 ALT 54 alk phos 1136. IV heparin discontinued yesterday due to hematuria. Patient still having issues with constipation Patient and family met with the hospice nurse. They are agreeable to be discharged to the hospice house today. Patient will continue final patch 125 g daily, Percocet 7.5 mg every 4 hours as needed for pain and also will give Roxanol 10 mg every 3 hours as needed. Patient will also continue the dexamethasone to help with pain control per oncology recommendations. We'll continue the Eliquis for now. This can be discontinued if the hematuria becomes severe. Patient is stable for discharge to hospice house I performed an examination of the patient and discussed their management with the physician Harp Regulator. I have reviewed the Physician Harp Regulator's notes and agree with the documented findings and plan of care Patient Condition at Discharge: Stable Plan - Discharge Summary Discharge Rx Participant: No New Discharge Prescriptions: Continue Prochlorperazine [Compazine] 10 mg PO Q6H PRN PRN Reason: Nausea Lidocaine-Prilocaine Cream [Emla Cream 2.5%/2.5%] 1 applic TOPICAL DIRECTED PRN PRN Reason: port access Dronabinol [Marinol] 5 mg PO AC-BID Discontinued Diphenox-Atrop 2.5-0.025 mg [Lomotil] 2 tab PO QID PRN PRN Reason: Diarrhea Potassium Chloride [K-Tab ER] 20 meq PO DAILY #30 tablet.er Vemurafenib [Zelboraf] 240 mg PO BID No Action fentaNYL 100MCG/HR PATCH [Duragesic 100MCG/HR] 1 patch TRANSDERM Q72H patch oxyCODONE-APAP 7.5-325MG [Percocet 7.5-325 mg] 10 mg PO Q4HR Apixaban [Eliquis] 5 mg PO BID 30 Days #60 tab Discharge Medication List fentaNYL 100MCG/HR PATCH [Duragesic 100MCG/HR] 1 patch TRANSDERM Q72H patch [Rx] Dronabinol [Marinol] 5 mg PO AC-BID 07/02/18 [History] Lidocaine-Prilocaine Cream [Emla Cream 2.5%/2.5%] 1 applic TOPICAL DIRECTED PRN 07/02/18 [History] Prochlorperazine [Compazine] 10 mg PO Q6H PRN 07/02/18 [History] oxyCODONE-APAP 7.5-325MG [Percocet 7.5-325 mg] 10 mg PO Q4HR 07/02/18 [History] Apixaban [Eliquis] 5 mg PO BID 30 Days #60 tab 07/10/18 [Rx] Activity/Diet/Wound Care/Special Instructions: per oncology please continue steroids upon discharge Discharge to hospice house with [facility] Discharge Disposition: OTHER INSTITUTION NOT DEFINED
== END 2018-10-17 18:55 | disposition hospice, home (50) | DRG 840 ==
LOC: EC 13:00 → 3NMEDONC 20:05
PROVIDERS: ADMIT Internal Medicine; ATTEND Internal Medicine
DX: C77.2 Secondary and unspecified malignant neoplasm of intra-abdominal lymph nodes (principal); E43 Unspecified severe protein-calorie malnutrition; I81 Portal vein thrombosis; N39.0 Urinary tract infection, site not specified; K82.1 Hydrops of gallbladder; K80.11 Calculus of gallbladder with chronic cholecystitis with obstruction; I82.513 Chronic embolism and thrombosis of femoral vein, bilateral; R18.8 Other ascites; Z68.1 Body mass index [BMI] 19.9 or less, adult; R15.9 Full incontinence of feces; E87.5 Hyperkalemia; E86.0 Dehydration; Z66 Do not resuscitate; Z51.5 Encounter for palliative care; G89.3 Neoplasm related pain (acute) (chronic); R62.7 Adult failure to thrive; R32 Unspecified urinary incontinence; K59.00 Constipation, unspecified; R19.7 Diarrhea, unspecified; J32.9 Chronic sinusitis, unspecified; R31.9 Hematuria, unspecified; E27.9 Disorder of adrenal gland, unspecified; M54.6 Pain in thoracic spine; M81.0 Age-related osteoporosis without current pathological fracture; Z71.3 Dietary counseling and surveillance; Z79.01 Long term (current) use of anticoagulants; Z79.891 Long term (current) use of opiate analgesic; Z79.899 Other long term (current) drug therapy; Z90.49 Acquired absence of other specified parts of digestive tract; Z90.710 Acquired absence of both cervix and uterus; Z92.21 Personal history of antineoplastic chemotherapy; Z87.891 Personal history of nicotine dependence; Z85.038 Personal history of other malignant neoplasm of large intestine; Z88.5 Allergy status to narcotic agent; Z80.3 Family history of malignant neoplasm of breast; Z80.0 Family history of malignant neoplasm of digestive organs
CPT/HCPCS: 36415; 76705; 80053; 80074; 81001; 82105; 82140; 82150; 82378; 82550; 82553; 83605; 83690; 84443; 85025; 85610; 85730; 87086; 93005; 93306; 93970; 96361; 96374; 96375; 96376; 99285